=== PATIENT | female | born 1970 | race Caucasian/White ===

== ENCOUNTER 2023-08-22 17:14 | Emergency (ER) | payer OTHER, SELFPAY ==
[2023-08-22 17:24] VITALS: BP 120/64; PULSE 68; RESP 20; TEMP 36.6; O2SAT 98; BMI 25.2
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
== END 2023-08-22 18:39 | disposition home or self-care (01) ==
PROVIDERS: Emergency Provider Emergency Medicine; PCP Family Medicine
DX: R07.89 Other chest pain (principal); Z79.899 Other long term (current) drug therapy; Z79.890 Hormone replacement therapy
CPT/HCPCS: 71046; 99283

== ENCOUNTER 2023-08-28 17:49 | Emergency (ER) | payer OTHER, SELFPAY ==
--- OUTSIDE RECORDS SUMMARY | 2023-08-28 17:57 | XMS_ITS | CCD ---
Author Name Unknown Address [address] [place] [address] Organization [facility] Care Team Providers Care Subassembler Name Role Phone Celso Jimenez Primary Care Provider [phone] DOUG GAVIN Admitting Unavailable HEDGES, DR DOUG Trivedi Attending Unavailable COLE, DR CELSO Rios Primary Care Unavailable GIGI, DR ALEXEY Shrestha Consulting Unavailable HEDGEDia, DR DOUG Trivedi Consulting Unavailable COLE, DR CELSO Rios Admitting Unavailable FURLONG, DR CELSO Rios Attending Unavailable COLE, DR CELSO Rios Primary Care Unavailable FURLONG, DR CELSO Rios Consulting Unavailable HEDGES, DR DOUG Trivedi Admitting Unavailable HEDGES, DR DOUG Trivedi Attending Unavailable SBNG, DR CELSO Rios Primary Care Unavailable ZIEBER, DR ALEXEY Shrestha Consulting Unavailable LAINES, DR DOUG Trivedi Consulting Unavailable COLE, DR CELSO Riso Primary Care Unavailable SALVADOR, DR GRAEME Hess Admitting Unavailable SALVADOR, DR GRAEME Hess Attending Unavailable SALVADOR, DR GRAEME Hess Consulting Unavailable GIGI, DR ALEXEY Shrestha Consulting Unavailable SAFIA FRAZIER Consulting Unavailable MARILU TOPETE Consulting Unavailable Celso Jimenez Primary Care Provider [phone] DOUG GAVIN Referring Unavailable CELSO JIMENEZ Primary Care Unavailable Yazanlong Celso OTOOLE Primary Care Provider [phone] Allergies Allergy Classification Reported Allergen(s) Allergy Type Date of Onset Reaction(s) Facility (5 sources) Codeine Drug Allergy 0 Other (See Comments) [place] (1 source) Codeine Drug Allergy [facility] (2 sources) Latex Propensity to adverse reactions to drug 2 Other (See Comments) [facility] (1 source) Seasonal allergy Propensity to adverse reactions to substance 2 Other (See Comments) [facility] (1 source) Hay Fever And Allergy Relief Propensity to adverse reactions to drug 2 Other (See Comments) [facility] Medications Current Medications Medication Drug Class(es) Dates Sig (Normalized) Sig (Original) [id number] 200 actuat albuterol 0.09 mg/actuat metered dose inhaler (2 sources) beta2-Adrenergic Agonist Start: 08-05-2016 PROAIR HFA 108 (90 BASE) MCG/ACT inhaler Start: 08-05-2016 PROAIR HFA 108 (90 BASE) MCG/ACT inhaler estradiol 1 mg oral tablet (4 sources) Estrogen Start: 02-24-2023 take 1 tablet by mouth once daily estradiol (ESTRACE) 1 MG tablet Indications: Premature surgical menopause on hormone replacement therapy Take 1 tablet by mouth daily 30 tablet 12 02/24/2023 Active Start: 01-10-2020 take 1 tablet by beverly once daily estradiol (ESTRACE) 1 MG tablet Indications: Premature surgical menopause on hormone replacement therapy Take 1 tablet by mouth daily 30 tablet 12 01/10/2020 Active Estrogens, Conjugated (INTERMEDIATE) (1 source) Estrogen Estrogens Conjug ated Active fluticasone propionate 0.05 mg/actuat metered dose nasal spray (3 sources) Corticosteroid Start: 04-05-2022 take 2 spray(s) nasal route once daily fluticasone propionate (FLONASE) 50 mcg/actuation nasal spray instill 2 (TWO) sprays nasally DAILY for 14 days 0 04/05/2022 Active Start: 04-05-2022 take 2 spray(s) nasa l route once daily fluticasone (FLONASE) 50 MCG/ACT nasal spray instill 2 (TWO) sprays nasally DAILY for 14 days 0 04/05/2022 Active Start: 04-05-2022 take 2 spray(s) nasa l route once daily Fluticasone Propionate 50 MCG/ACT 2 sprays Nasally Once a day for 14 day(s) Mar, Active ibuprofen 800 mg oral tablet (1 source) Nonsteroidal Anti-inflammatory Drug take 1 tablet by mouth every eight hours as needed for pain ibuprofen (ADVIL,MOTRIN) 800 mg tablet Take 1 tablet (800 mg total) by mouth every 8 (eight) hours as needed for pain. 0 Active levothyroxine sodium 0.05 mg oral tablet (6 sources) l-Thyroxine Start: 022 End: 024 take 1 tablet by mouth once daily levothyroxine (SYNTHROID, LEVOTHROID) 50 MCG tablet Indications: Hypothyroidism, unspecified TAKE 1 TABLET BY MOUTH EVERY DAY 30 tablet 1 07/27/2023 Active Start: 12-13-2019 take 1 tablet by beverly th once daily levothyroxine (SYNTHROID) 25 MCG tablet Take 1 tablet(s) every day by oral route. 0 12/13/2019 Active Levothyroxine So dium Active Multiple Vitamins-Minerals ( MULTIVITAMIN PO) (3 sources) Multiple Vitamin s-Minerals (MULTIVITAMIN PO) Indications: Routine gynecological examination Take by mouth. 0 Active Problems Active Problems Problem Classification Problem Date Documented Da te Episodic/Chronic Asthma (1 source) Reactive airway disease; Translations: [Unspecified asthma, uncomplicated] Onset: 04-30-2022 04-30-2022 Chronic Endometriosis (1 source) Endometriosis (clinical); Translations: [Endometriosis, unspecified] Onset: 04-30-2022 04-30-2022 Chronic Fluid and electrolyte disorders (1 source) Hypokalemia; Translations: [HYPOKALEMIA] Onset: 05-03-2022 Episodic Gastrointestinal hemorrhage (4 sources) Hemorrhage of anus and rectum; Translations: [Gastrointestinal hemorrhage, unspecified] Onset: 04-25-2022 Episodic Immunizations and screening for infectious disease (2 sources) Contact with and (suspected) exposure to other viral communicable diseases; Translations: [Contact with and (suspected) exposure to other viral communicable diseases] Episodic Noninfectious gastroenteritis (1 source) Noninfective gastroenteritis and colitis, unspecified; Translations: [NONINFECTIVE GE AND COLITIS UNS] Onset: 05-03-2022 Episodic Other aftercare (1 source) Other fpc (current) drug therapy; Translations: [OTH SENIOR CARE CURRENT DRUG THERAPY] Onset: 05-03-2022 Episodic Other and unspecified benign neoplasm (1 source) Personal history of colonic polyps; Translations: [PERSONAL HISTORY OF COLONIC POLYPS] Onset: 05-03-2022 Episodic Other endocrine disorders (4 sources) Other specified disorders of adrenal gland; Translations: [OTHER SPEC DISORDERS ADRENAL GLAND] Onset: 02-25-2022 Chronic Other endocrine disorders (1 source) Polycystic ovary; Translations: [Polycystic ovarian syndrome] Onset: 04-30-2022 04-30-2022 Chronic Other endocrine disorders (1 source) Hypoglycemia; Translations: [Hypoglycemia, unspecified] Onset: 04-30-2022 04-30-2022 Chronic Residual codes; unclassified (1 source) Acquired absence of both cervix and uterus; Translations: [ACQUIRED ABSENCE BOTH CERVIX AND UTERUS] Onset: 05-03-2022 Episodic Screening and history of mental health and substance abuse codes (1 source) Personal history of nicotine dependence; Translations: [PERSONAL HISTORY OF NICOTINE DEPEND] Onset: 05-03-2022 Episodic Thyroid disorders (3 sources) Hypothyroidism, unspecified; Translations: [Hypothyroidism] Onset: 08-24-2019 07-27-2023 Chronic Unclassified (1 source) Patient encounter status; Translations: [Encounter for well woman exam with routine gynecological exam] Unclassified (3 sources) CONTACT W/AND (SUSP) EXPOS COVID-19; Translations: [CONTACT W/AND (SUSP) EXPOS COVID-19] Onset: 06-14-2021 Viral infection (2 sources) COVID-19; Translations: [COVID-19] Onset: 06-14-2021 Past or Other Problems Problem Classification Problem Date Documented Da te Episodic/Chronic Allergic reactions (1 source) Erythema ab igne; Translations: [Erythema ab igne [dermatitis ab igne]] Onset: 09-10-2016 04-30-2022 Episodic Deficiency and other anemia (1 source) Anemia; Translations: [Anemia, unspecified] Onset: 04-30-2022 04-30-2022 Episodic Mood disorders (1 source) Mood disorders Onset: 08-30-2022 08-30-2022 Other and unspecified benign neoplasm (1 source) Polyp of sigmoid colon; Translations: [Polyp of colon] Onset: 10-22-2020 10-22-2020 Episodic Other bone disease and musculoskeletal deformities (1 source) Somatic dysfunction of lumbar region; Translations: [Segmental and somatic dysfunction of lumbar region] Onset: 04-30-2022 04-30-2022 Episodic Other nutritional; endocrine; and metabolic disorders (1 source) Overweight; Translations: [Overweight] Onset: 08-30-2022 08-30-2022 Episodic Other screening for suspected conditions (not mental disorders or infectious disease) (4 sources) Encounter for screening mammogram for malignant neoplasm of breast; Translations: [ENC SCR MAMMO MALIG NEOPLASM BREAST] Onset: 10-30-2021 Episodic Other upper respiratory infections (1 source) Acute upper respiratory infection, unspecified; Translations: [ACUTE UP RESPIRATORY INFECTION UNS] Onset: 06-14-2021 Episodic Unclassified (1 source) CONTACT W/AND (SUSP) EXPOS COVID-19; Translations: [CONTACT W/AND (SUSP) EXPOS COVID-19] Onset: 06-08-2021 Viral infection (1 source) Genital warts; Translations: [Anogenital (venereal) warts] Onset: 04-30-2022 04-30-2022 Episodic Results Test Name Value Interpretation Reference Range Facility CBC AUTO DIFFon 04-27-2022 BASO # 0.1 103/ul Normal 0.0-0.1 [facility] Comment on above: Performed By: #### C BC #### [facility] [address] [place] [address] Dr. Kenton Avila Basophils/100 WBC (Bld) 0.5 % Normal 0.2-2.0 [facility] Comment on above: Performed By: #### C BC #### [facility] [address] [place] [address] Dr. Kenton Avila EO # 0.2 103/ul Normal 0.0-0.7 [facility] Comment on above: Performed By: #### C BC #### [facility] [address] [place] [address] Dr. Kenton Avila Eosinophils/100 WBC (Bld) 1.8 % Normal 0.9-7.0 [facility] Comment on above: Performed By: #### C BC #### [facility] [address] [place] [address] Dr. Kenton Avila Erythrocyte distribution width (RBC) [Ratio] 13.2 % Normal 11.0-15.0 [facility] Comment on above: Performed By: #### C BC #### [facility] [address] [address] [address] Kenton Avila Hematocrit (Bld) [Volume fraction] 30.6 % Critically low 36.0-48.0 [facility] Comment on above: Performed By: #### C BC #### [facility] [address] [address] [address] Kenton Avila Hemoglobin (Bld) [Mass/Vol] 10.2 g/dL Critically low 12.0-16.0 [facility] Comment on above: Performed By: #### C BC #### [facility] [address] [place] [address] Dr. Kenton Avila IG # 0.04 10e3/ul Critically high 0.00-0.03 [facility] Comment on above: Performed By: #### C BC #### [facility] [address] [place] [address] Dr. Kenton Avila IG % 0.3 % Normal 0.0-0.5 [facility] Comment on above: Performed By: #### C BC #### [facility] [address] [place] [address] Dr. Kenton Avila LYMPH # 2.3 103/ul Normal 1.2-3.8 [facility] Comment on above: Performed By: #### C BC #### [facility] [address] [place] [address] Dr. Kenton Avila Lymphocytes/100 WBC (Bld) 19.0 % Critically low 20.5-60.0 [facility] Comment on above: Performed By: #### C BC #### [facility] [address] [place] [address] Dr. Kenton Avila MANUAL DIFF REQ NO Normal [facility] Comment on above: Performed By: #### C BC #### [facility] [address] [place] [address] Dr. Kenton Avila MCH (RBC) [Entitic mass] 29.5 pg Normal 26.7-34.0 [facility] Comment on above: Performed By: #### C BC #### [facility] [address] [place] [address] Dr. Kenton Avila MCHC (RBC) [Mass/Vol] 33.3 g/dL Normal 29.9-35.2 [facility] Comment on above: Performed By: #### C BC #### [facility] [address] [address] [address] Kenton Avila MCV (RBC) [Entitic vol] 88.4 fL Normal 81.0-99.0 [facility] Comment on above: Performed By: #### C BC #### [facility] [address] [address] [address] Kenton Avila MONO # 0.9 103/ul Critically high 0.3-0.[address] [facility] Comment on above: Performed By: #### C BC #### [facility] [address] [place] [address] Dr. Kenton Avila Monocytes/100 WBC (Bld) 7.4 % Normal 1.7-12.0 [facility] Comment on above: Performed By: #### C BC #### [facility] [address] [place] [address] Dr. Kenton Avila NEUT # 8.5 103/ul Critically high 1.4-6.[address] [facility] Comment on above: Performed By: #### C BC #### [facility] [address] [place] [address] Dr. Kenton Avila Neutrophils/100 WBC (Bld) 71.0 % Normal 43.0-75.0 [facility] Comment on above: Performed By: #### C BC #### [facility] [address] [place] [address] Dr. Kenton Avila Platelet mean volume (Bld) [Entitic vol] 9.2 fL Critically low 9.5-13.5 [facility] Comment on above: Performed By: #### C BC #### [facility] [address] [place] [address] Dr. Kenton Avila PLT 243 103/ul Normal 150-450 [facility] Comment on above: Performed By: #### C BC #### [facility] [address] [place] [address] Dr. Kenton Avila RBC 3.46 106/ul Critically low 4.20-5.[address] [facility] Comment on above: Performed By: #### C BC #### [facility] [address] [place] [address] Dr. Kenton Avila WBC 11.9 103/ul Critically high 4.0-11.0 [facility] Comment on above: Performed By: #### C BC #### [facility] [address] [place] [address] Dr. Kenton Avila BASO # 0.0 103/ul Normal 0.0-0.1 [facility] Comment on above: Performed By: #### C BC #### [facility] [address] [place] [address] Dr. Kenton Avila Basophils/100 WBC (Bld) 0.4 % Normal 0.2-2.0 [facility] Comment on above: Performed By: #### C BC #### [facility] [address] [place] [address] Dr. Kenton Avila EO # 0.1 103/ul Normal 0.0-0.7 [facility] Comment on above: Performed By: #### C BC #### [facility] [address] [place] [address] Dr. Kenton Avila Eosinophils/100 WBC (Bld) 1.2 % Normal 0.9-7.0 [facility] Comment on above: Performed By: #### C BC #### [facility] [address] [place] [address] Dr. Kenton Avila Erythrocyte distribution width (RBC) [Ratio] 13.2 % Normal 11.0-15.0 [facility] Comment on above: Performed By: #### C BC #### [facility] [address] [place] [address] Dr. Kenton Avila Hematocrit (Bld) [Volume fraction] 27.1 % Critically low 36.0-48.0 [facility] Comment on above: Performed By: #### C BC #### [facility] [address] [place] [address] Dr. Kenton Avila Hemoglobin (Bld) [Mass/Vol] 9.3 g/dL Critically low 12.0-16.0 [facility] Comment on above: Performed By: #### C BC #### [facility] [address] [place] [address] Dr. Kenton Avila IG # 0.03 10e3/ul Normal 0.00-0.03 [facility] Comment on above: Performed By: #### C BC #### [facility] [address] [place] [address] Dr. Kenton Avila IG % 0.3 % Normal 0.0-0.5 [facility] Comment on above: Performed By: #### C BC #### [facility] [address] [place] [address] Dr. Kenton Avila LYMPH # 2.1 103/ul Normal 1.2-3.8 [facility] Comment on above: Performed By: #### C BC #### [facility] [address] [place] [address] Dr. Kenton Avila Lymphocytes/100 WBC (Bld) 19.5 % Critically low 20.5-60.0 [facility] Comment on above: Performed By: #### C BC #### [facility] [address] [place] [address] Dr. Kenton Avila MANUAL DIFF REQ NO Normal [facility] Comment on above: Performed By: #### C BC #### [facility] [address] [place] [address] Dr. Kenton Avila MCH (RBC) [Entitic mass] 30.1 pg Normal 26.7-34.0 [facility] Comment on above: Performed By: #### C BC #### [facility] [address] [place] [address] Dr. Kenton Avila MCHC (RBC) [Mass/Vol] 34.3 g/dL Normal 29.9-35.2 [facility] Comment on above: Performed By: #### C BC #### [facility] [address] [place] [address] Dr. Kenton Avial MCV (RBC) [Entitic vol] 87.7 fL Normal 81.0-99.0 [facility] Comment on above: Performed By: #### C BC #### [facility] [address] [place] [address] Dr. Kenton Avila MONO # 0.7 103/ul Normal 0.3-0.8 [facility] Comment on above: Performed By: #### C BC #### [facility] [address] [place] [address] Dr. Kenton Avila Monocytes/100 WBC (Bld) 6.6 % Normal 1.7-12.0 [facility] Comment on above: Performed By: #### C BC #### [facility] [address] [place] [address] Dr. Kenton Avila NEUT # 7.7 103/ul Critically high 1.4-6.5 [facility] Comment on above: Performed By: #### C BC #### [facility] [address] [place] [address] Dr. Kenton Avila Neutrophils/100 WBC (Bld) 72.0 % Normal 43.0-75.0 [facility] Comment on above: Performed By: #### C BC #### [facility] [address] [place] [address] Dr. Kenton Avila Platelet mean volume (Bld) [Entitic vol] 8.9 fL Critically low 9.5-13.5 [facility] Comment on above: Performed By: #### C BC #### [facility] [address] [place] [address] Dr. Kenton Avila PLT 214 103/ul Normal 150-450 [facility] Comment on above: Performed By: #### C BC #### [facility] [address] [place] [address] Dr. Kenton Avila RBC 3.09 106/ul Critically low 4.20-5.[address] [facility] Comment on above: Performed By: #### C BC #### [facility] [address] [place] [address] Dr. Kenton Avila WBC 10.6 103/ul Normal 4.0-11.0 [facility] Comment on above: Performed By: #### C BC #### [facility] [address] [address] [address] Kenton Avila BASO # 0.1 103/ul Normal 0.0-0.1 [facility] Comment on above: Performed By: #### C BC #### [facility] [address] [address] [address] Kenton Avila Basophils/100 WBC (Bld) 0.4 % Normal 0.2-2.0 [facility] Comment on above: Performed By: #### C BC #### [facility] [address] [address] [address] Kenton Avila EO # 0.2 103/ul Normal 0.0-0.7 [facility] Comment on above: Performed By: #### C BC #### [facility] [address] [place] [address] Dr. Kenton Avila Eosinophils/100 WBC (Bld) 1.3 % Normal 0.9-7.0 [facility] Comment on above: Performed By: #### C BC #### [facility] [address] [place] [address] Dr. Kenton Avila Erythrocyte distribution width (RBC) [Ratio] 13.2 % Normal 11.0-15.0 [facility] Comment on above: Performed By: #### C BC #### [facility] [address] [place] [address] Dr. Kenton Avila Hematocrit (Bld) [Volume fraction] 28.5 % Critically low 36.0-48.0 [facility] Comment on above: Performed By: #### C BC #### [facility] [address] [place] [address] Dr. Kenton Avila Hemoglobin (Bld) [Mass/Vol] 9.6 g/dL Critically low 12.0-16.0 [facility] Comment on above: Performed By: #### C BC #### [facility] [address] [place] [address] Dr. Kenton Avila IG # 0.05 10e3/ul Critically high 0.00-0.03 [facility] Comment on above: Performed By: #### C BC #### [facility] [address] [place] [address] Dr. Kenton Avila IG % 0.4 % Normal 0.0-0.5 [facility] Comment on above: Performed By: #### C BC #### [facility] [address] [place] [address] Dr. Kenton Avila LYMPH # 2.5 103/ul Normal 1.2-3.8 [facility] Comment on above: Performed By: #### C BC #### [facility] [address] [place] [address] Dr. Kenton Avila Lymphocytes/100 WBC (Bld) 20.4 % Critically low 20.5-60.0 [facility] Comment on above: Performed By: #### C BC #### [facility] [address] [place] [address] Dr. Kenton Avila MANUAL DIFF REQ NO Normal [facility] Comment on above: Performed By: #### C BC #### [facility] [address] [place] [address] Dr. Kenton Avila MCH (RBC) [Entitic mass] 29.6 pg Normal 26.7-34.0 [facility] Comment on above: Performed By: #### C BC #### [facility] [address] [place] [address] Dr. Kenton Avila MCHC (RBC) [Mass/Vol] 33.7 g/dL Normal 29.9-35.2 [facility] Comment on above: Performed By: #### C BC #### [facility] [address] [place] [address] Dr. Kenton Avila MCV (RBC) [Entitic vol] 88.0 fL Normal 81.0-99.0 [facility] Comment on above: Performed By: #### C BC #### [facility] [address] [place] [address] Dr. Kenton Avila MONO # 0.8 103/ul Normal 0.3-0.8 [facility] Comment on above: Performed By: #### C BC #### [facility] [address] [address] [address] Kenton Avila Monocytes/100 WBC (Bld) 6.7 % Normal 1.7-12.0 [facility] Comment on above: Performed By: #### C BC #### [facility] [address] [address] [address] Kenton Avila NEUT # 8.6 103/ul Critically high 1.4-6.[address] [facility] Comment on above: Performed By: #### C BC #### [facility] [address] [address] [address] Kenton Avila Neutrophils/100 WBC (Bld) 70.8 % Normal 43.0-75.0 [facility] Comment on above: Performed By: #### C BC #### [facility] [address] [place] [address] Dr. Kenton Avila Platelet mean volume (Bld) [Entitic vol] 9.0 fL Critically low 9.5-13.5 [facility] Comment on above: Performed By: #### C BC #### [facility] [address] [place] [address] Dr. Kenton Avila PLT 227 103/ul Normal 150-450 [facility] Comment on above: Performed By: #### C BC #### [facility] [address] [place] [address] Dr. Kenton Avila RBC 3.24 106/ul Critically low 4.20-5.40 [facility] Comment on above: Performed By: #### C BC #### [facility] [address] [place] [address] Dr. Kenton Avila WBC 12.2 103/ul Critically high 4.0-11.0 [facility] Comment on above: Performed By: #### C BC #### [facility] [address] [place] [address] Dr. Kenton Avila PROF 14(COMP METB)on 04-27- 022 Albumin [Mass/Vol] 2.7 g/dL Critically low 3.4-5.0 [facility] Comment on above: Performed By: #### C MP #### [facility] [address] [address] [address] Kenton Avila Albumin/Globulin [Mass ratio] 0.9 {ratio} Normal [facility] Comment on above: Performed By: #### C MP #### [facility] [address] [address] [address] Kenton Avila ALP [Catalytic activity/Vol] 49 U/L Normal 46-116 [facility] Comment on above: Performed By: #### C MP #### [facility] [address] [place] [address] Dr. Kenton Avila ALT [Catalytic activity/Vol] 29 U/L Normal 14-59 [facility] Comment on above: Performed By: #### C MP #### [facility] [address] [place] [address] Dr. Kenton Avila Anion gap [Moles/Vol] 10.8 mmol/L Normal [facility] Comment on above: Performed By: #### C MP #### [facility] [address] [place] [address] Dr. Kenton Avila AST [Catalytic activity/Vol] 16 U/L Normal 15-37 [facility] Comment on above: Performed By: #### C MP #### [facility] [address] [place] [address] Dr. Kenton Avila Bilirubin [Mass/Vol] 0.3 mg/dL Normal 0.2-1.0 [facility] Comment on above: Performed By: #### C MP #### [facility] [address] [place] [address] Dr. Kenton Avila Calcium [Mass/Vol] 7.8 mg/dL Critically low 8.5-10.1 [facility] Comment on above: Performed By: #### C MP #### [facility] [address] [place] [address] Dr. Kenton Avila Chloride [Moles/Vol] 106 mmol/L Normal 98-107 [facility] Comment on above: Performed By: #### C MP #### [facility] [address] [place] [address] Dr. Kenton Avila CO2 [Moles/Vol] 24.5 mmol/L Normal 21.0-32.0 [facility] Comment on above: Performed By: #### C MP #### [facility] [address] [address] [address] Kenton Avila Creatinine [Mass/Vol] 0.72 mg/dL Normal 0.55-1.02 [facility] Comment on above: Performed By: #### C MP #### [facility] [address] [address] [address] Kenton Avila EGFR-AF JAPANESE >60 Normal >=60 [facility] Comment on above: Performed By: #### C MP #### [facility] [address] [address] [address] Kenton Avila EGFR-NON AF JAPANESE >60 Normal >=60 [facility] Comment on above: Performed By: #### C MP #### [facility] [address] [address] [address] Kenton Avila Globulin (S) [Mass/Vol] 3.1 g/dL Normal [facility] Comment on above: Performed By: #### C MP #### [facility] [address] [address] [address] Kenton Avila Glucose [Mass/Vol] 95 mg/dL Normal 74-106 [facility] Comment on above: Performed By: #### C MP #### [facility] [address] [address] [address] Kenton Avila Potassium [Moles/Vol] 3.3 mmol/L Critically low 3.5-5.1 [facility] Comment on above: Performed By: #### C MP #### [facility] [address] [address] [address] Kenton Avila Protein [Mass/Vol] 5.8 g/dL Critically low 6.4-8.2 [facility] Comment on above: Performed By: #### C MP #### [facility] [address] [address] [address] Kenton Avila Sodium [Moles/Vol] 138 mmol/L Normal 136-145 [facility] Comment on above: Performed By: #### C MP #### [facility] [address] [place] [address] Dr. Kenton Avila Urea nitrogen [Mass/Vol] 4.0 mg/dL Critically low 7.0-18.0 [facility] Comment on above: Performed By: #### C MP #### [facility] [address] [place] [address] Dr. Kenton Avila Urea nitrogen/Creatinine [Mass ratio] 5.6 mg/mg Normal [facility] Comment on above: Performed By: #### C MP #### [facility] [address] [place] [address] Dr. Kenton Avila CBC AUTO DIFFon 04-26-2022 Eosinophils/100 WBC (Bld) 0.7 % Critically low 0.9-7.0 [facility] Comment on above: Performed By: #### C BC #### [facility] [address] [place] [address] Dr. Kenton Avila Hematocrit (Bld) [Volume fraction] 28.1 % Critically low 36.0-48.0 [facility] Comment on above: Performed By: #### C BC #### [facility] [address] [place] [address] Dr. Kenton Avila Hemoglobin (Bld) [Mass/Vol] 9.6 g/dL Critically low 12.0-16.0 [facility] Comment on above: Performed By: #### C BC #### [facility] [address] [place] [address] Dr. Kenton Avila IG # 0.04 10e3/ul Critically high 0.00-0.03 [facility] Comment on above: Performed By: #### C BC #### [facility] [address] [place] [address] Dr. Kenton Avila IG % 0.3 % Normal 0.0-0.5 [facility] Comment on above: Performed By: #### C BC #### [facility] [address] [place] [address] Dr. Kenton Avila LYMPH # 1.8 103/ul Normal 1.2-3.8 [facility] Comment on above: Performed By: #### C BC #### [facility] [address] [place] [address] Dr. Kenton Avila Lymphocytes/100 WBC (Bld) 15.0 % Critically low 20.5-60.0 [facility] Comment on above: Performed By: #### C BC #### [facility] [address] [place] [address] Dr. Kenton Avila MCH (RBC) [Entitic mass] 30.0 pg Normal 26.7-34.0 [facility] Comment on above: Performed By: #### C BC #### [facility] [address] [place] [address] Dr. Kenton Avila MCHC (RBC) [Mass/Vol] 34.2 g/dL Normal 29.9-35.2 [facility] Comment on above: Performed By: #### C BC #### [facility] [address] [place] [address] Dr. Kenton Avila MCV (RBC) [Entitic vol] 87.8 fL Normal 81.0-99.0 [facility] Comment on above: Performed By: #### C BC #### [facility] [address] [place] [address] Dr. Kenton Avila Monocytes/100 WBC (Bld) 7.5 % Normal 1.7-12.0 [facility] Comment on above: Performed By: #### C BC #### [facility] [address] [place] [address] Dr. Kenton Avila NEUT # 9.0 103/ul Critically high 1.4-6.[address] [facility] Comment on above: Performed By: #### C BC #### [facility] [address] [place] [address] Dr. Kenton Avila Neutrophils/100 WBC (Bld) 76.2 % Critically high 43.0-75.0 [facility] Comment on above: Performed By: #### C BC #### [facility] [address] [place] [address] Dr. Kenton Avila Platelet mean volume (Bld) [Entitic vol] 9.2 fL Critically low 9.5-13.5 [facility] Comment on above: Performed By: #### C BC #### [facility] [address] [place] [address] Dr. Kenton Avila PLT 209 103/ul Normal 150-450 [facility] Comment on above: Performed By: #### C BC #### [facility] [address] [place] [address] Dr. Kenton Avila RBC 3.20 106/ul Critically low 4.20-5.40 [facility] Comment on above: Performed By: #### C BC #### [facility] [address] [place] [address] Dr. Kenton Avila BASO # 0.0 103/ul Normal 0.0-0.1 [facility] Comment on above: Performed By: #### C BC #### [facility] [address] [place] [address] Dr. Kenton Avila Performed By: #### C MP #### [facility] [address] [place] [address] Dr. Kenton Avila Basophils/100 WBC (Bld) 0.2 % Normal 0.2-2.0 [facility] Comment on above: Performed By: #### C BC #### [facility] [address] [place] [address] Dr. Kenton Avila EO # 0.0 103/ul Normal 0.0-0.7 [facility] Comment on above: Performed By: #### C BC #### [facility] [address] [place] [address] Dr. Kenton Avila Eosinophils/100 WBC (Bld) 0.3 % Critically low 0.9-7.0 [facility] Comment on above: Performed By: #### C BC #### [facility] [address] [place] [address] Dr. Kenton Avila Erythrocyte distribution width (RBC) [Ratio] 13.2 % Normal 11.0-15.0 [facility] Comment on above: Performed By: #### C BC #### [facility] [address] [address] [address] Kenton Avila Hematocrit (Bld) [Volume fraction] 29.5 % Critically low 36.0-48.0 [facility] Comment on above: Performed By: #### C BC #### [facility] [address] [place] [address] Dr. Kenton Avila Hemoglobin (Bld) [Mass/Vol] 9.8 g/dL Critically low 12.0-16.0 [facility] Comment on above: Performed By: #### C BC #### [facility] [address] [place] [address] Dr. Kenton Avila IG # 0.05 10e3/ul Critically high 0.00-0.03 [facility] Comment on above: Performed By: #### C BC #### [facility] [address] [place] [address] Dr. Kenton Avila IG % 0.4 % Normal 0.0-0.5 [facility] Comment on above: Performed By: #### C BC #### [facility] [address] [place] [address] Dr. Kenton Avila LYMPH # 1.4 103/ul Normal 1.2-3.8 [facility] Comment on above: Performed By: #### C BC #### [facility] [address] [place] [address] Dr. Kenton Avila Lymphocytes/100 WBC (Bld) 12.3 % Critically low 20.5-60.0 [facility] Comment on above: Performed By: #### C BC #### [facility] [address] [place] [address] Dr. Kenton Avila MANUAL DIFF REQ NO Normal [facility] Comment on above: Performed By: #### C BC #### [facility] [address] [place] [address] Dr. Kenton Avila Performed By: #### C MP #### [facility] [address] [place] [address] Dr. Kenton Avila MCH (RBC) [Entitic mass] 29.3 pg Normal 26.7-34.0 [facility] Comment on above: Performed By: #### C BC #### [facility] [address] [address] [address] Kenton Avila MCHC (RBC) [Mass/Vol] 33.2 g/dL Normal 29.9-35.2 [facility] Comment on above: Performed By: #### C BC #### [facility] [address] [address] [address] Kenton Avila MCV (RBC) [Entitic vol] 88.3 fL Normal 81.0-99.0 [facility] Comment on above: Performed By: #### C BC #### [facility] [address] [address] [address] Kenton Avila MONO # 0.8 103/ul Normal 0.3-0.8 [facility] Comment on above: Performed By: #### C BC #### [facility] [address] [address] [address] Kenton Avila Monocytes/100 WBC (Bld) 6.5 % Normal 1.7-12.0 [facility] Comment on above: Performed By: #### C BC #### [facility] [address] [address] [address] Kenton Avila NEUT # 9.3 103/ul Critically high 1.4-6.5 [facility] Comment on above: Performed By: #### C BC #### [facility] [address] [address] [address] Kenton Avila Neutrophils/100 WBC (Bld) 80.3 % Critically high 43.0-75.0 [facility] Comment on above: Performed By: #### C BC #### [facility] [address] [address] [address] Kenton Avila Platelet mean volume (Bld) [Entitic vol] 9.1 fL Critically low 9.5-13.5 [facility] Comment on above: Performed By: #### C BC #### [facility] [address] [address] [address] Kenton Avila PLT 225 103/ul Normal 150-450 [facility] Comment on above: Performed By: #### C BC #### [facility] [address] [address] [address] Kenton Avila RBC 3.34 106/ul Critically low 4.20-5.[address] [facility] Comment on above: Performed By: #### C BC #### [facility] [address] [place] [address] Dr. Kenton Avila WBC 11.6 103/ul Critically high 4.0-11.0 [facility] Comment on above: Performed By: #### C BC #### [facility] [address] [place] [address] Dr. Kenton Avila Basophils/100 WBC (Bld) 0.3 % Normal 0.2-2.0 [facility] Comment on above: Performed By: #### C BC #### [facility] [address] [place] [address] Dr. Kenton Avila Performed By: #### C MP #### [facility] [address] [place] [address] Dr. Kenton Avila EO # 0.1 103/ul Normal 0.0-0.7 [facility] Comment on above: Performed By: #### C BC #### [facility] [address] [place] [address] Dr. Kenton Avila Performed By: #### C MP #### [facility] [address] [place] [address] Dr. Kentno Avila Eosinophils/100 WBC (Bld) 0.6 % Critically low 0.9-7.0 [facility] Comment on above: Performed By: #### C MP #### [facility] [address] [place] [address] Dr. Kenton Avila Erythrocyte distribution width (RBC) [Ratio] 13.1 % Normal 11.0-15.0 [facility] Comment on above: Performed By: #### C BC #### [facility] [address] [place] [address] Dr. Kenton Avila Performed By: #### C MP #### [facility] [address] [place], [place] [id number] Dr. Kenton Avila Hematocrit (Bld) [Volume fraction] 30.1 % Critically low 36.0-48.0 [facility] Comment on above: Performed By: #### C MP #### [facility] [address] [place] [address] Dr. Kenton Avila Hemoglobin (Bld) [Mass/Vol] 10.0 g/dL Critically low 12.0-16.0 [facility] Comment on above: Performed By: #### C MP #### [facility] [address] [place] [address] Dr. Kenton Avila IG # 0.05 10e3/ul Critically high 0.00-0.03 [facility] Comment on above: Performed By: #### C MP #### [facility] [address] [place] [address] Dr. Kenton Avila IG % 0.4 % Normal 0.0-0.5 [facility] Comment on above: Performed By: #### C MP #### [facility] [address] [place] [address] Dr. Kenton Avila LYMPH # 1.7 103/ul Normal 1.2-3.8 [facility] Comment on above: Performed By: #### C MP #### [facility] [address] [place] [address] Dr. Kenton Avila Lymphocytes/100 WBC (Bld) 14.1 % Critically low 20.5-60.0 [facility] Comment on above: Performed By: #### C MP #### [facility] [address] [place] [address] Dr. Kenton Avila MCH (RBC) [Entitic mass] 29.7 pg Normal 26.7-34.0 [facility] Comment on above: Performed By: #### C MP #### [facility] [address] [place] [address] Dr. Kenton Avila MCHC (RBC) [Mass/Vol] 33.2 g/dL Normal 29.9-35.2 [facility] Comment on above: Performed By: #### C MP #### [facility] [address] [place] [address] Dr. Kenton Avila MCV (RBC) [Entitic vol] 89.3 fL Normal 81.0-99.0 [facility] Comment on above: Performed By: #### C MP #### [facility] [address] [place] [address] Dr. Kenton Avila MONO # 0.9 103/ul Critically high 0.3-0.[address] [facility] Comment on above: Performed By: #### C BC #### [facility] [address] [place] [address] Dr. Kenton Avila Performed By: #### C MP #### [facility] [address] [place] [address] Dr. Kenton Avila Monocytes/100 WBC (Bld) 7.2 % Normal 1.7-12.0 [facility] Comment on above: Performed By: #### C MP #### [facility] [address] [place] [address] Dr. Kenton Avila NEUT # 9.2 103/ul Critically high 1.4-6.[address] [facility] Comment on above: Performed By: #### C MP #### [facility] [address] [place] [address] Dr. Kenton Avila Neutrophils/100 WBC (Bld) 77.4 % Critically high 43.0-75.0 [facility] Comment on above: Performed By: #### C MP #### [facility] [address] [place] [address] Dr. Kenton Avila Platelet mean volume (Bld) [Entitic vol] 9.3 fL Critically low 9.5-13.5 [facility] Comment on above: Performed By: #### C MP #### [facility] [address] [place] [address] Dr. Kenton Avila PLT 214 103/ul Normal 150-450 [facility] Comment on above: Performed By: #### C MP #### [facility] [address] [place] [address] Dr. Kenton Avila RBC 3.37 106/ul Critically low 4.20-5.[address] [facility] Comment on above: Performed By: #### C MP #### [facility] [address] [address] [address] Kenton Avila WBC 11.8 103/ul Critically high 4.0-11.0 [facility] Comment on above: Performed By: #### C BC #### [facility] [address] [place] [address] Dr. Kenton Avila Performed By: #### C MP #### [facility] [address] [place] [address] Dr. Kenton Avila PROF 14(COMP METB)on 04-26- 022 Albumin [Mass/Vol] 2.9 g/dL Critically low 3.4-5.0 [facility] Comment on above: Performed By: #### C MP #### [facility] [address] [place] [address] Dr. Kenton Avila Albumin/Globulin [Mass ratio] 0.9 {ratio} Normal [facility] Comment on above: Performed By: #### C MP #### [facility] [address] [place] [address] Dr. Kenton Avila ALP [Catalytic activity/Vol] 62 U/L Normal 46-116 [facility] Comment on above: Performed By: #### C MP #### [facility] [address] [place] [address] Dr. Kenton Avila ALT [Catalytic activity/Vol] 32 U/L Normal 14-59 [facility] Comment on above: Performed By: #### C MP #### [facility] [address] [place] [address] Dr. Kenton Avila Anion gap [Moles/Vol] 9.7 mmol/L Normal [facility] Comment on above: Performed By: #### C MP #### [facility] [address] [place] [address] Dr. Kenton Avila AST [Catalytic activity/Vol] 24 U/L Normal 15-37 [facility] Comment on above: Performed By: #### C MP #### [facility] [address] [place] [address] Dr. Kenton Avila Bilirubin [Mass/Vol] 0.4 mg/dL Normal 0.2-1.0 [facility] Comment on above: Performed By: #### C MP #### [facility] [address] [address] [address] Kenton Avila Calcium [Mass/Vol] 7.8 mg/dL Critically low 8.5-10.1 [facility] Comment on above: Performed By: #### C MP #### [facility] [address] [address] [address] Kenton Avila Chloride [Moles/Vol] 104 mmol/L Normal 98-107 [facility] Comment on above: Performed By: #### C MP #### [facility] [address] [place] [address] Dr. Kenton Avila CO2 [Moles/Vol] 24.2 mmol/L Normal 21.0-32.0 [facility] Comment on above: Performed By: #### C MP #### [facility] [address] [place] [address] Dr. Kenton Avila Creatinine [Mass/Vol] 0.86 mg/dL Normal 0.55-1.02 [facility] Comment on above: Performed By: #### C MP #### [facility] [address] [place] [address] Dr. Kenton Avila EGFR-AF JAPANESE >60 Normal >=60 [facility] Comment on above: Performed By: #### C MP #### [facility] [address] [address] [address] Kenton Avila EGFR-NON AF JAPANESE >60 Normal >=60 [facility] Comment on above: Performed By: #### C MP #### [facility] [address] [address] [address] Kenton Avila Globulin (S) [Mass/Vol] 3.3 g/dL Normal [facility] Comment on above: Performed By: #### C MP #### [facility] [address] [place] [address] Dr. Kenton Avila Glucose [Mass/Vol] 128 mg/dL Critically high 74-106 [facility] Comment on above: Performed By: #### C MP #### [facility] [address] [address] [address] Kenton Avila Potassium [Moles/Vol] 2.9 mmol/L Critically low 3.5-5.1 [facility] Comment on above: Performed By: #### C MP #### [facility] [address] [address] [address] Kenton Avila Protein [Mass/Vol] 6.2 g/dL Critically low 6.4-8.2 [facility] Comment on above: Performed By: #### C MP #### [facility] [address] [place] [address] Dr. Kenton Avila Sodium [Moles/Vol] 134 mmol/L Critically low 136-145 [facility] Comment on above: Performed By: #### C MP #### [facility] [address] [place] [address] Dr. Kenton Avila Urea nitrogen [Mass/Vol] 6.0 mg/dL Critically low 7.0-18.0 [facility] Comment on above: Performed By: #### C MP #### [facility] [address] [place] [address] Dr. Kenton Avila Urea nitrogen/Creatinine [Mass ratio] 7.0 mg/mg Normal [facility] Comment on above: Performed By: #### C MP #### [facility] [address] [place] [address] Dr. Kenton Avila CBC AUTO DIFFon 04-25-2022 Basophils/100 WBC (Bld) 0.3 % Normal 0.2-2.0 [facility] Comment on above: Performed By: #### C BC #### [facility] [address] [place] [address] Dr. Kenton Avila Eosinophils/100 WBC (Bld) 0.6 % Critically low 0.9-7.0 [facility] Comment on above: Performed By: #### C BC #### [facility] [address] [place] [address] Dr. Kenton Avila Erythrocyte distribution width (RBC) [Ratio] 13.0 % Normal 11.0-15.0 [facility] Comment on above: Performed By: #### C BC #### [facility] [address] [place] [address] Dr. Kenton Avila Hematocrit (Bld) [Volume fraction] 31.2 % Critically low 36.0-48.0 [facility] Comment on above: Performed By: #### C BC #### [facility] [address] [place] [address] Dr. Kenton Avila Hemoglobin (Bld) [Mass/Vol] 10.5 g/dL Critically low 12.0-16.0 [facility] Comment on above: Performed By: #### C BC #### [facility] [address] [place] [address] Dr. Kenton Avila IG # 0.02 10e3/ul Normal 0.00-0.03 [facility] Comment on above: Performed By: #### C BC #### [facility] [address] [place] [address] Dr. Kenton Avila IG % 0.2 % Normal 0.0-0.5 [facility] Comment on above: Performed By: #### C BC #### [facility] [address] [place] [address] Dr. Kenton Avila LYMPH # 1.5 103/ul Normal 1.2-3.8 [facility] Comment on above: Performed By: #### C BC #### [facility] [address] [place] [address] Dr. Kenton Avila Lymphocytes/100 WBC (Bld) 14.7 % Critically low 20.5-60.0 [facility] Comment on above: Performed By: #### C BC #### [facility] [address] [place] [address] Dr. Kenton Avila MCH (RBC) [Entitic mass] 29.4 pg Normal 26.7-34.0 [facility] Comment on above: Performed By: #### C BC #### [facility] [address] [place] [address] Dr. Kenton Avila MCV (RBC) [Entitic vol] 87.4 fL Normal 81.0-99.0 [facility] Comment on above: Performed By: #### C BC #### [facility] [address] [place] [address] Dr. Kenton Avila MONO # 0.7 103/ul Normal 0.3-0.8 [facility] Comment on above: Performed By: #### C BC #### [facility] [address] [place] [address] Dr. Kenton Avila Monocytes/100 WBC (Bld) 6.7 % Normal 1.7-12.0 [facility] Comment on above: Performed By: #### C BC #### [facility] [address] [place] [address] Dr. Kenton Avila NEUT # 7.9 103/ul Critically high 1.4-6.[address] [facility] Comment on above: Performed By: #### C BC #### [facility] [address] [place] [address] Dr. Kenton Avila Neutrophils/100 WBC (Bld) 77.5 % Critically high 43.0-75.0 [facility] Comment on above: Performed By: #### C BC #### [facility] [address] [place] [address] Dr. Kenton Avila Platelet mean volume (Bld) [Entitic vol] 9.0 fL Critically low 9.5-13.5 [facility] Comment on above: Performed By: #### C BC #### [facility] [address] [place] [address] Dr. Kenton Avila PLT 241 103/ul Normal 150-450 [facility] Comment on above: Performed By: #### C BC #### [facility] [address] [place] [address] Dr. Kenton Avila RBC 3.57 106/ul Critically low 4.20-5.[address] [facility] Comment on above: Performed By: #### C BC #### [facility] [address] [place] [address] Dr. Kenton Avila WBC 10.2 103/ul Normal 4.0-11.0 [facility] Comment on above: Performed By: #### C BC #### [facility] [address] [place] [address] Dr. Kenton Avila BASO # 0.0 103/ul Normal 0.0-0.1 [facility] Comment on above: Performed By: #### C BC #### [facility] [address] [place] [address] Dr. Kenton Avila Performed By: #### C MP #### [facility] [address] [place] [address] Dr. Kenton Avila Basophils/100 WBC (Bld) 0.2 % Normal 0.2-2.0 [facility] Comment on above: Performed By: #### C MP #### [facility] [address] [place] [address] Dr. Kenton Avila EO # 0.1 103/ul Normal 0.0-0.7 [facility] Comment on above: Performed By: #### C BC #### [facility] [address] [place] [address] Dr. Kenton Avila Performed By: #### C MP #### [facility] [address] [place] [address] Dr. Kenton Avila Eosinophils/100 WBC (Bld) 0.4 % Critically low 0.9-7.0 [facility] Comment on above: Performed By: #### C MP #### [facility] [address] [place] [address] Dr. Kenton Avila Erythrocyte distribution width (RBC) [Ratio] 12.9 % Normal 11.0-15.0 [facility] Comment on above: Performed By: #### C MP #### [facility] [address] [place] [address] Dr. Kenton Avila Hematocrit (Bld) [Volume fraction] 32.9 % Critically low 36.0-48.0 [facility] Comment on above: Performed By: #### C MP #### [facility] [address] [place] [address] Dr. Kenton Avila Hemoglobin (Bld) [Mass/Vol] 11.1 g/dL Critically low 12.0-16.0 [facility] Comment on above: Performed By: #### C MP #### [facility] [address] [place] [address] Dr. Kenton Avila IG # 0.04 10e3/ul Critically high 0.00-0.03 [facility] Comment on above: Performed By: #### C MP #### [facility] [address] [place] [address] Dr. Kenton Avila IG % 0.3 % Normal 0.0-0.5 [facility] Comment on above: Performed By: #### C MP #### [facility] [address] [place] [address] Dr. Kenton Avila LYMPH # 0.8 103/ul [facility] 1.2-3.8 [facility] Comment on above: Performed By: #### C MP #### [facility] [address] [place] [address] Dr. Kenton Avila Lymphocytes/100 WBC (Bld) 6.7 % Critically low 20.5-60.0 [facility] Comment on above: Performed By: #### C MP #### [facility] [address] [place] [address] Dr. Kenton Avila MANUAL DIFF REQ NO Normal [facility] Comment on above: Performed By: #### C BC #### [facility] [address] [place] [address] Dr. Kenton Avila Performed By: #### C MP #### [facility] [address] [place] [address] Dr. Kenton Avila MCH (RBC) [Entitic mass] 29.7 pg Normal 26.7-34.0 [facility] Comment on above: Performed By: #### C MP #### [facility] [address] [place] [address] Dr. Kenton Avila MCHC (RBC) [Mass/Vol] 33.7 g/dL Normal 29.9-35.2 [facility] Comment on above: Performed By: #### C BC #### [facility] [address] [place], [place] [id number] Dr. Kenton Avila Performed By: #### C MP #### [facility] [address] [address] [address] Kenton Avila MCV (RBC) [Entitic vol] 88.0 fL Normal 81.0-99.0 [facility] Comment on above: Performed By: #### C MP #### [facility] [address] [address] [address] Kenton Avila MONO # 0.9 103/ul Critically high 0.3-0.8 [facility] Comment on above: Performed By: #### C MP #### [facility] [address] [place] [address] Dr. Kenton Avila Monocytes/100 WBC (Bld) 7.3 % Normal 1.7-12.0 [facility] Comment on above: Performed By: #### C MP #### [facility] [address] [place] [address] Dr. Kenton Avila NEUT # 10.3 103/ul Critically high 1.4-6.5 [facility] Comment on above: Performed By: #### C MP #### [facility] [address] [place] [address] Dr. Kenton Avila Neutrophils/100 WBC (Bld) 85.1 % Critically high 43.0-75.0 [facility] Comment on above: Performed By: #### C MP #### [facility] [address] [place] [address] Dr. Kenton Avila Platelet mean volume (Bld) [Entitic vol] 9.1 fL Critically low 9.5-13.5 [facility] Comment on above: Performed By: #### C MP #### [facility] [address] [place] [address] Dr. Kenton Avila PLT 271 103/ul Normal 150-450 [facility] Comment on above: Performed By: #### C MP #### [facility] [address] [place] [address] Dr. Kenton Avila RBC 3.74 106/ul Critically low 4.20-5.40 [facility] Comment on above: Performed By: #### C MP #### [facility] [address] [place], [place] [address] Dr. Kenton Avila WBC 12.1 103/ul Critically high 4.0-11.0 [facility] Comment on above: Performed By: #### C MP #### [facility] [address] [place], [place] [address] Dr. Kenton Avila CRPon 04-25-2022 CRP 0.9 mg/dL Normal <=1.0 [facility] Comment on above: Performed By: #### C RP, CMP #### [facility] [address] [place], [place] [address] ABD/PELV W CONon 04-25-20 CT ABD/PELV W CON EXAMINATION: CT ABD/PELV W CON HISTORY: Pain ; left lower quadrant pain, vomiting, bloody stool COMPARISON: No relevant comparison available. TECHNIQUE: Axial, Coronal, and Sagittal images were obtained without and/or with IV contrast as indicated by examination type. Dose reduction techniques were achieved by using automated exposure control and/or adjustment of mA and/or kV according to patient size and/or use of iterative reconstruction technique. FINDINGS: LUNG BASES: Mild stranding and adjacent irregular opacity within anterior inferior aspect of right middle lobe. LIVER: Fatty infiltration. No enlargement, atrophy, suspicious density, or significant focal lesion. BILIARY: No dilatation or calcification. PANCREAS: No lesion, fluid collection, or abnormal duct dilatation. SPLEEN: No enlargement or focal lesion. ADRENALS: No mass or enlargement. KIDNEYS: No mass, obstruction, or calcification. BOWEL/MESENTERY: Abnormal, circumferential wall thickening of the colon from splenic flexure to rectum without obstruction, free air, free fluid. AORTA/VASCULAR: No aneurysm or dissection. RETROPERITONEUM: No mass or adenopathy. LYMPH NODES: No adenopathy. URINARY BLADDER: No visible focal wall thickening, lesion, or calculus. PELVIC ORGANS: Hysterectomy. ABDOMINAL WALL: No mass or hernia. BONES: No bony lesion or fracture. OTHER: Negative. IMPRESSION: 1. Moderate-marked colitis of colon extending from splenic flexure to rectum. No bowel obstruction. 2. Small, irregular right middle lobe opacity; most likely atelectasis or scarring. If patient is at increased risk for lung cancer consider follow-up imaging in 3-6 months to document stability. Electronically authenticated by: ALEXEY CANDELARIO Date: 2022-04-25 08:10 Normal [facility] Covid-19 PCR (CVDTB)on 04-13 SARS-CoV-2 (COVID-19) RNA MIKEY+probe Ql (Unsp spec) Not detected Normal NOT DETECTED [facility] Comment on above: Result Comment: When diagnostic testing is negative, the possibility of a false negative should be considered in the context of a patient's recent exposures and the presence of clinical signs and symptoms consistent with SARS-CoV-2. This test is not yet approved or cleared by the [place] FDA. When there are no FDA-approved or cleared tests available, and other criteria are met, FDA can make tests available under an emergency access mechanism called an Emergency Use Authorization (EUA). The EUA for this test is supported by the [place] of Health and Human Service's declaration that circumstances exist to justify the emergency use of in vitro diagnostics for the detection and/or diagnosis of the virus that causes COVID-19. This EUA will remain in effect for the duration of the COVID-19 declaration justifying emergency of IVDs, unless it is terminated or revoked by the FDA (after which the test may no longer be used). Performed By: #### C VDTB #### [facility] [address] [place] [address] Dr. Kenton Avila FREE T3on 04-25-2022 FREE T3 2.14 pg/mlL Critically low 2.18-3.[address] [facility] Comment on above: Performed By: #### C BC #### [facility] [address] [place] [address] [address] [address] Kenton Avila FREE T4on 04-25-2022 Free T4 [Mass/Vol] 0.99 ng/dL Normal 0.76-1.46 [facility] Comment on above: Performed By: #### C BC #### [facility] [address] [place] [address] Dr. Kenton Avila GI PANEL (PCR)on 04-25-2022 Adenovirus F 40/41 Not detected Normal NOT DETECTED [facility] Comment on above: Performed By: #### G IPANEL #### [facility] [address] [address] [address] Kenton Avila Astrovirus Not detected Normal NOT DETECTED [facility] Comment on above: Performed By: #### G IPANEL #### [facility] [address] [address] [address] Kenton Avila C. Diff toxin A/B Not detected Normal NOT DETECTED [facility] Comment on above: Performed By: #### G IPANEL #### [facility] [address] [address] [address] Kenton Avila Campylobacter Not detected Normal NOT DETECTED [facility] Comment on above: Performed By: #### G IPANEL #### [facility] [address] [place] [address] Dr. Kenton Avila Cryptosporidium Not detected Normal NOT DETECTED [facility] Comment on above: Performed By: #### G IPANEL #### [facility] [address] [address] [address] Kenton Avila Cyclos. Cayetanensis Not detected Normal NOT DETECTED [facility] Comment on above: Performed By: #### G IPANEL #### [facility] [address] [place] [address] Dr. Kenton Avila E. Coli O157 Not Applicable Normal Not Applicable [facility] Comment on above: Performed By: #### G IPANEL #### [facility] [address] [place] [address] Dr. Kenton Avila E. histolytica Not detected Normal NOT DETECTED [facility] Comment on above: Performed By: #### G IPANEL #### [facility] [address] [place] [address] Dr. Kenton Avila EAEC Not detected Normal NOT DETECTED [facility] Comment on above: Performed By: #### G IPANEL #### [facility] [address] [place] [address] Dr. Kenton Avila EIEC Not detected Normal NOT DETECTED [facility] Comment on above: Performed By: #### G IPANEL #### [facility] [address] [place] [address] Dr. Kenton Avila EPEC Not detected Normal NOT DETECTED [facility] Comment on above: Performed By: #### G IPANEL #### [facility] [address] [place] [address] Dr. Kenton Avila ETEC Not detected Normal NOT DETECTED [facility] Comment on above: Performed By: #### G IPANEL #### [facility] [address] [place] [address] Dr. Kenton Valverde Lamblia Not detected Normal NOT DETECTED [facility] Comment on above: Performed By: #### G IPANEL #### [facility] [address] [place] [address] Dr. Kenton DALTON CONTROLS PASSED Normal [facility] Comment on above: Performed By: #### G IPANEL #### [facility] [address] [place] [address] Dr. Kenton LAWSON HEADER GI PANEL BACTERIA Normal [facility] Comment on above: Performed By: #### G IPANEL #### [facility] [address] [place] [address] Dr. Kenton HOWE ECOLI GI PANEL DIARRHEAGENIC E.COLI / SHIGELLA Normal [facility] Comment on above: Performed By: #### G IPANEL #### [facility] [address] [place] [address] Dr. Kenton HOWE INFO SEE BELOW [facility] Comment on above: Result Comment: EAEC - Enteroaggregative E. Coli EPEC- Enteropathogenic E. Coli ETEC- Enterotoxigenic E. Coli lt/st STEC- Shigella-like toxin-producing E. Coli stx1/stx2 EIEC- Shigella/Enteroinvasive E. Coli Performed By: #### G IPANEL #### [facility] [address] [place] [address] Dr. Kenton HOWE PARASITES GI PANEL PARASITES Normal [facility] Comment on above: Performed By: #### G IPANEL #### [facility] [address] [place] [address] Dr. Kenton HOWE VIRUS GI PANEL VIRUSES Normal [facility] Comment on above: Performed By: #### G IPANEL #### [facility] [address] [place] [address] Dr. Kenton Avila Norovirus GI/GII Not detected Normal NOT DETECTED [facility] Comment on above: Performed By: #### G IPANEL #### [facility] [address] [address] [address] Kenton Avila P. Shigelloides Not detected Normal NOT DETECTED [facility] Comment on above: Performed By: #### G IPANEL #### [facility] [address] [place] [address] Dr. Kenton Avila Rotavirus A Not detected Normal NOT DETECTED [facility] Comment on above: Performed By: #### G IPANEL #### [facility] [address] [place] [address] Dr. Kenton Avila Salmonella Not detected Normal NOT DETECTED [facility] Comment on above: Performed By: #### G IPANEL #### [facility] [address] [place] [address] Dr. Kenton Avila Sapovirus Not detected Normal NOT DETECTED [facility] Comment on above: Performed By: #### G IPANEL #### [facility] [address] [place] [address] Dr. Kenton Avila STEC Not detected Normal NOT DETECTED [facility] Comment on above: Performed By: #### G IPANEL #### [facility] [address] [place] [address] Dr. Kenton Avila Vibrio Not detected Normal NOT DETECTED [facility] Comment on above: Performed By: #### G IPANEL #### [facility] [address] [place] [address] Dr. Kenton Avila Vibrio Cholera Not detected Normal NOT DETECTED [facility] Comment on above: Performed By: #### G IPANEL #### [facility] [address] [place] [address] Dr. Kenton Avila Y. Enterocolitica Not detected Normal NOT DETECTED [facility] Comment on above: Performed By: #### G IPANEL #### [facility] [address] [place] [address] Dr. Kenton Avila LACTATE/LACTIC ACIDon 2021 Lactate [Moles/Vol] 0.9 mmol/L Normal 0.4-1.9 [facility] Comment on above: Performed By: #### C MP #### [facility] [address] [place] [address] Dr. Kenton Avila PROF 14(COMP METB)on 022 Albumin [Mass/Vol] 3.6 g/dL Normal 3.4-5.0 [facility] Comment on above: Performed By: #### C RP, CMP #### [facility] [address] [place] [address] Dr. Kenton Avila Albumin/Globulin [Mass ratio] 0.9 {ratio} Normal [facility] Comment on above: Performed By: #### C RP, CMP #### [facility] [address] [place] [address] Dr. Kenton Avila ALP [Catalytic activity/Vol] 75 U/L Normal 46-116 [facility] Comment on above: Performed By: #### C RP, CMP #### [facility] [address] [place] [address] Dr. Kenton Avila ALT [Catalytic activity/Vol] 42 U/L Normal 14-59 [facility] Comment on above: Performed By: #### C RP, CMP #### [facility] [address] [place] [address] Dr. Kenton Avila Anion gap [Moles/Vol] 10.1 mmol/L Normal [facility] Comment on above: Performed By: #### C RP, CMP #### [facility] [address] [place] [address] Dr. Kenton Avila AST [Catalytic activity/Vol] 31 U/L Normal 15-37 [facility] Comment on above: Performed By: #### C RP, CMP #### [facility] [address] [place] [address] Dr. Kenton Avila Bilirubin [Mass/Vol] 0.4 mg/dL Normal 0.2-1.0 [facility] Comment on above: Performed By: #### C RP, CMP #### [facility] [address] [place] [address] Dr. Kenton Avila Calcium [Mass/Vol] 8.5 mg/dL Normal 8.5-10.1 [facility] Comment on above: Performed By: #### C RP, CMP #### [facility] [address] [place] [address] Dr. Kenton Avila Chloride [Moles/Vol] 102 mmol/L Normal 98-107 [facility] Comment on above: Performed By: #### C RP, CMP #### [facility] [address] [place] [address] Dr. Kenton Avila CO2 [Moles/Vol] 27.4 mmol/L Normal 21.0-32.0 [facility] Comment on above: Performed By: #### C RP, CMP #### [facility] [address] [place] [address] Dr. Kenton Avila Creatinine [Mass/Vol] 0.80 mg/dL Normal 0.55-1.02 [facility] Comment on above: Performed By: #### C RP, CMP #### [facility] [address] [place] [address] Dr. Kenton Avila EGFR-AF JAPANESE >60 Normal >=60 [facility] Comment on above: Performed By: #### C RP, CMP #### [facility] [address] [place] [address] Dr. Kenton Avila EGFR-NON AF JAPANESE >60 Normal >=60 [facility] Comment on above: Performed By: #### C RP, CMP #### [facility] [address] [place] [address] Dr. Kenton Avila Globulin (S) [Mass/Vol] 3.8 g/dL Normal [facility] Comment on above: Performed By: #### C RP, CMP #### [facility] [address] [place] [address] Dr. Kenton Avila Glucose [Mass/Vol] 119 mg/dL Critically high 74-106 [facility] Comment on above: Performed By: #### C RP, CMP #### [facility] [address] [address] [address] Kenton Avila Potassium [Moles/Vol] 3.5 mmol/L Normal 3.5-5.1 [facility] Comment on above: Performed By: #### C RP, CMP #### [facility] [address] [place] [address] Dr. Kenton Avila Protein [Mass/Vol] 7.4 g/dL Normal 6.4-8.2 [facility] Comment on above: Performed By: #### C RP, CMP #### [facility] [address] [place] [address] Dr. Kenton Avila Sodium [Moles/Vol] 136 mmol/L Normal 136-145 [facility] Comment on above: Performed By: #### C RP, CMP #### [facility] [address] [place] [address] Dr. Kenton Avila Urea nitrogen [Mass/Vol] 16.0 mg/dL Normal 7.0-18.0 [facility] Comment on above: Performed By: #### C RP, CMP #### [facility] [address] [place] [address] Dr. Kenton Avila Urea nitrogen/Creatinine [Mass ratio] 20.0 mg/mg Normal [facility] Comment on above: Performed By: #### C RP, CMP #### [facility] [address] [place] [address] Dr. Kenton Avila PROTIMEon 04-25-2022 INR Coag (PPP) [Relative time] 0.99 {INR} Normal [facility] Comment on above: Performed By: #### C BC #### [facility] [address] [place] [address] Dr. Kenton Avila INR GUIDELINES SEE BELOW Normal [facility] Comment on above: Result Comment: CHRISTOPHE RED INR: 2.0 - 3.0 CONDITIONS NOT LISTED BELOW 2.5 - 3.5 FOR PROSTHETIC HEART VALVE REPLACEMENT 2.5 - 3.5 RECURRENT THROMBOSIS Performed By: #### C BC #### [facility] [address] [address] [address] Kenton Avila PT Coag (PPP) [Time] 10.7 s Normal 9.0-11.6 [facility] Comment on above: Performed By: #### C BC #### [facility] [address] [place] [address] Dr. Kenton Avila PTTon 04-25-2022 aPTT Coag (Bld) [Time] 28.5 s Normal 22.3-36.2 [facility] Comment on above: Performed By: #### C BC #### [facility] [address] [address] [address] Kenton Avila TSHon 04-25-2022 TSH 1.110 uIU/mL Normal 0.358-3.740 [facility] Comment on above: Performed By: #### C MP #### [facility] [address] [place] [address] Dr. Kenton Avila SARS-CoV-2 (COVID-19) RNA NA A+probe Ql (Resp)on 04-05-2022 SARS-CoV-2 (COVID-19) RNA MIKEY+probe Ql (Unsp spec) Positive [email or web address] Other US PELVIS AND TRANSVAGon US PELVIS AND TRANSVAG Begin Addendum #1 Voice-recognition error: IMPRESSION #1 should state: Hysterectomy and bilateral oophorectomy Original Report EXAMINATION: US PELVIS AND TRANSVAG HISTORY: Disorder of adrenal gland COMPARISON: No relevant comparison available. TECHNIQUE: Transabdominal and transvaginal sonographic examination. FINDINGS: UTERUS: Hysterectomy. RIGHT OVARY: Oophorectomy. LEFT OVARY: Oophorectomy. CUL-DE-SAC: Unremarkable. No significant free fluid. BLADDER: Unremarkable. OTHER: None. IMPRESSION: 1. Hysterectomy and bilateral nephrectomy. 2. No suspicious pelvic or adnexal findings. Normal [facility] MG MAMM SCREEN 3D SUSAN CADon 10-30-2021 MG MAMM SCREEN 3D SUSAN CAD Patient: LOUISA LIU Exam Date: 10/30/2021 : 1970 Gender:F Ordering : DR DOUG GAVIN Admission #: [id number] Family : Order #: [id number] CLICK HERE TO VIEW EXAM RADIOLOGY REPORT PROCEDURE: MAMMOGRAM SCREENING 3D BILATERAL CAD COMPARISON: MG MAMM SCREEN 3D SUSAN CAD, 10/29/2020. MG MAMM SCREEN SUSAN W CAD, 10/22/2019. INDICATIONS: Screening mammography Calculator Name NCI Breast Cancer Risk Assessment Tool 5 Year Breast Cancer Risk 1.00% Lifetime Breast Cancer Risk 8.90% Personal Breast Cancer No Personal Ovarian Cancer No Treatments None Family Cancers None LOCATION: [facility] BREAST COMPOSITION: Extremely dense, which lowers the sensitivity of mammography. FINDINGS: DIAGNOSTIC CATEGORY 2--BENIGN FINDING: RIGHT BREAST: No significant suspicious finding. No significant change has occurred. LEFT BREAST: No significant suspicious finding. Scattered benign-appearing calcifications are present. No significant change has occurred. RECOMMENDATIONS: ROUTINE MAMMOGRAM AND CLINICAL EVALUATION IN 12 MONTHS. PLEASE NOTE: A NORMAL MAMMOGRAM DOES NOT EXCLUDE THE POSSIBILITY OF BREAST CANCER. A CLINICALLY SUSPICIOUS PALPABLE LUMP SHOULD BE BIOPSIED. Dictated by: Alexey Candelario M.D. on 10/30/2021 at 12:47 Approved by: Alexey Candelario M.D. on 10/30/2021 at 12:52 Normal [facility] TSH+FREE T4on 08-19-2021 Free T4 [Mass/Vol] 1.0 ng/dL Normal 0.8-1.8 [facility] Comment on above: Performed By: #### 5 [id number] #### [facility] [address], [address] [place], [place] [id number] [employer] Tender: Alex Martinez MD TSH Qn 0.88 m[IU]/L Normal [facility] Comment on above: Result Comment: Refe rence Range > or = 20 Years 0.40-4.50 Ranges First trimester 0.26-2.66 Second trimester 0.55-2.73 Third trimester 0.43-2.91 Performed By: #### 5 8984 #### [facility] [address], [address] [place], [place] [address] [employer] Tender: Alex Martinez MD CBC (INCLUDES DIFF/PLT)on Basophils (Bld) [#/Vol] 0.017 10*3/uL Normal 0-200 [facility] Comment on above: Performed By: #### 7 600, 6399, 32975 #### [facility] [address] [address] [employer] Tender: Alex Martinez MD Basophils/100 WBC (Bld) 0.3 % Normal [facility] Comment on above: Performed By: #### 7 600, 6399, 61058 #### [facility] [address] [address] [employer] Tender: Alex Martinez MD Eosinophils (Bld) [#/Vol] 0.081 10*3/uL Normal 15-500 [facility] Comment on above: Performed By: #### 7 600, 6399, 63011 #### [facility] [address] [address] [employer] Tender: Alex Martinez MD Eosinophils/100 WBC (Bld) 1.4 % Normal [facility] Comment on above: Performed By: #### 7 600, 6399, 19713 #### [facility] [address] [address] [employer] Tender: Alex Martinez MD Erythrocyte distribution width (RBC) [Ratio] 12.6 % Normal 11.0-15.0 [facility] Comment on above: Performed By: #### 7 600, 6399, 93814 #### [facility] [address] [address] [employer] Tender: Alex Martinez MD Hematocrit (Bld) [Volume fraction] 32.4 % Low 35.0-45.0 [facility] Comment on above: Performed By: #### 7 600, 6399, 91522 #### [facility] [address] [address] [employer] Tender: Alex Martinez MD Hemoglobin (Bld) [Mass/Vol] 11.1 g/dL Low 11.7-15.5 [facility] Comment on above: Performed By: #### 7 600, 6399, 67892 #### [facility] [address] [address] [employer] Tender: Alex Martinez MD Lymphocytes (Bld) [#/Vol] 1.989 10*3/uL Normal 850-3900 [facility] Comment on above: Performed By: #### 7 600, 6399, 25252 #### [facility] [address] [address] [employer] Tender: Alex Martinez MD Lymphocytes/100 WBC (Bld) 34.3 % Normal [facility] Comment on above: Performed By: #### 7 600, 6399, 78542 #### [facility] [address] [address] [employer] Tender: Alex Martinez MD MCH (RBC) [Entitic mass] 29.8 pg Normal 27.0-33.0 [facility] Comment on above: Performed By: #### 7 600, 6399, 18555 #### [facility] [address] [address] [employer] Tender: Alex Martinez MD MCHC (RBC) [Mass/Vol] 34.3 g/dL Normal 32.0-36.0 [facility] Comment on above: Performed By: #### 7 600, 6399, 83483 #### [facility] [address] [address] [employer] Tender: Alex Martinez MD MCV (RBC) [Entitic vol] 86.9 fL Normal 80.0-100.0 [facility] Comment on above: Performed By: #### 7 600, 6399, 09775 #### [facility] [address] [address] [employer] Tender: Alex Martinez MD Monocytes (Bld) [#/Vol] 0.47 10*3/uL Normal 200-950 [facility] Comment on above: Performed By: #### 7 600, 6399, 82250 #### [facility] of [address] [address] [employer] Tender: Alex Martinez MD Monocytes/100 WBC (Bld) 8.1 % Normal [facility] Comment on above: Performed By: #### 7 600, 6399, 66028 #### [facility] [address] [address] [employer] Tender: Alex Martinez MD Neutrophils (Bld) [#/Vol] 3.242 10*3/uL Normal 4098-7208 [facility] Comment on above: Performed By: #### 7 600, 6399, 12575 #### [facility] of [address], [address] [place] [address] [employer] Tender: Alex Martinez MD Neutrophils/100 WBC (Bld) 55.9 % Normal [facility] Comment on above: Performed By: #### 7 600, 6399, 08183 #### [facility] [address] [address] [employer] Tender: Alex Martinez MD Platelet mean volume (Bld) [Entitic vol] 9.7 fL Normal 7.5-12.5 [facility] Comment on above: Performed By: #### 7 600, 6399, 49438 #### [facility] [address] [address] [employer] Tender: Alex Martinez MD Platelets (Bld) [#/Vol] 304 10*3/uL Normal 140-400 [facility] Comment on above: Performed By: #### 7 600, 6399, 46246 #### [facility] [address] [address] [employer] Tender: Alex Martinez MD RBC (Bld) [#/Vol] 3.73 10*6/uL Low 3.80-5.10 [facility] Comment on above: Performed By: #### 7 600, 6399, 25251 #### [facility] of [address], [address] [place] [address] [employer] Tender: Alex Martinez MD WBC (Bld) [#/Vol] 5.8 10*3/uL Normal 3.8-10.8 [facility] Comment on above: Performed By: #### 7 600, 6399, 95361 #### [facility] [address] [address] [employer] Spl[employer] Tender: Alex Martinez MD [facility] 07-30-2021 Albumin [Mass/Vol] 4.0 g/dL Normal 3.6-5.1 [facility] Comment on above: Performed By: #### 7 600, 6399, 14486 #### [facility] [address] [address] [employer] Tender: Alex Martinez MD Albumin/Globulin [Mass ratio] 1.5 {ratio} Normal 1.0-2.5 [facility] Comment on above: Performed By: #### 7 600, 6399, 66472 #### [facility] [address] [address] [employer] Spl[employer] Machine Tender: Alex Martinez MD ALP [Catalytic activity/Vol] 69 U/L Normal 37-153 [facility] Comment on above: Performed By: #### 7 600, 6399, 31336 #### [facility] [address] [place] [address] [employer] Tender: Alex Martinez MD ALT [Catalytic activity/Vol] 20 U/L Normal 6-29 [facility] Comment on above: Performed By: #### 7 600, 6399, 66637 #### [facility] [address] [address] [employer] Tender: Alex Martinez MD AST [Catalytic activity/Vol] 21 U/L Normal 10-35 [facility] Comment on above: Performed By: #### 7 600, 6399, 25140 #### [facility] [address] [address] [employer] Tender: Alex Martinez MD Bilirubin [Mass/Vol] 0.4 mg/dL Normal 0.2-1.2 [facility] Comment on above: Performed By: #### 7 600, 6399, 38952 #### [facility] [address], [address] [place] [address] [employer] Tender: Alex Martinez MD BUN/CREATININE RATIO NOT APPLICABLE Normal 6-22 [facility] Comment on above: Performed By: #### 7 600, 6399, 55458 #### [facility] [address] [place] [address] [employer] Tender: Alex Martinez MD Calcium [Mass/Vol] 8.7 mg/dL Normal 8.6-10.4 [facility] Comment on above: Performed By: #### 7 600, 6399, 14983 #### [facility] [address] [place] [address] [employer] Spl[employer] Machine Tender: Alex Martinez MD Chloride [Moles/Vol] 105 mmol/L Normal 98-110 [facility] Comment on above: Performed By: #### 7 600, 6399, 29136 #### [facility] [address] [place] [address] [employer] Spl[employer] Machine Tender: Alex Martinez MD CO2 [Moles/Vol] 28 mmol/L Normal 20-32 [facility] Comment on above: Performed By: #### 7 600, 6399, 28446 #### [facility] [address] [place] [address] [employer] Spl[employer] Machine Tender: Alex Martinez MD Creatinine [Mass/Vol] 0.75 mg/dL Normal 0.50-1.05 [facility] Comment on above: Result Comment: For patients >49 years of age, the reference limit for Creatinine is approximately 13% higher for people identified as -Comoran. Performed By: #### 7 600, 6399, 97280 #### [facility] [address] [place] [address] [employer] Spl[employer] Machine Tender: Alex Martinez MD eGFR NON-AFR. JAPANESE 92 mL/min/1.73m2 Normal > OR = 60 [facility] Comment on above: Performed By: #### 7 600, 6399, 78958 #### [facility] of [address] [address] [employer] Spl[employer] Machine Tender: Alex Martinez MD GFR/1.73 sq M.predicted among blacks MDRD (S/P/Bld) [Vol rate/Area] 107 mL/min/{1.73_m2} Normal > OR = 60 [facility] Comment on above: Performed By: #### 7 600, 6399, 60363 #### [facility] [address] [place] [address] Tub[employer] Splitting Machine Tender: Alex Martinez MD Globulin (S) [Mass/Vol] 2.7 g/dL Normal 1.9-3.7 [facility] Comment on above: Performed By: #### 7 600, 6399, 42678 #### [facility] [address] [place] [address] [employer] Spl[employer] Machine Tender: Alex Martinez MD Glucose [Mass/Vol] 89 mg/dL Normal 65-99 [facility] Comment on above: Result Comment: Fasting reference interval Performed By: #### 7 600, 6399, 90621 #### [facility] [address] [place] [address] [employer] Spl[employer] Tender: Alex Martinez MD Potassium [Moles/Vol] 3.9 mmol/L Normal 3.5-5.3 [facility] Comment on above: Performed By: #### 7 600, 6399, 66182 #### [facility] [address] [place] [address] [employer] Spl[employer] Tender: Alex Martinez MD Protein [Mass/Vol] 6.7 g/dL Normal 6.1-8.1 [facility] Comment on above: Performed By: #### 7 600, 6399, 06050 #### [facility] [address] [place] [address] [employer] Spl[employer] Machine Tender: Alex Martinez MD Sodium [Moles/Vol] 139 mmol/L Normal 135-146 [facility] Comment on above: Performed By: #### 7 600, 6399, 08674 #### [facility] of [address], [address] [place] [address] [employer] Splitting Machine Tender: Alex Martinez MD Urea nitrogen [Mass/Vol] 13 mg/dL Normal 7- [facility] Comment on above: Performed By: #### 7 600, 6399, 14626 #### [facility] [address], [address] [place] [address] [employer] Splitting Machine Tender: Alex Martinez MD LIPID PANEL, [facility] 07-14 Cholesterol [Mass/Vol] 186 mg/dL Normal <200 [facility] Comment on above: Order Comment: FASTI NG:YES FASTING: YES Performed By: #### 7 600, 6399, 97315 #### [facility] [address], [address] [place] [address] [employer] Spl[employer] Machine Tender: Alex Martinez MD Cholesterol in HDL [Mass/Vol] 60 mg/dL Normal > OR = 50 [facility] Comment on above: Order Comment: FASTI NG:YES FASTING: YES Performed By: #### 7 600, 6399, 92921 #### [facility] [address], [address] [place] [address] [employer] Splitting Machine Tender: Alex Martinez MD Cholesterol in LDL [Mass/Vol] 100 mg/dL High [facility] Comment on above: Order Comment: FASTI NG:YES FASTING: YES Result Comment: Refe rence range: <100 Desirable range <100 mg/dL for primary prevention; <70 mg/dL for patients with CHD or diabetic patients with > or = 2 CHD risk factors. LDL-C is now calculated using the Prabhu-Rossy calculation, which is a validated novel method providing better accuracy than the Friedewald equation in the estimation of LDL-C. Prabhu SS et al. ARNULFO. 2013;310(19): 1329-6912 (http://education.Teliportme.[employer]/faq/DIS518) Performed By: #### 7 600, 6399, 80127 #### [facility] [address], [address] [place] [address] [employer] Splitting Machine Tender: Alex Martinez MD Cholesterol.total/C holesterol in HDL [Mass ratio] 3.1 {ratio} Normal <5.0 [facility] Comment on above: Order Comment: FASTI NG:YES FASTING: YES Performed By: #### 7 600, 6399, 36945 #### [facility] [address], [address] [place] [address] [employer] Splitting Machine Tender: Alex Martinez MD NON HDL CHOLESTEROL 126 mg/dL (calc) Normal <130 [facility] Comment on above: Order Comment: FASTI NG:YES FASTING: YES Result Comment: For patients with diabetes plus 1 major ASCVD risk factor, treating to a non-HDL-C goal of <100 mg/dL (LDL-C of <70 mg/dL) is considered a therapeutic option. Performed By: #### 7 600, 6399, 87531 #### [facility] [address], [address] [place] [address] [employer] Splitting Machine Tender: Alex Martinez MD Triglyceride [Mass/Vol] 164 mg/dL High <150 [facility] Comment on above: Order Comment: FASTI NG:YES FASTING: YES Performed By: #### 7 600, 6399, 42419 #### [facility] [address], [address] [place] [address] [employer] Splitting Machine Tender: Alex Martinez MD [facility] SARS-CoV-2 (COVID-19) RNA MIKEY+probe Ql (Unsp spec) Detected Critically abnormal NOT DETECTED [facility] Comment on above: Result Comment: This test is not yet approved or cleared by the [place] FDA. When there are no FDA-approved or cleared tests available, and other criteria are met, FDA can make tests available under an emergency access mechanism called an Emergency Use Authorization (EUA). The EUA for this test is supported by the [employer] Operator of Health and Human Service's (HHS's) declaration that circumstances exist to justify the emergency use of in vitro diagnostics for the detection and/or diagnosis of the virus that causes COVID-19. This EUA will remain in effect (meaning this test can be used) for the duration of the COVID-19 declaration justifying emergency of IVDs, unless it is terminated or revoked by FDA (after which the test may no longer be used). Performed By: #### C #### [facility] [address] [place], [place] [address] Dr. Kenton Avila [facility] March 31, 2021 LOUISA LIU [address] [place] [id number] LOUISA LIU 1970 Dear Louisa Liu, We have been trying to reach you with no success. It is important that you return our call regarding your follow up appointment upon receiving this letter. Also, at the time of your call, please provide us with your current information. The office has left several messages with no response from you. You have a history of hematuria (blood in the urine) and this needs to be followed. Please call the office within 2 weeks of receiving this letter to schedule an appointment. Your failure to comply with this request may result in discharge from the practice due to your repeated non compliance. Thank you for your prompt attention to this matter. Sincerely, Rodriguez Gallegos M.D., F.A.C.S. [facility] [address] [place] [address] [facility] Comment on above: Other Comment: Marlen connelly not being sent [facility] Fish and Urine Cyt o ([facility])on 10-09-2020 UVFISH & UC Diagnosis Info Invalid Interpretation Code [facility] Comment on above: Result Comment: A:Ur ine,Urine:Voided Diagnosis Summary - Diagnosis Summary - The [facility] FISH study detected normal copy numbers for chromosomes 3, 7, 17, and 9p21. 160 cells were analyzed in this evaluation. No evidence of aneuploidy for chromosomes 3, 7, or 17 or deletion of the 9p21 locus was found in cells present in this specimen. This test does not rule out the possibility of a low grade non-invasive papillary urothelial carcinoma. These findings should be correlated with cytology and cystoscopy results.* Microscopic Notes - Many unremarkable squamous cells present. Microscopic Notes - Abnormal cells 9p21 deletions: Abnormal cells aneploid events: Total cells analyzed: 160 Hematuria: Gross Description Site ID:A color Light Yellow fixative Alcohol Received 90 mls of clear light yellow fluid with the patient's name and, Urine on the vial. Electronically signed by : on: 10/09/2020 10:24:29 Performed By: #### 1 [id number] ####[facility] [address] [place] [address] Reminderson 10-03-2020 Reminders - From: Louisa Lau To: EU - Clinical; Sent: 09/19/2020 12:48:06 EDT Show up: 10/03/2020 12:48:00 EDT Subject: Urine Cytology Reminder/Recall Urine Cytology Cyto- neg Normal [facility] Coding Summary.on 10-02-2020 Coding Summary. CD:[id number] G h0bWw+PGhlYWQ+GM5RBKB iB85ygBDleI4FW6aUHG7M QMKYVSHHAB8BHK3lpSN3A VefO6VtpySh XabehCFmIP67GCm7ODE3t CxxBWoywW2jvJTbB9y9Fh DtDD74bO31VKezOGAtRuL 3LjZpbjsgbWFy R5yxMkRcwFBkYgt+PHRhY mxlIHdpZHRoPScxMDAlJy MvrXloBC9pCl6mPBMdCQU vbGxhcHNlOiBj p7xrIMKsWBvzBW0ldWmuR 1KvbNM2QXEgq1e6Xh94uM I+IYLrIEF4rBbcKLczx00 2KpIyk4ssSRC3 qVFlRInaOOV1O60vz8S4J MDyNVBaJNS9wST4rZ7qtF bfsebwM9AkvMLfLpY5SWQ 3yMDssK9shYlk ztnlyD5dHlb+I94RMU3XV VSZTB6YVcz0H0KfLfjyyK I+TK07SXHtUU65qUSqwPU ex7qqkQl0LeNq TDGvYZK6oFztOWboc4MbV DXzR37jzZCpz5L3PVSclG nlxFTnKvNoeDN4tP9gIFz xzsarh6ntgher Wjpvd4vlhr89aP01W74jM LqoQHMbVCE9FRQcXPHciT hkpc2tjI9sFi2+FUtmb8c pb0neoUn3FxDq YFUbywSxsObhFCZ8d7EfD b50Q9GvrQqhk0OlKgr3kj 10tOAbv3C6pBB8LNwqUMC eaX2cWVxyNpK4 FIPzOjCxkQ81fKRfIPxcZ b2ktOtbcVgrZT2kNITpbt kpDMZsyH4nWBOpdJPtoXf lYM8zILWvwwpf q543QaOsOGB8YAAduNHuI 1KlgU3rHyGcVFPqAVGbL4 YoyDQqAKthM060TIprLkU 5FDNvlaUoN7Yu JVRzzPkfBiN3g7P0Uo9Yd 0LhqrpnXND3NAqfRFE6Kj IkNsDlYqN2A0VeYlm0KOX khXdxVR2bJ5Qg LDDuysywmseheQP5ENYuH ZHwsE18oELoWNujWb6ec4 I7y569ABXbMUTslZ91Ix3 udDogMTBwdCBU pJ4jymiue9nuhwngNmXzP TKdPMb5XGe1JQVssIdqEp MvMWR2FhG2MOY1jQEzeO4 blNerngrwzF0f Oyc+C37vuP1xBOJ7HGX8h lfiBWAgbrEhPV49KC50Z4 RyPjwvdGFibGU+PGRpdiB pwDlcNP8jJcAm j9pfg6SvZXauI4LuCFHtY YqzPrr0GFKhEFJ9jOD7iU 7tLFSdVUbhb2D3mWQ3A3T fytObab9wc5ax QCXaTCedP32mpFOvg6I2E IIuuPP3OAKexTqqCcQsbI 93Oyc+QRDkuHtsz3ExWqf ym7bgj6ccfHg7 AdAoIDGxssOhyYdzRZU0t 3WbJo71I39yWFynOXImYR AtSHQcZAEqpHdmzl7naG7 wIi8+PGNvbCB3 rGA0tR3vRNGjXmH8ALatV 820XxMrzZGeSvvrg3emj0 adnGz1RrTbAENazxLlwWa tYPK5n7ZmJm38 N15gLAlgVZYmFLMwISTkG XEguIusfz2ncC5lHt1+PC 7wg3wbqc17nX87iQR+PHR fXMY4gLxlJWhq FZAqsV4bFQvxMeX3QPHxB dGabO68eLQxRTqeKq7fxO gfsKyvOQ1lEILuucsgm43 0QlSaj8ojPRTg uXAnPNfvMGV2X56xs3H0S MEhRMDkDCH5dHE8cT5rgA lnbjogbGVmdDsgdmVydGl pTDpqBPtlZ645 IHRvcDsnPlBhdGllbnQgT sUmLYo9K6GeLbf4OYLkdO cfCV4acWPxOLraCy0cwDg pnCndAP9mRRTe szbot769YrBpf1bdHCGfy SSqWCelMGG2G67in3U8NT QcCSEoCNT7sFE4bC0kcYk nbjogbGVmdDsg drXstLmwHXsbURewW117P HRvcDsnPkJpcnRoIERhdG V5GJ19DE39qBOkc6B9yFU 4L0KsJDAnvila qjfcxCE6ROKzNYYgdT61Z r6taVlgAb0iLILvGRK1RJ IjxBOnN7VyqL5rLlXtBKE cAHTtX8QtdFCv UIqoZ994UKcwHgF7DMXim zCoN1JrGNCprFbnCiD4t2 D7Lw7DS4Q5GG13EX92gOO dn5A4fED9O2Lc HFAgzdtwmyhycFI3PIDlZ GPveY17Tu7htZbuUe8tWJ HiIUW8CTBlaIDkS8TmmP9 yOiAjMDAwMDAw E0RrrCAxXBitB565PNdcQ nP0KIDfsuCkZ5KhKKIkxX ovHlJ3r9W9Dz3ETHd2JQ2 2CB01zPWki9G8 bOL9I2WcWCPpkjapyhfnx XM9PYApGEAdsD47Wh1dqH miDm4dKVNgCMF4KMJxxNO lN0HtyQ3aCxNt BUYaXQMxY7QerIEqUWsaK 240MPgdSoN4CWEtvoVzP3 QdYKBnpQcmSuC8b0T2It2 MRWQaUV73OML7 zSG2NT36RV18J5OzFxakm GFibGU+PHRhYmxlIHdpZH RoPScxMDAlJyBzdHlsZT0 gVh9cTTBoRNCl aLyabCYoXgOgd4tfPRQdC WkbPF3tyPglV3ZimKT8AK Rwp0q7Qa99D30lQ1MmsNT +LBZvyUW3yLY7 aR5lFuZrQeH8WPpoP069F xJwvYUqUpent3xvr2oslY s1MnX8FWLpxkTnuEafISP 7l9EeYz24W35v IHdpZHRoPSIxNSUiIHZhb Cqgxo3dhS5zBo6+PGNvbC B4lQN2rN8lYpDjBoL2ZVw rA302SbKqaBGt Xjvga0hxx0iiaMk5GnXxT HVfdvNosLgaDAW0s4QqAs 91H2RxpHxfx6SxGvg4zk1 2qPOyj8D7fET3 C0FbCLCihbumxWTanMmgB Q9aZOUbuvvmIZZsxE4cIM ObT2y6PhCwCmR6WYmbM2H vgtT2OQOwwWSq GHcbOSV0V83zn7K5NTKhG LCuYIL6oOT4cT0unYfjor ogbGVmdDsgdmVydGljYWw bKIwwD638JZUu rXygEWTviC5xREHfuIKgc GhvCU8dVQLdrhsxSrLTRJ RFUiwgSkVOTklGRVIgTDw vdGQ+PHRkIHN0 mDqaQQoaVBUgbF1sUXVuS 6u7DrFnFwH4FFbzU9HeIT WdtlhmKc01pK6zDnRfJfR 9YWrlO6PpafO2 VHCjhHTsZVinBCQ0F98qx 3J2YCFuSCFfWTS2uKZ2qD 1hbGlnbjogbGVmdDsgdmV ydGljYWwtYWxp Z437IEEabVqtXdVwTvEeL nS0BiX4D4OwObr7NXSbeZ rqZT8tgQHpCMeyEd1szDv cfZjlLT2gUGTr hpnkPMJkxJ7pLCYkuSFgj DjjKL9yRXNxiigol666Nm JyQER9NIIytCXnD9NbzA5 yOiAjMDAwMDAw V5LllEObMYjyD368SEowA aM3ARTmffUdU6OfQTOlpD fxVtQ5w3H1Xa61NUOCZYA yczwvdGQ+PHRk VVE3eXpaAVkeSOApwZ2lJ BUgX7n0YaKhFfQ6UBliV8 XjIRXbetatHg75lX4lVcL cTrK7QBsvA2Mp zpL8WAUspHHjRXcqXIS8P 90lt6K0RHQgRAFaAVX8gK L1iA6ioOxldwdodNJnlDn gdmVydGljYWwt KRfgJ223RYVlyVrkWhYec WFsZTwvdGQ+CIFqPAC2sZ haAQhvJPZzvJ7zZIMmA9b 1XwJzZrY0QCeo M4RmGHVopkqyKl35kU3bE sBlVsM3HEjdZ8MpglW1PG BuaDNdBOyhFPK0U94yq2G 2NUDeSBLkPIF4 xSZ4eV0acYamvzdxbIMnp DsgdmVydGljYWwtYWxpZ2 86FVAyzAyeBk48oAIauDs cimR3V5CeTyll dHI+KC22XXGoEM82sXDmu WPzk9xsyHe4LkUoUUGhXA I3wJopDWxiz1NvZMPiB34 yqIJuh5U1MKBt iHfiaFUxMdQroDD0lQ2eC Qzltykpi3ljbykgFcnfx2 ahcy12vB32F46vXIndZGQ oPSIzMCUiIHZh wDvcba5jfC7eFi6+PGNvb LU7uZB4bE8eAmTbYsC4WB kzG153WmKlhRViFhobc9f py6kcaWh4IzPo KTSfxqFydCmhBNX1j6HsD u60B95wDAdaLHMtIXJxMR SvUOPmxSwpil0elS0bKc7 +SW8fn7wdnb94 dW97eRJ+YBJoTNG0yExfN ZklYIBdmX4iVTlfFtE7AK PaOfRzaG42kDPzUIokOq9 iqVdpcPcaBU3l YUDjljozi844ImBes0noK HQcqVWnNOxjPMW3E31qs7 A4AXYlVGGaLIA4hQI4hY8 hbGlnbjogbGVm dDsgdmVydGljYWwtYWxpZ 033FTIkoVsuMvZqtBWkC7 zqpgCDZL0jIcixxWE+PHR iNUU3sKrsSOzi HPRkqB7sXRFjT9m4OvPpO wL6AYokY8KafpZ8INUpeM HfPNVgsDRKjK0jimhtd6n vcjogIzAwMDAw QGj1FZg2EPKfzHccReLiV YL8GdH4GTC7kMGvaE5lzD ancajiaF6iWll+RklOOjw vdGQ+PHRkIHN0 gOajHWlrGIBtzQ1hXAQoH 0v8GqBjHyK6CJzcA7Csvq J7ORGdiVBaYCXivVMMfP7 wqkrke3zztzcz ZkJfCRRuWEb4QHw6SQAtd TxgPsIrKLL4WyD0BHE4jA HpiH3nySbunigkpB9qUva +TVJOOjwvdGQ+ MJHvMDF6iSfpPLiwGEHbb T5gIQEtQ1w2DrXbXdI0PH evP7EaxeI6GPAawLKyAXW fjYVOuE3ttvza y2yawvvuUsWmJVWjRVw2F Mf4JVEcyMkhFnGlQGM0Vq R4GAM9dLJgeJ7vdSeyolf qhQ4nItk+UGF5 ZXU5QE87UT27F9IrSkigj GFibGU+PHRhYmxlIHdpZH RoPScxMDAlJyBzdHlsZT0 xFr1fSDEcMXHq bGxh (more content not included)... Normal [facility] Consent for Procedure/Surger yon 09-30-2020 Consent for Procedure/Surgery [id number] .[id number]:127 [facility] Consent for Treatmenton 09-12 Consent for Treatment [id number] .00CD:127 [facility] Discharge Instructionson Discharge Instructions [id number] .[id number]:127 [facility] IntraOperative Documentson 0 09-30-2020 IntraOperative Documents [id number] .00CD:127 [facility] IntraOperative Documents [id number] .[id number]:[address] [facility] Main OR Intraoperative Recor don 09-30-2020 Main OR Intraoperative Record IntraOp Document Type FTURO Summary Primary Physician: Rodriguez GALLEGOS MD Finalized Date/Time: 09/30/20 10:28:54 Pt. Name: LOUISA LIU.O.B./Sex: 1970 Female Med Rec #: [id number] Physician: Rodriguez GALLEGOS MD Financial #: [id number] Pt. Type: O Room/Bed: / Admit/Disch: 09/30/20 09:54:59 - Institution: Case Times FTURO Entry 1 Patient Times In Room 09/30/20 10:13:00 Out Room 09/30/20 10:25:00 Procedure Times Start 09/30/20 10:19:00 Stop 09/30/20 10:22:00 Anesthesia Times Last Modified By: Dawn Davalos RN 09/30/20 10:25:02 Case Attendance FTURO Entry 1 Entry 2 Entry 3 Case Attendee AARTI BOLES, Rodriguez Rosado EKG MONITOR, Karissa Davalos RN, Dawn Morfin Role Performed Surgeon - Primary Scrub - Primary Cmo & President - Primary Time In 09/30/20 10:13:00 09/30/20 10:13:00 09/30/20 10:13:00 Time Out 09/30/20 10:25:00 09/30/20 10:25:00 09/30/20 10:25:00 Procedure CYSTOSCOPY LOCAL(.) CYSTOSCOPY LOCAL(.) CYSTOSCOPY LOCAL(.) Comments Last Modified By: Susannah RN, Dawn Davalos RN, Dawn Sexton RN 09/30/20 10:25:03 09/30/20 10:25:03 09/30/20 10:25:03 Surgical Procedures FTURO Entry 1 Procedure Description Procedure CYSTOSCOPY LOCAL Modifiers . Surgeon Description CYSTOSCOPY LOCAL Primary Procedure Yes Primary Surgeon Rodriguez GALLEGOS MD Start 09/30/20 10:19:00 Stop 09/30/20 10:22:00 Anesthesia Type Local Surgical Service Urology Wound Class 2 - Clean-Contaminated Last Modified By: Dawn Davalos RN 09/30/20 10:22:46 General Case Data FTURO Pre-Care Text: Classifies surgical wound, implements aseptic technique, initiates traffic control Entry 1 Case Information OR URO 1 FT Case Level None Wound Class 2 - Clean-Contaminated Specialty Urology Preop Diagnosis GROSS HEMATURIA, STRESS Postop Same As Preop Yes INCONTINENCE,DYSURIA Postop Diagnosis GROSS HEMATURIA, STRESS Outcomes Met? Yes INCONTINENCE,DYSURIA Last Modified By: Dawn Davalos RN 09/30/20 10:13:56 Post-Care Text: The patient is free from signs and symptoms of infection EU IntraOp - FTURO Pre-Care Text: Implements protective measures prior to operative or invasive procedure, confirms identity before the operative or invasive procedure, verifies operative procedure, surgical site, and laterality Entry 1 EU Perioperative Protocols Procedure(s) CYSTOSCOPY LOCAL(.) Patient Identity Birthday, ID Band Verified (select at Check, Patient least 2): Participation Consents / H and P HandP, Surgery/Procedure Operative Site N/A Verified Consent Marking Verified Surgical Site Yes Laterality Verified Yes Verified Procedure Verified Yes Correct Patient Yes Position Verified Availability Equipment, Medication Time Out AARTI BOLES, Rodriguez Shrestha, Verified (If Participants Karissa Rosado CST, Applicable) Dawn Davalos RN Time Out Complete 09/30/20 10:14:00 Allergies Reviewed? Yes Allergies Reviewed Self/Patient With Body Position Frog Legged Prep Area PERINEUM Prep Agents Betadine Solution Skin. Condition Dry, Warm, Unable to Description UNABLE TO VISUALIZE DUE Visualize TO PATIENT PARTIALLY CLOTHED Additional FISH, Other (See Specimens Comment FISH AND CYTOLOGY Specimens Collected Comment) Vitals - EU Blood Pressure 108/73 Pulse 66 bpm Respirations 18 br/min SPO2 EBL 0 IandO - EU Total Intake 0 mL Total Output 0 mL Outcomes Met? Yes Last Modified By: Dawn Davalos RN 09/30/20 10:28:48 Post-Care Text: The patient is free from signs and symptoms of injury caused by extraneous objects Sign Out FTURO Entry 1 Before Patient Leaves OR Nurse verbally Yes Nurse verbally Yes confirms with the confirms with the team the name of team that the procedure(s) instrument, sponge, recorded and needle counts are correct (or N/A) Nurse verbally n/a Nurse verbally Yes confirms with the confirms with the team how the team whether there specimen is labeled are any equipment (including patient problems to be name), if applicable addressed Sign Out Complete 09/30/20 10:22:00 Last Modified By: Dawn Davalos RN 09/30/20 10:22:12 Case Comments Finalized By: Dawn Davalos RN Document Signatures Signed By: Dawn Davalos RN 09/30/20 10:25 Dawn Davalos RN 09/30/20 10:[address] [facility] Main OR Preoperative Recordo n 09-30-2020 Main OR Preoperative Record Holding Area Document Type FTURO Summary Primary Physician: Rodriguez GALLEGOS MD Finalized Date/Time: 09/30/20 10:13:10 Pt. Name: LOUISA LIU Michael Palma/Sex: 1970 Female Med Rec #: [id number] Physician: Rodriguez GALLEGOS MD Financial #: [id number] Pt. Type: O Room/Bed: / Admit/Disch: 09/30/20 09:54:59 - Institution: Case Times Holding FTURO Pre-Care Text: Verifies consent for planned procedure, identifies individual values and wishes concerning care, includes family members in perioperative teaching Secures patient's records' belongings, and valuables, maintains patient's dignity and privacy, and maintains patient confidentiality Entry 1 In Holding 09/30/20 10:03:00 Outcomes Met? Yes Last Modified By: Elvi Jones LPN 09/30/20 10:03:16 Post-Care Text: The patient participates in decisions affecting his or her perioperative plan of care The patient's right to privacy is maintained Surgery Checklist FTURO Entry 1 Patient Birthday, ID Band Procedure History and Physical, Identification: Check, Patient Verification: Surgical Consent, With Participation Patient NPO after Midnight: n/a Personal Items: Glasses, Jewelry Personal Items bracelet Complaints of Pain: Yes Comment: Pain Comment: abd. 3/10 Skin Integrity Unable to Visualize Vitals - EU Blood Pressure 108/73 Pulse 66 bpm Respirations 18 br/min SPO2 RN Reviewed Yes Last Modified By: Dawn Davalos RN 09/30/20 10:13:08 General Comments: Temp. 35.6 Finalized By: Dawn Davalos RN Document Signatures Signed By: Elvi Jones LPN 09/30/20 10:06 Dawn Davalos RN 09/30/20 10:[address] [facility] Operative Reporton Operative Report Patient: LOUISA LIU Age: 50 years Sex: Female : 1970 Associated Diagnoses: None Author: Rodriguez GALLEGOS MD Procedure Operative Information Details: Date/ Time: 09/30/2020 10:28:00. Pre-Op Dx: Gross Hematuria - R31.0, Micro Hematuria - With Symptoms - R31.29. Post-Op Dx: Same. Anesthesia Type: Local. Procedure: Local Cystoscopy. Complications: None. Risks/Benefits/Inform ed Consent: Surgical risks, benefits, details of the procedure have been explained to the patient, Full informed consent has been obtained. Intraoperative Information Prepped: Patient is brought back to the endoscopy suite, Patient is placed in modified dorso/lithotomy position, Patient prepped in the usual fashion with Betadine solution, 2% Xylocaine Jelly is placed per Urethra, After waiting several minutes the Cystoscope is introduced. The Urethra is: Normal. The Bladder is: Normal, no b.t. no parish. no prolapse or a.v.. The ureteral orifices: Show efflux of clear urine. Specimens Removed: Bladder wash sent for FISH and Cytology test. Devices Implanted: None. Removal: Cystoscope is removed, The patient tolerated it well. Postoperative Information Discharge: Patient is discharged home with antibiotic coverage, Follow up arranged. check fish/cytol today. will check ct if either is abnormal.. Normal [facility] Comment on above: Result Comment: Elec tronically Signed By: Rodriguez GALLEGOS MD\.br\Date and Time Signed: 09/30/20 10:31 EDT [facility] Fish and Urine Cyt o ([facility])on 09-30-2020 [facility] Method of Extraction Voided Normal [facility] Comment on above: Performed By: #### 1 [id number] ####[facility] [address] [place] [address] [facility] Number of Jars [address] [facility] Comment on above: Performed By: #### 1 [id number] ####[facility] [address] [place] [address] [facility] Specimen Urine Normal [facility] Comment on above: Performed By: #### 1 [id number] ####[facility] [address] [place] [address] [facility] Type of Service Technical Only Normal [facility] Comment on above: Performed By: #### 1 [id number] ####[address] [place] [address] RAD - Ultrasound Reporton RAD - Ultrasound Report [id number]. 00CD:[address] [facility] Pre-Certification Formon Pre-Certification Form [id number] .00CD:[address] [facility] Urine Cytology ( Labs)on 0 09-24-2020 Urine Cytology Diagnosis Info Invalid Interpretation Code [facility] Comment on above: Result Comment: A:Ur ine,Urine:Voided Interpretation - MicroScopic Description - Many unremarkable squamous cells present. Adequacy - Gross Description Site ID:A color Bright Yellow fixative Alcohol Specimen designated Urine received in alcohol preservative and labeled with the patient?s name, consists of 50ml clear bright yellow fluid. One non-glass embosser cytology slide prepared. Electronically signed by : on: 09/24/2020 09:37:46 Performed By: #### 1 [id number] ####[facility] [address] [place] [address] Physician Referralon 021 Physician Referral [id number]. 00CD:[address] [facility] Formson 09-22-2020 Forms [id number]. 00CD:[address] [facility] RAD - Ultrasound Reporton RAD - Ultrasound Report [id number]. 00CD:[address] [facility] Ambulatory Clinical Summaryo n 09-19-2020 Ambulatory Clinical Summary {[id number]}CD:[id number] Normal [facility] Patient Educationon 09-20-19 Patient Education Urology Hematuria, Adult Hematuria is blood in the urine. Blood may be visible in the urine, or it may be identified with a test. This condition can be caused by infections of the bladder, urethra, kidney, or prostate. Other possible causes include: ? Kidney stones. ? Cancer of the urinary tract. ? Too much calcium in the urine. ? Conditions that are passed from parent to child (inherited conditions). ? Exercise that requires a lot of energy. Infections can usually be treated with medicine, and a kidney stone usually will pass through your urine. If neither of these is the cause of your hematuria, more tests may be needed to identify the cause of your symptoms. It is very important to tell your health care provider about any blood in your urine, even if it is painless or the blood stops without treatment. Blood in the urine, when it happens and then stops and then happens again, can be a symptom of a very serious condition, including cancer. There is no pain in the initial stages of many urinary cancers. Follow these instructions at home: Medicines ? Take dise-gzt-eucomaw and prescription medicines only as told by your health care provider. ? If you were prescribed an antibiotic medicine, take it as told by your health care provider. Do not stop taking the antibiotic even if you start to feel better. Eating and drinking ? Drink enough fluid to keep your urine clear or pale yellow. It is recommended that you drink 3?4 quarts (2.8?3.8 L) a day. If you have been diagnosed with an infection, it is recommended that you drink cranberry juice in addition to large amounts of water. ? Avoid caffeine, tea, and carbonated beverages. These tend to irritate the bladder. ? Avoid alcohol because it may irritate the prostate (men). General instructions ? If you have been diagnosed with a kidney stone, follow your health care provider's instructions about straining your urine to catch the stone. ? Empty your bladder often. Avoid holding urine for long periods of time. ? If you are female: ? After a bowel movement, wipe from front to back and use each piece of toilet paper only once. ? Empty your bladder before and after sex. ? Pay attention to any changes in your symptoms. Tell your health care provider about any changes or any new symptoms. ? It is your responsibility to get your test results. Ask your health care provider, or the department performing the test, when your results will be ready. ? Keep all follow-up visits as told by your health care provider. This is important. Contact a health care provider if: ? You develop back pain. ? You have a fever. ? You have nausea or vomiting. ? Your symptoms do not improve after 3 days. ? Your symptoms get worse. Get help right away if: ? You develop severe vomiting and are unable take medicine without vomiting. ? You develop severe pain in your back or abdomen even though you are taking medicine. ? You pass a large amount of blood in your urine. ? You pass blood clots in your urine. ? You feel very weak or like you might faint. ? You faint. Summary ? Hematuria is blood in the urine. It has many possible causes. ? It is very important that you tell your health care provider about any blood in your urine, even if it is painless or the blood stops without treatment. ? Take solo-lpe-wdnmkhe and prescription medicines only as told by your health care provider. ? Drink enough fluid to keep your urine clear or pale yellow. This information is not intended to replace advice given to you by your health care provider. Make sure you discuss any questions you have with your health care provider. Document Released: 05/30/2006 Document Revised: 10/24/2019 Document Reviewed: 07/02/2017 [employer] Patient Education ? [address] [employer] [address] [facility] Urine Cytology ([facility])on 0 09-19-2020 Method of Extraction Voided Normal [facility] Comment on above: Performed By: #### 1 [id number] ####[facility] [address] [place] [address] Number of Jars [address] [facility] Comment on above: Performed By: #### 1 [id number] ####[facility] [address] [place] [address] [facility] Comment on above: Performed By: #### 1 [id number] ####[facility] [address] [place] [address] Type of Service Technical Only Normal [facility] Comment on above: Performed By: #### 1 [id number] ####[facility] [address] [place] [address] Urology Office/Clinic Noteon 09-19-2020 Urology Office/Clinic Note Chief Complaint Blood in urine per Dr. Jimenez [facility] Staff Referral from Dr. Jimenez for blood in urine from Dr. Jimenez. Pt states that she sees what she thinks is blood almost every morning when she urinates but is unable to say how long this has been ongoing. Dysuria: pt states sometimes Incomplete bladder emptying: Hematuria: pt states that she feels she has seen some blood and she states it is usually in the morning Frequency: no Urgency: no Nocturia: 1x Stream: depends on amount she is drinking and how long she has waited Leaking: yes but pt states that it is rare Post void dripping: no Wearing pads/ Depends: no Urge incontinence: Stress incontinence: yes Incontinence without Sensory Awareness: no Abdominal pain: no Flank pain: pt states that she always has back pain Sexual complaints: no History of Present Illness Reviewed UA, referral, and new pt. paper works. There have been no associated fever or chills. Pt. states having intermittent dysuria. Review of Systems PHQ Score Initial Depression Screen Score: 0 ROS - Provider Constitutional: denies weight loss, denies hot flashes. Eyes: denies eye problems. Gastrointestinal: denies nausea, denies vomiting. Cardiovascular: denies chest pain or angina. Integumentary: no dryness Musculoskeletal: denies musculoskeletal symptoms. ENMT: denies otolaryngeal symptoms. Respiratory: no shortness of breath. Heme/Lymph: denies easy bleeding tendency, denies easy bruising tendency. Psychiatric: no confusion, no anxiety. Genitourinary: denies vaginal discharge, mild incontinence, mild dysuria, denies hematuria, denies urinary frequency, denies amenorrhea, denies menorrhagia, denies abnormal bleeding, denies pelvic pain, denies genital sores, and denies decreased libido. Physical Exam Vitals & Measurements HR: 63(Peripheral) RR: 16 BP: 104/69 HT: 161 cm HT: 161.0 cm WT: 63 kg WT: 63.0 kg BMI: 24.3 General Appearance: alert , no acute distress, well nourished, well developed female. Head: normocephalic . Eyes: normal orbit and globe. ENMT: normal examination of external ears. Chest: Lungs CTA, respirations non labored . Cardiovascular: regular rate and rhythm. Abdomen: soft, non distended, no tenderness, no mass or organomegaly, no hernia. Genitourinary: bladder nonpalpable, no flank tenderness. Lymph Nodes: unremarkable palpation of the cervical area. Skin: warm, dry, no bruising. Psychiatric: cooperative, affect appropriate for age, normal judgement, euthymic mood. Assessment/Plan 1. Gross hematuria (R31.0: Gross hematuria) Pt. states visible blood noticed first thing in the morning. UA today - neg. Will send UA today for FISH/Cyto, pt. is to obtain renal us, and will schedule pt. for Cystoscopy. The risks and benefits for cystoscopy have been discussed. The risks include bleeding, infection, and irritation of the bladder and urinary channel, among others. The patient, after being informed of procedural details and after questions have been answered, wishes to proceed. Full informed consent has been obtained. Will order Local anesthesia. ABX sent to [facility] in [place]. 2. Stress incontinence (N39.3: Stress incontinence (female) (male)) Mild, intermittent. Pt. does not need to use any pads. 3. Dysuria (R30.0: Dysuria) Intermittent. I have reviewed the previous health record information and history for this pt. from Dr. Gallegos. Follow-up With When Contact Information AARTI BOLES, Rodriguez Shrestha [address] [place] [address] [place] [address]- [phone] Additional Instructions: Patient Education Hematuria, Adult I, Melvina Rodriguez , personally scribed for Dr. Gallegos on 09/19/2020 11:15:54. . Documentation recorded by the scribe, Melvina Rodriguez, accurately reflects the services(s) I performed and decisions made by me. Authenticated by Dr. Gallegos on 09/19/2020 11:20:44. Problem List/Past Medical History Ongoing Anemia Historical No qualifying data Procedure/Surgical History History of hysterectomy.. Medications estradiol 1 mg oral tablet, Oral, Daily levothyroxine 50 mcg (0.05 mg) Tab, Oral, Daily Multi Vitamin+ Allergies Latex (Unknown) Seasonal (Unknown) codeine (Unknown) Social History Alcohol - Low Risk, 09/19/2020 Tobacco Former smoker, quit more than 30 days ago Tobacco Use:., 09/19/2020 Immunizations Vaccine Date Status SARS-CoV-2 (COVID-19) mRNA-1273 vaccine 09/04/2020 Recorded Lab Results Ambulatory Point of Care Results Bilirubin Urine Dipstick: Negative (09/19/20 10:27:00) Blood Urine Dipstick: Negative (09/19/20 10:27:00) Glucose Urine Dipstick: Negative (09/19/20 10:27:00) Ketones Urine Dipstick: Negative (09/19/20 10:27:00) Leukocytes Urine Dipstick: Negative (09/19/20 10:27:00) Nitrite Urine Dipstick: Negative (09/19/20 10:27:00) Protein Urine Dipstick: Negative (09/19/20 10:27:00) Specific [place] Urine D (more content not included)... Normal [facility] Comment on above: Result Comment: Elec tronically Signed By: AARTI BOLES, Rodriguez Shrestha\.br\Date and Time Signed: 09/19/20 11:20 EDT\.br\Electronically Co-Signed By: Melvina Rodriguez MA\.br\Date and Time Co-Signed: 09/19/20 11:16 EDT Vital Signs Date Time Vital Sign Value Performing Clinician Ana Laura ayala 04-05-2022 14:00-0400 Body height 162.56 cm Tressa Blunt Other [email or web address] Other 04-05-2022 14:00-0400 Body mass index (BMI) [Ratio] 24.37 kg/m2 Tressa Blunt Other [email or web address] Other 04-05-2022 14:00-0400 Body weight 64.41 kg Tressa Blunt Other [email or web address] Other Encounters Encounter Date Encounter Type Care Provider Facility Start: 07-27-2023 Refill Celso armijo DO Work Phone: [facility] - Family Medicine Comment on above: Hypothyroidism, unsp ecified Start: 02-24-2023 End: 02-25-2023 ambulatory [facility] Start: 02-24-2023 Encounter for gynecological examination (general) (routine) without abnormal findings [facility] Start: 02-24-2023 End: 02-24-2023 Patient encounter status Celso Buenrostro Phone: [facility] Start: 02-24-2023 End: 02-24-2023 Subsequent hospital visit by physician Celso Buenrostro Phone: [facility] Laboratory Comment on above: Visit for gynecologi c examination Start: 08-30-2022 Patient encounter status Ramon Jimenez DO Work Phone: [facility] Start: 04-25-2022 End: 04-27-[address] CELSO JIMENEZ Facility:[facility] Start: 04-05-2022 End: 04-05-2022 ambulatory Tressa Blunt Other [email or web address] Other Start: 04-05-2022 Office outpatient vi sit 15 minutes Tressa Blunt [facility] Start: 02-25-2022 End: 02-26-[address] DOUG GAVIN Facility:[facility] Start: 10-30-2021 End: 10-31-[address] DOUG GAVIN Facility:[facility] Start: 06-08-2021 End: 06-08-[address] CELSO JIMENEZ Facility:[facility] Start: 02-12-2021 End: 02-12-2021 Patient encounter procedure Celso Cottrellaleksander Work Phone: [facility] Laboratory Start: 02-12-2021 End: 02-12-2021 Subsequent hospital visit by physician Celso Yazanye Work Phone: [facility] Laboratory Comment on above: Women's annual routi ne gynecological examination Start: 01-10-2020 End: 01-10-2020 Subsequent [facility] Comment on above: Encounter for well sharron garcia exam with routine gynecological exam Procedures Date Procedure Procedure Detail Performing Clinician Start: 08-30-2022 Adult depression scr eening assessment Celso Jimenez DO Work Phone: Start: 02-22-2022 Microscopic observat ion [Identifier] in Cervix by Cyto stain Celso Jimenez DO Work Phone: Plan of Treatment Date Care Activity Detail Author Start: 02-22-2025 Screening for malign ant neoplasm of cervix Pap Smear [facility] [place] Start: 11-01-2024 Screening for malign ant neoplasm of breast Breast cancer screen [facility] Start: 02-27-2024 End: 02-27-2024 Patient encounter procedure 02/27/2024 10:00 AM EDT Office Visit [facility] [address] [place] [address] Doug Gavin MD [address] [facility] [address] [place] [address] [facility] Comment on above: yearly Start: 02-15-2024 DTaP,Tdap and Td Vaccines (3 - Td or Tdap) DTaP,Tdap and Td Vaccines (3 - Td or Tdap) [facility] [employer] [facility] Start: 02-15-2024 DTaP/Tdap/Td vaccine (3 - Td or Tdap) DTaP/Tdap/Td vaccine (3 - Td or Tdap) [facility] Start: 02-15-2024 DTaP/Tdap/Td vaccine (3 - Td) DTaP/Tdap/Td vaccine (3 - Td) [place], [place] Start: 08-31-2023 Adult BMI Screening Adult BMI Screen ing [facility] Start: 08-31-2023 Depression Screening Depression Scre ening [facility] Start: 08-31-2023 Tobacco Screening Tobacco Screening [facility] Start: 02-11-2023 COVID-19 Vaccine ( season) COVID-19 Vaccine ( season) [facility] Start: 02-11-2023 Influenza vaccination Influenza Vacc ine [facility] Start: 01-11-2023 Influenza vaccination Flu vaccine (# 1) [facility] Start: 01-09-2023 Screening for malign ant neoplasm of cervix Cervical [facility] Start: 10-21-2022 Screening for malign ant neoplasm of breast [facility] Start: 09-18-2021 Screening for malign ant neoplasm of cervix Cervical cancer screen [place], [place] Start: 02-12-2021 End: 02-12-2021 Office Visit 02/12/2021 Office Visit Obstetrics and Gynecology Doug Gavin MD [address] [place] [id number] [facility] Start: 02-11-2021 Influenza vaccination Flu vaccine (# 1) [facility] [employer] Phone: Start: 10-30-2020 COVID-19 Vaccine (2 - Moderna series) COVID-19 Vaccine (2 - Moderna series) [facility] Start: 2020 Administration of varicella zoster vaccine Zoster (Shingles) Vaccine (1 of 2) [facility] Start: 2020 Shingles Vaccine (1 of 2) Shingles Vaccine (1 of 2) [facility] Start: 02-12-2020 Influenza vaccination Flu vaccine (# 1) [place], [place] Start: 2015 Screening for malign ant neoplasm of colon [facility] [employer] Start: 2010 Diabetes screen Diabetes screen [employer] Phone: Start: 2010 Lipid panel [facility] [employer] Start: 1988 Adult BMI Follow Up Plan Adult BMI Follow Up Plan [employer] Start: 1988 Hepatitis C screening Hepatitis C sc [facility] 1985 HIV screening [facility] Start: 1982 Depression Screen [facility] Start: 1970 Hepatitis B vaccine (1 of 3 - 3-dose series) Hepatitis B vaccine (1 of 3 - 3-dose series) [facility] [employer] Start: 1970 Hepatitis C screening Hepatitis C sina crowe SCHEDit Phone: End: 01-10-2020 Cytopathology procedure, preparation of smear, genital source [facility] Routine Encounter for well woman exam with routine gynecological exam 1 Occurrences starting 01/10/2020 until 01/10/2020 [facility] Comment on above: 1 Occurrences starti ng 01/10/2020 until 01/10/2020 End: 02-12-2021 Cytopathology procedure, preparation of smear, genital source [facility] Lab Routine Women's annual routine gynecological examination 1 Occurrences starting 02/12/2021 until 02/12/2021 [employer]EDit Phone: Comment on above: 1 Occurrences starti ng 02/12/2021 until 02/12/2021 End: 02-24-2023 Cytopathology procedure, preparation of smear, genital source [facility] Lab Routine Visit for gynecologic examination 1 Occurrences starting 02/24/2023 until 02/24/2023 [employer] Comment on above: 1 Occurrences starti ng 02/24/2023 until 02/24/2023 Immunizations Immunization Date Immunization Notes Care Provider [facility] 09-04-2020 COVID-19, mRNA, LNP- S, PF, 100mcg/0.5mL Dose Celso Jimenez DO Work Phone: [employer] 08-05-2014 pneumococcal conjuga te vaccine, 13 valent Celso WeDeliverye DO Work Phone: [facility] 02-14-2014 tetanus toxoid, redu rich diphtheria toxoid, and acellular pertussis vaccine, adsorbed Celso Jimenez DO Work Phone: [facility] 02-22-2007 diphtheria, tetanus toxoids and acellular pertussis vaccine Celso Jimenez [place], [place] Payers Date Payer Category Payer Private Health Insurance [facility] [employer] [id number] 2020-Present [phone] [address] [address] [place] [address] [id number] 2017 Unknown [facility] [facility] [employer]IT [id number] 2017-Present [phone] [address] [place] [address] [id number] 2017 Unknown [id number] 1970 Unknown [id number] 1970 Unknown [id number] 1970 Unknown [id number] 1970 Unknown [id number] 1970 Unknown [id number] 1959 Unknown [id number] Social History Date Type Detail Facility Start: 01-10-2020 End: 04-30-2022 Tobacco smoking status NHIS Former smoker [facility] [employer] STEPH[facility]IE [facility]TEGA Start: 01-10-2020 End: 08-30-2022 Cigarettes smoked current (pack per day) - Reported [facility] [employer] [facility] Start: 01-10-2020 End: 04-30-2022 Tobacco use and exposure Never used [facility] [employer] STEPHANIE Perez Start: 01-10-2020 End: 08-30-2022 Alcohol intake Current drinker of alcohol (finding) [facility] Start: 07-17-2012 Alcohol Comment rarely [facility] Start: 1970 Sex Assigned At Not on file [facility] HISTEPHANIE Start: 08-30-2022 End: 02-24-2023 Sex Assigned At [email or web address] Other End: 07-13-2017 History of tobacco use Current smoker [facility] [email or web address] End: 07-13-2017 History of tobacco use Cigarette Smoker [facility] [employer] PHQ-2 Score 0 [facility] History of tobacco use Passive smoker [facility] Do you belong to any clubs or organizations such as orthodoxy groups, unions, fraternal or athletic groups, or school groups? Yes [facility] Are you now , , , , never or living with a partner? Never [facility] How often to you hav e a drink containing alcohol? 2-4 times a month [facility] How many standard dr inks containing alcohol do you have on a typical day? 3 or 4 [facility] How often do you hav e 6 or more drinks on 1 occasion? Never [facility] Do you feel stress - tense, restless, nervous, or anxious, or unable to sleep at night because your mind is troubled all the time - these days [OSQ] Not at all [facility] Start: 09-10-2020 Alcohol Comment Occasional [facility] Clinical Notes 09-30-2020 to 07-27-2023 Telephone Encounter - Celso Jimenez, - 07/27/2023 1:13 PM ESTTelephone Encounter - Veronica Blair, GLOBAL COMPENSATION ANALYST - 07/27/2023 1:13 PM ESTTelephone Encounter - Celso Jimenez DO - 07/27/2023 1:13 PM EST Note Date & Type Note Facility 07-27-2023 Miscellaneous Notes Formattin g of this note might be different from the original. She is due for a wellness in late August. Please set up Left a message to call back documented in this encounter [facility] 07-27-2023 Telephone encount er Note She is due for a wellness in late August. Please set up [facility] 07-27-2023 Telephone encount er Note Left a message to call back [facility] 04-05-2022 Evaluation note Encounter Date Diagnosis Assessment Notes Mar, Contact with and (suspected) exposure to other viral communicable diseases (ICD-10 - Z20.828) Mar, COVID-19 (ICD-10 - U07.1) Discharge Instructions for COVID-19 (Suspected or Confirmed ) material was printed Drink plenty of fluids, get plenty of rest. Take Tylenol or Motrin as needed for aches pains or fevers. You must quarantine for 5 days after the onset of your symptoms. Follow-up with your family physician if no improvement in 2 to 3 days. [email or web address] Other 04-20-2021 Note [id number] 09-30-2020 NoteCustom Cystoscopy ? Voiding after the procedure: there may be some pain, burning, urgency, frequency and blood tingedurine following the procedure. These symptoms usually resolve within 2-5 days. Drink the amount of fluid it takes to keep the urine pink to yellow or clear in color. Drinking enough water and fluids will help to ease any discomfort after your procedure. ? If you are having problems that seem out of the ordinary, please call. ? If unable to contact your physician and you feel it is an emergency, go to the nearest emergency room or call 911 ? Diet ? you may resume your normal diet. ? Activity ? you may resume your normal activities ? Call if you have a fever over [address] Evaluation note* Diagnosis Women's annual routine gynecological examination documented in this encounter [employer] Work Phone: evaluation note* Diagnosis Visit for gynecologic examination Routine gynecological examination documented in this encounter SHAYE KIRBYLITO [employer] [facility] Prize[facility] note* Diagnosis Hypothyroidism, unspecified documented in this encounter [facility] general Narrative - Reported* Type Description Date Medical History Asthma Medical History Seasonal allergies Surgical History hysterectomy [email or web address] Other InstructionsNot on filedocumented in this encounter [employer] Assessments Diagnosis Encounter for well woman exam with routine gynecological exam Advance Directives Documents on File Type Date 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 Advance Directives and Living Will Power of Calculus Teacher Documents on File Type Date 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 ACP-Advance Directive ACP-Power of Calculus Teacher Summary Purpose Family History No Family History Records FoundNo Family History Records FoundNo Family History Records FoundNo Family History Records Found Additional Source Comments INFORMATION SOURCE (unrecogn ized section and content) DATE CREATED AUTHOR 04/02/2021 [facility] DATE CREATED AUTHOR AUTHOR'S ORGANIZ ATION 08/20/2021 [facility] DATE CREATED AUTHOR AUTHOR'S ORGANIZ ATION 05/03/2022 [facility] DATE CREATED AUTHOR AUTHOR'S ORGANIZ ATION 02/26/2023 [facility] REASON FOR VISIT (unrecogniz ed section and content) Reason Comments Med Refill Care Teams (unrecognized sec tion and content) Subassembler Relationship Specialty Start Date End Date Celso Jimenez PCP - General 09/12/15 Subassembler Relationship Specialty Start Date End Date Celso Jimenez DO [address] [facility], [place] [address] PCP - General Family Medicine 10/20/20 FOR RECORDS PERTAINING TO PATIENTS WHO ARE OR HAVE BEEN ENROLLED IN A CHEMICAL DEPENDENCY/SUBSTANCEABUSE PROGRAM, SOME INFORMATION MAY BE OMITTED. This clinical summary was aggregated from multiple sources. Caution should be exercised in using it in the provision of clinical care. This summary normalizes information from multiple sources, and as a consequence, information in this document may materially change the coding, format and clinical context of patient data. In addition, data may be omitted in some cases. CLINICAL DECISIONS SHOULD BE BASED ON THE PRIMARY CLINICAL RECORDS. [employer] [facility]. provides no warranty or guarantee of the accuracy or completeness of information in this document.
[2023-08-28 18:09] VITALS: BP 111/65; PULSE 69; RESP 12; TEMP 36.6; O2SAT 97; BMI 25.3
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
[2023-08-28] MEDS: PREDNISONE 20 MG TABLET 60 MG PO (19:13)
[2023-08-28] MEDS: ONDANSETRON 4 MG RAPDIS TABLET SL (19:13)
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
[2023-08-28 19:40] VITALS: BP 115/60; PULSE 70; RESP 14; O2SAT 98
== END 2023-08-28 19:54 | disposition home or self-care (01) ==
PROVIDERS: Emergency Provider Emergency Medicine; PCP Family Medicine
DX: S06.0X0A Concussion without loss of consciousness, initial encounter (principal); R51.9 Headache, unspecified; V43.52XA Car driver injured in collision with other type car in traffic accident, initial encounter; Z79.899 Other long term (current) drug therapy; Z79.890 Hormone replacement therapy
CPT/HCPCS: 70450; 99284

== ENCOUNTER 2023-11-04 09:50 | Outpatient (OUT) | payer OTHER, SELFPAY ==
--- NOTE | 2023-11-04 09:53 | MM_ITS ---
Patient Name: JIM LIU MR#: [id number] : 1970 Exam Date: 11/04/2023 Ordering Doctor: DR MYA HOFFMANN RADIOLOGY REPORT PROCEDURE: MM TOMOSYNTHESIS SCREENING BI COMPARISON: MG MAMM SCREEN 3D SUSAN CAD, 11/01/2022. MG MAMM SCREEN 3D SUSAN CAD, 10/30/2021. MG MAMM SCREEN 3D SUSAN CAD, 10/29/2020. MG MAMM SUSAN SCRN W CAD DIG, 08/27/2013. INDICATIONS: Screening Calculator Name NCI Breast Cancer Risk Assessment Tool 5 Year Breast Cancer Risk 1.10% Lifetime Breast Cancer Risk 8.60% Personal Breast Cancer No Personal Ovarian Cancer No Treatments None Family Cancers None LOCATION: [facility] BREAST COMPOSITION: The breasts are extremely dense, which lowers the sensitivity of mammography. FINDINGS: DIAGNOSTIC CATEGORY 2--BENIGN FINDING: RIGHT BREAST: No significant suspicious finding. No significant change has occurred. LEFT BREAST: No significant suspicious finding. Stable coarse benign-appearing calcification and scattered asymmetries. No significant change has occurred. RECOMMENDATIONS: ROUTINE MAMMOGRAM AND CLINICAL EVALUATION IN 12 MONTHS. PLEASE NOTE: A NORMAL MAMMOGRAM DOES NOT EXCLUDE THE POSSIBILITY OF BREAST CANCER. A CLINICALLY SUSPICIOUS PALPABLE LUMP SHOULD BE BIOPSIED. Dictated by: Alexey Candelario M.D. on 11/08/2023 at 11:41 Approved by: Alexey Candelario M.D. on 11/08/2023 at 11:44
--- OUTSIDE RECORDS SUMMARY | 2023-11-04 09:59 | XMS_ITS | CCD ---
Author Organization [facility] Inform ion Partnership [facility] Care Team Providers Care Moshgi[place] Name Role Phone Celso Jimenez Primary Care Provider MerleneKimberlyTressa Unavailable TAHIRA, DR DOUG Trivedi Admitting Unavailable HEDGEDia, DR DOUG Trivedi Attending Unavailable FURWESTNG, DR CELSO Rios Primary Care Unavailable ZIEBER, DR ALEXEY Shrestha Consulting Unavailable HEDGES, DR DOUG Trivedi Consulting Unavailable YAZANLONG, DR CELSO Rios Admitting Unavailable FURLONG, DR CELSO Rios Attending Unavailable FURLONG, DR CELSO Rios Primary Care Unavailable FURLONG, DR CELSO Rios Consulting Unavailable HEDGES, DR DOUG Trivedi Admitting Unavailable HEDGES, DR DOUG Trivedi Attending Unavailable FURLONG, DR CELSO Rios Primary Care Unavailable ZIEBER, DR ALEXEY Shrestha Consulting Unavailable HEDGES, DR DOUG Trivedi Consulting Unavailable FURLONG, DR CELSO Rios Primary Care Unavailable FRANCO, DR GRAEME Hess Admitting Unavailable FRANCO, DR GRAEME Hess Attending Unavailable FRANCO, DR GRAEME Hess Consulting Unavailable GIGI, DR ALEXEY Shrestha Consulting Unavailable KARIN, SAFIA Consulting Unavailable MARILU TOPETE Consulting Unavailable Celso Jimenez Primary Care Provider [phone] DOUG GAVIN Referring Unavailable CELSO JIMENEZ Primary Care Unavailable Yazanlong Celso OTOOLE Primary Care Provider [phone] CELSO JIMENEZ Attending Unavailable CELSO JIMENEZ Referring Unavailable COLE, CELSO Rios Primary Care Unavailable CELSO JIMENEZ Referring Unavailable CELSO JIMENEZ Primary Care Unavailable Allergies Allergy Classification Reported Allergen(s) Allergy Type Date of Onset Reaction(s) Facility (8 sources) Codeine; Translations: [CODEINE] Drug Allergy 0 Other (See Comments) [employer] [place], [place] (1 source) Codeine Drug Allergy [facility] Repository (5 sources) Latex; Translations: [LATEX] Propensity to adverse reactions to drug 2 Other (See Comments) [facility] [employer] [facility] (1 source) Seasonal allergy Propensity to adverse reactions to substance 2 Other (See Comments) [facility] (4 sources) Hay Fever And Allergy Relief; Translations: [HAY FEVER AND ALLERGY RELIEF] Propensity to adverse reactions to drug 2 Other (See Comments) [employer] [facility] Medications Current Medications Medication Drug Class(es) Dates Sig (Normalized) Sig (Original) [id number] actuat albuterol 0.09 mg/actuat metered dose inhaler (2 sources) beta2-Adrenergic Agonist Start: 08-05-2016 PROAIR HFA 108 (90 BASE) MCG/ACT inhaler Start: 08-05-2016 PROAIR HFA 108 (90 BASE) MCG/ACT inhaler estradiol 1 mg oral tablet (5 sources) Estrogen Start: 01-10-2020 take 1 tablet by mouth once daily estradiol (ESTRACE) 1 MG tablet Indications: 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 0 Active levothyroxine sodium 0.05 mg oral tablet (8 sources) l-Thyroxine Start: End: take 1 tablet by mouth once daily levothyroxine (SYNTHROID, LEVOTHROID) 50 MCG tablet Indications: Hypothyroidism, unspecified take 1 tablet by mouth daily 30 tablet 1 09/14/2023 Active Start: 12-13-2019 take 1 tablet by [...] Problem Date Documented Da te Episodic/Chronic Asthma (2 sources) Reactive airway disease; Translations: [Unspecified asthma, uncomplicated] Onset: 04-30-2022 04-30-2022 Chronic Endometriosis (2 sources) Endometriosis (clinical); Translations: [Endometriosis, unspecified] Onset: 04-30-2022 [...] 05-03-2022 Episodic Other aftercare (1 source) 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; Translations: [OTH RESIDENTIAL CURRENT DRUG THERAPY] Onset: 05-03-2022 Episodic Other and unspecified benign neoplasm (1 source) Personal history of colonic polyps; Translations: [PERSONAL HISTORY OF COLONIC POLYPS] Onset: 05-03-2022 Episodic Other endocrine disorders (4 sources) Other specified disorders of adrenal gland; Translations: [OTHER SPEC DISORDERS ADRENAL GLAND] Onset: 02-25-2022 Chronic Other endocrine disorders (2 sources) Polycystic ovary; Translations: [Polycystic ovarian syndrome] Onset: 04-30-2022 04-30-2022 Chronic Other endocrine disorders (2 sources) Hypoglycemia; Translations: [Hypoglycemia, unspecified] Onset: 04-30-2022 04-30-2022 Chronic Residual codes; unclassified (1 source) Acquired absence of both cervix and uterus; Translations: [ACQUIRED ABSENCE BOTH CERVIX AND UTERUS] Onset: 05-03-2022 Episodic Screening and history of mental health and substance abuse codes (1 source) Personal history of nicotine dependence; Translations: [PERSONAL HISTORY OF NICOTINE DEPEND] Onset: 05-03-2022 Episodic Thyroid disorders (6 sources) Hypothyroidism, unspecified; Translations: [Hypothyroidism] Onset: 08-24-2019 07-27-2023 Chronic Unclassified (1 source) Patient encounter status; Translations: [Encounter for well woman exam with routine gynecological exam] Unclassified (3 sources) CONTACT W/AND (SUSP) EXPOS COVID-19; Translations: [CONTACT W/AND (SUSP) EXPOS COVID-19] Onset: 06-14-2021 Unclassified (1 source) Annual Exam Onset: 10-24-2023 Viral infection (2 sources) COVID-19; Translations: [COVID-19] Onset: 06-14-2021 Past or Other Problems Problem Classification Problem Date Documented Da te Episodic/Chronic Allergic reactions (2 sources) Erythema ab igne; Translations: [Erythema ab igne [dermatitis ab igne]] Onset: 09-10-2016 04-30-2022 Episodic Deficiency and other anemia (2 sources) Anemia; Translations: [Anemia, unspecified] Onset: 04-30-2022 04-30-2022 Episodic Mood disorders (2 sources) Mood disorders Onset: 08-30-2022 08-30-2022 Other and unspecified benign neoplasm (2 sources) Polyp of sigmoid colon; Translations: [Polyp of colon] Onset: 10-22-2020 10-22-2020 Episodic Other bone disease and musculoskeletal deformities (2 sources) Somatic dysfunction of lumbar region; Translations: [Segmental and somatic dysfunction of lumbar region] Onset: 04-30-2022 04-30-2022 Episodic Other nutritional; endocrine; and metabolic disorders (2 sources) Overweight; Translations: [Overweight] Onset: 08-30-2022 08-30-2022 Episodic [...] (SUSP) EXPOS COVID-19] Onset: 06-08-2021 Viral infection (2 sources) Genital warts; Translations: [Anogenital (venereal) warts] Onset: 04-30-2022 04-30-2022 Episodic Results Test Name Value Interpretation Reference Range Facility COMPREHENSIVE METABOLIC PANE [facility] 10-24-2023 Albumin [Mass/Vol] 4.2 g/dL Normal 3.2-5.3 [facility] Comment on above: Performed By: #### C MIGUEL A 49258-1, THYR #### [facility] ([id number]) [address], [address] [place] [address] ALP [Catalytic activity/Vol] 70 U/L Normal 39-130 [facility] Comment on above: Performed By: #### Nacho GRADY 66170-4, THYR #### [facility] ([id number]) [address], [address] [place] [address] ALT [Catalytic activity/Vol] 21 U/L Normal 0-31 [facility] Comment on above: Performed By: #### Nacho GRADY 92805-1, THYR #### [facility] ([id number]) [address], [address] [place] [address] Anion gap [Moles/Vol] 10 mmol/L Normal 5-15 [facility] Comment on above: Performed By: #### C MIGUEL A, 34767-2, THYR #### [facility] ([id number]) [address], [address] [place] [address] AST [Catalytic activity/Vol] 20 U/L Normal 0-41 [facility] Comment on above: Performed By: #### C MIGUEL A, 43960-5, THYR #### [facility] ([id number]) [address], [address] [place] [address] Bilirubin [Mass/Vol] 0.5 mg/dL Normal 0.3-1.2 [facility] Comment on above: Performed By: #### Nacho GRADY, 74848-0, THYR #### [facility] ([id number]) [address], [address] [place] [address] Calcium [Mass/Vol] 8.9 mg/dL Normal 8.5-10.5 [facility] Comment on above: Performed By: #### C MIGUEL A, 62292-2, THYR #### [facility] ([id number]) [address], [address] [place] [address] Chloride [Moles/Vol] 102 mmol/L Normal 98-109 [facility] Comment on above: Performed By: #### Nacho GRADY, 92611-4, THYR #### [facility] ([id number]) [address], [address] [place] [address] CO2 [Moles/Vol] 27 mmol/L Normal 22-32 [facility] Comment on above: Performed By: #### Nacho GRADY, 17593-2, THYR #### [facility] ([id number]) [address], [address] [place] [address] Creatinine [Mass/Vol] 0.76 mg/dL Normal 0.40-1.00 [facility] Comment on above: Result Comment: METH OD TRACEABLE TO IDMS STANDARD Performed By: #### Nacho GRADY, 81071-4, THYR #### [facility] ([id number]) [address], [address] [place] [address] eGFR (CKD-EPI) NON-RACE DEPENDENT >90 Normal >59 [facility] Comment on above: Result Comment: Reported eGFR is based on the CKD-EPI 2020 equation that does not use a race coefficient. Performed By: #### Nacho GRADY, 40705-5, THYR #### [facility] ([id number]) [address], [address] [place] [address] Glucose [Mass/Vol] 96 mg/dL Normal 65-99 [facility] Comment on above: Performed By: #### Nacho GRADY, 84406-9, THYR #### [facility] ([id number]) [address], [facility] [address] [place] [address] Potassium [Moles/Vol] 4.1 mmol/L Normal 3.5-5.0 [facility] Comment on above: Performed By: #### Nacho GRADY, 06131-5, THYR #### [facility] ([id number]) [address], [address] [place] [address] Protein [Mass/Vol] 7.3 g/dL Normal 6.0-8.0 [facility] Comment on above: Performed By: #### Nacho GRADY, 18263-4, THYR #### [facility] ([id number]) [address], [address] [place] [address] Sodium [Moles/Vol] 139 mmol/L Normal 134-146 [facility] Comment on above: Performed By: #### Nacho GRADY, 14876-6, THYR #### [facility] ([id number]) [address], [address] [place] [address] Urea nitrogen [Mass/Vol] 16 mg/dL Normal 5-23 [facility] Comment on above: Performed By: #### Nacho GRADY, 97446-8, THYR #### [facility] ([id number]) [address], [address] [place] [address] Lipid 1996 panelon 4 Cholesterol [Mass/Vol] 162 mg/dL Normal 150-200 [facility] Comment on above: Performed By: #### Nacho GRADY, 47819-8, THYR #### [facility] ([id number]) [address], [address] [place] [address] Cholesterol in HDL [Mass/Vol] 59 mg/dL Normal >39 [facility] Comment on above: Result Comment: HDL <40 mg/dL - High Risk HDL > or = 40mg/dL- Desirable HDL >60 mg/dL - Negative Risk Performed By: #### Nacho GRADY, 11709-9, THYR #### [facility] ([id number]) [address], [address] [place] [address] Cholesterol in LDL [Mass/Vol] 75 mg/dL Normal <130 [facility] Comment on above: Result Comment: LDL <100 mg/dL - Desirable LDL >160 mg/dL - High Risk Performed By: #### Nacho GRADY, 88831-1, THYR #### [facility] ([id number]) [address], [address] [place] [address] Cholesterol in VLDL [Mass/Vol] 28 mg/dL Normal 0-30 [facility] Comment on above: Performed By: #### Nacho GRADY, 18530-5, THYR #### [facility] ([id number]) [address], [address] [place] [address] CHOLESTEROL:HDL 2.7 Normal 1.0-5.0 [facility] Comment on above: Performed By: #### C MIGUEL A, 14356-5, THYR #### [facility] ([id number]) [address], [address] [place] [address] Triglyceride [Mass/Vol] 142 mg/dL Normal 27-150 [facility] Comment on above: Performed By: #### C MIGUEL A, 25468-7, THYR #### [facility] ([id number]) [address] [facility], [address] [place] [address] THYROID PROFILEon 10-24-2023 Free T4 [Mass/Vol] 0.70 ng/dL Normal 0.61-1.60 [facility] Comment on above: Performed By: #### C MIGUEL A, 82731-7, THYR #### [facility] ([id number]) [address], [address] [place] [address] TSH 1.88 uIU/mL Normal 0.49-4.67 [facility] Comment on above: Performed By: #### C MIGUEL A, 19371-2, THYR #### [facility] ([id number]) [address], [address] [place] [address] CBC AUTO DIFFon 04-27-2022 BASO # 0.1 103/ul Normal 0.0-0.[address] [facility] Comment on above: Performed By: #### C BC #### [facility] [address] [place] [address] Dr. Kenton Avila Basophils/100 WBC (Bld) 0.5 % Normal 0.2-2.0 [facility] Comment on above: Performed By: #### C BC #### [facility] [address] [place] [address] Dr. Kenton Avila EO # 0.2 103/ul Normal 0.0-0.[address] [facility] Comment on above: Performed By: #### C BC #### [facility] [address] [place] [address] Dr. Kenton Avila Eosinophils/100 WBC (Bld) 1.8 % Normal 0.9-7.[address] [facility] Comment on above: Performed By: #### C BC #### [facility] [address] [place] [address] Dr. Kenton Avila Erythrocyte distribution width (RBC) [Ratio] 13.2 % Normal 11.0-15.[address] [facility] Comment on above: Performed By: #### C BC #### [facility] [address] [place] [address] Dr. Kenton Avila Hematocrit (Bld) [Volume fraction] 30.6 % Critically low 36.0-48.[address] [facility] Comment on above: Performed By: #### C BC #### [facility] [address] [place] [address] Dr. Kenton Avila Hemoglobin (Bld) [Mass/Vol] 10.2 g/dL Critically low 12.0-16.[address] [facility] Comment on above: Performed By: #### C BC #### [facility] [address] [place] [address] Dr. Kenton Avila IG # 0.04 10e3/ul Critically high 0.00-0.[address] [facility] Comment on above: Performed By: #### C BC #### [facility] [address] [place] [address] Dr. Kenton Avila IG % 0.3 % Normal 0.0-0.[address] [facility] Comment on above: Performed By: #### C BC #### [facility] [address] [place] [address] Dr. Kenton Avila LYMPH # 2.3 103/ul Normal 1.2-3.8 [facility] Comment on above: Performed By: #### C BC #### [facility] [address] [place] [address] Dr. Kenton Avila Lymphocytes/100 WBC (Bld) 19.0 % Critically low 20.5-60.[address] [facility] Comment on above: Performed By: #### C BC #### [facility] [address] [place] [address] Dr. Kenton Avila MANUAL DIFF REQ NO Normal [facility] Comment on above: Performed By: #### C BC #### [facility] [address] [place] [address] Dr. Kenton Avila MCH (RBC) [Entitic mass] 29.5 pg Normal 26.7-34.[address] [facility] Comment on above: Performed By: #### C BC #### [facility] [address] [place] [address] Dr. Kenton Avila MCHC (RBC) [Mass/Vol] 33.3 g/dL Normal 29.9-35.[address] [facility] Comment on above: Performed By: #### C BC #### [facility] [address] [place] [address] Dr. Kenton Avila MCV (RBC) [Entitic vol] 88.4 fL Normal 81.0-99.[address] [facility] Comment on above: Performed By: #### C BC #### [facility] [address] [place] [address] Dr. Kenton Avila MONO # 0.9 103/ul Critically high 0.3-0.[address] [facility] Comment on above: Performed By: #### C BC #### [facility] [address] [place] [address] Dr. Kenton Avila Monocytes/100 WBC (Bld) 7.4 % Normal 1.7-12.[address] [facility] Comment on above: Performed By: #### C BC #### [facility] [address] [place] [address] Dr. Kenton Avila NEUT # 8.5 103/ul Critically high 1.4-6.[address] [facility] Comment on above: Performed By: #### C BC #### [facility] [address] [place] [address] Dr. Kenton Avila Neutrophils/100 WBC (Bld) 71.0 % Normal 43.0-75.[address] [facility] Comment on above: Performed By: #### C BC #### [facility] [address] [place] [address] Dr. Kenton Avila Platelet mean volume (Bld) [Entitic vol] 9.2 fL Critically low 9.5-13.5 [facility] Comment on above: Performed By: #### C BC #### [facility] [address] [place] [address] Dr. Kenton Avila PLT 243 103/ul Normal 150-450 [facility] Comment on above: Performed By: #### C BC #### [facility] [address] [place] [address] Dr. Kenton Avila RBC 3.46 106/ul Critically low 4.20-5.40 [facility] Comment on above: Performed By: #### C BC #### [facility] [address] [place] [address] Dr. Kenton Avila WBC 11.9 103/ul Critically high 4.0-11.0 [facility] Comment on above: Performed By: #### C BC #### [facility] [address] [place] [address] Dr. Kenton Avila BASO # 0.0 103/ul Normal 0.0-0.[address] [facility] Comment on above: Performed By: #### C BC #### [facility] [address] [place] [address] Dr. Kenton Avila Basophils/100 WBC (Bld) 0.4 % Normal 0.2-2.[address] [facility] Comment on above: Performed By: #### C BC #### [facility] [address] [place] [address] Dr. Kenton Avila EO # 0.1 103/ul Normal 0.0-0.[address] [facility] Comment on above: Performed By: #### C BC #### [facility] [address] [place] [address] Dr. Kenton Avila Eosinophils/100 WBC (Bld) 1.2 % Normal 0.9-7.0 [facility] Comment on above: Performed By: #### C BC #### [facility] [address] [place] [address] Dr. Kenton Avila Erythrocyte distribution width (RBC) [Ratio] 13.2 % Normal 11.0-15.[address] [facility] Comment on above: Performed By: #### C BC #### [facility] [address] [place] [address] Dr. Kenton Avila Hematocrit (Bld) [Volume fraction] 27.1 % Critically low 36.0-48.[address] [facility] Comment on above: Performed By: #### C BC #### [facility] [address] [place] [address] Dr. Kenton Avila Hemoglobin (Bld) [Mass/Vol] 9.3 g/dL Critically low 12.0-16.[address] [facility] Comment on above: Performed By: #### C BC #### [facility] [address] [place] [address] Dr. Kenton Avila IG # 0.03 10e3/ul Normal 0.00-0.[address] [facility] Comment on above: Performed By: #### C BC #### [facility] [address] [place] [address] Dr. Kenton Avila IG % 0.3 % Normal 0.0-0.[address] [facility] Comment on above: Performed By: #### C BC #### [facility] [address] [place] [address] Dr. Kenton Avila LYMPH # 2.1 103/ul Normal 1.2-3.[address] [facility] Comment on above: Performed By: #### C BC #### [facility] [address] [place] [address] Dr. Kenton Avila Lymphocytes/100 WBC (Bld) 19.5 % Critically low 20.5-60.[address] [facility] Comment on above: Performed By: #### C BC #### [facility] [address] [place] [address] Dr. Kenton Avila MANUAL DIFF REQ NO Normal [facility] Comment on above: Performed By: #### C BC #### [facility] [address] [place] [address] Dr. Kenton Avila MCH (RBC) [Entitic mass] 30.1 pg Normal 26.7-34.[address] [facility] Comment on above: Performed By: #### C BC #### [facility] [address] [address] [address] Kenton Avila MCHC (RBC) [Mass/Vol] 34.3 g/dL Normal 29.9-35.[address] [facility] Comment on above: Performed By: #### C BC #### [facility] [address] [address] [address] Kenton Avila MCV (RBC) [Entitic vol] 87.7 fL Normal 81.0-99.[address] [facility] Comment on above: Performed By: #### C BC #### [facility] [address] [address] [address] Kenton Avila MONO # 0.7 103/ul Normal 0.3-0.[address] [facility] Comment on above: Performed By: #### C BC #### [facility] [address] [address] [address] Kenton Avila Monocytes/100 WBC (Bld) 6.6 % Normal 1.7-12.[address] [facility] Comment on above: Performed By: #### C BC #### [facility] [address] [address] [address] Kenton Avila NEUT # 7.7 103/ul Critically high 1.4-6.5 [facility] Comment on above: Performed By: #### C BC #### [facility] [address] [address] [address] Kenton Avila Neutrophils/100 WBC (Bld) 72.0 % Normal 43.0-75.[address] [facility] Comment on above: Performed By: #### C BC #### [facility] [address] [address] [address] Kenton Avila Platelet mean volume (Bld) [Entitic vol] 8.9 fL Critically low 9.5-13.[address] [facility] Comment on above: Performed By: #### C BC #### [facility] [address] [address] [address] Kenton Avila PLT 214 103/ul Normal 150-450 [facility] [place] Comment on above: Performed By: #### C BC #### [facility] [place] Laboratory [address] [address] [address] Kenton Avila RBC 3.09 106/ul Critically low 4.20-5.40 [facility] Comment on above: Performed By: #### C BC #### [facility] [place] Laboratory [address] [address] [address] Kenton Avila WBC 10.6 103/ul Normal 4.0-11.[address] [facility] Comment on above: Performed By: #### C BC #### [facility] [place] Laboratory [address] [place] [address] Dr. Kenton Avila BASO # 0.1 103/ul Normal 0.0-0.[address] [facility] Comment on above: Performed By: #### C BC #### [facility] [place] Laboratory [address] [place] [address] Dr. Kenton Avila Basophils/100 WBC (Bld) 0.4 % Normal 0.2-2.[address] [facility] Comment on above: Performed By: #### C BC #### [facility] [place] Laboratory [address] [place] [address] Dr. Kenton Avila EO # 0.2 103/ul Normal 0.0-0.[address] [facility] Comment on above: Performed By: #### C BC #### [facility] [place] Laboratory [address] [place] [address] Dr. Kenton Avila Eosinophils/100 WBC (Bld) 1.3 % Normal 0.9-7.0 [facility] [place] Comment on above: Performed By: #### C BC #### [facility] [place] Laboratory [address] [place] [address] Dr. Kenton Avila Erythrocyte distribution width (RBC) [Ratio] 13.2 % Normal 11.0-15.[address] [facility] Comment on above: Performed By: #### C BC #### [facility] [place] Laboratory [address] [place] [address] Dr. Kenton Avila Hematocrit (Bld) [Volume fraction] 28.5 % Critically low 36.0-48.[address] [facility] Comment on above: Performed By: #### C BC #### [facility] [place] Laboratory [address] [address] [address] Kenton Avila Hemoglobin (Bld) [Mass/Vol] 9.6 g/dL Critically low 12.0-16.[address] [facility] Comment on above: Performed By: #### C BC #### [facility] [place] Laboratory [address] [address] [address] Kenton Avila IG # 0.05 10e3/ul Critically high 0.00-0.[address] [facility] Comment on above: Performed By: #### C BC #### [facility] [place] Laboratory [address] [address] [address] Kenton Avila IG % 0.4 % Normal 0.0-0.[address] [facility] Comment on above: Performed By: #### C BC #### [facility] [place] Laboratory [address] [place] [address] Dr. Kenton Avila LYMPH # 2.5 103/ul Normal 1.2-3.8 [facility] [place] Comment on above: Performed By: #### C BC #### [facility] [place] Laboratory [address] [place] [address] Dr. Kenton Avila Lymphocytes/100 WBC (Bld) 20.4 % Critically low 20.5-60.[address] [facility] Comment on above: Performed By: #### C BC #### [facility] [place] Laboratory [address] [place] [address] Dr. Kenton Avila MANUAL DIFF REQ NO Normal [facility] Comment on above: Performed By: #### C BC #### [facility] [place] Laboratory [address] [place] [address] Dr. Kenton Avila MCH (RBC) [Entitic mass] 29.6 pg Normal 26.7-34.[address] [facility] Comment on above: Performed By: #### C BC #### [facility] [place] Laboratory [address] [place] [address] Dr. Kenton Avila MCHC (RBC) [Mass/Vol] 33.7 g/dL Normal 29.9-35.[address] [facility] Comment on above: Performed By: #### C BC #### [facility] [place] Laboratory [address] [place] [address] Dr. Kenton Avila MCV (RBC) [Entitic vol] 88.0 fL Normal 81.0-99.0 [facility] [place] Comment on above: Performed By: #### C BC #### [facility] [place] Laboratory [address] [place] [address] Dr. Kenton Avila MONO # 0.8 103/ul Normal 0.3-0.8 [facility] [place] Comment on above: Performed By: #### C BC #### [facility] [place] Laboratory [address] [place] [address] Dr. Kenton Avila Monocytes/100 WBC (Bld) 6.7 % Normal 1.7-12.0 [facility] [place] Comment on above: Performed By: #### C BC #### [facility] [place] Laboratory [address] [place] [address] Dr. Kenton Avila NEUT # 8.6 103/ul Critically high 1.4-6.[address] [facility] Comment on above: Performed By: #### C BC #### [facility] [place] Laboratory [address] [place] [address] Dr. Kenton Avila Neutrophils/100 WBC (Bld) 70.8 % Normal 43.0-75.0 [facility] [place] Comment on above: Performed By: #### C BC #### [facility] [place] Laboratory [address] [place] [address] Dr. Kenton Avila Platelet mean volume (Bld) [Entitic vol] 9.0 fL Critically low 9.5-13.5 [facility] [place] Comment on above: Performed By: #### C BC #### [facility] [place] Laboratory [address] [place] [address] Dr. Kenton Avila PLT 227 103/ul Normal 150-450 [facility] [place] Comment on above: Performed By: #### C BC #### [facility] [place] Laboratory [address] [place], [place] [id number] Dr. Kenton Avila RBC 3.24 106/ul Critically low 4.20-5.[address] [facility] Comment on above: Performed By: #### C BC #### [facility] [place] Laboratory [address] [place] [address] Dr. Kenton Avila WBC 12.2 103/ul Critically high 4.0-11.0 [facility] Comment on above: Performed By: #### C BC #### [facility] [place] Laboratory [address] [place] [address] Dr. Kenton Avila PROF 14(COMP METB)on 022 Albumin [Mass/Vol] 2.7 g/dL Critically low 3.4-5.0 Th e [facility] [place] Comment on above: Performed By: #### C MP #### [facility] [place] Laboratory [address] [place] [address] Dr. Kenton Avila Albumin/Globulin [Mass ratio] 0.9 {ratio} Normal [facility] Comment on above: Performed By: #### C MP #### [facility] [place] Laboratory [address] [place] [address] Dr. Kenton Avila ALP [Catalytic activity/Vol] 49 U/L Normal 46-[address] [facility] Comment on above: Performed By: #### C MP #### [facility] [place] Laboratory [address] [place] [address] Dr. Kenton Avila ALT [Catalytic activity/Vol] 29 U/L Normal 14-[address] [facility] Comment on above: Performed By: #### C MP #### [facility] [place] Laboratory [address] [place] [address] Dr. Kenton Avila Anion gap [Moles/Vol] 10.8 mmol/L Normal [facility] Comment on above: Performed By: #### C MP #### [facility] [place] Laboratory [address] [place] [address] Dr. Kenton Avila AST [Catalytic activity/Vol] 16 U/L Normal 15-37 [facility] [place] Comment on above: Performed By: #### C MP #### [facility] [place] Laboratory [address] [place] [address] Dr. Kenton Avila Bilirubin [Mass/Vol] 0.3 mg/dL Normal 0.2-1.[address] [facility] Comment on above: Performed By: #### C MP #### [facility] [place] Laboratory [address] [place] [address] Dr. Kenton Avila Calcium [Mass/Vol] 7.8 mg/dL Critically low 8.5-10.1 Th [facility] Comment on above: Performed By: #### C MP #### [facility] [place] Laboratory [address] [place] [address] Dr. Kenton Avila Chloride [Moles/Vol] 106 mmol/L Normal 98-[address] [facility] Comment on above: Performed By: #### C MP #### [facility] [place] Laboratory [address] [place] [address] Dr. Kenton Avila CO2 [Moles/Vol] 24.5 mmol/L Normal 21.0-32.0 [facility] Comment on above: Performed By: #### C MP #### [facility] [place] Laboratory [address] [place] [address] Dr. Kenton Avila Creatinine [Mass/Vol] 0.72 mg/dL Normal 0.55-1.[address] [facility] Comment on above: Performed By: #### C MP #### [facility] [place] Laboratory [address] [place] [address] Dr. Kenton Avila EGFR-AF TAJIK >60 Normal >=60 [facility] Comment on above: Performed By: #### C MP #### [facility] [place] Laboratory [address] [place] [address] Dr. Kenton Avila EGFR-NON AF TAJIK >60 Normal >=[address] [facility] Comment on above: Performed By: #### C MP #### [facility] [place] Laboratory [address] [place] [address] Dr. Kenton Avila Globulin (S) [Mass/Vol] 3.1 g/dL Normal [facility] Comment on above: Performed By: #### C MP #### [facility] [place] Laboratory [address] [place] [address] Dr. Kenton Avila Glucose [Mass/Vol] 95 mg/dL Normal 74-106 [facility] Comment on above: Performed By: #### C MP #### [facility] [place] Laboratory [address] [place] [address] Dr. Kenton Avila Potassium [Moles/Vol] 3.3 mmol/L Critically low 3.5-5.[address] [facility] Comment on above: Performed By: #### C MP #### [facility] [place] Laboratory [address] [address] [address] Kenton Avila Protein [Mass/Vol] 5.8 g/dL Critically low 6.4-8.2 Th [facility] Comment on above: Performed By: #### C MP #### [facility] [place] Laboratory [address] [address] [address] Kenton Avila Sodium [Moles/Vol] 138 mmol/L Normal 136-145 [facility] Comment on above: Performed By: #### C MP #### [facility] [place] Laboratory [address] [address] [address] Kenton Avila Urea nitrogen [Mass/Vol] 4.0 mg/dL Critically low 7.0-18.[address] [facility] Comment on above: Performed By: #### C MP #### [facility] [place] Laboratory [address] [place] [address] Dr. Kenton Avila Urea nitrogen/Creatinine [Mass ratio] 5.6 mg/mg Normal [facility] Comment on above: Performed By: #### C MP #### [facility] [place] Laboratory [address] [place] [address] Dr. Kenton Avila CBC AUTO DIFFon 04-26-2022 Eosinophils/100 WBC (Bld) 0.7 % Critically low 0.9-7.[address] [facility] Comment on above: Performed By: #### C BC #### [facility] [place] Laboratory [address] [address] [address] Kenton Avila Hematocrit (Bld) [Volume fraction] 28.1 % Critically low 36.0-48.[address] [facility] Comment on above: Performed By: #### C BC #### [facility] [place] Laboratory [address] [address] [address] Kenton Avila Hemoglobin (Bld) [Mass/Vol] 9.6 g/dL Critically low 12.0-16.[address] [facility] Comment on above: Performed By: #### C BC #### [facility] [place] Laboratory [address] [place] [address] Dr. Kenton Avila IG # 0.04 10e3/ul Critically high 0.00-0.[address] [facility] Comment on above: Performed By: #### C BC #### [facility] [place] Laboratory [address] [address] [address] Kenton Avila IG % 0.3 % Normal 0.0-0.[address] [facility] Comment on above: Performed By: #### C BC #### [facility] [place] Laboratory [address] [address] [address] Kenton Avila LYMPH # 1.8 103/ul Normal 1.2-3.[address] [facility] Comment on above: Performed By: #### C BC #### [facility] [place] Laboratory [address] [address] [address] Kenton Avila Lymphocytes/100 WBC (Bld) 15.0 % Critically low 20.5-60.[address] [facility] Comment on above: Performed By: #### C BC #### [facility] [place] Laboratory [address] [address] [address] Kenton Avila MCH (RBC) [Entitic mass] 30.0 pg Normal 26.7-34.[address] [facility] Comment on above: Performed By: #### C BC #### [facility] [place] Laboratory [address] [address] [address] Kenton Avila MCHC (RBC) [Mass/Vol] 34.2 g/dL Normal 29.9-35.[address] [facility] Comment on above: Performed By: #### C BC #### [facility] [place] Laboratory [address] [address] [address] Kenton Avila MCV (RBC) [Entitic vol] 87.8 fL Normal 81.0-99.[address] [facility] Comment on above: Performed By: #### C BC #### [facility] [place] Laboratory [address] [address] [address] Kenton Avila Monocytes/100 WBC (Bld) 7.5 % Normal 1.7-12.[address] [facility] Comment on above: Performed By: #### C BC #### [facility] [place] Laboratory [address] [address] [address] Kenton Avila NEUT # 9.0 103/ul Critically high 1.4-6.5 [facility] Comment on above: Performed By: #### C BC #### [facility] [place] Laboratory [address] [place] [address] Dr. Kenton Avila Neutrophils/100 WBC (Bld) 76.2 % Critically high 43.0-75.[address] [facility] Comment on above: Performed By: #### C BC #### [facility] [place] Laboratory [address] [place] [address] Dr. Kenton Avila Platelet mean volume (Bld) [Entitic vol] 9.2 fL Critically low 9.5-13.[address] [facility] Comment on above: Performed By: #### C BC #### [facility] [place] Laboratory [address] [place] [address] Dr. Kenton Avila PLT 209 103/ul Normal 150-450 [facility] [place] Comment on above: Performed By: #### C BC #### [facility] [place] Laboratory [address] [place] [address] Dr. Kenton Avila RBC 3.20 106/ul Critically low 4.20-5.40 [facility] Comment on above: Performed By: #### C BC #### [facility] [place] Laboratory [address] [place] [address] Dr. Kenton ELLINGTON # 0.0 103/ul Normal 0.0-0.[address] [facility] Comment on above: Performed By: #### C BC #### [facility] [place] Laboratory [address] [place] [address] Dr. Kenton Avila Performed By: #### C MP #### [facility] [place] Laboratory [address] [place] [address] Dr. Kenton Avila Basophils/100 WBC (Bld) 0.2 % Normal 0.2-2.0 [facility] [place] Comment on above: Performed By: #### C BC #### [facility] [place] Laboratory [address] [place] [address] Dr. Kenton Avila EO # 0.0 103/ul Normal 0.0-0.[address] [facility] Comment on above: Performed By: #### C BC #### [facility] [place] Laboratory [address] [place] [address] Dr. eKnton Avila Eosinophils/100 WBC (Bld) 0.3 % Critically low 0.9-7.[address] [facility] Comment on above: Performed By: #### C BC #### [facility] [place] Laboratory [address] [place] [address] Dr. Kenton Avila Erythrocyte distribution width (RBC) [Ratio] 13.2 % Normal 11.0-15.[address] [facility] Comment on above: Performed By: #### C BC #### [facility] [place] Laboratory [address] [place] [address] Dr. Kenton Avila Hematocrit (Bld) [Volume fraction] 29.5 % Critically low 36.0-48.[address] [facility] Comment on above: Performed By: #### C BC #### [facility] [place] Laboratory [address] [place] [address] Dr. Kenton Avila Hemoglobin (Bld) [Mass/Vol] 9.8 g/dL Critically low 12.0-16.[address] [facility] Comment on above: Performed By: #### C BC #### [facility] [place] Laboratory [address] [place] [address] Dr. Kenton Avila IG # 0.05 10e3/ul Critically high 0.00-0.[address] [facility] Comment on above: Performed By: #### C BC #### [facility] [place] Laboratory [address] [place] [address] Dr. Kenton Avila IG % 0.4 % Normal 0.0-0.[address] [facility] Comment on above: Performed By: #### C BC #### [facility] [place] Laboratory [address] [place] [address] Dr. Kenton Avila LYMPH # 1.4 103/ul Normal 1.2-3.8 [facility] [place] Comment on above: Performed By: #### C BC #### [facility] [place] Laboratory [address] [place] [address] Dr. Kenton Avila Lymphocytes/100 WBC (Bld) 12.3 % Critically low 20.5-60.[address] [facility] Comment on above: Performed By: #### C BC #### [facility] [place] Laboratory [address] [place] [address] Dr. Kenton Avila MANUAL DIFF REQ NO Normal [facility] Comment on above: Performed By: #### C BC #### [facility] [place] Laboratory [address] [place] [address] Dr. Kenton Avila Performed By: #### C MP #### [facility] [place] Laboratory [address] [place] [address] Dr. Kenton Avila MCH (RBC) [Entitic mass] 29.3 pg Normal 26.7-34.[address] [facility] Comment on above: Performed By: #### C BC #### [facility] [place] Laboratory [address] [place] [address] Dr. Kenton Avila MCHC (RBC) [Mass/Vol] 33.2 g/dL Normal 29.9-35.[address] [facility] Comment on above: Performed By: #### C BC #### [facility] [place] Laboratory [address] [place] [address] Dr. Kenton Avila MCV (RBC) [Entitic vol] 88.3 fL Normal 81.0-99.[address] [facility] Comment on above: Performed By: #### C BC #### [facility] [place] Laboratory [address] [place] [address] Dr. Kenton Avila MONO # 0.8 103/ul Normal 0.3-0.[address] [facility] Comment on above: Performed By: #### C BC #### [facility] [place] Laboratory [address] [place] [address] Dr. Kenton Avila Monocytes/100 WBC (Bld) 6.5 % Normal 1.7-12.[address] [facility] Comment on above: Performed By: #### C BC #### [facility] [place] Laboratory [address] [place] [address] Dr. Kenton Avila NEUT # 9.3 103/ul Critically high 1.4-6.[address] [facility] Comment on above: Performed By: #### C BC #### [facility] [place] Laboratory [address] [place] [address] Dr. Kenton Avila Neutrophils/100 WBC (Bld) 80.3 % Critically high 43.0-75.[address] [facility] Comment on above: Performed By: #### C BC #### [facility] [place] Laboratory [address] [place] [address] Dr. Kenton Avila Platelet mean volume (Bld) [Entitic vol] 9.1 fL Critically low 9.5-13.[address] [facility] Comment on above: Performed By: #### C BC #### [facility] [place] Laboratory [address] [place] [address] Dr. eKnton Avila PLT 225 103/ul Normal 150-450 [facility] [place] Comment on above: Performed By: #### C BC #### [facility] [place] Laboratory [address] [place] [address] Dr. Kenton Avila RBC 3.34 106/ul Critically low 4.20-5.40 [facility] Comment on above: Performed By: #### C BC #### [facility] [place] Laboratory [address] [place] [address] Dr. Kenton Avila WBC 11.6 103/ul Critically high 4.0-11.0 [facility] Comment on above: Performed By: #### C BC #### [facility] [place] Laboratory [address] [place] [address] Dr. Kenton Avila Basophils/100 WBC (Bld) 0.3 % Normal 0.2-2.[address] [facility] Comment on above: Performed By: #### C BC #### [facility] [place] Laboratory [address] [place] [address] Dr. Kenton Avila Performed By: #### C MP #### [facility] [place] Laboratory [address] [place] [address] Dr. Kenton Avila EO # 0.1 103/ul Normal 0.0-0.[address] [facility] Comment on above: Performed By: #### C BC #### [facility] [place] Laboratory [address] [place] [address] Dr. Kenton Avila Performed By: #### C MP #### [facility] [place] Laboratory [address] [place] [address] Dr. Kenton Avila Eosinophils/100 WBC (Bld) 0.6 % Critically low 0.9-7.0 [facility] [place] Comment on above: Performed By: #### C MP #### [facility] [place] Laboratory [address] [place] [address] Dr. Kenton Avila Erythrocyte distribution width (RBC) [Ratio] 13.1 % Normal 11.0-15.[address] [facility] Comment on above: Performed By: #### C BC #### [facility] [place] Laboratory [address] [place] [address] Dr. Kenton Avila Performed By: #### C MP #### [facility] [place] Laboratory [address] [place] [address] Dr. Kenton Avila Hematocrit (Bld) [Volume fraction] 30.1 % Critically low 36.0-48.[address] [facility] Comment on above: Performed By: #### C MP #### [facility] [facility] [address] [place] [address] Dr. Kenton Avila Hemoglobin (Bld) [Mass/Vol] 10.0 g/dL Critically low 12.0-16.[address] [facility] Comment on above: Performed By: #### C MP #### [facility] [address] [place] [address] Dr. Kenton Avila IG # 0.05 10e3/ul Critically high 0.00-0.[address] [facility] Comment on above: Performed By: #### C MP #### [facility] [address] [place] [address] Dr. Kenton Avila IG % 0.4 % Normal 0.0-0.[address] [facility] Comment on above: Performed By: #### C MP #### [facility] [address] [place] [address] Dr. Kenton Avila LYMPH # 1.7 103/ul Normal 1.2-3.8 [facility] Comment on above: Performed By: #### C MP #### [facility] [address] [place] [address] Dr. Kenton Avila Lymphocytes/100 WBC (Bld) 14.1 % Critically low 20.5-60.[address] [facility] Comment on above: Performed By: #### C MP #### [facility] [address] [place] [address] Dr. Kenton Avila MCH (RBC) [Entitic mass] 29.7 pg Normal 26.7-34.0 The [facility] Comment on above: Performed By: #### C MP #### [facility] [address] [place] [address] Dr. Kenton Avila MCHC (RBC) [Mass/Vol] 33.2 g/dL Normal 29.9-35.2 The [facility] Comment on above: Performed By: #### C MP #### [facility] [address] [place] [address] Dr. Kenton Avila MCV (RBC) [Entitic vol] 89.3 fL Normal 81.0-99.0 The [facility] Comment on above: Performed By: #### C MP #### [facility] [address] [place] [address] Dr. Kenton Avila MONO # 0.9 103/ul Critically high 0.3-0.[address] [facility] Comment on above: Performed By: #### C BC #### [facility] [address] [place] [address] Dr. Kenton Avila Performed By: #### C MP #### [facility] [address] [place] [address] Dr. Kenton Avila Monocytes/100 WBC (Bld) 7.2 % Normal 1.7-12.0 The [facility] Comment on above: Performed By: #### C MP #### [facility] [address] [place] [address] Dr. Kenton Avila NEUT # 9.2 103/ul Critically high 1.4-6.[address] [facility] Comment on above: Performed By: #### C MP #### [facility] [address] [place] [address] Dr. Kenton Avila Neutrophils/100 WBC (Bld) 77.4 % Critically high 43.0-75.0 The [facility] Comment on above: Performed By: #### C MP #### [facility] [address] [place] [address] Dr. Kenton Avila Platelet mean volume (Bld) [Entitic vol] 9.3 fL Critically low 9.5-13.5 The [facility] Comment on above: Performed By: #### C MP #### [facility] [address] [place] [address] Dr. Kenton Avila PLT 214 103/ul Normal 150-[address] [facility] Comment on above: Performed By: #### C MP #### [facility] [address] [place] [address] Dr. Kenton Avila RBC 3.37 106/ul Critically low 4.20-5.40 [facility] Comment on above: Performed By: #### C MP #### [facility] [address] [place] [address] Dr. Kenton Avila WBC 11.8 103/ul Critically high 4.0-11.0 [facility] Comment on above: Performed By: #### C BC #### [facility] [address] [place] [address] Dr. Kenton Avila Performed By: #### C MP #### [facility] [address] [place] [address] Dr. Kenton Avila PROF 14(COMP METB)on 04-26- 022 Albumin [Mass/Vol] 2.9 g/dL Critically low 3.4-5.0 [facility] Comment on above: Performed By: #### C MP #### [facility] [address] [place] [address] Dr. Kenton Avila Albumin/Globulin [Mass ratio] 0.9 {ratio} Normal [facility] Comment on above: Performed By: #### C MP #### [facility] [address] [place] [address] Dr. Kenton Avila ALP [Catalytic activity/Vol] 62 U/L Normal 46-116 The [facility] Comment on above: Performed By: #### C MP #### [facility] [address] [place] [address] Dr. Kenton Avila ALT [Catalytic activity/Vol] 32 U/L Normal 14-[address] [facility] Comment on above: Performed By: #### C MP #### [facility] [address] [place] [address] Dr. Kenton Avila Anion gap [Moles/Vol] 9.7 mmol/L Normal [facility] Comment on above: Performed By: #### C MP #### [facility] [address] [place] [address] Dr. Kenton Avila AST [Catalytic activity/Vol] 24 U/L Normal 15-[address] [facility] Comment on above: Performed By: #### C MP #### [facility] [address] [place] [address] Dr. Kenton Avila Bilirubin [Mass/Vol] 0.4 mg/dL Normal 0.2-1.[address] [facility] Comment on above: Performed By: #### C MP #### [facility] [address] [place] [address] Dr. Kenton Avila Calcium [Mass/Vol] 7.8 mg/dL Critically low 8.5-10.1 Th [facility] Comment on above: Performed By: #### C MP #### [facility] [address] [place] [address] Dr. Kenton Avila Chloride [Moles/Vol] 104 mmol/L Normal 98-[address] [facility] Comment on above: Performed By: #### C MP #### [facility] [address] [place] [address] Dr. Kenton Avila CO2 [Moles/Vol] 24.2 mmol/L Normal 21.0-32.0 [facility] Comment on above: Performed By: #### C MP #### [facility] [address] [place] [address] Dr. Kenton Avila Creatinine [Mass/Vol] 0.86 mg/dL Normal 0.55-1.[address] [facility] Comment on above: Performed By: #### C MP #### [facility] [address] [place] [address] Dr. Kenton Avila EGFR-AF TAJIK >60 Normal >=60 The [facility] Comment on above: Performed By: #### C MP #### [facility] [address] [place] [address] Dr. Kenton Avila EGFR-NON AF TAJIK >60 Normal >=[address] [facility] Comment on above: Performed By: #### C MP #### [facility] [address] [address] [address] Kenton Avila Globulin (S) [Mass/Vol] 3.3 g/dL Normal [facility] Comment on above: Performed By: #### C MP #### [facility] [address] [address] [address] Kenton Avila Glucose [Mass/Vol] 128 mg/dL Critically high 74-106 [facility] Comment on above: Performed By: #### C MP #### [facility] [address] [address] [address] Kenton Avila Potassium [Moles/Vol] 2.9 mmol/L Critically low 3.5-5.[address] [facility] Comment on above: Performed By: #### C MP #### [facility] [address] [place] [address] Dr. Kenton Avila Protein [Mass/Vol] 6.2 g/dL Critically low 6.4-8.2 [facility] Comment on above: Performed By: #### C MP #### [facility] [address] [address] [address] Kenton Avila Sodium [Moles/Vol] 134 mmol/L Critically low 136-145 Th [facility] Comment on above: Performed By: #### C MP #### [facility] [address] [place] [address] Dr. Kenton Avila Urea nitrogen [Mass/Vol] 6.0 mg/dL Critically low 7.0-18.[address] [facility] Comment on above: Performed By: #### C MP #### [facility] [address] [address] [address] Kenton Avila Urea nitrogen/Creatinine [Mass ratio] 7.0 mg/mg Normal [facility] Comment on above: Performed By: #### C MP #### [facility] [address] [address] [address] Kenton Avila CBC AUTO DIFFon 04-25-2022 Basophils/100 WBC (Bld) 0.3 % Normal 0.2-2.[address] [facility] Comment on above: Performed By: #### C BC #### [facility] [address] [place] [address] Dr. Kenton Avila Eosinophils/100 WBC (Bld) 0.6 % Critically low 0.9-7.[address] [facility] Comment on above: Performed By: #### C BC #### [facility] [address] [place] [address] Dr. Kenton Avila Erythrocyte distribution width (RBC) [Ratio] 13.0 % Normal 11.0-15.[address] [facility] Comment on above: Performed By: #### C BC #### [facility] [address] [place] [address] Dr. Kenton Avila Hematocrit (Bld) [Volume fraction] 31.2 % Critically low 36.0-48.[address] [facility] Comment on above: Performed By: #### C BC #### [facility] [address] [place] [address] Dr. Kenton Avila Hemoglobin (Bld) [Mass/Vol] 10.5 g/dL Critically low 12.0-16.[address] [facility] Comment on above: Performed By: #### C BC #### [facility] [address] [place] [address] Dr. Kenton Avila IG # 0.02 10e3/ul Normal 0.00-0.[address] [facility] Comment on above: Performed By: #### C BC #### [facility] [address] [place] [address] Dr. Kenton Avila IG % 0.2 % Normal 0.0-0.5 The [facility] Comment on above: Performed By: #### C BC #### [facility] [address] [place] [address] Dr. Kenton Avila LYMPH # 1.5 103/ul Normal 1.2-3.8 The [facility] Comment on above: Performed By: #### C BC #### [facility] [address] [place] [address] Dr. Kenton Avila Lymphocytes/100 WBC (Bld) 14.7 % Critically low 20.5-60.0 The [facility] Comment on above: Performed By: #### C BC #### [facility] [address] [address] [address] Kenton Avila MCH (RBC) [Entitic mass] 29.4 pg Normal 26.7-34.[address] [facility] Comment on above: Performed By: #### C BC #### [facility] [address] [address] [address] Kenton Avila MCV (RBC) [Entitic vol] 87.4 fL Normal 81.0-99.[address] [facility] Comment on above: Performed By: #### C BC #### [facility] [address] [address] [address] Kenton Avila MONO # 0.7 103/ul Normal 0.3-0.[address] [facility] Comment on above: Performed By: #### C BC #### [facility] [address] [address] [address] Kenton Avila Monocytes/100 WBC (Bld) 6.7 % Normal 1.7-12.[address] [facility] Comment on above: Performed By: #### C BC #### [facility] [address] [address] [address] Kenton Avila NEUT # 7.9 103/ul Critically high 1.4-6.5 [facility] Comment on above: Performed By: #### C BC #### [facility] [address] [address] [address] Kenton Avila Neutrophils/100 WBC (Bld) 77.5 % Critically high 43.0-75.[address] [facility] Comment on above: Performed By: #### C BC #### [facility] [address] [address] [address] Kenton Avila Platelet mean volume (Bld) [Entitic vol] 9.0 fL Critically low 9.5-13.[address] [facility] Comment on above: Performed By: #### C BC #### [facility] [address] [address] [address] Kenton Avila PLT 241 103/ul Normal 150-450 The [facility] Comment on above: Performed By: #### C BC #### [facility] [address] [place] [address] Dr. Kenton Avila RBC 3.57 106/ul Critically low 4.20-5.40 [facility] Comment on above: Performed By: #### C BC #### [facility] [address] [place] [address] Dr. Kenton Avila WBC 10.2 103/ul Normal 4.0-11.0 The [facility] Comment on above: Performed By: #### C BC #### [facility] [address] [place] [address] Dr. Kenton Avila BASO # 0.0 103/ul Normal 0.0-0.1 The [facility] Comment on above: Performed By: #### C BC #### [facility] [address] [place] [address] Dr. Kenton Avila Performed By: #### C MP #### [facility] [address] [place] [address] Dr. Kenton Avila Basophils/100 WBC (Bld) 0.2 % Normal 0.2-2.[address] [facility] Comment on above: Performed By: #### C MP #### [facility] [address] [place] [address] Dr. Kenton Avila EO # 0.1 103/ul Normal 0.0-0.7 The [facility] Comment on above: Performed By: #### C BC #### [facility] [address] [place] [address] Dr. Kenton Avila Performed By: #### C MP #### [facility] [address] [place] [address] Dr. Kenton Avila Eosinophils/100 WBC (Bld) 0.4 % Critically low 0.9-7.0 The [facility] Comment on above: Performed By: #### C MP #### [facility] [address] [place] [address] Dr. Kenton Avila Erythrocyte distribution width (RBC) [Ratio] 12.9 % Normal 11.0-15.[address] [facility] Comment on above: Performed By: #### C MP #### [facility] [address] [address] [address] Kenton Avila Hematocrit (Bld) [Volume fraction] 32.9 % Critically low 36.0-48.[address] [facility] Comment on above: Performed By: #### C MP #### [facility] [address] [address] [address] Kenton Avila Hemoglobin (Bld) [Mass/Vol] 11.1 g/dL Critically low 12.0-16.[address] [facility] Comment on above: Performed By: #### C MP #### [facility] [address] [address] [address] Kenton Avila IG # 0.04 10e3/ul Critically high 0.00-0.[address] [facility] Comment on above: Performed By: #### C MP #### [facility] [address] [address] [address] Kenton Avila IG % 0.3 % Normal 0.0-0.[address] [facility] Comment on above: Performed By: #### C MP #### [facility] [address] [address] [address] Kenton Avila LYMPH # 0.8 103/ul Critically low 1.2-3.8 [facility] Comment on above: Performed By: #### C MP #### [facility] [address] [address] [address] Kenton Avila Lymphocytes/100 WBC (Bld) 6.7 % Critically low 20.5-60.[address] [facility] Comment on above: Performed By: #### C MP #### [facility] [address] [address] [address] Kenton Avila MANUAL DIFF REQ NO Normal [facility] Comment on above: Performed By: #### C BC #### [facility] [address] [address] [address] Kenton Avila Performed By: #### C MP #### [facility] [address] [address] [address] Kenton Avila MCH (RBC) [Entitic mass] 29.7 pg Normal 26.7-34.0 The [facility] Comment on above: Performed By: #### C MP #### [facility] [address] [place] [address] Dr. Kenton Avila MCHC (RBC) [Mass/Vol] 33.7 g/dL Normal 29.9-35.2 The [facility] Comment on above: Performed By: #### C BC #### [facility] [address] [place] [address] Dr. Kenton Avila Performed By: #### C MP #### [facility] [address] [place] [address] Dr. Kenton Avila MCV (RBC) [Entitic vol] 88.0 fL Normal 81.0-99.[address] [facility] Comment on above: Performed By: #### C MP #### [facility] [address] [place] [address] Dr. Kenton Avila MONO # 0.9 103/ul Critically high 0.3-0.8 [facility] Comment on above: Performed By: #### C MP #### [facility] [address] [place] [address] Dr. Kenton Avila Monocytes/100 WBC (Bld) 7.3 % Normal 1.7-12.0 The [facility] Comment on above: Performed By: #### C MP #### [facility] [address] [place] [address] Dr. Kenton Avila NEUT # 10.3 103/ul Critically high 1.4-6.5 [facility] Comment on above: Performed By: #### C MP #### [facility] [address] [place] [address] Dr. Kenton Avila Neutrophils/100 WBC (Bld) 85.1 % Critically high 43.0-75.0 The [facility] Comment on above: Performed By: #### C MP #### [facility] [address] [place] [address] Dr. Kenton Avila Platelet mean volume (Bld) [Entitic vol] 9.1 fL Critically low 9.5-13.5 The [facility] Comment on above: Performed By: #### C MP #### [facility] [address] [place], [place] [address] Dr. Kenton Avila PLT 271 103/ul Normal 150-450 [facility] Comment on above: Performed By: #### C MP #### [facility] [address] [place], [place] [address] Dr. Kenton Avila RBC 3.74 106/ul Critically low 4.20-5.[address] [facility] Comment on above: Performed By: #### C MP #### [facility] [address] [place], [place] [address] Dr. Kenton Avila WBC 12.1 103/ul Critically high 4.0-11.0 [facility] Comment on above: Performed By: #### C MP #### [facility] [address] [place], [place] [address] Dr. Kenton Avila CRPon 04-25-2022 CRP 0.9 mg/dL Normal <=1.[address] [facility] Comment on above: Performed By: #### C RP, CMP #### [facility] [address] [place], [place] [address] ABD/PELV W CONon [...] ALEXEY CANDELARIO Date: 2022-04-25 08:10 Normal [facility]13 SARS-CoV-2 (COVID-19) RNA MIKEY+probe Ql (Unsp spec) Not detected Normal NOT DETECTED The [facility] Comment on above: Result Comment: When diagnostic [...] for this test is supported by the Manager Of [employer] of [employer] Service's declaration that [...] used). Performed By: #### C VDTB #### [facility] [address] [place] [address] [id number] [address] Kneton Avila FREE T3on 04-25-2022 FREE T3 2.14 pg/mlL Critically low 2.18-3.[address] [facility] Comment on above: Performed By: #### C BC #### [facility] [address] [address] [address] Kenton Avila FREE T4on 04-25-2022 Free T4 [Mass/Vol] 0.99 ng/dL Normal 0.76-1.46 [facility] Comment on above: Performed By: #### C BC #### [facility] [address] [address] [address] Kenton Avila GI PANEL (PCR)on 04-25-2022 Adenovirus F 40/41 Not detected Normal NOT DETECTED [facility] Comment on above: Performed By: #### G IPANEL #### [facility] [address] [address] [address] Kenton Avila Astrovirus Not detected Normal NOT DETECTED [facility] Comment on above: Performed By: #### G IPANEL #### [facility] [address] [place] [address] Dr. Kenton Griffith. Diff toxin A/B Not detected Normal NOT DETECTED The [facility] Comment on above: Performed By: #### G IPANEL #### [facility] [address] [address] [address] Kenton Avila Campylobacter Not detected Normal NOT DETECTED [facility] Comment on above: Performed By: #### G IPANEL #### [facility] [facility] [address] [place] [address] Dr. Kenton Avila Cryptosporidium Not detected Normal NOT DETECTED [facility] Comment on above: Performed By: #### G IPANEL #### [facility] [place] [facility] [address] [address] [address] Kenton Avila Cyclos. Cayetanensis Not detected Normal NOT DETECTED [facility] [place] Comment on above: Performed By: #### G IPANEL #### [facility] [place] [address] [address] [address] Kenton Avila E. Coli O157 Not Applicable Normal Not Applicable [facility] [place] Comment on above: Performed By: #### G IPANEL #### [facility] [address] [place] [address] Dr. Kenton Avila E. histolytica Not detected Normal NOT DETECTED [facility] Comment on above: Performed By: #### G IPANEL #### [facility] [address] [place] [address] Dr. Kenton Avila EAEC Not detected Normal NOT DETECTED [facility] Comment on above: Performed By: #### G IPANEL #### [facility] [address] [place] [address] Dr. Kenton Avila EIEC Not detected Normal NOT DETECTED [facility] Comment on above: Performed By: #### G IPANEL #### [facility] [address] [address] [address] Kenton Avila EPEC Not detected Normal NOT DETECTED [facility] Comment on above: Performed By: #### G IPANEL #### [facility] [address] [place] [address] Dr. Kenton Avila ETEC Not detected Normal NOT DETECTED [facility] Comment on above: Performed By: #### G IPANEL #### [facility] [address] [place] [address] Dr. Kenton Valverde Lamblia Not detected Normal NOT DETECTED [facility] Comment on above: Performed By: #### G IPANEL #### [facility] [address] [place] [address] Dr. Kenton DALTON CONTROLS PASSED Normal [facility] Comment on above: Performed By: #### G IPANEL #### [facility] [address] [place] [address] Dr. Kenton VICTORIA [facility] HEADER GI PANEL BACTERIA Normal [facility] Comment on above: Performed By: #### G IPANEL #### [facility] [address] [place] [address] Dr. Kenton HOWE ECOLI GI PANEL DIARRHEAGENIC E.COLI / SHIGELLA Normal [facility] Comment on above: Performed By: #### G IPANEL #### [facility] [address] [place] [address] Dr. Kenton HOWE INFO SEE BELOW Normal [facility] Comment on above: Result Comment: EAEC - Enteroaggregative E. Coli EPEC- Enteropathogenic E. Coli ETEC- Enterotoxigenic E. Coli lt/st STEC- Shigella-like toxin-producing E. Coli stx1/stx2 EIEC- Shigella/Enteroinvasive E. Coli Performed By: #### G IPANEL #### [facility] [address] [place] [address] Dr. Kenton HOWE PARASITES GI PANEL PARASITES Normal [facility] Comment on above: Performed By: #### G IPANEL #### [facility] [address] [place] [address] Dr. Kenton HOWE VIRUS GI PANEL VIRUSES Normal [facility] Comment on above: Performed By: #### G IPANEL #### [facility] [address] [place] [address] Dr. Kenton Avila Norovirus GI/GII Not detected Normal NOT DETECTED The [facility] Comment on above: Performed By: #### G IPANEL #### [facility] [address] [place] [address] Dr. Kenton Avila P. Shigelloides Not detected Normal NOT DETECTED [facility] Comment on above: Performed By: #### G IPANEL #### [facility] [address] [place] [address] Dr. Kenton Avila Rotavirus A Not detected Normal NOT DETECTED [facility] Comment on above: Performed By: #### G IPANEL #### [facility] [address] [place] [address] Dr. Kenton Avila Salmonella Not detected Normal NOT DETECTED [facility] Comment on above: Performed By: #### G IPANEL #### [facility] [address] [place] [address] Dr. Kenton Avila Sapovirus Not detected Normal NOT DETECTED [facility] Comment on above: Performed By: #### G IPANEL #### [facility] [address] [place] [address] Dr. Kenton Avila STEC Not detected Normal NOT DETECTED [facility] Comment on above: Performed By: #### G IPANEL #### [facility] [address] [place] [address] Dr. Kenton Avila Vibrio Not detected Normal NOT DETECTED [facility] Comment on above: Performed By: #### G IPANEL #### [facility] [address] [place] [address] Dr. Kenton Avila Vibrio Cholera Not detected Normal NOT DETECTED [facility] Comment on above: Performed By: #### G IPANEL #### [facility] [address] [place] [address] Dr. Kenton Avila Y. Enterocolitica Not detected Normal NOT DETECTED [facility] Comment on above: Performed By: #### G IPANEL #### [facility] [address] [place] [address] Dr. Kenton Avila LACTATE/LACTIC ACIDon 2021 Lactate [Moles/Vol] 0.9 mmol/L Normal 0.4-1.9 [facility] Comment on above: Performed By: #### C MP #### [facility] [address] [place] [address] Dr. Kenton Avila PROF 14(COMP METB)on 022 Albumin [Mass/Vol] 3.6 g/dL Normal 3.4-5.0 [facility] Comment on above: Performed By: #### C RP, CMP #### [facility] [address] [place] [address] Dr. Kenton Avila Albumin/Globulin [Mass ratio] 0.9 {ratio} Normal [facility] Comment on above: Performed By: #### C RP, CMP #### [facility] [address] [place] [address] Dr. Kenton Avila ALP [Catalytic activity/Vol] 75 U/L Normal 46-[address] [facility] Comment on above: Performed By: #### C RP, CMP #### [facility] [address] [place] [address] Dr. Kenton Avila ALT [Catalytic activity/Vol] 42 U/L Normal 14-[address] [facility] Comment on above: Performed By: #### C RP, CMP #### [facility] [address] [place] [address] Dr. Kenton Avila Anion gap [Moles/Vol] 10.1 mmol/L Normal [facility] Comment on above: Performed By: #### C RP, CMP #### [facility] [address] [address] [address] Kenton Avila AST [Catalytic activity/Vol] 31 U/L Normal 15-[address] [facility] Comment on above: Performed By: #### C RP, CMP #### [facility] [address] [address] [address] Kenton Avila Bilirubin [Mass/Vol] 0.4 mg/dL Normal 0.2-1.[address] [facility] Comment on above: Performed By: #### C RP, CMP #### [facility] [address] [address] [address] Kenton Avila Calcium [Mass/Vol] 8.5 mg/dL Normal 8.5-10.1 [facility] Comment on above: Performed By: #### C RP, CMP #### [facility] [address] [address] [address] Kenton Avila Chloride [Moles/Vol] 102 mmol/L Normal 98-[address] [facility] Comment on above: Performed By: #### C RP, CMP #### [facility] [address] [address] [address] Kenton Avila CO2 [Moles/Vol] 27.4 mmol/L Normal 21.0-32.0 [facility] Comment on above: Performed By: #### C RP, CMP #### [facility] [address] [address] [address] Kenton Avila Creatinine [Mass/Vol] 0.80 mg/dL Normal 0.55-1.[address] [facility] Comment on above: Performed By: #### C RP, CMP #### [facility] [address] [address] [address] Kenton Avila EGFR-AF TAJIK >60 Normal >=60 [facility] Comment on above: Performed By: #### C RP, CMP #### [facility] [address] [address] [address] Kenton Avila EGFR-NON AF TAJIK >60 Normal >=[address] [facility] Comment on above: Performed By: #### C RP, CMP #### [facility] [address] [address] [address] Kenton Avila Globulin (S) [Mass/Vol] 3.8 g/dL Normal [facility] Comment on above: Performed By: #### C RP, CMP #### [facility] [address] [address] [address] Kenton Avila Glucose [Mass/Vol] 119 mg/dL Critically high 74-106 [facility] Comment on above: Performed By: #### C RP, CMP #### [facility] [address] [place] [address] Dr. Kenton Avila Potassium [Moles/Vol] 3.5 mmol/L Normal 3.5-5.[address] [facility] Comment on above: Performed By: #### C RP, CMP #### [facility] [address] [place] [address] Dr. Kenton Avila Protein [Mass/Vol] 7.4 g/dL Normal 6.4-8.2 [facility] Comment on above: Performed By: #### C RP, CMP #### [facility] [address] [place] [address] Dr. Kenton Avila Sodium [Moles/Vol] 136 mmol/L Normal 136-145 [facility] Comment on above: Performed By: #### C RP, CMP #### [facility] [address] [place] [address] Dr. Kenton Avila Urea nitrogen [Mass/Vol] 16.0 mg/dL Normal 7.0-18.[address] [facility] Comment on above: Performed By: #### C RP, CMP #### [facility] [address] [place] [address] Dr. Kenton Avila Urea nitrogen/Creatinine [Mass ratio] 20.0 mg/mg Normal [facility] Comment on above: Performed By: #### C RP, CMP #### [facility] [address] [place] [address] Dr. Kenton Avila PROTIMEon 04-25-2022 INR Coag (PPP) [Relative time] 0.99 {INR} Normal [facility] Comment on above: Performed By: #### C BC #### [facility] [address] [address] [address] Kenton Avila INR GUIDELINES SEE BELOW Normal [facility] Comment on above: Result Comment: CHRISTOPHE RED INR: 2.0 - 3.0 CONDITIONS NOT LISTED BELOW 2.5 - 3.5 FOR PROSTHETIC HEART VALVE REPLACEMENT 2.5 - 3.5 RECURRENT THROMBOSIS Performed By: #### C BC #### [facility] [address] [address] [address] Kenton Avila PT Coag (PPP) [Time] 10.7 s Normal 9.0-11.[address] [facility] Comment on above: Performed By: #### C BC #### [facility] [address] [place] [address] Dr. Kenton Avila PTTon 04-25-2022 aPTT Coag (Bld) [Time] 28.5 s Normal 22.3-36.[address] [facility] Comment on above: Performed By: #### C BC #### [facility] [address] [place] [address] Dr. Kenton Avila TSHon 04-25-2022 TSH 1.110 uIU/mL Normal 0.358-3.740 [facility] Comment on above: Performed By: #### C MP #### [facility] [address] [place] [address] Dr. Kenton Avila SARS-CoV-2 (COVID-19) RNA NA A+probe Ql (Resp)on 04-05-2022 SARS-CoV-2 (COVID-19) RNA MIKEY+probe Ql (Unsp spec) Positive [employer] Other US PELVIS AND TRANSVAGon US PELVIS [...] suspicious pelvic or adnexal findings. Normal [facility] MAMM SCREEN 3D SUSAN CADon 10-30-2021 MG MAMM SCREEN 3D SUSAN CAD Patient: LOUISA LIU Exam Date: 10/30/2021 : 1970 Gender:F Ordering : DR DOUG GAVIN Admission #: [id number] Family : Order #: [id number] CLICK HERE TO VIEW EXAM RADIOLOGY REPORT [...] Treatments None Family Cancers None LOCATION: The [facility] BREAST COMPOSITION: Extremely dense, which lowers the [...] M.D. on 10/30/2021 at 12:52 Normal [facility] TSH+FREE T4on 08-19-2021 Free T4 [Mass/Vol] 1.0 ng/dL Normal 0.8-1.8 [facility] Comment on above: Performed By: #### 5 [id number] #### [facility] [address], [address] [place] [id number] Nanotechnologist: Alex Martinez MD TSH Qn 0.88 m[IU]/L Normal [facility] Comment on above: Result Comment: Refe rence Range > or = 20 Years 0.40-4.50 Ranges First trimester 0.26-2.66 Second trimester 0.55-2.73 Third trimester 0.43-2.91 Performed By: #### 5 8984 #### [facility] [address] [address] Nanotechnologist: Alex Martinez MD CBC (INCLUDES DIFF/PLT)on Basophils (Bld) [#/Vol] 0.017 10*3/uL Normal 0-200 [facility] Comment on above: Performed By: #### 7 600, 6399, 32857 #### [facility] [address] [address] Nanotechnologist: Alex Martinez MD Basophils/100 WBC (Bld) 0.3 % Normal [facility] Comment on above: Performed By: #### 7 600, 6399, 81837 #### [facility] [address] [address] Nanotechnologist: Alex Martinez MD Eosinophils (Bld) [#/Vol] 0.081 10*3/uL Normal 15-500 [facility] Comment on above: Performed By: #### 7 600, 6399, 82761 #### [facility] [address] [address] Nanotechnologist: Alex Martinez MD Eosinophils/100 WBC (Bld) 1.4 % Normal [facility] Comment on above: Performed By: #### 7 600, 6399, 59928 #### [facility] of [address] [address] Nanotechnologist: Alex Martinez MD Erythrocyte distribution width (RBC) [Ratio] 12.6 % Normal 11.0-15.0 [facility] Comment on above: Performed By: #### 7 600, 6399, 05534 #### [facility] [address] [place] [address] Nanotechnologist: Alex Martinez MD Hematocrit (Bld) [Volume fraction] 32.4 % Low 35.0-45.0 [facility] Comment on above: Performed By: #### 7 600, 6399, 86275 #### [facility] of [address] [place] [address] Nanotechnologist: Alex Martinez MD Hemoglobin (Bld) [Mass/Vol] 11.1 g/dL Low 11.7-15.5 [facility] Comment on above: Performed By: #### 7 600, 6399, 31648 #### [facility] of [address] [place] [address] Nanotechnologist: Alex Martinez MD Lymphocytes (Bld) [#/Vol] 1.989 10*3/uL Normal 850-3900 [facility] Comment on above: Performed By: #### 7 600, 6399, 20443 #### [facility] [address] [place] [address] Nanotechnologist: Alex Martinez MD Lymphocytes/100 WBC (Bld) 34.3 % Normal [facility] Comment on above: Performed By: #### 7 600, 6399, 23938 #### [facility] [address] [place] [address] Nanotechnologist: Alex Martinez MD MCH (RBC) [Entitic mass] 29.8 pg Normal 27.0-33.0 [facility] Comment on above: Performed By: #### 7 600, 6399, 41339 #### [facility] [address] [place] [address] Nanotechnologist: Alex Martinez MD MCHC (RBC) [Mass/Vol] 34.3 g/dL Normal 32.0-36.0 [facility] Comment on above: Performed By: #### 7 600, 6399, 50162 #### [facility] of [address] [place] [address] Nanotechnologist: Alex Martinez MD MCV (RBC) [Entitic vol] 86.9 fL Normal 80.0-100.0 [facility] Comment on above: Performed By: #### 7 600, 6399, 03559 #### [facility] of [address], [address] [place] [address] Nanotechnologist: Alex Martinez MD Monocytes (Bld) [#/Vol] 0.47 10*3/uL Normal 200-950 [facility] Comment on above: Performed By: #### 7 600, 6399, 34233 #### [facility] of [address], [address] [place] [address] Nanotechnologist: Alex Martinez MD Monocytes/100 WBC (Bld) 8.1 % Normal [facility] Comment on above: Performed By: #### 7 600, 6399, 88454 #### [facility] [address] [place] [address] Nanotechnologist: Alex Martinez MD Neutrophils (Bld) [#/Vol] 3.242 10*3/uL Normal 1966-3364 [facility] Comment on above: Performed By: #### 7 600, 6399, 46973 #### [facility] of [address] [place] [address] Nanotechnologist: Alex Martinez MD Neutrophils/100 WBC (Bld) 55.9 % Normal [facility] Comment on above: Performed By: #### 7 600, 6399, 75920 #### [facility] [place] [address] Nanotechnologist: Alex Martinez MD Platelet mean volume (Bld) [Entitic vol] 9.7 fL Normal 7.5-12.5 [facility] Comment on above: Performed By: #### 7 600, 6399, 88710 #### [facility] [address] [place] [address] Nanotechnologist: Alex Martinez MD Platelets (Bld) [#/Vol] 304 10*3/uL Normal 140-400 [facility] Comment on above: Performed By: #### 7 600, 6399, 06531 #### [facility] of [address], [address] [place] [address] Nanotechnologist: Alex Maritnez MD RBC (Bld) [#/Vol] 3.73 10*6/uL Low 3.80-5.10 [facility] Comment on above: Performed By: #### 7 600, 6399, 27701 #### [facility] of [address], [address] [place] [address] Nanotechnologist: Alex Martinez MD WBC (Bld) [#/Vol] 5.8 10*3/uL Normal 3.8-10.8 [facility] Comment on above: Performed By: #### 7 600, 6399, 83907 #### [facility] of [address] [place] [address] Nanotechnologist: Alex Martinez MD COMPREHENSIVE METABOLIC PANE [facility] 07-30-2021 Albumin [Mass/Vol] 4.0 g/dL Normal 3.6-5.1 [facility] Comment on above: Performed By: #### 7 600, 6399, 73741 #### [facility] of [address] [place] [address] Nanotechnologist: Alex Martinez MD Albumin/Globulin [Mass ratio] 1.5 {ratio} Normal 1.0-2.5 [facility] Comment on above: Performed By: #### 7 600, 6399, 16687 #### [facility] of [address] [place] [address] Nanotechnologist: Alex Martinez MD ALP [Catalytic activity/Vol] 69 U/L Normal 37-153 [facility] Comment on above: Performed By: #### 7 600, 6399, 66332 #### [facility] [place] [address] Nanotechnologist: Alex Martinez MD ALT [Catalytic activity/Vol] 20 U/L Normal 6-29 [facility] Comment on above: Performed By: #### 7 600, 6399, 72763 #### [facility] of [place] [address] Nanotechnologist: Alex Martinez MD AST [Catalytic activity/Vol] 21 U/L Normal 10-35 [facility] Comment on above: Performed By: #### 7 600, 6399, 17375 #### [facility] [address] [place] [address] Nanotechnologist: Alex Martinez MD Bilirubin [Mass/Vol] 0.4 mg/dL Normal 0.2-1.2 [facility] Comment on above: Performed By: #### 7 600, 6399, 69645 #### [facility] [place] [address] Nanotechnologist: Alex Martinez MD BUN/CREATININE RATIO NOT APPLICABLE Normal 6-22 [facility] Comment on above: Performed By: #### 7 600, 6399, 87131 #### [facility] [place] [address] Nanotechnologist: Alex Martinez MD Calcium [Mass/Vol] 8.7 mg/dL Normal 8.6-10.4 [facility] Comment on above: Performed By: #### 7 600, 6399, 37072 #### [facility] [place] [address] Nanotechnologist: Alex Martinez MD Chloride [Moles/Vol] 105 mmol/L Normal 98-110 [facility] Comment on above: Performed By: #### 7 600, 6399, 00566 #### [facility] [place] [address] Nanotechnologist: Alex Martinez MD CO2 [Moles/Vol] 28 mmol/L Normal 20-32 [facility] Comment on above: Performed By: #### 7 600, 6399, 33411 #### [facility] [place] [address] Nanotechnologist: Alex Martinez MD Creatinine [Mass/Vol] 0.75 mg/dL Normal 0.50-1.05 [facility] Comment on above: Result Comment: For patients >49 years of age, the reference limit for Creatinine is approximately 13% higher for people identified as -Israeli. Performed By: #### 7 600, 6399, 49212 #### [facility] [address], [address] [place] [address] Nanotechnologist: Alex Martinez MD eGFR NON-AFR. TAJIK 92 mL/min/1.73m2 Normal > OR = 60 [facility] Comment on above: Performed By: #### 7 600, 6399, 07835 #### [facility] [address], [address] [place] [address] Nanotechnologist: Alex Martinez MD GFR/1.73 sq M.predicted among blacks MDRD (S/P/Bld) [Vol rate/Area] 107 mL/min/{1.73_m2} Normal > OR = 60 [facility] Comment on above: Performed By: #### 7 600, 63, 17245 #### [facility] [place] [address] Nanotechnologist: Alex Martinez MD Globulin (S) [Mass/Vol] 2.7 g/dL Normal 1.9-3.7 [facility] Comment on above: Performed By: #### 7 600, 6399, 15819 #### [facility] [place] [address] Nanotechnologist: Alex Martinez MD Glucose [Mass/Vol] 89 mg/dL Normal 65-99 [facility] Comment on above: Result Comment: Fasting reference interval Performed By: #### 7 600, 6399, 59590 #### [facility] [place] [address] Nanotechnologist: Alex Martinez MD Potassium [Moles/Vol] 3.9 mmol/L Normal 3.5-5.3 [facility] Comment on above: Performed By: #### 7 600, 6399, 38572 #### [facility] [address], [address] [place] [address] Nanotechnologist: Alex Martinez MD Protein [Mass/Vol] 6.7 g/dL Normal 6.1-8.1 [facility] Comment on above: Performed By: #### 7 600, 6399, 55434 #### [facility] [place] [address] Nanotechnologist: Alex Martinez MD Sodium [Moles/Vol] 139 mmol/L Normal 135-146 [facility] Comment on above: Performed By: #### 7 600, 6399, 47125 #### [facility] [place] [address] Nanotechnologist: Alex Martinez MD Urea nitrogen [Mass/Vol] 13 mg/dL Normal 7-25 [facility] Comment on above: Performed By: #### 7 600, 6399, 69071 #### [facility] [place] [address] Nanotechnologist: Alex Martinez MD LIPID PANEL, [facility] 07-14 Cholesterol [Mass/Vol] 186 mg/dL Normal <200 [facility] Comment on above: Order Comment: FASTI NG:YES FASTING: YES Performed By: #### 7 600, 6399, 54948 #### [facility] [place] [address] Nanotechnologist: Alex Martinez MD Cholesterol in HDL [Mass/Vol] 60 mg/dL Normal > OR = 50 [facility] Comment on above: Order Comment: FASTI NG:YES FASTING: YES Performed By: #### 7 600, 6399, 16778 #### [facility] [place] [address] Nanotechnologist: Alex Martinez MD Cholesterol in LDL [Mass/Vol] 100 mg/dL High [facility] Comment on above: Order Comment: FASTI NG:YES FASTING: YES Result Comment: Refe rence range: <100 Desirable range <100 mg/dL for primary prevention; <70 mg/dL for patients with CHD or diabetic patients with > or = 2 CHD risk factors. LDL-C is now calculated using the Prabhu-Blair calculation, which is a validated novel method providing better accuracy than the Friedewald equation in the estimation of LDL-C. Prabhu STEPHENS et al. ARNULFO. 2013;310(19): 8830-0924 (http://education.[employer].VIDA Software/faq/IMG207) Performed By: #### 7 600, 6399, 10704 #### [facility] [address], [address] [place] [address] Nanotechnologist: Alex Martinez MD Cholesterol.total/C holesterol in HDL [Mass ratio] 3.1 {ratio} Normal <5.0 [facility] Comment on above: Order Comment: FASTI NG:YES FASTING: YES Performed By: #### 7 600, 6399, 73089 #### [facility] [address], [address] [place] [address] Nanotechnologist: Alex Martinez MD NON HDL CHOLESTEROL 126 mg/dL (calc) Normal <130 [facility] Comment on above: Order Comment: FASTI NG:YES FASTING: YES Result Comment: For patients with diabetes plus 1 major ASCVD risk factor, treating to a non-HDL-C goal of <100 mg/dL (LDL-C of <70 mg/dL) is considered a therapeutic option. Performed By: #### 7 600, 6399, 08511 #### [facility] [place] [address] Nanotechnologist: Alex Martinez MD Triglyceride [Mass/Vol] 164 mg/dL High <150 [facility] Comment on above: Order Comment: FASTI NG:YES FASTING: YES Performed By: #### 7 600, 6399, 86802 #### [facility] [address], [address] [place] [address] Nanotechnologist: Alex Martinez MD Covid-19 PCR (CVDTB)on 05-14 SARS-CoV-2 (COVID-19) RNA MIKEY+probe Ql (Unsp spec) Detected Critically abnormal NOT DETECTED [facility] Comment on above: Result Comment: This test is not yet approved or cleared by the [place] FDA. When there are no FDA-approved or cleared tests available, and other criteria are met, FDA can make tests available under an emergency access mechanism called an Emergency Use Authorization (EUA). The EUA for this test is supported by the [place] of Health and Human Service's (HHS's) declaration [...] longer be used). Performed By: #### C BC #### [facility] [address] [address] [address] Kenton Avila Provider Letter FTon 04-01 Provider Letter [facility] [place] 31, 2021 LOUISA LIU [address] [place] [phone] LOUISA LIU 1970 Dear Louisa Liu, We [...] Rodriguez Gallegos M.D., F.A.C.S. [facility] [address] [place] [address] [facility] Comment on above: Other Comment: Marlen connelly not being sent [facility] ([facility])on 10-09-2020 [facility] Diagnosis Info Invalid Interpretation Code [facility] Comment on above: Result Comment: A:Ur [...] on: 10/09/2020 10:24:29 Performed By: #### 1 [id number] ####[facility] [address] [place] [address] Reminderson 10-03-2020 Reminders - From: Louisa Lau To: EU - Clinical; Sent: 09/19/2020 12:48:06 EDT Show up: 10/03/2020 12:48:00 EDT Subject: Urine Cytology Reminder/Recall Urine Cytology Cyto- neg [facility] Coding Summary.on 10-02-2020 Coding Summary. CD:[id number] G h0bWw+PGhlYWQ+UY2RJBP dW69fsDRlbU0IU4bNSY0X PBIXVVCJLY7KHI7whTW0B HeqF9IugsUe PidzlNKpLF99SCq8UNI7v IbcLYiytW2bnYHaA1t6Bj SqCO58iC45NEhyXKVdHjX 3LjZpbjsgbWFy E1enYvOldCSrGzw+PHRhY mxlIHdpZHRoPScxMDAlJy CriWpoII5vXe4mGORzYLH vbGxhcHNlOiBj q8pxIJVmWWqsTD9qeXtfC 1OvbUL8SQDou6c2Df17pC I+OMCoDOA8wHulAXfhp79 7WvGny8kdYGU9 dDUmKYfqEES0N59bg6E8R AGgHLOhPHF9oRR2pW5soY skqlftY5OevPHfVkI8FYM 2xIYkgJ7vwHpa rthmqJ4bAgt+X38IXR8FS PIOGC3ZVdl1R0OzJbqinC I+YQ43UQVpGK72iSBllDS nl3zqvUf0XgJh CNJbPJV4jXilXPuzy6XxB PMlZ10mcSHzi1Z4KXFrwE nivUYnEkVrvPF5vO3hQSm uhsixk4ctrrco Ihwwf6lkiq96hA37L75lN XtrCXUeWUU0JAKkIIXslP umkr8fgA2pSv9+UTsqa6q xe0gxdXe5CsGb VGXraaXiqAheFEN0u6UhP e65X1TawMucv0KiSyj5hn 90sXJng0S5jCN7VDxiPZB jhQ4eGYhhPzL5 EFMcWyRfqE83bVOjNIdiA s2jmSrcmGtaRT5pGLKjvh ptXGZhbN7gACAekYPcpGh zXZ3iRTArlqkp u294FmQsEBC2YUIjpCYcK 6QrdY1mNaBaNZDjCSWzQ5 XizJRxUNyyT733CLluPrA 1TAEbmbMyR4Ow RKWinHenAeF2w9E3Rc6Wo 0JtlswqPUQ7EUhzXRX9Xc ZsUlTrEtJ5A2ZsChd9UBU atVfiNT6tM4Qt RYEyyosxbzzutFZ6JTQtF KCpdW66cURhWUelRz5td2 A9w606QWCdETDvtP37Ji6 udDogMTBwdCBU pH0tdlivd9nmeuhlQfFhZ PUxXXu7VJn1RXXysUpyAw ChYQE4MqV0POA9lRZhjS7 zaWabyqlndK3s Oyc+B17dqQ4oBTJ2HOA1w nnhRVRlqcXyPG82ZT86R8 RyPjwvdGFibGU+PGRpdiB fpUptHM8wNwQf f9hbu8SgLIanP9JoWJXrC XtxXok1EOTpFQD2aJY0iT 5bUTXyBGqcl5Z4uFN4E8F ahiHmmb9kg7pj LNDtOIwqE98lwHSll5E8W WAeeTW1FXGpxUenFmDhbS 93Oyc+UYAuyEnyv8JoKmm wy6noi9nmnXz9 GcBvDTJhhtIzlDpgRSC6p 4DwLz86Z80wTOvcQFWtRB WzXEZqNYZphBdqop2wxV2 wIi8+PGNvbCB3 cFX8lZ9pJYIdIhJ7CRffO 445FcRjvARsQjxab7xvx2 zylBs7NsIdREUvfhRznAu iGBF7h8QmXh73 L76vRPryNSWhRDNvYAYzN JDwuWcvxl2wqH2sRs4+PC 9rs9apsv13cB40dER+PHR xHXK8fLowXMve ETZmkB0hULchOyU0MRYjJ hMoxF98vAIlFUnsPw7vwF bvyPskKE6dOKLebkcrm66 8XwHut0smMSKw zFIcQCtvLGI4W14xz4O0W DQtAUOxBKQ4eIT6wX6xcP lnbjogbGVmdDsgdmVydGl kAWvzSJoaF727 IHRvcDsnPlBhdGllbnQgT wWzYXv2T0PtXki4NZNbmG izEB4nnZKwCRbgNb5auMa ssGxlNS3cMUXh mkxgj952OlHzr7niEABzq QUvIQazNRU8L16nl5C2BE JeBGIxJTH8wSY6dO0nvXt nbjogbGVmdDsg xmTuwAccREbtKIkeU555T HRvcDsnPkJpcnRoIERhdG B2NL02VJ96nSEga7W5gVQ 3Q3RoZKXuvsbp lyehnKA4PTWfHCYyoE47P i6spCrcEa5yDQTvYII9WK LxkLMsF3KslE3hBrCqZTC vVHExI6YsdHIo HItkI631YKgaNaG0NTPgp xIdW7TaDHBezTjqFxW2u6 I8Qy9KC7Y7JJ60ON78aQW fo5J0aRC8P5Nk ZACoarjnyzmolJW5FNQiE HDyhX33In4bzFdwQr2mPC PsLJC4OBHywPXcU3TchC1 yOiAjMDAwMDAw X7WeaLVzGWmlZ307EXfcF rL3AKWobtPbB0TnWLMieW ntJcP6b7D8Fg8AYOz0WR9 8OH36sOCib1O6 sAH6Z6UpVVYrfccmyqfmz XY3TQSdBQEbbZ00Bo2lfT jxNd1mUSFaRBU9POLznZI dV6SvrX8mTvKs QEKsKMAdR1EpuRAdWYzgF 238ZNmyYqT7ZNMtlhRaK5 YkJNEclDaeXrJ1b3B8Lj2 EPCNdSK40JGW2 eHD3NP19BG79N1ExPbica GFibGU+PHRhYmxlIHdpZH RoPScxMDAlJyBzdHlsZT0 hMo8aAFXaWGWf bSakhIHoTxAej2agNAUtO EglWQ9boSmmK1YyyDB4PN Mqm2i0Xa83W79uR7TtiOZ +BWXdaDE1dWO2 xC4eZhWdAfK9EQewJ278C tXluGTnBujri9eef8plaZ p1DrV5SMSchnLtlEmlWBU 4q8VwBi36J73x IHdpZHRoPSIxNSUiIHZhb Vmyiq8hkR8cVw6+PGNvbC F3rOG5iC2aOvShXpT7HHs vM071CfXjqOLu Cpcnz8mta5hjjWd3GkUiQ XGsiyOoaKqaNMQ3y8KxBm 68T4RsgAgsy8BuSbh5iz8 6xZPub3W4lFQ8 A4MoJQZzikzddHQjcLxxT B8zSDOgiuqaVLXssL1sHQ RkJ7u4LhZwHxC6ZPbvO3O pzaZ0HWYjiVQk ZIzdNLE9O68ek9V5LIPnX AIoBEU2pMC6eZ7ysOvefw ogbGVmdDsgdmVydGljYWw wSAnaF609FPDe rWcwZGVcxQ1cLDRcaFZts SdaRT9zFXVhvshgXyZRPT RFUiwgSkVOTklGRVIgTDw vdGQ+PHRkIHN0 zAotRWuuFKXmcG4iCFKcK 5v3RyLdKwH1DZwuI9LeNI BarczhEl89yX8bBuUlMnM 8TFvtW1LurkR8 YMKnbTZfUZzjHUK4A84it 7N3BOZaWFSeLDE0fUB4jH 1hbGlnbjogbGVmdDsgdmV ydGljYWwtYWxp C114CQDtxDomYjOnMvYpI bT3NeX1D1GmLos6UMLrtZ iiTI9gpWMiLYsuXa2hpZb rdVypXF4sZAJa duwuFVGbeO5gTTBylRIok XpvFI5nRKNvfdeyw094On RdUKL1LPQxiVPnO0NvkA8 yOiAjMDAwMDAw I8MzwOTuZRqeB992SGfzX jH4NTQwjgBvO7RxIQHytC atMsX1e3U6Os44SMKZOHF yczwvdGQ+PHRk CWR7oFybATuhFDCvrC4dI GGcY4o8UjPeLhH6QUmeA7 JcCSOihgodJf71hB3oUoU oQrO1YNvgA2Aq wjY4OXLlgNNpPPsmZCN7F 73vp6Y5AQCzKPFxOBC7gF X0xB7kyZbcksnmhHFrlSr gdmVydGljYWwt CDwmB256VVOtuOghLgUyy WFsZTwvdGQ+NQOlFBK2dS jyXPqiHGRtoG3jEKYeQ2k 1FeJuPqG1VXzs P1SsQBJysqiwIz97kS0eY tBePjL1ZXfiN2DbkfZ9WS FzkDOgUKsvLPZ7N27xc3Z 7GYZcAQDvVBA6 lBF2sK3vrPujmntprPJot DsgdmVydGljYWwtYWxpZ2 37WCIjkCbaQj05jDKskYf nbzU2D8BfKxsr dHI+ZH58PBZzKP81bMSth OHdl8zoaKq8EtVbPDPpUJ C5lEseTNtnx5ZuPERgD46 gfGZfo9G2XCVi fVlqhIEaGzNlqLW5pK9kL Noujygxk4guzbbeCrpjp6 uuxn05nL14M47zOEymZTA oPSIzMCUiIHZh aWpsrr2qdW9yPu7+PGNvb IT5vAL7zU2xPqUmXnU7MG faD311OjJzkXSrKezot2p su6occVp9KoWp QDDzusCqcKioWBF1i1MbI o22J09gSGtdTSUwMZCtWN KePLWogLfgsj1fwG5iAi3 +ED2vm7qnoa97 qX30vGV+XKRtRQQ9tIoeS UtmWLJmhO4cHFrnOeB1FU AsSoWhdU28bWCdJIceTp8 ksJhkzHutNV4i YGBkvuvqt402KzDdh3zvC HQliFHjVInxPRH0F92ie3 P0JYBrLKBtQRX3yNU2fM0 hbGlnbjogbGVm dDsgdmVydGljYWwtYWxpZ 640NXImmJouIgPvnZCaG4 dtacMTQN8nKhtghHE+PHR mRXQ5xWcoWLhw CPHxpW5yLBWsY4l0HgUiR jX4SVudD4MjlwX1SLNijQ LtKNFawMMYpI2yozvgr2z vcjogIzAwMDAw PZc6CVn1ZKQiaQowKpSeW OF1LpR6UBQ3xBLslD0drV cdbxcqlW4xRke+RklOOjw vdGQ+PHRkIHN0 qMgoUYbeCYFffF7yHFGgT 6x1CsGeOwO8HSqpZ9Ojuc Y4VFCviCClCWDtuCCKgY0 ufmhmh3kavqjo RdOwSCHpOTy7RJs7NZCiv NktIhZuRCA5IaV2UGR6fC GqmH9usKmprcgmmJ0lWua +TVJOOjwvdGQ+ FENiHZP4oDykORyrGALho B0cGCThV0l7KyPwQqL1IO ufS3SsvuQ9UDRhjXRhOWQ hwTTZwY3aogyg q1jyaksnNuDjJGKwSAo4Z Fd9FWJmwUytKzLjQVE1Ao T1UFW1nWZpsZ8lcCkmlga sbW2cJwm+UGF5 QGH3NK87QC43A9GdEcwky GFibGU+PHRhYmxlIHdpZH RoPScxMDAlJyBzdHlsZT0 fWu0mPIDsFQCa bGxh (more content not included)... [facility] Consent for Procedure/Surger yon 09-30-2020 Consent for Procedure/Surgery [id number] .00CD:127 Normal [facility] Consent for Treatmenton 09-12 Consent for Treatment [id number]#1 .00CD:127 Normal [facility] Discharge Instructionson Discharge Instructions [id number] .00CD:127 [facility] IntraOperative Documentson 0 09-30-2020 IntraOperative Documents [id number] .00CD:127 [facility] IntraOperative Documents [id number] .00CD:127 [facility] Main OR Intraoperative Recor don 09-30-2020 Main OR Intraoperative Record IntraOp Document Type FTURO Summary Primary Physician: Rodriguez GALLEGOS MD Finalized Date/Time: 09/30/20 10:28:54 Pt. Name: LOUISA LIU /Sex: 1970 Female Med Rec #: [id number] Physician: Rodriguez GALLEGOS MD Financial #: [id number] Pt. Type: O Room/Bed: / Admit/Disch: 09/30/20 09:54:59 - Institution: Case Times FTURO Entry 1 Patient Times In Room 09/30/20 10:13:00 Out Room 09/30/20 10:25:00 Procedure Times Start 09/30/20 10:19:00 Stop 09/30/20 10:22:00 Anesthesia Times Last Modified By: Dawn Davalos RN 09/30/20 10:25:02 Case Attendance FTURO Entry 1 Entry 2 Entry 3 Case Attendee Rodriguez GALLEOGS MD MOLD INSERT CHANGER, Dawn Myles RN Role Performed Surgeon - Primary Scrub - Primary Sales Record Clerk - Primary Time In 09/30/20 10:13:00 09/30/20 10:13:00 09/30/20 10:13:00 Time Out 09/30/20 10:25:00 09/30/20 10:25:00 09/30/20 10:25:00 Procedure CYSTOSCOPY LOCAL(.) CYSTOSCOPY LOCAL(.) CYSTOSCOPY LOCAL(.) Comments Last Modified By: Susannah MORROW, Dawn Davalos RN, Dawn Sexton RN 09/30/20 [...] Position Verified Availability Equipment, Medication Time Out Rodriguez GALLEGOS MD, Verified (If Participants [place] Karissa FERRIS, Applicable) Dawn Davalos RN Time Out Complete [...] 10:25 Dawn Davalos RN 09/30/20 10:28 [facility] Main OR Preoperative Recordo n 09-30-2020 Main OR Preoperative Record Holding Area Document Type FTURO Summary Primary Physician: Rodriguez GALLEGOS MD Finalized Date/Time: 09/30/20 10:13:10 Pt. Name: LOUISA LIU/Sex: 1970 Female Med Rec #: [id number] Physician: Rodriguez GALLEGOS MD Financial #: [id number] Pt. Type: O Room/Bed: / Admit/Disch: 09/30/20 [...] of Pain: Yes Comment: Pain Comment: abd. 08/20 Skin Integrity Unable to Visualize Vitals - EU Blood Pressure 108/73 Pulse 66 bpm Respirations 18 br/min SPO2 RN Reviewed Yes Last Modified By: Dawn Davalos RN 09/30/20 10:13:08 General Comments: Temp. 35.6 Finalized By: Dawn Davalos RN Document Signatures Signed By: Elvi Jones LPN 09/30/20 10:06 Dawn Davalos RN 09/30/20 10:13 [facility] Operative Reporton Operative Report Patient: LOUISA [...] check ct if either is abnormal.. [facility] Comment on above: Result Comment: Elec tronically Signed By: AARTI BOLES, Rodriguez Byrnes\Date and Time Signed: 09/30/20 10:31 EDT [facility] ([facility])on 09-30-2020 [facility] Method of Extraction Voided [facility] Comment on above: Performed By: #### 1 [id number] ####[facility] [address] [place] [address] [facility] Number of Jars 1 Invalid Interpretation Code [facility] Comment on above: Performed By: #### 1 [id number] ####[address] [place] [address] [facility] Specimen Urine Normal [facility] Comment on above: Performed By: #### 1 [id number] ####[address] [address] [facility] Type of Service Technical Only [facility] Comment on above: Performed By: #### 1 [id number] ####[facility] [address] [place] [address] RAD - Ultrasound Reporton RAD - Ultrasound Report [id number]#1. 00CD:127 [facility] Pre-Certification Formon Pre-Certification Form [id number]#1 .00CD:127 [facility] Urine Cytology ([facility])on 0 09-24-2020 Urine Cytology Diagnosis Info Invalid Interpretation Code [facility] Comment on above: Result Comment: A:Ur ine,Urine:Voided Interpretation - MicroScopic Description - Many unremarkable squamous cells present. Adequacy - Gross Description Site ID:A color Bright Yellow fixative Alcohol Specimen designated Urine received in alcohol preservative and labeled with the patient?s name, consists of 50ml clear bright yellow fluid. One non-gyn physician cytology slide prepared. Electronically signed by : on: 09/24/2020 09:37:46 Performed By: #### 1 [id number] ####[facility] [address] [place] [address] Physician Referralon 021 Physician Referral [id number]#1. 00CD:127 [facility] Formson 09-22-2020 Forms [id number]#1. 00CD:127 [facility] RAD - Ultrasound Reporton RAD - Ultrasound Report [id number]#1. 00CD:127 [facility] Ambulatory Clinical Summaryo n 09-19-2020 Ambulatory Clinical Summary {[id number] -[id number] [facility] Patient Educationon 09-20-19 21 Patient Education Urology Hematuria, Adult Hematuria is [...] these instructions at home: Medicines ? Take nmjv-tnv-yrouybd and prescription medicines only as told by [...] the blood stops without treatment. ? Take jibp-lep-emvnvvz and prescription medicines only as told by your health care provider. ? Drink enough fluid to keep your urine clear or pale yellow. This information is not intended to replace advice given to you by your health care provider. Make sure you discuss any questions you have with your health care provider. Document Released: 05/30/2006 Document Revised: 10/24/2019 Document Reviewed: 07/02/2017 [employer] Patient Education ? 2019 [employer] [facility] Urine Cytology ([facility])on 0 09-19-2020 Method of Extraction Voided [facility] Comment on above: Performed By: #### 1 [id number] ####[facility] [address] [place] [address] Number of Jars 1 Invalid Interpretation Code [facility] Comment on above: Performed By: #### 1 [id number] ####[facility] [address] [place] [place] [address] Specimen Urine Normal [facility] Comment on above: Performed By: #### 1 [id number] ####[facility] [address] [place] [address] Type of Service Technical Only Normal Fi [facility] Comment on above: Performed By: #### 1 [id number] ####[facility] [address] [place] [address] Urology Office/Clinic Noteon 09-19-2020 Urology Office/Clinic Note Chief Complaint Blood in urine per Dr. Jimenez [facility] Staff Referral from Dr. Jimenez for blood [...] Will order Local anesthesia. ABX sent to [facility] in [place]. 2. Stress incontinence (N39.3: Stress incontinence (female) (male)) Mild, intermittent. Pt. does not need to use any pads. 3. Dysuria (R30.0: Dysuria) Intermittent. I have reviewed the previous health record information and history for this pt. from Dr. Gallegos. Follow-up With When Contact Information Rodriguez GALLEGOS MD [address] [place] [address]- [phone] Additional Instructions: Patient Education Hematuria, Adult I, [...] Protein Urine Dipstick: Negative (09/19/20 10:27:00) Specific Clyo Urine D (more content not included)... [facility] Comment on above: Result Comment: Elec tronically Signed By: Rodriguez GALLEGOS MD\.br\Date and Time Signed: 09/19/20 11:20 EDT\.br\Electronically Co-Signed By: Melvina Rodriguez MA\.br\Date and Time Co-Signed: 09/19/20 11:16 EDT Vital Signs Date Time Vital Sign Value Performing Clinician Ana Laura ayala 04-05-2022 14:00-0400 Body height 162.56 cm Tressa Arrietamond Other [facility] Other 04-05-2022 14:00-0400 Body mass index (BMI) [Ratio] 24.37 kg/m2 Tressa Merlene Other [facility] Other 04-05-2022 14:00-0400 Body weight 64.41 kg Tressa Arrietamond Other [facility] Other Encounters Encounter Date Encounter Type Care Provider Facility Start: 10-24-2023 End: 10-25-2023 ambulatory [facility] Start: 10-24-2023 Encounter for genera l adult medical examination without abnormal findings [facility] Start: 09-14-2023 Refill [place] Gabriel armijo DO Work Phone: [facility] Comment on above: Hypothyroidism, unsp ecified Start: 07-27-2023 Refill [place] Gabriel armijo DO Work Phone: [facility] Comment on above: Hypothyroidism, unsp ecified Start: 02-24-2023 End: 02-25-[address] [facility] Start: 02-24-2023 Encounter for gynecological examination (general) (routine) without abnormal findings [facility] Start: 02-24-2023 End: 02-24-2023 Patient encounter status Celso Buenrostro Phone: [facility] Start: 02-24-2023 End: 02-24-2023 Subsequent hospital visit by physician Celso Buenrostro Phone: [facility] Laboratory Comment on above: Visit for gynecologi c examination Start: 08-30-2022 Patient encounter status Ramon Jimenez DO Work Phone: [employer] Start: 04-25-2022 End: 04-27-[address] CELSO JIMENEZ Facility:[facility] Start: 04-05-2022 End: 04-05-2022 ambulatory Tressa Blunt Other [facility] Other Start: 04-05-2022 Office outpatient vi sit 15 minutes Tressa Blunt [facility] Start: 02-25-2022 End: 02-26-[address] DOUG GAVIN Facility:[facility] Start: 10-30-2021 End: 10-31-[address] DOUG GAVIN Facility:[facility] Start: 06-08-2021 End: 06-08-[address] CELSO JIMENEZ Facility:[facility] Start: 02-12-2021 End: 02-12-2021 Patient encounter procedure Celso Buenrostro Phone: [facility] Start: 02-12-2021 End: 02-12-2021 Subsequent hospital visit by physician Celso Buenrostro Phone: [facility] Comment on above: Women's annual routi ne gynecological examination Start: 01-10-2020 End: 01-10-2020 Subsequent hospital visit by physician Celso Jimenez [facility] Comment on above: Encounter for well w radha exam with routine gynecological exam Procedures Date Procedure Procedure Detail Performing Clinician Start: 08-30-2022 Adult depression scr eening assessment Celso Yazanye Work Phone: Start: 02-22-2022 Microscopic observat ion [Identifier] in Cervix by Cyto stain Celso Simbaaleksander [employer] Phone: Plan of Treatment Date Care Activity Detail Author Start: 02-22-2025 Screening for malign ant neoplasm of cervix Pap Smear [employer] Start: 11-01-2024 Screening for malign ant neoplasm of breast Breast cancer screen [facility] Start: 02-27-2024 End: 02-27-2024 Patient encounter procedure 02/27/2024 10:00 AM EDT Office Visit [facility] [address] [place] [address] Doug Gavin MD [address] [place] [address] yearly [facility] Comment on above: yearly Start: 02-15-2024 DTaP,Tdap and Td Vaccines (3 - Td or Tdap) DTaP,Tdap and Td Vaccines (3 - Td or Tdap) [facility] Start: 02-15-2024 DTaP/Tdap/Td vaccine (3 - Td or Tdap) DTaP/Tdap/Td vaccine (3 - Td or Tdap) [facility] Start: 02-15-2024 DTaP/Tdap/Td vaccine (3 - Td) DTaP/Tdap/Td vaccine (3 - Td) [place] Start: 02-12-2024 Influenza vaccination Influenza Vacc ine [facility] Start: 10-24-2023 End: 10-24-2023 Patient encounter procedure 10/24/2023 9:20 AM EDT Office Visit [facility] [address] [place] [address] Celso Jimenez, [address] [facility] [place] [address] [facility] Start: 08-31-2023 Adult BMI Screening Adult BMI Screen ing [facility] Start: 08-31-2023 Depression Screening Depression Scre ening [facility] Start: 08-31-2023 Tobacco Screening Tobacco Screening [facility] Start: 02-11-2023 COVID-19 Vaccine ( season) COVID-19 Vaccine ( season) [facility] Start: 02-11-2023 Influenza vaccination Influenza Vacc ine [facility] Start: 01-11-2023 Influenza vaccination Flu vaccine (# 1) [employer] Start: 01-09-2023 Screening for malign ant neoplasm of cervix Cervical cancer screen [employer] Phone: Start: 10-21-2022 Screening for malign ant neoplasm of breast Breast cancer screen [employer] Phone: Start: 09-18-2021 Screening for malign ant neoplasm of cervix Cervical cancer screen [facility] [place] Start: 02-12-2021 End: 02-12-2021 Office Visit 02/12/2021 Office Visit Obstetrics and Gynecology Doug Gavin MD [address] [place] [address] [address] [facility] Start: 02-11-2021 Influenza vaccination Flu vaccine (# 1) [employer] Phone: Start: 10-30-2020 COVID-19 Vaccine (2 - Moderna series) COVID-19 Vaccine (2 - Moderna series) [facility] Start: 2020 Administration of varicella zoster vaccine Zoster (Shingles) Vaccine (1 of 2) [facility] [employer] Start: 2020 Shingles Vaccine (1 of 2) Shingles Vaccine (1 of 2) [facility] Start: 02-12-2020 Influenza vaccination Flu vaccine (# 1) [facility] [place] Start: 2015 Screening for malign ant neoplasm of colon [facility] [employer] Start: 2010 Diabetes screen Diabetes screen [employer] Phone: Start: 2010 Lipid panel [facility] [employer] Start: 1988 Adult BMI Follow Up Plan [facility] Start: 1988 Hepatitis C screening Hepatitis C sc reen [facility] [employer] Start: 1985 HIV screening HIV screen [facility] [employer] [facility] [employer] Start: 1982 Depression Screen [facility] Screen [facility] Start: 1970 Hepatitis B vaccine (1 of 3 - 3-dose series) Hepatitis B vaccine (1 of 3 - 3-dose series) [employer] Start: 1970 Hepatitis C screening Hepatitis C sc sebastien [employer] Work Phone: End: 01-10-2020 Cytopathology procedure, preparation of smear, genital source [facility] Routine Encounter for well woman exam with routine gynecological exam 1 Occurrences starting 01/10/2020 until 01/10/2020 [facility] [place] Comment on above: 1 Occurrences starti ng 01/10/2020 until 01/10/2020 End: 02-12-2021 Cytopathology procedure, preparation of smear, genital source [facility] Routine Women's annual routine gynecological examination 1 Occurrences starting 02/12/2021 until 02/12/2021 [employer] Phone: Comment on above: 1 Occurrences starti ng 02/12/2021 until 02/12/2021 End: 02-24-2023 Cytopathology procedure, preparation of smear, genital source [facility] Routine Visit for gynecologic examination 1 Occurrences starting 02/24/2023 until 02/24/2023 [employer] Comment on above: 1 Occurrences starti ng 02/24/2023 until 02/24/2023 Immunizations Immunization Date Immunization Notes Care Provider Fa [facility] 09-04-2020 COVID-19, mRNA, LNP- S, PF, 100mcg/0.5mL Dose Celso Jimenez [employer] Phone: [employer] 08-05-2014 pneumococcal conjuga te vaccine, 13 valent Celso Jimenez DO Work Phone: [facility] 02-14-2014 tetanus toxoid, redu rich diphtheria toxoid, and acellular pertussis vaccine, adsorbed Celso Effdonaleksander [employer] Work Phone: [facility] 02-22-2007 diphtheria, tetanus toxoids and acellular pertussis vaccine Celso EffdonBournewood HospitalTurbine Air SystemsST. [facility] Payers Date Payer Category Payer Private Health Insurance [facility] [id number] 2020-Present [phone] [address] [address] [place] [address] [id number] 2017 Unknown [employer] BENEFIT [id number] 2017-Present [phone] [address] [place] [address] [id number] 2017 Unknown [id number] 1970 Unknown [id number]. [id number] 1970 Unknown [id number]. [id number] 1970 Unknown [id number] [id number] 1970 Unknown [id number]. [id number] 1970 Unknown [id number]. [id number] 1970 Unknown [id number] [id number]. [id number] 1970 Unknown [id number]. [id number] 1959 Unknown [id number] Social History Date Type Detail Facility Start: 01-10-2020 End: 04-30-2022 Tobacco smoking status NHIS Former smoker [facility]ST[facility] Start: 01-10-2020 End: 08-30-2022 Cigarettes smoked current (pack per day) - Reported [facility] [place] Start: 01-10-2020 End: 04-30-2022 Tobacco use and exposure Never used [employer] [facility] STEPHANIE Perez Start: 01-10-2020 End: 08-30-2022 Alcohol intake [facility] Start: 07-17-2012 Alcohol Comment rarely [facility] Start: 1970 Sex Assigned At Not on file [facility] Start: 08-30-2022 End: 02-24-2023 Sex Assigned At [employer] Other End: 07-13-2017 History of tobacco use [facility] End: 07-13-2017 History of tobacco use [facility]igarette Smoker [facility] PHQ-2 Score 0 [facility] History of tobacco use Passive smoker [facility] Do you belong to any clubs or organizations such as jew groups, unions, fraternal or athletic groups, or school groups? Yes [facility] Are you now , , , , never or living with a partner? Never [facility] How often to you hav e a drink containing alcohol? 2-4 times a month [facility] How many standard dr inks containing alcohol do you have on a typical day? 3 or 4 [facility] How often do you hav e 6 or more drinks on 1 occasion? Never [facility] Do you feel stress - tense, restless, nervous, or anxious, or unable to sleep at night because your mind is troubled all the time - these days [OSQ] Not at all [facility] Start: 09-10-2020 Alcohol Comment Occasional [facility] Clinical Notes 09-30-2020 to 07-27-2023 Telephone Encounter - Celso Jimenez DO - 07/27/2023 1:13 PM ESTTelephone Encounter - Veronica Blair CMA - 07/27/2023 1:13 PM ESTTelephone Encounter - Celso Jimenez DO - 07/27/2023 1:13 PM EST Note Date & Type Note Facility 07-27-2023 Miscellaneous Notes Katelyn g of this note might be different from the original. She is due for a wellness in late August. Please set up Left a message to call back documented in this encounter [facility] 07-27-2023 Telephone encount er Note She is due for a wellness in late August. Please set up [facility] 07-27-2023 Telephone encount er Note Left a message to call back [facility] 04-05-2022 Evaluation note Encounter Date Diagnosis Assessment [...] no improvement in 2 to 3 days. [employer] Other 04-20-2021 Note [id number] 09-30-2020 NoteCustom Cystoscopy ? Voiding after [...] if you have a fever over 100 degrees.[facility] Evaluation note* Diagnosis Women's annual routine gynecological examination documented in this encounter [employer] Work Phone: evaluation note* Diagnosis Visit for gynecologic examination Routine gynecological examination documented in this encounter SHAYE LESLEY [facility] Solutions[employer] Diagnosis Hypothyroidism, unspecified documented in this encounter [facility] SystemEvaluation note* Diagnosis Hypothyroidism, unspecified documented in this encounter [facility] JW Player SystemHistory general Narrative - Reported* Type Description Date Medical History Asthma Medical History Seasonal allergies Surgical History hysterectomy [employer] Other InstructionsNot on filedocumented in this encounter [facility] CenterUsermind SystemInstructionsNot on filedocumented in this encounter [facility] [employer] Assessments Diagnosis Encounter for well woman exam with routine gynecological exam Advance Directives No Advanced Directives Records FoundDocuments on File Type Date Recorded Patient Insurance Healthcare Representative Expl anation Advance Directives and Living Will Power of Memorial Marker Designer Documents on File Type Date Recorded Patient Insurance Healthcare Representative Expl anation ACP-Advance Directive ACP-Power of Memorial Mark[employer] Designer Summary Purpose Family History No Family History Records FoundNo Family History Records FoundNo Family History Records FoundNo Family History Records FoundNo Family History Records FoundNo Family History Records Found Additional Source Comments INFORMATION SOURCE (unrecogn ized section and content) DATE CREATED AUTHOR 04/02/2021 [facility] DATE CREATED AUTHOR AUTHOR'S ORGANIZ ATION 08/20/2021 [facility] DATE CREATED AUTHOR AUTHOR'S ORGANIZ ATION 05/03/2022 [facility] DATE CREATED AUTHOR AUTHOR'S ORGANIZ ATION 02/26/2023 [facility] DATE CREATED AUTHOR AUTHOR'S ORGANIZ ATION 10/25/2023 [facility] DATE CREATED AUTHOR AUTHOR'S ORGANIZ ATION 10/26/2023 [facility] REASON FOR VISIT (unrecogniz ed section and content) Reason Comments Med Refill Care Teams (unrecognized sec tion and content) [place] Relationship Specialty Start Date End Date Celso Jimenez PCP - General 09/12/15 Moshgiach Relationship Specialty Start Date End Date Celso Jimenez DO [address], [place] [address] PCP - General Family Medicine 10/20/20 Moshgiach Relationship Specialty Start Date End Date Celso Jimenez DO [address], [place] [address] PCP - General Family Medicine 10/20/20 FOR [...] BE BASED ON THE PRIMARY CLINICAL RECORDS. [facility]. provides no warranty or guarantee of the accuracy or completeness of information in this document.
== END 2023-11-04 09:51 | disposition home or self-care (01) ==
LOC: MAMMO 09:51
PROVIDERS: PCP Family Medicine; Visit Provider Obstetrics & Gynecology
DX: Z12.31 Encounter for screening mammogram for malignant neoplasm of breast (principal)
CPT/HCPCS: 77063; 77067

== ENCOUNTER 2024-11-07 09:54 | Outpatient (OUT) | payer OTHER, SELFPAY ==
--- NOTE | 2024-11-07 09:56 | MM_ITS ---
Patient Name: JIM LIU MR#: [id number] : 1970 Exam Date: 11/07/2024 Ordering Doctor: DR MYA HOFFMANN RADIOLOGY REPORT PROCEDURE: MM TOMOSYNTHESIS SCREENING BI COMPARISON: MM TOMOSYNTHESIS SCREENING BI, 11/04/2023. MG MAMM SCREEN 3D SUSAN CAD, 11/01/2022. MG MAMM SCREEN 3D SUSAN CAD, 10/30/2021. MG MAMM SUSAN SCRN W CAD DIG, 08/27/2013. INDICATIONS: Screening Calculator Name NCI Breast Cancer Risk Assessment Tool 5 Year Breast Cancer Risk 1.20% Lifetime Breast Cancer Risk 8.50% Personal Breast Cancer No Personal Ovarian Cancer No Treatments None Family Cancers None LOCATION: [facility] BREAST COMPOSITION: The breasts are extremely dense, which lowers the sensitivity of mammography. FINDINGS: RIGHT BREAST: No significant suspicious finding. Benign-appearing calcifications are present. LEFT BREAST: No significant suspicious finding. Benign-appearing calcifications are present. DIAGNOSTIC CATEGORY 2--BENIGN FINDING: RECOMMENDATIONS: ROUTINE MAMMOGRAM AND CLINICAL EVALUATION IN 12 MONTHS. PLEASE NOTE: A NORMAL MAMMOGRAM DOES NOT EXCLUDE THE POSSIBILITY OF BREAST CANCER. A CLINICALLY SUSPICIOUS PALPABLE LUMP SHOULD BE BIOPSIED. Dictated by: Vidal Dugan MD on 11/07/2024 at 10:47 Approved by: Vidal Dugan MD on 11/07/2024 at 10:49
--- OUTSIDE RECORDS SUMMARY | 2024-11-07 09:56 | XMS_ITS | Encounter Summary ---
Author Organization [email or web address] Sys tem Address [id number] [address] [place] [address] Care Team Providers Care Employee Benefits Insurance Agent Name Role Phone Celso Jimenez DO Primary Care Provider + [phone] Encounter Details Date Type Department Care Team (Late st Contact Info) Description 08/29/2023 Orders Only [facility] - Family Medicine [address] [place] [phone] External, Scanning Provider Social History Tobacco Use Types Packs/Day Years Used Date Smoking Tobacco: Former Cigarettes 0.5 30 0 07/13/1987 - 07/13/2017 Passive Smoke Exposure: Past Smokeless Tobacco: Never Alcohol Use Standard Drinks/Week Comments Yes 0 (1 standard drink = 0.6 oz pur e alcohol) Occasional Social Connection and Isolat ion Panel [NHANES] Answer Date Recorded In a typical week, how many times do you talk on the phone with family, friends, or neighbors? More than three times a week 08/30/2022 How often do you get togethe r with friends or relatives? Twice a week 08/30/2022 How often do you attend chur ch or anglican services? Never 08/30/2022 Do you belong to any clubs o r organizations such as yazdanism groups, unions, fraternal or athletic groups, or school groups? Yes 08/30/2022 How often do you attend meet ings of the clubs or organizations you belong to? 1 to 4 times per year 08/30/2022 Are you , , di vorced, , never , or living with a partner? Never 08/30/2022 AUDIT-C Answer Date Recorded Q1: How often do you have a drink containing alc ohol? 2-4 times a month 08/30/2022 Q2: How many drinks containi ng alcohol do you have on a typical day when you are drinking? 3 or 4 08/30/2022 Q3: How often do you have si x or more drinks on one occasion? Never 08/30/2022 Overall Financial Resource Strain (CARDIA) Answe r Date Recorded How hard is it for you to pa y for the very basics like food, housing, medical care, and heating? Not hard at all 08/30/2022 PHQ-2 Answer Date Recorded Total Score 0 08/30/2022 [facility] - Occupational Stress Questionnaire Answer Date Recorded Do you feel stress - tense, restless, nervous, or anxious, or unable to sleep at night because your mind is troubled all the time - these days? Not at all 08/30/2022 Exercise Vital Sign Answer Date Recorde d On average, how many days pe r week do you engage in moderate to strenuous exercise (like a brisk walk)? 2 days 08/30/2022 On average, how many minutes do you engage in exercise at this level? 60 min 08/30/2022 PRAPARE - Transportation Answer Date Re corded In the past 12 months, has l ack of transportation kept you from medical appointments or from getting medications? No 08/12 In the past 12 months, has l ack of transportation kept you from meetings, work, or from getting things needed for daily living? No 08/30/2022 Housing Instability Answer Date Recorde d Are you worried or concerned that in the next two months you may not have stable housing that you own, rent or stay in as a part of a household? No 08/30/2022 Childcare Answer Date Recorded Do problems getting child ca re make it difficult for you to work or study? No 08/30/2022 Employment Answer Date Recorded Do you need help finding a l ocal career center and/or a training program? No 08/30/2022 Purpose - Life Answer Date Recorded I have a purpose and direction in my life. Stron gly Agree 08/30/2022 Comments Unknown Sex and Gender Information Value Date Recorded Sex Assigned at Not on file Legal Sex Female 11:41 AM EDT Gender Identity Not on file Sexual Orientation Not on file documented as of this encounter Plan of Treatment Upcoming Encounters Date Type Department Care Team (Late st Contact Info) Description 09/16/2025 9:00 AM EDT Office Visit [facility] - Family Medicine [address] [place] [address] Celso Jimenez DO [address] [place] [address] documented as of this encounter Procedures Procedure Name Priority Date/Time Associated Diagnosis Comments CT BRAIN WO CONT Routine 08/28/2023 1:36 PM EDT documented in this encounter Results * CT brain without contrast (08/28/2023 1:36 PM EDT) Anatomical Region Laterality Modality Neuro, Head, Head and Neck, Neuro Covera N/A Computed Tomography us Scanning Provider External IMG CT ORDERABLES Fin al Result documented in this encounter Visit Diagnoses Not on filedocumented in this encounter Additional Health Concerns Assessment Noted Time PHQ-9 Depression Total Score: 0 08/31/19 23 10:32 AM EDT documented as of this encounter Care Teams Employee Benefits Insurance Agent Relationship Specialty Start Date End Date Celso Jimenez DO [address] [address] PCP - General Family Medicine 10/20/20 documented as of this encounter
--- OUTSIDE RECORDS SUMMARY | 2024-11-07 09:56 | XMS_ITS | Encounter Summary ---
Author Organization [employer] Sys tem Address [id number] [address] [place] [address] Care Team Providers Care Help Desk Coordinator Name Role Phone Celso Jimenez Primary Care Provider + [phone] Encounter Details Date Type Department Care Team (Late st Contact Info) Description 05/14/2024 Telephone [facility] - Family Medicine [address] [place] [address] Edwin Muro CMA Social History Tobacco Use Types Packs/Day Years Used Date Smoking Tobacco: Former Cigarettes 0.5 30 0 07/13/1987 - 07/13/2017 Passive Smoke Exposure: Past Smokeless Tobacco: Never Alcohol Use Standard Drinks/Week Comments Yes 0 (1 standard drink = 0.6 oz pur e alcohol) Occasional [facility] Utilities Answer Date Recorded In the past 12 months has e electric, gas, oil, or water company threatened to shut off services in your home? No 10/24/2023 Social Connection and Isolation Panel [NHANES] A nswer Date Recorded Frequency of Communication with Friends and Fami ly Not on file 10/24/2023 How often do you get together with friends or re latives? Once a week 10/24/2023 Attends Worship Services Not on file 10/23 Do you belong to any clubs o r organizations such as hoahaoism groups, unions, fraternal or athletic groups, or school groups? No 10/24/2023 How often do you attend meet ings of the clubs or organizations you belong to? Never 10/24/2023 Marital Status Not on file 10/24/2023 AUDIT-C Answer Date Recorded Q1: How often [...] PHQ-2 Answer Date Recorded Total Score 0 10/24/2023 [facility] of Occupat ional Health - Occupational Stress Questionnaire Answer Date Recorded [...] Recorded Do you need help finding a [facility] career center and/or a training program? No 08/30/2022 Hunger Screening Answer Date Recorded Within the past 12 months we worried whether our food would run out before we got money to buy more. Never True 10/24/2023 Within the past 12 months th e food we bought just didn't last and we didn't have money to get more. Never True 10/24/2023 Purpose - Life Answer Date Recorded I have a purpose and direction in my life. Stron gly Agree 08/30/2022 Comments Unknown Sex and Gender Information Value Date Recorded Sex Assigned at Not on file Legal Sex Female 11:41 AM EDT Gender Identity Not on file Sexual Orientation Not on file documented as of this encounter Miscellaneous Notes * Telephone Encounter - Edwin Muro CMA - 05/14/2024 11:29 AM EST Pt called states she tested positive for Covid last Tuesday 05/08. Feeling a bit better would like to know what she should take for the headache? I said Tylenol. Also she still has nasal drainage anything that could help wit that?. I said try nasonex? * Telephone Encounter - Celso Jimenez DO - 05/14/2024 11:29 AM EST Yes Nasonex or Flonase would be good * Telephone Encounter - Edwin Muro CMA - 05/14/2024 11:29 AM EST I called and let her know. documented in this encounter Plan of Treatment Upcoming Encounters Date Type Department Care Team (Late st Contact Info) Description 09/16/2025 9:00 AM EDT Office Visit [facility] - Family Medicine [address] [place] [address] Celso Jimenez DO [address] [place] [address] documented as of this encounter Visit Diagnoses Not on filedocumented in this encounter Additional Health Concerns Assessment Noted Time PHQ-9 Depression Total Score: 0 10/24/19 24 9:39 AM EDT documented as of this encounter Care Teams Help Desk Coordinator Relationship Specialty Start Date End Date Celso Jimenez DO [address] [place] [address] PCP - General Family Medicine 10/20/20 documented as of this encounter
--- OUTSIDE RECORDS SUMMARY | 2024-11-07 09:56 | XMS_ITS | Encounter Summary ---
Author Organization [facility] Address [id number] [address] [place] [address] Care Team Providers Care Transitions Manager Name Role Phone Celso Jimenez DO Primary Care Provider + [phone] Encounter Details Date Type Department Care Team (Late st Contact Info) Description 10/27/2023 Orders Only [facility] - Family Medicine [address] [place] [phone] External, Scanning Provider Social History Tobacco Use Types Packs/Day Years Used Date Smoking Tobacco: Former Cigarettes 0.5 30 0 07/13/1987 - 07/13/2017 Passive Smoke Exposure: Past Smokeless Tobacco: Never Alcohol Use Standard Drinks/Week Comments Yes 0 (1 standard drink = 0.6 oz pur e alcohol) Occasional C Utilities Answer Date Recorded In the past [...] re latives? Once a week 10/24/2023 Attends Mormon Services Not on file 10/23 Do you belong to any clubs o r organizations such as protestant groups, unions, fraternal or athletic groups, or [...] Answer Date Recorded Total Score 0 10/24/2023 [facility] of Occupat ional Health - Occupational Stress [...] Recorded Do you need help finding a [facility] career [facility] and/or a training program? No [...] Medicine - Family Medicine [address] [place] [address] Celso Jimenez DO [address] [place] [address] documented as of this encounter Procedures Procedure Name Priority Date/Time Associated Diagnosis Comments HM COLONOSCOPY Routine 10/22/2020 1:44 PM EDT documented in this encounter Results * HM COLONOSCOPY (10/22/2020 1:44 PM EDT) us Scanning Provider External HEALTH MAINTENANCE Fi nal Result MANUALLY TRANSCRIBED RESULTS documented in this encounter Visit Diagnoses Not on filedocumented in this encounter Additional Health Concerns Assessment Noted Time PHQ-9 Depression Total Score: 0 10/24/19 24 9:39 AM EDT documented as of this encounter Care Teams Transitions Manager Relationship Specialty Start Date End Date Celso Jimenez DO [address] [facility] [place] [address] PCP - General Family Medicine 10/20/20 documented as of this encounter
--- OUTSIDE RECORDS SUMMARY | 2024-11-07 09:56 | XMS_ITS | Encounter Summary ---
Author Organization [facility] Address [id number] [address] [place] [address] Care Team Providers Care Assembler Latches And Springs Name Role Phone Celso Jimenez DO Primary Care Provider + [phone] Encounter Details Date Type Department Care Team (Late st Contact Info) Description 11/10/2023 Orders Only [facility] - Family Medicine [address] [place] [phone] External, Scanning Provider Social History Tobacco Use [...] re latives? Once a week 10/24/2023 Attends Judaism Services Not on file 10/23 Do you belong to any clubs o r organizations such as latter-day groups, unions, fraternal or athletic groups, or [...] Answer Date Recorded Total Score 0 10/24/2023 [facility] of Occupat ional Health - Occupational Stress [...] Recorded Do you need help finding a [facility] career center and/or a training program? No [...] Medicine - Family Medicine [address] [place] [address] Celso Jimenez DO [address] [facility] [place] [address] documented as of this encounter Procedures Procedure Name Priority Date/Time Associated Diagnosis Comments HM MAMMOGRAPHY Routine 11/04/2023 3:59 PM EDT documented in this encounter Results * HM MAMMOGRAPHY (11/04/2023 3:59 PM EDT) Anatomical Region Laterality Modality Other us Scanning Provider External HEALTH MAINTENANCE Ed ited Result - Final documented in this encounter Visit Diagnoses Not on filedocumented in this encounter Additional Health Concerns Assessment Noted Time PHQ-9 Depression Total Score: 0 10/24/19 9:39 AM EDT documented as of this encounter Care Teams Assembler Latches And Springs Relationship Specialty Start Date End Date Celso Jimenez DO [address] [facility] [place] [address] PCP - General Family Medicine 10/20/20 documented as of this encounter
--- OUTSIDE RECORDS SUMMARY | 2024-11-07 09:56 | XMS_ITS | Encounter Summary ---
Author Organization [employer] Sys [employer] Address [id number] [address] [place] [address] Care Team Providers Care Clerk To Justice Name Role Phone Celso Jimenez DO Primary Care Provider + [phone] Encounter Details Date Type Department Care Team (Late st Contact Info) Description 08/23/2023 Orders Only [facility] - Family Medicine [address] [place] [phone] External, Scanning Provider Social History Tobacco Use [...] often do you attend chur ch or uatsdin services? Never 08/30/2022 Do you belong to any clubs o r organizations such as jehovah's witness groups, unions, fraternal or athletic groups, or [...] Answer Date Recorded Total Score 0 08/30/2022 [facility] - Occupational Stress Questionnaire Answer Date Recorded [...] Medicine - Family Medicine [address] [place] [address] Celso Jimenez DO [address] [place] [address] documented as of this encounter Procedures Procedure Name Priority Date/Time Associated Diagnosis Comments XR CHEST 1 VW Routine 08/22/2023 1:29 PM EDT documented in this encounter Results * X-ray chest 1 view (08/22/2023 1:29 PM EDT) Anatomical Region Laterality Modality Body, Chest N/A Computed Radiogr aphy us Scanning Provider External IMG DIAGNOSTIC IMAGIN G ORDERABLES Final Result documented in this encounter Visit Diagnoses Not on filedocumented in this encounter Additional Health Concerns Assessment Noted Time PHQ-9 Depression Total Score: 0 08/31/19 23 10:32 AM EDT documented as of this encounter Care Teams Clerk To Justice Relationship Specialty Start Date End Date Celso Jimenez DO [address] [place] [address] PCP - General Family Medicine 10/20/20 documented as of this encounter
--- OUTSIDE RECORDS SUMMARY | 2024-11-07 09:56 | XMS_ITS | Encounter Summary ---
Author Organization [facility] tem Address [facility][id number] [address] [place] [address] Care Team Providers Care Animal Care Technician Name Role Phone Celso Jimenez DO Primary Care Provider + [phone] Encounter Details Date Type Department Care Team (Late st Contact Info) Description 11/09/2023 Orders Only [facility] - Family Medicine [address] [place] [address] External, Scanning Provider Social History Tobacco Use [...] re latives? Once a week 10/24/2023 Attends Adventism Services Not on file 10/23 Do you belong to any clubs o r organizations such as gnosticist groups, unions, fraternal or athletic groups, or [...] Answer Date Recorded Total Score 0 10/24/2023 [facility] of Occupat ional Health - Occupational Stress [...] Recorded Do you need help finding a [facility] career center and/or a training program? No [...] Medicine - Family Medicine [address] [place] [address] Celso Jimenez DO [address] [place] [address] documented as of this encounter Visit Diagnoses Not on filedocumented in this encounter Additional Health Concerns Assessment Noted Time PHQ-9 Depression Total Score: 0 10/24/19 24 9:39 AM EDT documented as of this encounter Care Teams Animal Care Technician Relationship Specialty Start Date End Date Celso Jimenez DO [address] [facility] [place] [address] PCP - General Family Medicine 10/20/20 documented as of this encounter
--- OUTSIDE RECORDS SUMMARY | 2024-11-07 09:56 | XMS_ITS | Encounter Summary ---
Author Organization Values of n Sys tem Address [id number] [address] [place] [address] Care Team Providers Care Forest Fire Prevention Manager Name Role Phone Celso Jimenez Primary Care Provider + [phone] Encounter Details Date Type Department Care Team (Late st Contact Info) Description 09/17/2024 Telephone [facility] Internal Medicine - Family Medicine [address] [place] [address] Edwin Muro CMA Social History Tobacco Use Types Packs/Day Years Used Date Smoking Tobacco: Former Cigarettes 0.5 30 0 07/13/1987 - 07/13/2017 Passive Smoke Exposure: Past Smokeless Tobacco: Never Alcohol Use Standard Drinks/Week Comments Yes 0 (1 standard drink = 0.6 oz pur e alcohol) Occasional [facility] Utilities Answer Date Recorded In the past [...] re latives? Once a week 10/24/2023 Attends [employer] Not on file 10/23 Do you belong to any clubs o r organizations such as bahai groups, unions, fraternal or athletic groups, or [...] PHQ-2 Answer Date Recorded Total Score 0 09/14/2024 [facility] of Occupat ional Health - Occupational Stress [...] to strenuous exercise (like a brisk walk)? 5 days 09/14/2024 On average, how many minutes do you engage in exercise at this level? 10 min 09/14/2024 PRAPARE - Transportation Answer Date Re corded [...] Recorded Do you need help finding a [facility] and/or a training program? No 08/30/2022 Hunger Screening Answer Date Recorded Within the past 12 months we worried whether our food would run out before we got money to buy more. Never True 09/14/2024 Within the past 12 months th e food we bought just didn't last and we didn't have money to get more. Never True 09/14/2024 Purpose - Life Answer Date Recorded I [...] Telephone Encounter - Edwin Muro CMA - 09/17/2024 5:01 PM EDT Pt called wondering about her labs if they were final yet. I told her we will call and let her knowwhen they have been read by * Telephone Encounter - Celso Jimenez DO - 09/17/2024 5:01 PM EDT At forwarded the results to clinic nurse documented in this encounter Plan of Treatment Upcoming Encounters Date Type Department Care Team (Late st Contact Info) Description 09/16/2025 9:00 AM EDT Office Visit [facility] - Family Medicine [address] [place] [address] Celso Jimenez DO [address] [place], [facility] [address] documented as of this encounter Visit Diagnoses Not on filedocumented in this encounter Additional Health Concerns Assessment Noted Time PHQ-9 Depression Total Score: 0 09/15/19 25 9:05 AM EDT documented as of this encounter Care Teams Forest Fire Prevention Manager Relationship Specialty Start Date End Date Celso Jimenez DO [address], [facility] [place] [address] PCP - General Family Medicine 10/20/20 documented as of this encounter
--- OUTSIDE RECORDS SUMMARY | 2024-11-07 09:56 | XMS_ITS | Clinical Summary ---
Author Organization [facility] Mcc[facility] 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 Active levothyroxine (SYNTHROID) 50 MCG tablet TAKE 1 TABLET BY MOUTH EVERY DAY 2 Active estrogens, conjugated, (PREMARIN) 0.625 MG tablet Take 1 tablet by mouth daily 90 tablet 4 5 Active estradiol (ESTRACE) 1 MG tabletIndications: Menopausal symptoms Take 1 tablet by mouth daily 90 tablet 4 5 Active Active Problems Problem Noted Date Diagnosed Date Overweight 08/30/2022 Anemia 04/30/2022 Endometriosis 04/30/2022 Genital warts 04/30/2022 Hypoglycemia 04/30/2022 Polycystic ovaries 04/30/2022 Reactive airway disease 04/30/2022 Somatic dysfunction of lumbar region 04/30/2022 Polyp of sigmoid colon 10/22/2020 Hypothyroidism 08/24/2019 Erythema ab igne 09/10/2016 Immunizations Immunization Administration Dates Next Due DTaP 02/22/2007 Family History Medical History Relation Name Comments Breast Cancer Paternal Grandmother Relation Name Status Comments Brother Alive Father Alive Maternal Grandfather Maternal Grandmother Mother Alive Paternal Grandfather Paternal Grandmother Social History Tobacco Use Types Packs/Day Years Used Date Smoking Tobacco: Former Cigarettes Smokeless Tobacco: Never Tobacco Cessation:Ready to Q uit: Yes; Counseling Given: Yes Alcohol Use Standard Drinks/Week Comments Yes 0 (1 standard drink = 0.6 oz pur e alcohol) rarely PHQ-2 Answer Date Recorded PHQ-2 Score 0 09/13/2018 Comments No Sex and Gender Information Value Date Recorded Sex Assigned at Not on file Legal Sex Female 10:57 AM EST Gender Identity Not on file Sexual Orientation Not on file Last Filed Vital Signs Vital Sign Reading Time Taken Comments Blood Pressure 116/62 03/02/2024 9:07 AM EDT Pulse - - Temperature - - Respiratory Rate - - Oxygen Saturation - - Inhaled Oxygen Concentration - - Weight 64.4 kg (142 lb) 03/02/2024 9:07 AM EDT Height 162.6 cm (5' 4 ) 03/02/2024 9:07 AM EDT Body Mass Index 24.37 03/02/2024 9:07 AM EDT Plan of Treatment Upcoming Encounters Date Type Department Care Team (Late st Contact Info) Description 03/06/2025 8:50 AM EDT Office Visit [facility]OLOG[facility] Part of [address] [place] [address] 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 - [address] [place], [place] [id number] Annual RS from Health Maintenance Due Date Last Done Comments Depression Screen 1982 HIV screen 1985 Hepatitis C screen 1988 Hepatitis B vaccine (1 of 3 - 19+ 3-dose series) 1989 Lipids 2010 Colonoscopy 2015 Colorectal Cancer Screen 2015 FIT/FOBT: Average risk 2015 Fecal-DNA (Cologuard): Average risk 2015 Sigmoidoscopy/CT colonography 2015 Pneumococcal 50+ years Vaccine (2 of 2 - PPSV23) 2020 08/05/2014 Shingles vaccine (1 of 2) 2020 COVID-19 Vaccine (2 - season) 2024 09/04/2020 DTaP/Tdap/Td vaccine (3 - Td or Tdap) 02/15/2024 02/14/2014, 02/22/2007 Flu vaccine (Season Ended) 2025 Breast cancer screen 11/03/2025 11/04/2023, 11/01/2022, 10/30/2021, Additional history exists Pneumococcal 0-49 years Vaccine Discontinued 08/05/2014 Cervical cancer screen Discontinued Pap smear Discontinued 03/02/2024, 02/11, 02/22/2022, Additional history exists HPV (without or with Pap) Discontinued Hepatitis A vaccine Aged Out No longe r eligible based on patient's age to complete this topic Hib vaccine Aged Out No longer eligi ble based on patient's age to complete this topic Meningococcal (ACWY) vaccine Aged Out No longer eligible based on patient's age to complete this topic Meningococcal B vaccine Aged Out No l onger eligible based on patient's age to complete this topic Polio vaccine Aged Out No longer elig ible based on patient's age to complete this topic Procedures Procedure Name Priority Date/Time Associated Diagnosis Comments ENAMEL SHADER CYTOLOGY Routine 03/02/2024 12:00 AM EDT YADIRA SCREENING BILATERAL Routine 11/04/2023 9:09 AM EDT from Last 3 Months or Most Recently Relevant to Health Maintenance Results * ENAMEL SHADER Cytology (03/02/2024 12:00 AM EDT) Cytology Report Path Number: [id number] DIAGNOSIS Imaged ThinPrep Pap - Vaginal (1 monolayer slide): Specimen Adequacy: Satisfactory for evaluation. Descriptive Diagnosis: Negative for intraepithelial lesion or malignancy. Cytotech Screener: EY Electronically Signed Out Tesfaye JOHNSON(ASCP) ey/03/09/2024 Source of Specimen: A: Imaged ThinPrep Pap - Vaginal (1 monolayer slide) HPV Reflex?........... 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 The Pap smear is a screening test primarily for squamous epithelial lesions, which is subject to both false negative and false positive results. Your patient should be reminded to consult you immediately if she experiences any suspicious signs or symptoms, regardless of her Pap smear result. GYNECOLOGIC CYTOLOGY REPORT Patient Name: JIM TRISTAN [facility] Rec: [id number] [facility] [employer] [facility] PATHOLOGISTS [facility] ANATOMIC PATHOLOGY [address] [place] [address]. [place], [place] [address] [facility] [employer] 03/02/2024 03/05/2024 9:0 9 AM EDT Doug Gavin MD PATHOLOGY/CYTOLOGY ORDERABLES Final Result [facility] [address] [phone] [facility] * YADIRA Screening Bilateral (11/04/2023 9:09 AM EDT) Anatomical Region Laterality Modality Breast Bilateral Mammography Doug Gavin MD IMG MAMMOGRAPHY ORDERABLES Ed ited Result - Final from Last 3 Months or Most Recently Relevant to Health Maintenance Insurance [address] [place] [address] [employer] [address] [place] [address] Care Teams Lumber Grader Relationship Specialty Start Date End Date Celso Jimenez DO PCP - General 09/12/15
--- OUTSIDE RECORDS SUMMARY | 2024-11-07 10:07 | XMS_ITS | CCD ---
Author Organization [facility] Care Team Providers Care Package Car Driver Name Role Phone Celso Jimenez Primary Care Provider Tressa Blunt Unavailable TAHIRA, DR MYA Trivedi Admitting Unavailable HEDGEDia, DR MYA Trivedi Attending Unavailable FURLONG, DR CELSO Rios Primary Care Unavailable ZIEBER, DR TYREL Shrestha Consulting Unavailable HEDGES, DR MYA Trivedi Consulting Unavailable FURLONG, DR CELSO Rios Admitting Unavailable FURLONG, DR CELSO Rios Attending Unavailable FURLONG, DR CELSO Rios Primary Care Unavailable FURLONG, DR CELSO Rios Consulting Unavailable HEDGES, DR MYA Trivedi Admitting Unavailable HEDGES, DR MYA Trivedi Attending Unavailable FURLONG, DR CELSO Rios Primary Care Unavailable ZIEBER, DR TYREL Shrestha Consulting Unavailable HEDGEDia, DR MYA Trivedi Consulting Unavailable FURLONG, DR CELSO Rios Primary Care Unavailable FRANCO, DR GRAEME Hess Admitting Unavailable FRANCO, DR GRAEME Hess Attending Unavailable FRANCO, DR GRAEME Hess Consulting Unavailable OLIVEREBER, DR TYREL Shrestha Consulting Unavailable SAFIA FRAZIER Consulting Unavailable MARILU TOPETE Consulting Unavailable Celso Jimenez Primary Care Provider [phone] MYA GAVIN Referring Unavailable CELSO JIMENEZ Primary Care Unavailable Furlong Celso OTOOLE Primary Care Provider [phone] Sbng Celso OTOOLE Primary Care Provider [phone] CELSO JIMENEZ Attending Unavailable CELSO JIMENEZ Referring Unavailable FURLONG, CELSO Rios Primary Care Unavailable FURLONG, CELSO Rios Attending Unavailable SBNGCELSO Referring Unavailable FURLONG, CELSO Rios Primary Care Unavailable FURLONG, CELSO Rios Referring Unavailable FURLONG, CELSO Rios Primary Care Unavailable FURLONG, CELSO G Referring Unavailable CELSO JIMENEZ Primary Care Unavailable Allergies Allergy Classification Reported Allergen(s) Allergy Type Date of Onset Reaction(s) Facility (13 sources) Codeine; Translations: [CODEINE] Drug Allergy 0 Other (See Comments) [place] (1 source) Codeine Drug Allergy [facility] (10 sources) Latex; Translations: [LATEX] Propensity to adverse reactions to drug 2 Other (See Comments) [facility] (1 source) Seasonal allergy Propensity to adverse reactions to substance 2 Other (See Comments) [facility] (9 sources) Hay Fever And Allergy Relief; Translations: [HAY FEVER AND ALLERGY RELIEF] Propensity to adverse reactions to drug 2 Other (See Comments) [facility] (4 sources) Ethinyl Estradiol / Levonorgestrel; Translations: [LEVONORGESTREL -ETHINYL ESTRAD] Drug Allergy 2 Other (See Comments) [facility] Medications Current Medications Medication Drug Class(es) Dates Sig (Normalized) Sig (Original) [id number] actuat albuterol 0.09 mg/actuat metered dose inhaler (2 sources) beta2-Adrenergic Agonist Start: 08-05-2016 PROAIR HFA 108 (90 BASE) MCG/ACT inhaler Start: 08-05-2016 PROAIR HFA 108 (90 BASE) MCG/ACT inhaler cetirizine hydrochloride 5 mg oral tablet (5 sources) Histamine-1 Receptor Antagonist take 1 tablet by mouth in the morning cetirizine (ZyrTEC) 5 mg tablet Take 1 tablet (5 mg total) by mouth in the morning. Active estradiol 1 mg oral tablet (10 sources) Estrogen Start: 01-10-20 20 take 1 tablet by mouth once daily estradiol (ESTRACE) 1 MG tablet Indications: Premature surgical menopause on hormone replacement therapy Take 1 tablet by mouth daily 30 tablet 02/24/2023 Active Estrogens, Conjugated (LONG TERM) (1 source) Estrogen Estrogens Conjugated Active fluticasone propionate 0.05 mg/actuat metered dose nasal spray (9 sources) Corticosteroid Start: 04-05-20 22 take 2 spray(s) nasal route once daily fluticasone propionate (FLONASE) 50 mcg/actuation nasal spray instill 2 (TWO) sprays nasally DAILY for 14 days 04/05/2022 Active Start: 04-05-2022 take 2 spray(s) nasa l route once daily fluticasone (FLONASE) 50 MCG/ACT nasal spray instill 2 (TWO) sprays nasally DAILY for 14 days 0 04/05/2022 Active Start: 04-05-2022 take 2 spray(s) nasa l route once daily Fluticasone Propionate 50 MCG/ACT 2 sprays Nasally Once a day for 14 day(s) Mar, Active ibuprofen 800 mg oral tablet (6 sources) Nonsteroidal Anti-inflammatory Drug End: 09-14-2024 take 1 tablet by mouth every eight hours as needed for pain ibuprofen (ADVIL,MOTRIN) 800 mg tablet Take 1 tablet (800 mg total) by mouth every 8 (eight) hours as needed for pain. 09/14/2024 Discontinued (Therapy completed) levothyroxine sodium 0.05 mg oral tablet (15 sources) l-Thyroxine Start: 10-18-2024 take 1 tablet by mouth once daily levothyroxine (SYNTHROID, LEVOTHROID) 50 MCG tablet Indications: Hypothyroidism, unspecified TAKE 1 TABLET BY MOUTH DAILY 30 tablet 10/18/2024 Active Start: 02-01-2022 End: 10-18-2024 take 1 tablet by mouth once daily levothyroxine (SYNTHROID, LEVOTHROID) 50 MCG tablet Indications: Hypothyroidism, unspecified take 1 tablet by mouth daily 30 tablet 11/23/2023 10/18/2024 Discontinued Start: 12-13-2019 take 1 tablet by beverly th once daily levothyroxine (SYNTHROID) 25 MCG tablet Take 1 tablet(s) every day by oral route. 0 12/13/2019 Active Levothyroxine So dium Active Multiple Vitamins-Minerals ( MULTIVITAMIN PO) (3 sources) Multiple Vitamin s-Minerals (MULTIVITAMIN PO) Indications: Routine gynecological examination Take by mouth. 0 Active Problems Active Problems Problem Classification Problem Date Documented Da te Episodic/Chronic Asthma (7 sources) Reactive airway disease; Translations: [Unspecified asthma, uncomplicated] Onset: 04-30-2022 04-30-2022 Chronic Endometriosis (7 sources) Endometriosis (clinical); Translations: [Endometriosis, unspecified] Onset: 04-30-2022 04-30-2022 Chronic Fluid and electrolyte disorders (1 source) Hypokalemia; Translations: [HYPOKALEMIA] Onset: 05-03-2022 Episodic Gastrointestinal hemorrhage (4 sources) Hemorrhage of anus and rectum; Translations: [Gastrointestinal hemorrhage, unspecified] Onset: 04-25-2022 Episodic Immunizations and screening for infectious disease (4 sources) Contact with and (suspected) exposure to other viral communicable diseases; Translations: [Vaccination needed] Onset: 09-14-2024 Episodic Noninfectious gastroenteritis (1 source) Noninfective gastroenteritis and colitis, unspecified; Translations: [NONINFECTIVE GE AND COLITIS UNS] Onset: 05-03-2022 Episodic Other aftercare (1 source) Other [facility] (current) drug therapy; Translations: [OTH NURSING HOME CURRENT DRUG THERAPY] Onset: 05-03-2022 Episodic Other and unspecified benign neoplasm (1 source) Personal history of colonic polyps; Translations: [PERSONAL HISTORY OF COLONIC POLYPS] Onset: 05-03-2022 Episodic Other endocrine disorders (4 sources) Other specified disorders of adrenal gland; Translations: [OTHER SPEC DISORDERS ADRENAL GLAND] Onset: 02-25-2022 Chronic Other endocrine disorders (7 sources) Polycystic ovary; Translations: [Polycystic ovarian syndrome] Onset: 04-30-2022 04-30-2022 Chronic Other endocrine disorders (7 sources) Hypoglycemia; Translations: [Hypoglycemia, unspecified] Onset: 04-30-2022 04-30-2022 Chronic Other non-traumatic joint disorders (3 sources) Hip pain; Translations: [Pain in left hip] Onset: 09-14-2024 09-14-2024 Episodic Other non-traumatic joint disorders (1 source) Pain in left hip; Translations: [Pain in left hip] Onset: 09-14-2024 Episodic Residual codes; unclassified (1 source) Acquired absence of both cervix and uterus; Translations: [ACQUIRED ABSENCE BOTH CERVIX AND UTERUS] Onset: 05-03-2022 Episodic Screening and history of mental health and substance abuse codes (1 source) Personal history of nicotine dependence; Translations: [PERSONAL HISTORY OF NICOTINE DEPEND] Onset: 05-03-2022 Episodic Thyroid disorders (16 sources) Hypothyroidism, unspecified; Translations: [Acquired hypothyroidism] Onset: 08-24-2019 10-24-2023 Chronic Unclassified (1 source) Patient encounter status; Translations: [Encounter for well woman exam with routine gynecological exam] Unclassified (3 sources) CONTACT W/AND (SUSP) EXPOS COVID-19; Translations: [CONTACT W/AND (SUSP) EXPOS COVID-19] Onset: 06-14-2021 Unclassified (1 source) Annual Exam Onset: 10-24-2023 Viral infection (2 sources) COVID-19; Translations: [COVID-19] Onset: 06-14-2021 Past or Other Problems Problem Classification Problem Date Documented Da te Episodic/Chronic Allergic reactions (7 sources) Erythema ab igne; Translations: [Erythema ab igne [dermatitis ab igne]] Onset: 09-10-2016 Resolved: 10-24-2023 10-24-2023 Episodic Deficiency and other anemia (7 sources) Anemia; Translations: [Anemia, unspecified] Onset: 04-30-2022 04-30-2022 Episodic Mood disorders (7 sources) Mood disorders Onset: 10-24-2023 Resolved: 09-14-2024 10-24-2023 Other and unspecified benign neoplasm (7 sources) Polyp of sigmoid colon; Translations: [Polyp of colon] Onset: 10-22-2020 10-22-2020 Episodic Other bone disease and musculoskeletal deformities (7 sources) Somatic dysfunction of lumbar region; Translations: [Segmental and somatic dysfunction of lumbar region] Onset: 04-30-2022 04-30-2022 Episodic Other nutritional; endocrine; and metabolic disorders (9 sources) Overweight; Translations: [Overweight] Onset: 08-30-2022 10-24-2023 Episodic Other nutritional; endocrine; and metabolic disorders (1 source) Overweight; Translations: [Overweight] Onset: 08-30-2022 Episodic Other screening for suspected conditions [...] (SUSP) EXPOS COVID-19] Onset: 06-08-2021 Viral infection (7 sources) Genital warts; Translations: [Anogenital (venereal) warts] Onset: 04-30-2022 04-30-2022 Episodic Results Test Name Value Interpretation Reference Range Facility COMPLETE BLOOD COUNTon 09-14 Erythrocyte distribution width (RBC) [Ratio] 13.6 % Normal 11.5-15.0 [facility] Comment on above: Performed By: #### Nacho HAYES CMP, 74178-3, THYR #### [facility] ([id number]) [address], [address] [place] [address] Hematocrit (Bld) [Volume fraction] 32.0 % Low 35-47 [facility] Comment on above: Performed By: #### Nacho HAYES CMP, 89014-2, THYR #### [facility] ([id number]) [address], [address] [place] [address] Hemoglobin (Bld) [Mass/Vol] 11.1 g/dL Low 11.7-15.5 [facility] Comment on above: Performed By: #### Nacho HAYES CMP, 39073-5, THYR #### [facility] ([id number]) [address], [address] [place] [address] MCH (RBC) [Entitic mass] 30.2 pg Normal 27-34 [facility] Comment on above: Performed By: #### Nacho HAYES CMP, 59263-8, THYR #### [facility] ([id number]) [address], [address] [place] [address] MCHC (RBC) [Mass/Vol] 34.5 g/dL Normal 32-36 [facility] Comment on above: Performed By: #### Nacho HAYES CMP, 76552-2, THYR #### [facility] ([id number]) [address], [address] [place] [address] MCV (RBC) [Entitic vol] 88 fL Normal 80-100 [facility] Comment on above: Performed By: #### Nacho HAYES CMP, 45434-9, THYR #### [facility] ([id number]) [address], [facility] [address] [place] [address] Platelet mean volume (Bld) [Entitic vol] 7.8 fL Normal 7-12 [facility] Comment on above: Performed By: #### Nacho HAYES CMP, 00401-3, THYR #### [facility] ([id number]) [address], [facility] [address] [place] [address] Platelets (Bld) [#/Vol] 321 10*3/uL Normal 150-450 [facility] Comment on above: Performed By: #### Nacho HAYES CMP, 55376-9, THYR #### [facility] ([id number]) [address], [address] [address] RBC COUNT 3.65 X10E12/L Low 3.80-5.20 [facility] Comment on above: Performed By: #### Nacho HAYES CMP, 82689-5, THYR #### [facility] ([id number]) [address], [address] [address] WBC (Bld) [#/Vol] 5.0 10*3/uL Normal 4.0-11.[address] [facility] Comment on above: Performed By: #### Nacho HAYES CMP, 87639-0, THYR #### [facility] ([id number]) [address], [facility] [address] [place] [address] COMPREHENSIVE METABOLIC PANE Yamil 09-14-2024 Albumin [Mass/Vol] 4.3 g/dL Normal 3.2-5.[address] [facility] Comment on above: Performed By: #### Nacho HAYES CMP, 30953-0, THYR #### [facility] ([id number]) [address], [address] [place] [address] ALP [Catalytic activity/Vol] 49 U/L Normal 39-130 [facility] Comment on above: Performed By: #### C BC, CMP, 38611-9, THYR #### [facility] ([id number]) [address], [address] [place] [address] ALT [Catalytic activity/Vol] 22 U/L Normal 0-31 [facility] Comment on above: Performed By: #### C BC, CMP, 50813-1, THYR #### [facility] ([id number]) [address], [address] [place] [address] Anion gap [Moles/Vol] 9 mmol/L Normal 5-15 [facility] Comment on above: Performed By: #### Nacho BC, CMP, 67304-1, THYR #### [facility] ([id number]) [address], [address] [place] [address] AST [Catalytic activity/Vol] 21 U/L Normal 0-41 [facility] Comment on above: Performed By: #### Nacho BC, CMP, 54539-5, THYR #### [facility] ([id number]) [address], [address] [place] [address] Bilirubin [Mass/Vol] 0.4 mg/dL Normal 0.3-1.2 [facility] Comment on above: Performed By: #### C BC, CMP, 69358-5, THYR #### [facility] ([id number]) [address], [address] [place] [address] Calcium [Mass/Vol] 8.9 mg/dL Normal 8.5-10.[address] [facility] Comment on above: Performed By: #### Nacho BC, CMP, 46656-6, THYR #### [facility] ([id number]) [address], [address] [place] [address] Chloride [Moles/Vol] 102 mmol/L Normal 98-109 [facility] Comment on above: Performed By: #### Nacho HAYES CMP, 04026-1, THYR #### [facility] ([id number]) [address], [facility] [address] [place] [address] CO2 [Moles/Vol] 27 mmol/L Normal 22-32 [facility] Comment on above: Performed By: #### Nacho HAYES CMP, 82374-0, THYR #### [facility] ([id number]) [address] [address] Creatinine [Mass/Vol] 0.74 mg/dL Normal 0.40-1.00 [facility] Comment on above: Result Comment: METH OD TRACEABLE TO IDMS STANDARD Performed By: #### Nacho HAYES CMP, 42396-0, THYR #### [facility] ([id number]) [address], [address] [address] eGFR (CKD-EPI) NON-RACE DEPENDENT >90 Normal >59 [facility] Comment on above: Result Comment: Reported eGFR is based on the CKD-EPI 1 equation that does not use a race coefficient. Performed By: #### Nacho HAYES CMP, 79953-5, THYR #### [facility] ([id number]) [address] [address] Glucose [Mass/Vol] 85 mg/dL Normal 65-[address] [facility] Comment on above: Performed By: #### Nacho HAYES CMP, 13098-5, THYR #### [facility] ([id number]) [address] [address] [place] [address] Potassium [Moles/Vol] 3.7 mmol/L Normal 3.5-5.0 [facility] Comment on above: Performed By: #### Nacho HAYES CMP, 65763-8, THYR #### [facility] ([id number]) [address], [address] [place] [address] Protein [Mass/Vol] 7.0 g/dL Normal 6.0-8.[address] [facility] Comment on above: Performed By: #### Nacho HAYES, CMP, 61154-4, THYR #### [facility] ([id number]) [address], [facility] [address] [place] [address] Sodium [Moles/Vol] 138 mmol/L Normal 134-[address] [facility] Comment on above: Performed By: #### Nacho HAYES, CMP, 07537-7, THYR #### [facility] ([id number]) [address] [address] [place] [address] Urea nitrogen [Mass/Vol] 15 mg/dL Normal 5-23 [facility] Comment on above: Performed By: #### Nacho HAYES, CMP, 68419-9, THYR #### [facility] ([id number]) [address], [address] [place] [address] Lipid 1996 panelon 5 Cholesterol [Mass/Vol] 165 mg/dL Normal 150-200 [facility] Comment on above: Performed By: #### Nacho HAYES, CMP, 33650-1, THYR #### [facility] ([id number]) [address] [address] Cholesterol in HDL [Mass/Vol] 53 mg/dL Normal >39 [facility] Comment on above: Result Comment: HDL <40 mg/dL - High Risk HDL > or = 40mg/dL- Desirable HDL >60 mg/dL - Negative Risk Performed By: #### Nacho BC, CMP, 12010-7, THYR #### [facility] ([id number]) [address], [facility] [address] [place] [address] Cholesterol in LDL [Mass/Vol] 75 mg/dL Normal <130 [facility] Comment on above: Result Comment: LDL <100 mg/dL - Desirable LDL >160 mg/dL - High Risk Performed By: #### Nacho HAYES, JASS, 41456-7, THYR #### [facility] ([id number]) [address], [facility] [address] [place] [address] Cholesterol in VLDL [Mass/Vol] 37 mg/dL High 0-30 [facility] Comment on above: Performed By: #### Nacho HAYES CMP, 07856-2, THYR #### [facility] ([id number]) [address] [address] [place] [address] CHOLESTEROL:HDL 3.1 Normal 1.0-5.0 [facility] Comment on above: Performed By: #### Nacho HAYES CMP, 73500-7, THYR #### [facility] ([id number]) [address] [address] [place] [address] Triglyceride [Mass/Vol] 185 mg/dL High 27-150 [facility] Comment on above: Performed By: #### Nacho HAYES CMP, 14062-2, THYR #### [facility] ([id number]) [address], [facility] [address] [place] [address] THYROID PROFILEon 09-14-2024 Free T4 [Mass/Vol] 0.71 ng/dL Normal 0.61-1.[address] [facility] Comment on above: Performed By: #### Nacho HAYES, CMP, 99160-8, THYR #### [facility] ([id number]) [address] [address] [place] [address] TSH 2.71 uIU/mL Normal 0.49-4.67 [facility] Comment on above: Performed By: #### C BC, CMP, 70896-9, THYR #### [facility] ([id number]) [address] [facility], [address] [place] [address] Cytology Reporton 03-02-2024 Cytology report Cyto stain.thin prep Doc (Cvx/Vag) (NOTE) Path Number: [id number] DIAGNOSIS Imaged ThinPrep Pap - Vaginal (1 monolayer slide): Specimen Adequacy: Satisfactory for evaluation. Descriptive Diagnosis: Negative for intraepithelial lesion or malignancy. Cytotech Screener: EY Electronically Signed Out Tesfaye Villanueva CT(ASCP) ey/03/09/2024 Source of Specimen: A: Imaged ThinPrep Pap - Vaginal (1 monolayer slide) HPV Reflex?.............. ........HPV if Abnormal Clinical History Estrogen Hysterectomy Z01.419 Routine software consultant exam without abnormal findings Processing Lab: [address] [address] Interpretation performed at [address] [address] This Pap Test has been evaluated with the assistance of the ThinPrep Pap Test Imaging System. The Pap smear is a screening test primarily for squamous epithelial lesions, which is subject to both false negative and false positive results. Your patient should be reminded to consult you immediately if she experiences any suspicious signs or symptoms, regardless of her Pap smear result. GYNECOLOGIC CYTOLOGY REPORT Patient Name: LOUISA LIUFrancisoc [facility] Rec: [id number] [facility] [employer] [facility] ANATOMIC PATHOLOGY [facility] [facility]. [place], [place] [address] Normal [facility] COMPREHENSIVE METABOLIC PANE Yamil 10-24-2023 Albumin [Mass/Vol] 4.2 g/dL Normal 3.2-5.[address] [facility] Comment on above: Performed By: #### C MP, 87576-0, THYR #### [facility] ([id number]) [address] [facility], [address] [place] [address] ALP [Catalytic activity/Vol] 70 U/L Normal 39-130 [facility] Comment on above: Performed By: #### Nacho GRADY 97112-8, THYR #### [facility] ([id number]) [address], [address] [place] [address] ALT [Catalytic activity/Vol] 21 U/L Normal 0-31 [facility] Comment on above: Performed By: #### Nacho GRADY 44597-6, THYR #### [facility] ([id number]) [address], [address] [place] [address] Anion gap [Moles/Vol] 10 mmol/L Normal 5-15 [facility] Comment on above: Performed By: #### Nacho GRADY 72327-9, THYR #### [facility] ([id number]) [address], [address] [place] [address] AST [Catalytic activity/Vol] 20 U/L Normal 0-41 [facility] Comment on above: Performed By: #### Nacho GRADY 19939-9, THYR #### [facility] ([id number]) [address], [address] [place] [address] Bilirubin [Mass/Vol] 0.5 mg/dL Normal 0.3-1.2 [facility] Comment on above: Performed By: #### Nacho GRADY 99046-4, THYR #### [facility] ([id number]) [address], [address] [place] [address] Calcium [Mass/Vol] 8.9 mg/dL Normal 8.5-10.[address] [facility] Comment on above: Performed By: #### Nacho GRADY, 87632-1, THYR #### [facility] ([id number]) [address], [address] [place] [address] Chloride [Moles/Vol] 102 mmol/L Normal 98-109 [facility] Comment on above: Performed By: #### C MIGUEL A, 73703-5, THYR #### [facility] ([id number]) [address], [address] [place] [address] CO2 [Moles/Vol] 27 mmol/L Normal 22-32 [facility] Comment on above: Performed By: #### Nacho GRADY, 88359-5, THYR #### [facility] ([id number]) [address], [address] [place] [address] Creatinine [Mass/Vol] 0.76 mg/dL Normal 0.40-1.00 [facility] Comment on above: Result Comment: METH OD TRACEABLE TO IDMS STANDARD Performed By: #### Nacho GRADY, 81776-5, THYR #### [facility] ([id number]) [address], [address] [place] [address] eGFR (CKD-EPI) NON-RACE DEPENDENT >90 Normal >59 [facility] Comment on above: Result Comment: Reported eGFR is based on the CKD-EPI 2020 equation that does not use a race coefficient. Performed By: #### Nacho GRADY, 61589-0, THYR #### [facility] ([id number]) [address], [address] [place] [address] Glucose [Mass/Vol] 96 mg/dL Normal 65-[address] [facility] Comment on above: Performed By: #### Nacho GRADY 39432-2, THYR #### [facility] ([id number]) [address], [address] [place] [address] Potassium [Moles/Vol] 4.1 mmol/L Normal 3.5-5.0 [facility] Comment on above: Performed By: #### Nacho GRADY, 74213-2, THYR #### [facility] ([id number]) [address], [address] [place] [address] Protein [Mass/Vol] 7.3 g/dL Normal 6.0-8.[address] [facility] Comment on above: Performed By: #### C MIGUEL A, 05471-4, THYR #### [facility] ([id number]) [address], [address] [place] [address] Sodium [Moles/Vol] 139 mmol/L Normal 134-[address] [facility] Comment on above: Performed By: #### C MIGUEL A, 11313-2, THYR #### [facility] ([id number]) [address], [address] [place] [address] Urea nitrogen [Mass/Vol] 16 mg/dL Normal 5-23 [facility] Comment on above: Performed By: #### C MIGUEL A, 17727-6, THYR #### [facility] ([id number]) [address], [address] [place] [address] Comprehensive metabolic pane yamil 10-24-2023 Albumin [Mass/Vol] 4.2 g/dL 3.2 - 5.3 g/dL [facility] ALP [Catalytic activity/Vol] 70 U/L 39 - 130 U/L [facility] ALT No additional P-5'-P [Catalytic activity/Vol] 21 U/L 0 - 31 U/L [facility] Anion gap [Moles/Vol] 10 mmol/L 5 - 15 mmol/L [facility] AST [Catalytic activity/Vol] 20 U/L 0 - 41 U/L [facility] Bilirubin [Mass/Vol] 0.5 mg/dL 0.3 - 1.2 mg/dL [facility] Calcium [Mass/Vol] 8.9 mg/dL 8.5 - 10. 5 mg/dL [facility] Chloride [Moles/Vol] 102 mmol/L 98 - 109 mmol/L [facility] CO2 [Moles/Vol] 27 mmol/L 22 - 32 mmol/L [facility] Creatinine [Mass/Vol] 0.76 mg/dL 0.40 - 1.00 mg/dL [facility] Comment on above: METHOD TRACEABLE TO IDMS STANDARD eGFR (CKD-EPI)non-race dependent - PINF [facility] Comment on above: Reported eGFR is based on the CKD-EPI 2020 equation that does not use a race coefficient. Glucose [Mass/Vol] 96 mg/dL 65 - 99 mg/dL [facility] Potassium [Moles/Vol] 4.1 mmol/L 3.5 - 5.0 mmol/L [facility] Protein [Mass/Vol] 7.3 g/dL 6.0 - 8.0 g/dL [facility] Sodium [Moles/Vol] 139 mmol/L 134 - 146 mmol/L [facility] Urea nitrogen [Mass/Vol] 16 mg/dL 5 - 23 mg/dL [facility] Lipid 1996 panelon 4 Cholesterol [Mass/Vol] 162 mg/dL 150 - 200 mg/dL [facility] Cholesterol in HDL [Mass/Vol] 59 mg/dL 39 - PINF mg/dL [facility] Comment on above: HDL <40 mg/dL - High Risk HDL > or = 40mg/dL- Desirable HDL >60 mg/dL - Negative Risk Cholesterol in LDL [Mass/Vol] 75 mg/dL NINF - 130 mg/dL [facility] Comment on above: LDL <100 mg/dL - Desirable LDL >160 mg/dL - High Risk Cholesterol in VLDL [Mass/Vol] 28 mg/dL 0 - 30 mg/dL [facility] Cholesterol.total/C holesterol in HDL [Mass ratio] 2.7 {ratio} 1.0 - 5.0 [facility] Triglyceride [Mass/Vol] 142 mg/dL 27 - 150 mg/dL [facility] Cholesterol [Mass/Vol] 162 mg/dL Normal 150-200 [facility] Comment on above: Performed By: #### C , 41340-2, THYR #### [facility] ([id number]) [address], [address] [place] [address] Cholesterol in HDL [Mass/Vol] 59 mg/dL Normal >39 [facility] Comment on above: Result Comment: HDL <40 mg/dL - High Risk HDL > or = 40mg/dL- Desirable HDL >60 mg/dL - Negative Risk Performed By: #### Ncaho GRADY, 36374-1, THYR #### [facility] ([id number]) [address], [address] [place] [address] Cholesterol in LDL [Mass/Vol] 75 mg/dL Normal <130 [facility] Comment on above: Result Comment: LDL <100 mg/dL - Desirable LDL >160 mg/dL - High Risk Performed By: ###[place], [address]-7, THYR #### [facility] ([id number]) [address], [address] [place] [address] Cholesterol in VLDL [Mass/Vol] 28 mg/dL Normal 0-30 [facility] Comment on above: Performed By: #### Nacho GRADY, 06248-9, THYR #### [facility] ([id number]) [address], [address] [place] [address] CHOLESTEROL:HDL 2.7 Normal 1.0-5.0 [facility] Comment on above: Performed By: #### Nacho GRADY, 49716-8, THYR #### [facility] ([id number]) [address], [address] [place] [address] Triglyceride [Mass/Vol] 142 mg/dL Normal 27-150 [facility] Comment on above: Performed By: #### C MIGUEL A, 25745-7, THYR #### [facility] ([id number]) [address], [address] [place] [address] No Panel Informationon 10-23 [facility] THYROID PROFILEon 10-24-2023 Free T4 [Mass/Vol] 0.70 ng/dL Normal 0.61-1.[address] [facility] Comment on above: Performed By: #### C MIGUEL A, 90860-7, THYR #### [facility] ([id number]) [address] [place] [address] TSH 1.88 uIU/mL Normal 0.49-4.67 [facility] Comment on above: Performed By: #### C MIGUEL A, 36065-0, THYR #### [facility] ([id number]) [address] [place] [address] Thyroid profile includes TSH FT4on 10-24-2023 Free T4 [Mass/Vol] 0.70 ng/dL 0.61 - 1. 60 ng/dL [facility] TSH Qn 1.88 m[IU]/L [facility] CBC AUTO DIFFon 04-27-2022 BASO # 0.1 103/ul Normal 0.0-0.1 [facility] Comment on above: Performed By: #### C BC #### [facility] [address] [place] [address] Dr. Kenton Avila Basophils/100 WBC (Bld) 0.5 % Normal 0.2-2.0 [facility] Comment on above: Performed By: #### C BC #### [facility] [address] [place] [address] Dr. Kenton Avila EO # 0.2 103/ul Normal 0.0-0.7 [facility] Comment on above: Performed By: #### C BC #### [facility] [address] [place] [address] Dr. Kenton Avila Eosinophils/100 WBC (Bld) 1.8 % Normal 0.9-7.0 [facility] Comment on above: Performed By: #### C BC #### [facility] [address] [place] [address] Dr. Kenton Avila Erythrocyte distribution width (RBC) [Ratio] 13.2 % Normal 11.0-15.0 [facility] Comment on above: Performed By: #### C BC #### [facility] [address] [place] [address] Dr. Kenton Avila Hematocrit (Bld) [Volume fraction] 30.6 % Critically low 36.0-48.0 [facility] Comment on above: Performed By: #### C BC #### [facility] [address] [place] [address] Dr. Kenton Avila Hemoglobin (Bld) [Mass/Vol] 10.2 g/dL Critically low 12.0-16.0 [facility] Comment on above: Performed By: #### C BC #### [facility] [address] [place] [address] Dr. Kenton Avila IG # 0.04 10e3/ul Critically high 0.00-0.03 [facility] Comment on above: Performed By: #### C BC #### [facility] [address] [place] [address] Dr. Kenton Avila IG % 0.3 % Normal 0.0-0.5 [facility] Comment on above: Performed By: #### C BC #### [facility] [address] [place] [address] Dr. Kenton Avila LYMPH # 2.3 103/ul Normal 1.2-3.8 [facility] Comment on above: Performed By: #### C BC #### [facility] [address] [place] [address] Dr. Kenton Avila Lymphocytes/100 WBC (Bld) 19.0 % Critically low 20.5-60.0 [facility] Comment on above: Performed By: #### C BC #### [facility] [address] [place] [address] Dr. Kenton Avila MANUAL DIFF REQ NO Normal [facility] Comment on above: Performed By: #### C BC #### [facility] [address] [address] [address] Kenton Avila MCH (RBC) [Entitic mass] 29.5 pg Normal 26.7-34.0 [facility] Comment on above: Performed By: #### C BC #### [facility] [address] [place] [address] Dr. Kenton Avila MCHC (RBC) [Mass/Vol] 33.3 g/dL Normal 29.9-35.2 [facility] Comment on above: Performed By: #### C BC #### [facility] [address] [place] [address] Dr. Kenton Avila MCV (RBC) [Entitic vol] 88.4 fL Normal 81.0-99.0 [facility] Comment on above: Performed By: #### C BC #### [facility] [address] [place] [address] Dr. Kenton Avila MONO # 0.9 103/ul Critically high 0.3-0.8 [facility] Comment on above: Performed By: #### C BC #### [facility] [address] [place] [address] Dr. Kenton Avila Monocytes/100 WBC (Bld) 7.4 % Normal 1.7-12.0 [facility] Comment on above: Performed By: #### C BC #### [facility] [address] [place] [address] Dr. Kenton Avila NEUT # 8.5 103/ul Critically high 1.4-6.5 [facility] Comment on above: Performed By: #### C BC #### [facility] [address] [place] [address] Dr. Kenton Avila Neutrophils/100 WBC (Bld) 71.0 % Normal 43.0-75.0 [facility] Comment on above: Performed By: #### C BC #### [facility] [address] [place] [address] Dr. Kenton Avila Platelet mean volume (Bld) [Entitic vol] 9.2 fL Critically low 9.5-13.5 [facility] Comment on above: Performed By: #### C BC #### [facility] [address] [place] [address] Dr. Kenton Avila PLT 243 103/ul Normal 150-450 [facility] Comment on above: Performed By: #### C BC #### [facility] [address] [address] [address] Kenton Avila RBC 3.46 106/ul Critically low 4.20-5.40 [facility] Comment on above: Performed By: #### C BC #### [facility] [address] [address] [address] Kenton Avila WBC 11.9 103/ul Critically high 4.0-11.0 [facility] Comment on above: Performed By: #### C BC #### [facility] [address] [place] [address] Dr. Kenton Avila BASO # 0.0 103/ul Normal 0.0-0.1 [facility] Comment on above: Performed By: #### C BC #### [facility] [address] [place] [address] Dr. Kenton Avila Basophils/100 WBC (Bld) 0.4 % Normal 0.2-2.0 [facility] Comment on above: Performed By: #### C BC #### [facility] [address] [place] [address] Dr. Kenton Avila EO # 0.1 103/ul Normal 0.0-0.7 [facility] Comment on above: Performed By: #### C BC #### [facility] [address] [place] [address] Dr. Kenton Avila Eosinophils/100 WBC (Bld) 1.2 % Normal 0.9-7.0 [facility] Comment on above: Performed By: #### C BC #### [facility] [address] [place] [address] Dr. Kenton Avila Erythrocyte distribution width (RBC) [Ratio] 13.2 % Normal 11.0-15.0 [facility] Comment on above: Performed By: #### C BC #### [facility] [address] [place] [address] Dr. Kenton Avila Hematocrit (Bld) [Volume fraction] 27.1 % Critically low 36.0-48.0 [facility] Comment on above: Performed By: #### C BC #### [facility] [address] [place] [address] Dr. Kenton Avila Hemoglobin (Bld) [Mass/Vol] 9.3 g/dL Critically low 12.0-16.0 [facility] Comment on above: Performed By: #### C BC #### [facility] [address] [place] [address] Dr. Kenton Avila IG # 0.03 10e3/ul Normal 0.00-0.03 [facility] Comment on above: Performed By: #### C BC #### [facility] [address] [place] [address] Dr. Kenton Avlia IG % 0.3 % Normal 0.0-0.5 [facility] Comment on above: Performed By: #### C BC #### [facility] [address] [place] [address] Dr. Kenton Avila LYMPH # 2.1 103/ul Normal 1.2-3.8 [facility] Comment on above: Performed By: #### C BC #### [facility] [address] [place] [address] Dr. Kenton Avila Lymphocytes/100 WBC (Bld) 19.5 % Critically low 20.5-60.0 [facility] Comment on above: Performed By: #### C BC #### [facility] [address] [place] [address] Dr. Kenton Avila MANUAL DIFF REQ NO Normal [facility] Comment on above: Performed By: #### C BC #### [facility] [address] [place] [address] Dr. Kenton Avila MCH (RBC) [Entitic mass] 30.1 pg Normal 26.7-34.0 [facility] Comment on above: Performed By: #### C BC #### [facility] [address] [address] [address] Kenton Avila MCHC (RBC) [Mass/Vol] 34.3 g/dL Normal 29.9-35.2 [facility] Comment on above: Performed By: #### C BC #### [facility] [address] [address] [address] Kenton Avila MCV (RBC) [Entitic vol] 87.7 fL Normal 81.0-99.0 [facility] Comment on above: Performed By: #### C BC #### [facility] [address] [address] [address] Kenton Avila MONO # 0.7 103/ul Normal 0.3-0.8 [facility] Comment on above: Performed By: #### C BC #### [facility] [address] [address] [address] Kenton Avila Monocytes/100 WBC (Bld) 6.6 % Normal 1.7-12.0 [facility] Comment on above: Performed By: #### C BC #### [facility] [address] [address] [address] Kenton Avila NEUT # 7.7 103/ul Critically high 1.4-6.5 [facility] Comment on above: Performed By: #### C BC #### [facility] [address] [address] [address] Kenton Avila Neutrophils/100 WBC (Bld) 72.0 % Normal 43.0-75.0 [facility] Comment on above: Performed By: #### C BC #### [facility] [address] [address] [address] Kenton Avila Platelet mean volume (Bld) [Entitic vol] 8.9 fL Critically low 9.5-13.5 [facility] Comment on above: Performed By: #### C BC #### [facility] [address] [address] [address] Kenton Avila PLT 214 103/ul Normal 150-450 [facility] Comment on above: Performed By: #### C BC #### [facility] [address] [place] [address] Dr. Kenton Avila RBC 3.09 106/ul Critically low 4.20-5.40 [facility] Comment on above: Performed By: #### C BC #### [facility] [address] [place] [address] Dr. Kenton Avila WBC 10.6 103/ul Normal 4.0-11.0 [facility] Comment on above: Performed By: #### C BC #### [facility] [address] [place] [address] Dr. Kenton Avila BASO # 0.1 103/ul Normal 0.0-0.1 [facility] Comment on above: Performed By: #### C BC #### [facility] [address] [place] [address] Dr. Kenton Avila Basophils/100 WBC (Bld) 0.4 % Normal 0.2-2.0 [facility] Comment on above: Performed By: #### C BC #### [facility] [address] [place] [address] Dr. Kenton Avila EO # 0.2 103/ul Normal 0.0-0.7 [facility] Comment on above: Performed By: #### C BC #### [facility] [address] [place] [address] Dr. Kenton Avila Eosinophils/100 WBC (Bld) 1.3 % Normal 0.9-7.0 [facility] Comment on above: Performed By: #### C BC #### [facility] [address] [place] [address] Dr. Kenton Avila Erythrocyte distribution width (RBC) [Ratio] 13.2 % Normal 11.0-15.0 [facility] Comment on above: Performed By: #### C BC #### [facility] [address] [place] [address] Dr. Kenton Avila Hematocrit (Bld) [Volume fraction] 28.5 % Critically low 36.0-48.0 [facility] Comment on above: Performed By: #### C BC #### [facility] [address] [place] [address] Dr. Kenton Avila Hemoglobin (Bld) [Mass/Vol] 9.6 g/dL Critically low 12.0-16.0 [facility] Comment on above: Performed By: #### C BC #### [facility] [address] [place] [address] Dr. Kenton Avila IG # 0.05 10e3/ul Critically high 0.00-0.03 [facility] Comment on above: Performed By: #### C BC #### [facility] [address] [place] [address] Dr. Kenton Avila IG % 0.4 % Normal 0.0-0.5 [facility] Comment on above: Performed By: #### C BC #### [facility] [address] [place] [address] Dr. Kenton Avila LYMPH # 2.5 103/ul Normal 1.2-3.8 [facility] Comment on above: Performed By: #### C BC #### [facility] [address] [place] [address] Dr. Kenton Avial Lymphocytes/100 WBC (Bld) 20.4 % Critically low 20.5-60.0 [facility] Comment on above: Performed By: #### C BC #### [facility] [address] [place] [address] Dr. Kenton Avila MANUAL DIFF REQ NO Normal [facility] Comment on above: Performed By: #### C BC #### [facility] [address] [place] [address] Dr. Kenton Avila MCH (RBC) [Entitic mass] 29.6 pg Normal 26.7-34.0 [facility] Comment on above: Performed By: #### C BC #### [facility] [address] [place] [address] Dr. Kenton Avila MCHC (RBC) [Mass/Vol] 33.7 g/dL Normal 29.9-35.2 [facility] Comment on above: Performed By: #### C BC #### [facility] [address] [place] [address] Dr. Kenton Avila MCV (RBC) [Entitic vol] 88.0 fL Normal 81.0-99.0 [facility] Comment on above: Performed By: #### C BC #### [facility] [address] [place] [address] Dr. Kenton Avila MONO # 0.8 103/ul Normal 0.3-0.8 [facility] Comment on above: Performed By: #### C BC #### [facility] [address] [place] [address] Dr. Kenton Avila Monocytes/100 WBC (Bld) 6.7 % Normal 1.7-12.0 [facility] Comment on above: Performed By: #### C BC #### [facility] [address] [place] [address] Dr. Kenton Avila NEUT # 8.6 103/ul Critically high 1.4-6.5 [facility] Comment on above: Performed By: #### C BC #### [facility] [address] [place] [address] Dr. Kenton Avila Neutrophils/100 WBC (Bld) 70.8 % Normal 43.0-75.0 [facility] Comment on above: Performed By: #### C BC #### [facility] [address] [place] [address] Dr. Kenton Avila Platelet mean volume (Bld) [Entitic vol] 9.0 fL Critically low 9.5-13.5 [facility] Comment on above: Performed By: #### C BC #### [facility] [address] [place] [address] Dr. Kenton Avila PLT 227 103/ul Normal 150-450 [facility] Comment on above: Performed By: #### C BC #### [facility] [address] [place], [place] [id number] Dr. Kenton Avila RBC 3.24 106/ul Critically low 4.20-5.40 [facility] Comment on above: Performed By: #### C BC #### [facility] [address] [place] [address] Dr. Kenton Avila WBC 12.2 103/ul Critically high 4.0-11.0 [facility] Comment on above: Performed By: #### C BC #### [facility] [address] [address] [address] Kenton Avila PROF 14(COMP METB)on 04-27-2 022 Albumin [Mass/Vol] 2.7 g/dL Critically low 3.4-5.0 [facility] Comment on above: Performed By: #### C MP #### [facility] [address] [place] [address] Dr. Kenton Avila Albumin/Globulin [Mass ratio] 0.9 {ratio} Normal [facility] Comment on above: Performed By: #### C MP #### [facility] [address] [place] [address] Dr. Kenton Avila ALP [Catalytic activity/Vol] 49 U/L Normal 46-116 [facility] Comment on above: Performed By: #### C MP #### [facility] [address] [place] [address] Dr. Kenton Avila ALT [Catalytic activity/Vol] 29 U/L Normal 14-59 [facility] Comment on above: Performed By: #### C MP #### [facility] [address] [place] [address] Dr. Kenton Avila Anion gap [Moles/Vol] 10.8 mmol/L Normal [facility] Comment on above: Performed By: #### C MP #### [facility] [address] [place] [address] Dr. Kenton Avila AST [Catalytic activity/Vol] 16 U/L Normal 15-37 [facility] Comment on above: Performed By: #### C MP #### [facility] [address] [place] [address] Dr. Kenton Avila Bilirubin [Mass/Vol] 0.3 mg/dL Normal 0.2-1.0 [facility] Comment on above: Performed By: #### C MP #### [facility] [address] [place] [address] Dr. Kenton Avila Calcium [Mass/Vol] 7.8 mg/dL Critically low 8.5-10.1 [facility] Comment on above: Performed By: #### C MP #### [facility] [address] [address] [address] Kenton Avila Chloride [Moles/Vol] 106 mmol/L Normal 98-107 [facility] Comment on above: Performed By: #### C MP #### [facility] [address] [address] [address] Kenton Avila CO2 [Moles/Vol] 24.5 mmol/L Normal 21.0-32.0 [facility] Comment on above: Performed By: #### C MP #### [facility] [address] [address] [address] Kenton Avila Creatinine [Mass/Vol] 0.72 mg/dL Normal 0.55-1.02 [facility] Comment on above: Performed By: #### C MP #### [facility] [address] [address] [address] Kenton Avila EGFR-AF CITIZEN [place] >60 Normal >=60 [facility] Comment on above: Performed By: #### C MP #### [facility] [address] [address] [address] Kenton Avila EGFR-NON AF CITIZEN OF [place] >60 Normal >=60 [facility] Comment on above: Performed By: #### C MP #### [facility] [address] [address] [address] Kenton Avila Globulin (S) [Mass/Vol] 3.1 g/dL Normal [facility] Comment on above: Performed By: #### C MP #### [facility] [address] [address] [address] Kenton Avila Glucose [Mass/Vol] 95 mg/dL Normal 74-106 [facility] Comment on above: Performed By: #### C MP #### [facility] [address] [address] [address] Kenton Avila Potassium [Moles/Vol] 3.3 mmol/L Critically low 3.5-5.1 [facility] Comment on above: Performed By: #### C MP #### [facility] [address] [address] [address] Kenton Avila Protein [Mass/Vol] 5.8 g/dL Critically low 6.4-8.2 [facility] Comment on above: Performed By: #### C MP #### [facility] [address] [address] [address] Kenton Avila Sodium [Moles/Vol] 138 mmol/L Normal 136-145 [facility] Comment on above: Performed By: #### C MP #### [facility] [address] [place] [address] Dr. Kenton Avila Urea nitrogen [Mass/Vol] 4.0 mg/dL Critically low 7.0-18.0 [facility] Comment on above: Performed By: #### C MP #### [facility] [address] [place] [address] Dr. Kenton Avila Urea nitrogen/Creatinine [Mass ratio] 5.6 mg/mg Normal [facility] Comment on above: Performed By: #### C MP #### [facility] [address] [place] [address] Dr. Kenton Avila CBC AUTO DIFFon 04-26-2022 Eosinophils/100 WBC (Bld) 0.7 % Critically low 0.9-7.0 [facility] Comment on above: Performed By: #### C BC #### [facility] [address] [place] [address] Dr. Kenton Avila Hematocrit (Bld) [Volume fraction] 28.1 % Critically low 36.0-48.0 [facility] Comment on above: Performed By: #### C BC #### [facility] [address] [place] [address] Dr. Kenton Avila Hemoglobin (Bld) [Mass/Vol] 9.6 g/dL Critically low 12.0-16.0 [facility] Comment on above: Performed By: #### C BC #### [facility] [address] [place] [address] Dr. Kenton Avila IG # 0.04 10e3/ul Critically high 0.00-0.03 [facility] Comment on above: Performed By: #### C BC #### [facility] [address] [address] [address] Kenton Avila IG % 0.3 % Normal 0.0-0.5 [facility] Comment on above: Performed By: #### C BC #### [facility] [address] [address] [address] Kenton Avila LYMPH # 1.8 103/ul Normal 1.2-3.8 [facility] Comment on above: Performed By: #### C BC #### [facility] [address] [address] [address] Kenton Avila Lymphocytes/100 WBC (Bld) 15.0 % Critically low 20.5-60.0 [facility] Comment on above: Performed By: #### C BC #### [facility] [address] [place] [address] Dr. Kenton Avila MCH (RBC) [Entitic mass] 30.0 pg Normal 26.7-34.0 [facility] Comment on above: Performed By: #### C BC #### [facility] [address] [place] [address] Dr. Kenton Avila MCHC (RBC) [Mass/Vol] 34.2 g/dL Normal 29.9-35.2 [facility] Comment on above: Performed By: #### C BC #### [facility] [address] [place] [address] Dr. Kenton Avila MCV (RBC) [Entitic vol] 87.8 fL Normal 81.0-99.0 [facility] Comment on above: Performed By: #### C BC #### [facility] [address] [place] [address] Dr. Kenton Avila Monocytes/100 WBC (Bld) 7.5 % Normal 1.7-12.0 [facility] Comment on above: Performed By: #### C BC #### [facility] [address] [place] [address] Dr. Kenton Avila NEUT # 9.0 103/ul Critically high 1.4-6.5 [facility] Comment on above: Performed By: #### C BC #### [facility] [address] [place] [address] Dr. Kenton Avila Neutrophils/100 WBC (Bld) 76.2 % Critically high 43.0-75.0 [facility] Comment on above: Performed By: #### C BC #### [facility] [address] [place] [address] Dr. Kenton Avila Platelet mean volume (Bld) [Entitic vol] 9.2 fL Critically low 9.5-13.5 [facility] Comment on above: Performed By: #### C BC #### [facility] [address] [place] [address] Dr. Kenton Avila PLT 209 103/ul Normal 150-450 [facility] Comment on above: Performed By: #### C BC #### [facility] [address] [place] [address] Dr. Kenotn Avila RBC 3.20 106/ul Critically low 4.20-5.40 [facility] Comment on above: Performed By: #### C BC #### [facility] [address] [place] [address] Dr. Kenton Avila BASO # 0.0 103/ul Normal 0.0-0.1 [facility] Comment on above: Performed By: #### C BC #### [facility] [address] [place] [address] Dr. Kenton Avila Performed By: #### C MP #### [facility] [address] [place] [address] Dr. Kenton Avila Basophils/100 WBC (Bld) 0.2 % Normal 0.2-2.0 [facility] Comment on above: Performed By: #### C BC #### [facility] [address] [place] [address] Dr. Kenton Avila EO # 0.0 103/ul Normal 0.0-0.7 [facility] Comment on above: Performed By: #### C BC #### [facility] [address] [place] [address] Dr. Kenton Avila Eosinophils/100 WBC (Bld) 0.3 % Critically low 0.9-7.0 [facility] Comment on above: Performed By: #### C BC #### [facility] [address] [place] [address] Dr. Kenton Avila Erythrocyte distribution width (RBC) [Ratio] 13.2 % Normal 11.0-15.0 [facility] Comment on above: Performed By: #### C BC #### [facility] [address] [place] [address] Dr. Kenton Avila Hematocrit (Bld) [Volume fraction] 29.5 % Critically low 36.0-48.0 [facility] Comment on above: Performed By: #### C BC #### [facility] [address] [place] [address] Dr. Kenton Avila Hemoglobin (Bld) [Mass/Vol] 9.8 g/dL Critically low 12.0-16.0 [facility] Comment on above: Performed By: #### C BC #### [facility] [address] [place] [address] Dr. Kenton Avila IG # 0.05 10e3/ul Critically high 0.00-0.03 [facility] Comment on above: Performed By: #### C BC #### [facility] [address] [place] [address] Dr. Kenton Avila IG % 0.4 % Normal 0.0-0.5 [facility] Comment on above: Performed By: #### C BC #### [facility] [address] [place] [address] Dr. Kenton Avila LYMPH # 1.4 103/ul Normal 1.2-3.8 [facility] Comment on above: Performed By: #### C BC #### [facility] [address] [place] [address] Dr. Kenton Avila Lymphocytes/100 WBC (Bld) 12.3 % Critically low 20.5-60.0 [facility] Comment on above: Performed By: #### C BC #### [facility] [address] [place] [address] Dr. Kenton Avila MANUAL DIFF REQ NO Normal [facility] Comment on above: Performed By: #### C BC #### [facility] [address] [place] [address] Dr. Kenton Avila Performed By: #### C MP #### [facility] [address] [place] [address] Dr. Kenton Avila MCH (RBC) [Entitic mass] 29.3 pg Normal 26.7-34.0 [facility] Comment on above: Performed By: #### C BC #### [facility] [address] [place] [address] Dr. Kenton Avila MCHC (RBC) [Mass/Vol] 33.2 g/dL Normal 29.9-35.2 [facility] Comment on above: Performed By: #### C BC #### [facility] [address] [place] [address] Dr. Kenton Avila MCV (RBC) [Entitic vol] 88.3 fL Normal 81.0-99.0 [facility] Comment on above: Performed By: #### C BC #### [facility] [address] [place] [address] Dr. Kenton Avila MONO # 0.8 103/ul Normal 0.3-0.8 [facility] Comment on above: Performed By: #### C BC #### [facility] [address] [place] [address] Dr. Kenton Avila Monocytes/100 WBC (Bld) 6.5 % Normal 1.7-12.0 [facility] Comment on above: Performed By: #### C BC #### [facility] [address] [place] [address] Dr. Kenton Avila NEUT # 9.3 103/ul Critically high 1.4-6.5 [facility] Comment on above: Performed By: #### C BC #### [facility] [address] [place] [address] Dr. Kenton Avila Neutrophils/100 WBC (Bld) 80.3 % Critically high 43.0-75.0 [facility] Comment on above: Performed By: #### C BC #### [facility] [address] [place] [address] Dr. Kenton Avila Platelet mean volume (Bld) [Entitic vol] 9.1 fL Critically low 9.5-13.5 [facility] Comment on above: Performed By: #### C BC #### [facility] [address] [place] [address] Dr. Kenton Avila PLT 225 103/ul Normal 150-450 [facility] Comment on above: Performed By: #### C BC #### [facility] [address] [place] [address] Dr. Kenton Avila RBC 3.34 106/ul Critically low 4.20-5.40 [facility] Comment on above: Performed By: #### C BC #### [facility] [address] [place] [address] Dr. Kenton Avila WBC 11.6 103/ul Critically high 4.0-11.0 [facility] Comment on above: Performed By: #### C BC #### [facility] [address] [place] [address] Dr. Kenton Avila Basophils/100 WBC (Bld) 0.3 % Normal 0.2-2.0 [facility] Comment on above: Performed By: #### C BC #### [facility] [address] [place] [address] Dr. Kenton Avila Performed By: #### C MP #### [facility] [address] [place] [address] Dr. Kenton Avila EO # 0.1 103/ul Normal 0.0-0.7 [facility] Comment on above: Performed By: #### C BC #### [facility] [address] [place] [address] Dr. Kenton Avila Performed By: #### C MP #### [facility] [address] [place] [address] Dr. Kenton Avila Eosinophils/100 WBC (Bld) 0.6 % Critically low 0.9-7.0 [facility] Comment on above: Performed By: #### C MP #### [facility] [address] [place] [address] Dr. Kenton Avila Erythrocyte distribution width (RBC) [Ratio] 13.1 % Normal 11.0-15.0 [facility] Comment on above: Performed By: #### C BC #### [facility] [address] [place] [address] Dr. Kenton Avila Performed By: #### C MP #### [facility] [address] [place] [address] Dr. Kenton Avila Hematocrit (Bld) [Volume fraction] 30.1 % Critically low 36.0-48.0 [facility] Comment on above: Performed By: #### C MP #### [facility] [address] [place] [address] Dr. Kenton Avila Hemoglobin (Bld) [Mass/Vol] 10.0 g/dL Critically low 12.0-16.0 [facility] Comment on above: Performed By: #### C MP #### [facility] [address] [place] [address] Dr. Kenton Avila IG # 0.05 10e3/ul Critically high 0.00-0.03 [facility] Comment on above: Performed By: #### C MP #### [facility] [address] [place] [address] Dr. Kenton Avila IG % 0.4 % Normal 0.0-0.5 [facility] Comment on above: Performed By: #### C MP #### [facility] [address] [place] [address] Dr. Kenton Avila LYMPH # 1.7 103/ul Normal 1.2-3.8 [facility] Comment on above: Performed By: #### C MP #### [facility] [address] [place] [address] Dr. Kenton Avila Lymphocytes/100 WBC (Bld) 14.1 % Critically low 20.5-60.0 [facility] Comment on above: Performed By: #### C MP #### [facility] [address] [place] [address] Dr. Kenton Avila MCH (RBC) [Entitic mass] 29.7 pg Normal 26.7-34.0 [facility] Comment on above: Performed By: #### C MP #### [facility] [address] [place] [address] Dr. Kenton Avila MCHC (RBC) [Mass/Vol] 33.2 g/dL Normal 29.9-35.2 [facility] Comment on above: Performed By: #### C MP #### [facility] [address] [place] [address] Dr. Kenton Avila MCV (RBC) [Entitic vol] 89.3 fL Normal 81.0-99.0 [facility] Comment on above: Performed By: #### C MP #### [facility] [address] [place] [address] Dr. Kenton Avila MONO # 0.9 103/ul Critically high 0.3-0.8 [facility] Comment on above: Performed By: #### C BC #### [facility] [address] [place] [address] Dr. Kenton Avila Performed By: #### C MP #### [facility] [address] [place] [address] Dr. Kenton Avila Monocytes/100 WBC (Bld) 7.2 % Normal 1.7-12.0 [facility] Comment on above: Performed By: #### C MP #### [facility] [address] [place] [address] Dr. Kenton Avila NEUT # 9.2 103/ul Critically high 1.4-6.5 [facility] Comment on above: Performed By: #### C MP #### [facility] [address] [place] [address] Dr. Kenton Avila Neutrophils/100 WBC (Bld) 77.4 % Critically high 43.0-75.0 [facility] Comment on above: Performed By: #### C MP #### [facility] [address] [place] [address] Dr. Kenton Avila Platelet mean volume (Bld) [Entitic vol] 9.3 fL Critically low 9.5-13.5 [facility] Comment on above: Performed By: #### C MP #### [facility] [address] [place] [address] Dr. Kenton Avila PLT 214 103/ul Normal 150-450 [facility] Comment on above: Performed By: #### C MP #### [facility] [address] [place] [address] Dr. Kenton Avila RBC 3.37 106/ul Critically low 4.20-5.40 [facility] Comment on above: Performed By: #### C MP #### [facility] [address] [place] [address] Dr. Kenton Avila WBC 11.8 103/ul Critically high 4.0-11.0 [facility] Comment on above: Performed By: #### C BC #### [facility] [address] [place] [address] Dr. Kenton Avila Performed By: #### C MP #### [facility] [address] [place] [address] Dr. Kenton Avila PROF 14(COMP METB)on 022 Albumin [Mass/Vol] 2.9 g/dL Critically low 3.4-5.0 [facility] Comment on above: Performed By: #### C MP #### [facility] [address] [place] [address] Dr. Kenton Avila Albumin/Globulin [Mass ratio] 0.9 {ratio} Normal [facility] Comment on above: Performed By: #### C MP #### [facility] [address] [place] [address] Dr. Kenton Avila ALP [Catalytic activity/Vol] 62 U/L Normal 46-116 [facility] Comment on above: Performed By: #### C MP #### [facility] [address] [place] [address] Dr. Kenton Avila ALT [Catalytic activity/Vol] 32 U/L Normal 14-59 [facility] Comment on above: Performed By: #### C MP #### [facility] [address] [place] [address] Dr. Kenton Avila Anion gap [Moles/Vol] 9.7 mmol/L Normal [facility] Comment on above: Performed By: #### C MP #### [facility] [address] [address] [address] Kenton Avila AST [Catalytic activity/Vol] 24 U/L Normal 15-37 [facility] Comment on above: Performed By: #### C MP #### [facility] [address] [address] [address] Kenton Avila Bilirubin [Mass/Vol] 0.4 mg/dL Normal 0.2-1.0 [facility] Comment on above: Performed By: #### C MP #### [facility] [address] [address] [address] Kenton Avila Calcium [Mass/Vol] 7.8 mg/dL Critically low 8.5-10.1 [facility] Comment on above: Performed By: #### C MP #### [facility] [address] [address] [address] Kenton Avila Chloride [Moles/Vol] 104 mmol/L Normal 98-107 [facility] Comment on above: Performed By: #### C MP #### [facility] [address] [address] [address] Kenton Avila CO2 [Moles/Vol] 24.2 mmol/L Normal 21.0-32.0 [facility] Comment on above: Performed By: #### C MP #### [facility] [address] [address] [address] Kenton Avila Creatinine [Mass/Vol] 0.86 mg/dL Normal 0.55-1.02 [facility] Comment on above: Performed By: #### C MP #### [facility] [address] [address] [address] Kenton Avila EGFR-AF CITIZEN OF [place] >60 Normal >=60 [facility] Comment on above: Performed By: #### C MP #### [facility] [address] [address] [address] Kenton Avila EGFR-NON AF CITIZEN OF [place] >60 Normal >=60 [facility] Comment on above: Performed By: #### C MP #### [facility] [address] [address] [address] Kenton Avila Globulin (S) [Mass/Vol] 3.3 g/dL Normal [facility] Comment on above: Performed By: #### C MP #### [facility] [address] [address] [address] Kenton Avila Glucose [Mass/Vol] 128 mg/dL Critically high 74-106 [facility] Comment on above: Performed By: #### C MP #### [facility] [address] [place] [address] Dr. Kenton Avila Potassium [Moles/Vol] 2.9 mmol/L Critically low 3.5-5.1 [facility] Comment on above: Performed By: #### C MP #### [facility] [address] [place] [address] Dr. Kenton Avila Protein [Mass/Vol] 6.2 g/dL Critically low 6.4-8.2 Th [facility] Comment on above: Performed By: #### C MP #### [facility] [address] [place] [address] Dr. Kenton Avila Sodium [Moles/Vol] 134 mmol/L Critically low 136-145 Th [facility] Comment on above: Performed By: #### C MP #### [facility] [address] [place] [address] Dr. Kenton Avila Urea nitrogen [Mass/Vol] 6.0 mg/dL Critically low 7.0-18.0 [facility] Comment on above: Performed By: #### C MP #### [facility] [address] [place] [address] Dr. Kenton Avila Urea nitrogen/Creatinine [Mass ratio] 7.0 mg/mg Normal [facility] Comment on above: Performed By: #### C MP #### [facility] [address] [place] [address] Dr. Kenton Avila CBC AUTO DIFFon 04-25-2022 Basophils/100 WBC (Bld) 0.3 % Normal 0.2-2.0 [facility] Comment on above: Performed By: #### C BC #### [facility] [address] [place] [address] Dr. Kenton Avila Eosinophils/100 WBC (Bld) 0.6 % Critically low 0.9-7.0 [facility] Comment on above: Performed By: #### C BC #### [facility] [address] [place] [address] Dr. Kenton Avila Erythrocyte distribution width (RBC) [Ratio] 13.0 % Normal 11.0-15.0 [facility] Comment on above: Performed By: #### C BC #### [facility] [address] [place] [address] Dr. Kenton Avila Hematocrit (Bld) [Volume fraction] 31.2 % Critically low 36.0-48.0 [facility] Comment on above: Performed By: #### C BC #### [facility] [address] [place] [address] Dr. Kenton Avila Hemoglobin (Bld) [Mass/Vol] 10.5 g/dL Critically low 12.0-16.0 [facility] Comment on above: Performed By: #### C BC #### [facility] [address] [place] [address] Dr. Kenton Avila IG # 0.02 10e3/ul Normal 0.00-0.03 [facility] Comment on above: Performed By: #### C BC #### [facility] [address] [place] [address] Dr. Kenton Avila IG % 0.2 % Normal 0.0-0.5 [facility] Comment on above: Performed By: #### C BC #### [facility] [address] [place] [address] Dr. Kenton Avila LYMPH # 1.5 103/ul Normal 1.2-3.8 [facility] Comment on above: Performed By: #### C BC #### [facility] [address] [place] [address] Dr. Kenton Avila Lymphocytes/100 WBC (Bld) 14.7 % Critically low 20.5-60.0 [facility] Comment on above: Performed By: #### C BC #### [facility] [address] [address] [address] Kenton Avila MCH (RBC) [Entitic mass] 29.4 pg Normal 26.7-34.0 [facility] Comment on above: Performed By: #### C BC #### [facility] [address] [address] [address] Kenton Avila MCV (RBC) [Entitic vol] 87.4 fL Normal 81.0-99.0 [facility] Comment on above: Performed By: #### C BC #### [facility] [address] [address] [address] Kenton Avila MONO # 0.7 103/ul Normal 0.3-0.8 [facility] Comment on above: Performed By: #### C BC #### [facility] [address] [address] [address] Kenton Avila Monocytes/100 WBC (Bld) 6.7 % Normal 1.7-12.0 [facility] Comment on above: Performed By: #### C BC #### [facility] [address] [address] [address] Kenton Avila NEUT # 7.9 103/ul Critically high 1.4-6.5 [facility] Comment on above: Performed By: #### C BC #### [facility] [address] [address] [address] Kenton Avila Neutrophils/100 WBC (Bld) 77.5 % Critically high 43.0-75.0 [facility] Comment on above: Performed By: #### C BC #### [facility] [address] [address] [address] Kenton Avila Platelet mean volume (Bld) [Entitic vol] 9.0 fL Critically low 9.5-13.5 [facility] Comment on above: Performed By: #### C BC #### [facility] [address] [address] [address] Kenton Avila PLT 241 103/ul Normal 150-450 [facility] Comment on above: Performed By: #### C BC #### [facility] [address] [place] [address] Dr. Kenton Avila RBC 3.57 106/ul Critically low 4.20-5.40 [facility] Comment on above: Performed By: #### C BC #### [facility] [address] [place] [address] Dr. Kenton Avila WBC 10.2 103/ul Normal 4.0-11.0 [facility] Comment on above: Performed By: #### C BC #### [facility] [address] [place] [address] Dr. Kenton Avila BASO # 0.0 103/ul Normal 0.0-0.1 [facility] Comment on above: Performed By: #### C BC #### [facility] [address] [place] [address] Dr. Kenton Avila Performed By: #### C MP #### [facility] [address] [place] [address] Dr. Kenton Avila Basophils/100 WBC (Bld) 0.2 % Normal 0.2-2.0 [facility] Comment on above: Performed By: #### C MP #### [facility] [address] [place] [address] Dr. Kenton Avila EO # 0.1 103/ul Normal 0.0-0.7 [facility] Comment on above: Performed By: #### C BC #### [facility] [address] [place] [address] Dr. Kenton Avila Performed By: #### C MP #### [facility] [address] [place] [address] Dr. Kenton Avila Eosinophils/100 WBC (Bld) 0.4 % Critically low 0.9-7.0 [facility] Comment on above: Performed By: #### C MP #### [facility] [address] [place] [address] Dr. Kenton Avila Erythrocyte distribution width (RBC) [Ratio] 12.9 % Normal 11.0-15.0 [facility] Comment on above: Performed By: #### C MP #### [facility] [address] [address] [address] Kenton Avila Hematocrit (Bld) [Volume fraction] 32.9 % Critically low 36.0-48.0 [facility] Comment on above: Performed By: #### C MP #### [facility] [address] [address] [address] Kenton Avila Hemoglobin (Bld) [Mass/Vol] 11.1 g/dL Critically low 12.0-16.0 [facility] Comment on above: Performed By: #### C MP #### [facility] [address] [address] [address] Kenton Avila IG # 0.04 10e3/ul Critically high 0.00-0.03 [facility] Comment on above: Performed By: #### C MP #### [facility] [address] [place] [address] Dr. Kenton Avila IG % 0.3 % Normal 0.0-0.5 [facility] Comment on above: Performed By: #### C MP #### [facility] [address] [address] [address] Kenton Avila LYMPH # 0.8 103/ul Critically low 1.2-3.8 [facility] Comment on above: Performed By: #### C MP #### [facility] [address] [place] [address] Dr. Kenton Avila Lymphocytes/100 WBC (Bld) 6.7 % Critically low 20.5-60.0 [facility] Comment on above: Performed By: #### C MP #### [facility] [address] [address] [address] Kenton Avila MANUAL DIFF REQ NO Normal [facility] Comment on above: Performed By: #### C BC #### [facility] [address] [place] [address] Dr. Kenton Avila Performed By: #### C MP #### [facility] [address] [place] [address] Dr. Kenton Avila MCH (RBC) [Entitic mass] 29.7 pg Normal 26.7-34.0 [facility] Comment on above: Performed By: #### C MP #### [facility] [address] [address] [address] Kenton Avila MCHC (RBC) [Mass/Vol] 33.7 g/dL Normal 29.9-35.2 [facility] Comment on above: Performed By: #### C BC #### [facility] [address] [place] [address] Dr. Kenton Avila Performed By: #### C MP #### [facility] [address] [place] [address] Dr. Kenton Avila MCV (RBC) [Entitic vol] 88.0 fL Normal 81.0-99.0 [facility] Comment on above: Performed By: #### C MP #### [facility] [address] [place] [address] Dr. Kenton Avila MONO # 0.9 103/ul Critically high 0.3-0.8 [facility] Comment on above: Performed By: #### C MP #### [facility] [address] [place] [address] Dr. Kenton Avila Monocytes/100 WBC (Bld) 7.3 % Normal 1.7-12.0 [facility] Comment on above: Performed By: #### C MP #### [facility] [address] [place] [address] Dr. Kenton Avila NEUT # 10.3 103/ul Critically high 1.4-6.5 [facility] Comment on above: Performed By: #### C MP #### [facility] [address] [place] [address] Dr. Kenton Avila Neutrophils/100 WBC (Bld) 85.1 % Critically high 43.0-75.0 [facility] Comment on above: Performed By: #### C MP #### [facility] [address] [place] [address] Dr. Kenton Avila Platelet mean volume (Bld) [Entitic vol] 9.1 fL Critically low 9.5-13.5 [facility] Comment on above: Performed By: #### C MP #### [facility] [address] [address] [address] Kenton Avila PLT 271 103/ul Normal 150-450 [facility] Comment on above: Performed By: #### C MP #### [facility] [address] [address] [address] Kenton Avila RBC 3.74 106/ul Critically low 4.20-5.40 [facility] Comment on above: Performed By: #### C MP #### [facility] [address] [address] [address] Kenton Avila WBC 12.1 103/ul Critically high 4.0-11.0 [facility] Comment on above: Performed By: #### C MP #### [facility] [address] [address] [address] Kenton Avila CRPon 04-25-2022 CRP 0.9 mg/dL Normal <=1.0 [facility] Comment on above: Performed By: #### C RP, CMP #### [facility] [address] [address] [address] ABD/PELV W CONon [...] months to document stability. Electronically authenticated by: [email or web address] CANDELARIO Date: 2022-04-25 08:10 Normal [facility] Covid-19 PCR (CVDTBH)on 04-13 SARS-CoV-2 (COVID-19) RNA MIKEY+probe Ql (Unsp spec) Not detected Normal NOT DETECTED [facility] Comment on above: Result Comment: When [...] for this test is supported by the Agriculture Extension Specialist of Health and Human Service's declaration that [...] longer be used). Performed By: #### C VDTBH #### [facility] [address] [address] [address] Kenton Avila FREE T3on 04-25-2022 FREE T3 2.14 pg/mlL Critically low 2.18-3.98 [facility] Comment on above: Performed By: #### C BC #### [facility] [address] [address] [address] Kenton Avila FREE T4on 04-25-2022 Free T4 [Mass/Vol] 0.99 ng/dL Normal 0.76-1.46 [facility] Comment on above: Performed By: #### C BC #### [facility] [address] [place] [address] Dr. Kenton Avila GI PANEL (PCR)on 04-25-2022 Adenovirus F 40/41 Not detected Normal NOT DETECTED [facility] Comment on above: Performed By: #### G IPANEL #### [facility] [address] [place] [address] Dr. Kenton Avila Astrovirus Not detected Normal NOT DETECTED [facility] Comment on above: Performed By: #### G IPANEL #### [facility] [address] [place] [address] Dr. Kenton Griffith. Diff toxin A/B Not detected Normal NOT DETECTED [facility] Comment on above: Performed By: #### G IPANEL #### [facility] [address] [place] [address] Dr. Kenton Avila Campylobacter Not detected Normal NOT DETECTED [facility] Comment on above: Performed By: #### G IPANEL #### [facility] [address] [place] [address] Dr. Kenton Avila Cryptosporidium Not detected Normal NOT DETECTED [facility] Comment on above: Performed By: #### G IPANEL #### [facility] [address] [place] [address] Dr. Kenton Avila Cyclos. Cayetanensis Not detected Normal NOT DETECTED [facility] Comment on above: Performed By: #### G IPANEL #### [facility] [address] [place] [address] Dr. Kenton Avila E. Coli O157 Not Applicable Normal Not Applicable [facility] Comment on above: Performed By: #### G IPANEL #### [facility] [address] [place] [address] Dr. Kenton Avila E. histolytica Not detected Normal NOT DETECTED [facility] Comment on above: Performed By: #### G IPANEL #### [facility] [address] [place] [address] Dr. Kenton Avila EAEC Not detected Normal NOT DETECTED [facility] Comment on above: Performed By: #### G IPANEL #### [facility] [address] [place] [address] Dr. Kenton Avila EIEC Not detected Normal NOT DETECTED [facility] Comment on above: Performed By: #### G IPANEL #### [facility] [address] [place] [address] Dr. Kenton Avila EPEC Not detected Normal NOT DETECTED [facility] Comment on above: Performed By: #### G IPANEL #### [facility] [address] [place] [address] Dr. Kenton Avila ETEC Not detected Normal NOT DETECTED [facility] Comment on above: Performed By: #### G IPANEL #### [facility] [address] [place] [address] Dr. Kenton Valverde Lamblia Not detected Normal NOT DETECTED [facility] Comment on above: Performed By: #### G IPANEL #### [facility] [address] [place] [address] Dr. Kenton DALTON CONTROLS PASSED Normal [facility] Comment on above: Performed By: #### G IPANEL #### [facility] [address] [place] [address] Dr. Kenton [facility] HEADER GI PANEL BACTERIA Normal [facility] Comment on above: Performed By: #### G IPANEL #### [facility] [address] [place] [address] Dr. Kenton HOWE ECOLI GI PANEL DIARRHEAGENIC E.COLI / SHIGELLA Normal [facility] Comment on above: Performed By: #### G IPANEL #### [facility] [address] [place] [address] Dr. Kenton HOWE INFO SEE BELOW Normal [facility] Comment on above: Result Comment: EAEC - Enteroaggregative E. Coli EPEC- Enteropathogenic E. Coli ETEC- Enterotoxigenic E. Coli lt/st STEC- Shigella-like toxin-producing E. Coli stx1/stx2 EIEC- Shigella/Enteroinvasive E. Coli Performed By: #### G IPANEL #### [facility] [address] [address] [address] Kenton HOWE PARASITES GI PANEL PARASITES Normal [facility] Comment on above: Performed By: #### G IPANEL #### [facility] [address] [address] [address] Kenton HOWE VIRUS GI PANEL VIRUSES Normal [facility] Comment on above: Performed By: #### G IPANEL #### [facility] [address] [address] [address] Kenton Avila Norovirus GI/GII Not detected Normal NOT DETECTED [facility] Comment on above: Performed By: #### G IPANEL #### [facility] [address] [address] [address] Kenton Avila P. Shigelloides Not detected Normal NOT DETECTED [facility] Comment on above: Performed By: #### G IPANEL #### [facility] [address] [address] [address] Kenton Avila Rotavirus A Not detected Normal NOT DETECTED [facility] Comment on above: Performed By: #### G IPANEL #### [facility] [address] [address] [address] Kenton Avila Salmonella Not detected Normal NOT DETECTED [facility] Comment on above: Performed By: #### G IPANEL #### [facility] [address] [address] [address] Kenton Avila Sapovirus Not detected Normal NOT DETECTED [facility] Comment on above: Performed By: #### G IPANEL #### [facility] [address] [address] [address] Kenton Avila STEC Not detected Normal NOT DETECTED [facility] Comment on above: Performed By: #### G IPANEL #### [facility] [address] [address] [address] Kenton Avila Vibrio Not detected Normal NOT DETECTED [facility] Comment on above: Performed By: #### G IPANEL #### [facility] [address] [place] [address] Dr. Kenton Avila Vibrio Cholera Not detected Normal NOT DETECTED [facility] Comment on above: Performed By: #### G IPANEL #### [facility] [address] [place] [address] Dr. Kenton Avila Y. Enterocolitica Not detected Normal NOT DETECTED [facility] Comment on above: Performed By: #### G IPANEL #### [facility] [address] [place] [address] Dr. Kenton Avila LACTATE/LACTIC ACIDon 2021 Lactate [Moles/Vol] 0.9 mmol/L Normal 0.4-1.9 [facility] Comment on above: Performed By: #### C MP #### [facility] [address] [place] [address] Dr. Kenton Avila PROF 14(COMP METB)on 022 Albumin [Mass/Vol] 3.6 g/dL Normal 3.4-5.0 [facility] Comment on above: Performed By: #### C RP, CMP #### [facility] [address] [place] [address] Dr. Kenton Avila Albumin/Globulin [Mass ratio] 0.9 {ratio} Normal [facility] Comment on above: Performed By: #### C RP, CMP #### [facility] [address] [place] [address] Dr. Kenton Avila ALP [Catalytic activity/Vol] 75 U/L Normal 46-116 [facility] Comment on above: Performed By: #### C RP, CMP #### [facility] [address] [place] [address] Dr. Kenton Avila ALT [Catalytic activity/Vol] 42 U/L Normal 14-59 [facility] Comment on above: Performed By: #### C RP, CMP #### [facility] [address] [place] [address] Dr. Kenton Avila Anion gap [Moles/Vol] 10.1 mmol/L Normal [facility] Comment on above: Performed By: #### C RP, CMP #### [facility] [address] [address] [address] Kenton Avila AST [Catalytic activity/Vol] 31 U/L Normal 15-37 [facility] Comment on above: Performed By: #### C RP, CMP #### [facility] [address] [address] [address] Kenton Avila Bilirubin [Mass/Vol] 0.4 mg/dL Normal 0.2-1.0 [facility] Comment on above: Performed By: #### C RP, CMP #### [facility] [address] [place] [address] Dr. Kenton Avila Calcium [Mass/Vol] 8.5 mg/dL Normal 8.5-10.1 [facility] Comment on above: Performed By: #### C RP, CMP #### [facility] [address] [place] [address] Dr. Kenton Avila Chloride [Moles/Vol] 102 mmol/L Normal 98-107 [facility] Comment on above: Performed By: #### C RP, CMP #### [facility] [address] [place] [address] Dr. Kenton Avila CO2 [Moles/Vol] 27.4 mmol/L Normal 21.0-32.0 [facility] Comment on above: Performed By: #### C RP, CMP #### [facility] [address] [place] [address] Dr. Kenton Avila Creatinine [Mass/Vol] 0.80 mg/dL Normal 0.55-1.02 [facility] Comment on above: Performed By: #### C RP, CMP #### [facility] [address] [place] [address] Dr. Kenton Avila EGFR-AF CITIZEN OF [place] >60 Normal >=60 [facility] Comment on above: Performed By: #### C RP, CMP #### [facility] [address] [place] [address] Dr. Kenton Avila EGFR-NON AF CITIZEN OF [place] >60 Normal >=60 [facility] Comment on above: Performed By: #### C RP, CMP #### [facility] [address] [address] [address] Kenton Avila Globulin (S) [Mass/Vol] 3.8 g/dL Normal [facility] Comment on above: Performed By: #### C RP, CMP #### [facility] [address] [place] [address] Dr. Kenton Avila Glucose [Mass/Vol] 119 mg/dL Critically high 74-106 [facility] Comment on above: Performed By: #### C RP, CMP #### [facility] [address] [place] [address] Dr. Kenton Avila Potassium [Moles/Vol] 3.5 mmol/L Normal 3.5-5.1 [facility] Comment on above: Performed By: #### C RP, CMP #### [facility] [address] [place] [address] Dr. Kenton Avila Protein [Mass/Vol] 7.4 g/dL Normal 6.4-8.2 [facility] Comment on above: Performed By: #### C RP, CMP #### [facility] [address] [place] [address] Dr. Kenton Avila Sodium [Moles/Vol] 136 mmol/L Normal 136-145 [facility] Comment on above: Performed By: #### C RP, CMP #### [facility] [address] [place] [address] Dr. Kenton Avila Urea nitrogen [Mass/Vol] 16.0 mg/dL Normal 7.0-18.0 [facility] Comment on above: Performed By: #### C RP, CMP #### [facility] [address] [place] [address] Dr. Kenton Avila Urea nitrogen/Creatinine [Mass ratio] 20.0 mg/mg Normal [facility] Comment on above: Performed By: #### C RP, CMP #### [facility] [address] [place] [address] Dr. Kenton Avila PROTIMEon 04-25-2022 INR Coag (PPP) [Relative time] 0.99 {INR} Normal [facility] Comment on above: Performed By: #### C BC #### [facility] [address] [place] [address] Dr. Kenton Avila INR GUIDELINES SEE BELOW Normal [facility] Comment on above: Result Comment: CHRISTOPHE RED INR: 2.0 - 3.0 CONDITIONS NOT LISTED BELOW 2.5 - 3.5 FOR PROSTHETIC HEART VALVE REPLACEMENT 2.5 - 3.5 RECURRENT THROMBOSIS Performed By: #### C BC #### [facility] [address] [place] [address] Dr. Kenton Avila PT Coag (PPP) [Time] 10.7 s Normal 9.0-11.6 [facility] Comment on above: Performed By: #### C BC #### [facility] [address] [place] [address] Dr. Kenton Avila PTTon 04-25-2022 aPTT Coag (Bld) [Time] 28.5 s Normal 22.3-36.2 [facility] Comment on above: Performed By: #### C BC #### [facility] [address] [place] [address] Dr. Kenton Avila TSHon 04-25-2022 TSH 1.110 uIU/mL Normal 0.358-3.740 [facility] Comment on above: Performed By: #### C MP #### [facility] [address] [place] [address] Dr. Kenton Avila SARS-CoV-2 (COVID-19) RNA NA A+probe Ql (Resp)on 04-05-2022 SARS-CoV-2 (COVID-19) RNA MIKEY+probe Ql (Unsp spec) Positive [employer] Other US PELVIS AND TRANSVAGon US PELVIS [...] suspicious pelvic or adnexal findings. Normal [facility] MAMM SCREEN 3D SUSAN CADon 10-30-2021 MG MAMM SCREEN 3D SUSAN CAD Patient: LOUISA LIU Exam Date: 10/30/2021 : 1970 Gender:F Ordering : DR MYA GAVIN Admission #: [id number] Family : Order #: [id number] CLICK HERE TO VIEW EXAM RADIOLOGY REPORT PROCEDURE: MAMMOGRAM SCREENING 3D BILATERAL CAD COMPARISON: MAMM SCREEN 3D SUSAN CAD, 10/29/2020. MG MAMM SCREEN SUSAN W CAD, 10/22/2019. INDICATIONS: Screening mammography Calculator Name NCI Breast Cancer Risk Assessment Tool 5 Year Breast Cancer Risk 1.00% Lifetime Breast Cancer Risk 8.90% Personal Breast Cancer No Personal Ovarian Cancer No Treatments None Family Cancers None LOCATION: [facility] BREAST COMPOSITION: Extremely dense, which lowers [...] PALPABLE LUMP SHOULD BE BIOPSIED. Dictated by: Tyrel Candelario M.D. on 10/30/2021 at 12:47 Approved by: Tyrel Candelario M.D. on 10/30/2021 at 12:52 Normal [facility] TSH+FREE T4on 08-19-2021 Free T4 [Mass/Vol] 1.0 ng/dL Normal 0.8-1.8 [facility] Comment on above: Performed By: #### 5 [id number] #### [facility] [address], [address] [place] [id number] Chemical Research Engineer: Alex Martinez MD TSH Qn 0.88 m[IU]/L Normal [facility] Comment on above: Result Comment: Refe rence Range > or = 20 Years 0.40-4.50 Ranges First trimester 0.26-2.66 Second trimester 0.55-2.73 Third trimester 0.43-2.91 Performed By: #### 5 8984 #### [facility] [address] [address] Chemical Research Engineer: Alex Martinez MD CBC (INCLUDES DIFF/PLT)on Basophils (Bld) [#/Vol] 0.017 10*3/uL Normal 0-200 [facility] Comment on above: Performed By: #### 7 600, 6399, 37206 #### [facility] [address] [address] Chemical Research Engineer: Alex Martinez MD Basophils/100 WBC (Bld) 0.3 % Normal [facility] Comment on above: Performed By: #### 7 600, 6399, 47543 #### [facility] [address] [place] [address] Chemical Research Engineer: Alex Martinez MD Eosinophils (Bld) [#/Vol] 0.081 10*3/uL Normal 15-500 [facility] Comment on above: Performed By: #### 7 600, 6399, 31621 #### [facility] [address] [place] [address] Chemical Research Engineer: Alex Martinez MD Eosinophils/100 WBC (Bld) 1.4 % Normal [facility] Comment on above: Performed By: #### 7 600, 6399, 88339 #### [facility] [address] [place] [address] Chemical Research Engineer: Alex Martinez MD Erythrocyte distribution width (RBC) [Ratio] 12.6 % Normal 11.0-15.0 [facility] Comment on above: Performed By: #### 7 600, 6399, 58158 #### [facility] [address] [place] [address] Chemical Research Engineer: Alex Martinez MD Hematocrit (Bld) [Volume fraction] 32.4 % Low 35.0-45.0 [facility] Comment on above: Performed By: #### 7 600, 6399, 85096 #### [facility] of [address] [address] Chemical Research Engineer: Alex Martinez MD Hemoglobin (Bld) [Mass/Vol] 11.1 g/dL Low 11.7-15.5 [facility] Comment on above: Performed By: #### 7 600, 6399, 84235 #### [facility] of [address] [address] Chemical Research Engineer: Alex Martinez MD Lymphocytes (Bld) [#/Vol] 1.989 10*3/uL Normal 850-3900 [facility] Comment on above: Performed By: #### 7 600, 6399, 98810 #### [facility] of [address] [address] Chemical Research Engineer: Alex Martinez MD Lymphocytes/100 WBC (Bld) 34.3 % Normal [facility] Comment on above: Performed By: #### 7 600, 6399, 94326 #### [facility] [address] [address] Chemical Research Engineer: Alex Martinez MD MCH (RBC) [Entitic mass] 29.8 pg Normal 27.0-33.0 [facility] Comment on above: Performed By: #### 7 600, 6399, 41184 #### [facility] [address] [address] Chemical Research Engineer: Alex Martinez MD MCHC (RBC) [Mass/Vol] 34.3 g/dL Normal 32.0-36.0 [facility] Comment on above: Performed By: #### 7 600, 6399, 26174 #### [facility] [address] [address] Chemical Research Engineer: Alex Martinez MD MCV (RBC) [Entitic vol] 86.9 fL Normal 80.0-100.0 [facility] Comment on above: Performed By: #### 7 600, 6399, 18439 #### [facility] of [address], [address] [place] [address] Chemical Research Engineer: Alex Martinez MD Monocytes (Bld) [#/Vol] 0.47 10*3/uL Normal 200-950 [facility] Comment on above: Performed By: #### 7 600, 6399, 18881 #### [facility] of [address], [address] [place] [address] Chemical Research Engineer: Alex Martinez MD Monocytes/100 WBC (Bld) 8.1 % Normal [facility] Comment on above: Performed By: #### 7 600, 6399, 10491 #### [facility] of [address], [address] [place] [address] Chemical Research Engineer: Alex Martinez MD Neutrophils (Bld) [#/Vol] 3.242 10*3/uL Normal 6194-3200 [facility] Comment on above: Performed By: #### 7 600, 6399, 42629 #### [facility] of [address], [address] [place] [address] Chemical Research Engineer: Alex Martinez MD Neutrophils/100 WBC (Bld) 55.9 % Normal [facility] Comment on above: Performed By: #### 7 600, 6399, 20856 #### [facility] [address] [address] Chemical Research Engineer: Alex Martinez MD Platelet mean volume (Bld) [Entitic vol] 9.7 fL Normal 7.5-12.5 [facility] Comment on above: Performed By: #### 7 600, 6399, 58226 #### [facility] of [address], [address] [place] [address] Chemical Research Engineer: Alex Martinez MD Platelets (Bld) [#/Vol] 304 10*3/uL Normal 140-400 [facility] Comment on above: Performed By: #### 7 600, 6399, 30552 #### [facility] of [address], [address] [place] [address] Chemical Research Engineer: Alex Martinez MD RBC (Bld) [#/Vol] 3.73 10*6/uL Low 3.80-5.10 [facility] Comment on above: Performed By: #### 7 600, 6399, 33482 #### [facility] of [address], [address] [place] [address] Chemical Research Engineer: Alex Martinez MD WBC (Bld) [#/Vol] 5.8 10*3/uL Normal 3.8-10.8 [facility] Comment on above: Performed By: #### 7 600, 6399, 89798 #### [facility] [address] [address] Chemical Research Engineer: Alex Martinez MD COMPREHENSIVE METABOLIC PANE [facility] 07-30-2021 Albumin [Mass/Vol] 4.0 g/dL Normal 3.6-5.1 [facility] Comment on above: Performed By: #### 7 600, 6399, 53164 #### [facility] [address] [address] Chemical Research Engineer: Alex Martinez MD Albumin/Globulin [Mass ratio] 1.5 {ratio} Normal 1.0-2.5 [facility] Comment on above: Performed By: #### 7 600, 6399, 45241 #### [facility] [address] [address] Chemical Research Engineer: Alex Martinez MD ALP [Catalytic activity/Vol] 69 U/L Normal 37-153 [facility] Comment on above: Performed By: #### 7 600, 6399, 95034 #### [facility] of [address], [address] [place] [address] Chemical Research Engineer: Alex Martinez MD ALT [Catalytic activity/Vol] 20 U/L Normal 6-29 [facility] Comment on above: Performed By: #### 7 600, 6399, 97513 #### [facility] [address] [place] [address] Chemical Research Engineer: Alex Martinez MD AST [Catalytic activity/Vol] 21 U/L Normal 10-35 [facility] Comment on above: Performed By: #### 7 600, 6399, 13325 #### [facility] [address] [place] [address] Chemical Research Engineer: Alex Martinez MD Bilirubin [Mass/Vol] 0.4 mg/dL Normal 0.2-1.2 [facility] Comment on above: Performed By: #### 7 600, 6399, 93787 #### [facility] of [address], [address] [place] [address] Chemical Research Engineer: Alex Martinez MD BUN/CREATININE RATIO NOT APPLICABLE Normal 6-22 [facility] Comment on above: Performed By: #### 7 600, 6399, 96717 #### [facility] [place] [address] Chemical Research Engineer: Alex Martinez MD Calcium [Mass/Vol] 8.7 mg/dL Normal 8.6-10.4 [facility] Comment on above: Performed By: #### 7 600, 6399, 74177 #### [facility] [address], [address] [place] [address] Chemical Research Engineer: Alex Martinez MD Chloride [Moles/Vol] 105 mmol/L Normal 98-110 [facility] Comment on above: Performed By: #### 7 600, 6399, 31278 #### [facility] [place] [address] Chemical Research Engineer: Alex Martinez MD CO2 [Moles/Vol] 28 mmol/L Normal 20-32 [facility] Comment on above: Performed By: #### 7 600, 6399, 86645 #### [facility] [address] [place] [address] Chemical Research Engineer: Alex Martinez MD Creatinine [Mass/Vol] 0.75 mg/dL Normal 0.50-1.05 [facility] Comment on above: Result Comment: For patients >49 years of age, the reference limit for Creatinine is approximately 13% higher for people identified as -Congolese. Performed By: #### 7 600, 6399, 01364 #### [facility] of [address], [address] [place] [address] Chemical Research Engineer: Alex Martinez MD eGFR NON-AFR. CITIZEN OF [place] 92 mL/min/1.73m2 Normal > OR = 60 [facility] Comment on above: Performed By: #### 7 600, 6399, 85154 #### [facility] of [address], [address] [place] [address] Chemical Research Engineer: Alex Martinez MD GFR/1.73 sq M.predicted among blacks MDRD (S/P/Bld) [Vol rate/Area] 107 mL/min/{1.73_m2} Normal > OR = 60 [facility] Comment on above: Performed By: #### 7 600, 6399, 47453 #### [facility] [place] [address] Chemical Research Engineer: Alex Martinez MD Globulin (S) [Mass/Vol] 2.7 g/dL Normal 1.9-3.7 [facility] Comment on above: Performed By: #### 7 600, 6399, 57709 #### [facility] [place] [address] Chemical Research Engineer: Alex Martinez MD Glucose [Mass/Vol] 89 mg/dL Normal 65-99 [facility] Comment on above: Result Comment: Fasting reference interval Performed By: #### 7 600, 6399, 35191 #### [facility] [place] [address] Chemical Research Engineer: Alex Martinez MD Potassium [Moles/Vol] 3.9 mmol/L Normal 3.5-5.3 [facility] Comment on above: Performed By: #### 7 600, 6399, 73656 #### [facility] [address] [place] [address] Chemical Research Engineer: Alex Martinez MD Protein [Mass/Vol] 6.7 g/dL Normal 6.1-8.1 [facility] Comment on above: Performed By: #### 7 600, 6399, 08448 #### [facility] [address], [address] [place] [address] Chemical Research Engineer: Alex Martinez MD Sodium [Moles/Vol] 139 mmol/L Normal 135-146 [facility] Comment on above: Performed By: #### 7 600, 6399, 09956 #### [facility] [address], [address] [place] [address] Chemical Research Engineer: Alex Martinez MD Urea nitrogen [Mass/Vol] 13 mg/dL Normal 7-25 [facility] Comment on above: Performed By: #### 7 600, 6399, 77533 #### [facility] [place] [address] Chemical Research Engineer: Alex Martinez MD LIPID PANEL, [facility] [place] 07-14 Cholesterol [Mass/Vol] 186 mg/dL Normal <200 [facility] Comment on above: Order Comment: FASTI NG:YES FASTING: YES Performed By: #### 7 600, 6399, 77898 #### [facility] [place] [address] Chemical Research Engineer: Alex Martinez MD Cholesterol in HDL [Mass/Vol] 60 mg/dL Normal > OR = 50 [facility] Comment on above: Order Comment: FASTI NG:YES FASTING: YES Performed By: #### 7 600, 6399, 59921 #### [facility] [place] [address] Chemical Research Engineer: Alex Martinez MD Cholesterol in LDL [Mass/Vol] 100 mg/dL High [facility] Comment on above: Order Comment: FASTI NG:YES FASTING: YES Result Comment: Refe rence range: <100 Desirable range <100 mg/dL for primary prevention; <70 mg/dL for patients with CHD or diabetic patients with > or = 2 CHD risk factors. LDL-C is now calculated using the Angelita calculation, which is a validated novel method providing better accuracy than the Friedewald equation in the estimation of LDL-C. Prabhu STEPHENS et al. ARNULFO. 2013;310(19): 2814-6594 (http://education.WebRadar.Myrio Solution/faq/WSP122) Performed By: #### 7 600, 6399, [id number] #### [facility] [address], [address] [place] [address] Chemical Research Engineer: Alex Martinez MD Cholesterol.total/C holesterol in HDL [Mass ratio] 3.1 {ratio} Normal <5.0 [facility] Comment on above: Order Comment: FASTI NG:YES FASTING: YES Performed By: #### 7 600, 6399, [id number] #### [facility] [address], [address] [place] [address] Chemical Research Engineer: Alex Martinez MD NON HDL CHOLESTEROL 126 mg/dL (calc) Normal <130 [facility] Comment on above: Order Comment: FASTI NG:YES FASTING: YES Result Comment: For patients with diabetes plus 1 major ASCVD risk factor, treating to a non-HDL-C goal of <100 mg/dL (LDL-C of <70 mg/dL) is considered a therapeutic option. Performed By: #### 7 600, 6399, [id number] #### [facility] [address], [address] [place] [address] Chemical Research Engineer: Alex Martinez MD Triglyceride [Mass/Vol] 164 mg/dL High <150 [facility] Comment on above: Order Comment: FASTI NG:YES FASTING: YES Performed By: #### 7 600, 6399, [id number] #### [facility] [address], [address] [place] [address] Chemical Research Engineer: Alex Martinez MD Covid-19 PCR (CVDTBH)on 05-14 SARS-CoV-2 (COVID-19) RNA MIKEY+probe Ql (Unsp spec) Detected Critically abnormal NOT DETECTED [facility] Comment on above: Result Comment: This test is not yet approved or cleared by the [place] FDA. When there are no FDA-approved or cleared tests available, and other criteria are met, FDA can make tests available under an emergency access mechanism called an Emergency Use Authorization (EUA). The EUA for this test is supported by the [place] of Health and Human Service's (HHS's) declaration [...] be used). Performed By: #### C #### [facility] [address] [place], [place] [address] Dr. Kenton Avila Provider Letter FTon 04-01 Provider Letter [facility] March 31, 2021 LOUISA LIU [address] [place] [phone] LOUISA LIU 1970 Dear Louisa Liu, We [...] Rodriguez Gallegos M.D., F.A.C.S. [facility] [address] [place] [address] Normal [facility] Comment on above: Other Comment: Marlen connelly not being sent [facility] Fish and Urine Cyt o ([facility])on 10-09-2020 UVFISH & UC Diagnosis Info Invalid Interpretation Code [facility] Comment on above: Result Comment: A:Ur [...] on: 10/09/2020 10:24:29 Performed By: #### 1 [id number] ####[facility] [address] [place] [address] Reminderson 10-03-2020 Reminders - From: Louisa Lau To: EU - Clinical; Sent: 09/19/2020 12:48:06 EDT Show up: 10/03/2020 12:48:00 EDT Subject: Urine Cytology Reminder/Recall Urine Cytology Cyto- neg Normal [facility] Coding Summary.on 10-02-2020 Coding Summary. CD:[id number] G h0bWw+PGhlYWQ+VG2OPGA kL85puRLliB0PE0nQTR0N RNLXFYHAPR5UKS2fxAS9V MviL3TgnmLd JqhbjNPhIF41AVy7ZJR5d TegFMtdfQ5xcZTdS7h3Hd UtNY00mD22UMowFRHwBlJ 3LjZpbjsgbWFy M7itMdUqlZAvXoh+PHRhY mxlIHdpZHRoPScxMDAlJy FalWqiLW6mAw8nURLcXPV vbGxhcHNlOiBj e2ucMHEgVHvbGC2ldNpcX 4NxwRK1DCJaa2g1Jk84kM I+HURsCVA0gVmqLJbyo07 6WiPhz4kyTNW3 pDBpTFlvYRO3C11tp5Q4G UMqMUKkEMD9pQM0oA8iiL snbrnfR6WbhTOcWoY7ERA 8fZKsxC7ljFra fbcnyG8mYsd+A04OZF6KO WMZMW0BVxk0O6CpQcdszQ I+GR45UAFwJW47rGEneJI re8wetFz9XhOd NAHyYQN1mGavKPpmo6ScM UFsY41rzDVgu9C4JMBxeE vktCChChFrvHD1oQ1eLYp olseds9dgebmr Ywcoh0abaf10gW94G55xR IjcGPPzCXM1PCFiGDZatB cbne1ewD5xVl3+YLunb4q pg4nfrDa0OdBt JBBawyImjNbjDJF3p4TmM c81R5CuuXqtk1ZtOeg9bk 72gDIun0C1rRV1GKwrMKB znV1qCIroKeO7 XYWxZkHfpO14vWTwENmgP a6adAvljLbnLD1yMETemx adHEXxwP3tHZCikOTxnOi pCX4oAXEqwcth l839JrPyLCF2IAHtyULfZ 1DucB6oDeFnMGYsNDXlM2 WziXUpMMndR398RIdzUfU 1AVVrauYgL8Eu GJXraWoiFiQ5y0D7We9Ic 4TmiqixJSK7BWpeJZH4Qp HlExJhBbQ1I8BfOsv4IFI ofMlcMS0iC4Il RIEvlhtfukttpVE1QMDzP GOngU05yZJaEHydRm9rm8 I6v261LTTsJQQvtD01Pv6 udDogMTBwdCBU hU7sovdta9fudrpeUwApC LBbXNv2WEb2CRGniXpyFt AsFIL2UpR0PZK6iGYuiJ4 tkKszmxobrP3o Oyc+X50ezU8gOAU8EBQ8e xewXTWibyJcHF41CL66E1 RyPjwvdGFibGU+PGRpdiB sdFziZX6aCjZe a8cxs9NiTAinP3NjBNZpY LouPze4QMPkMVY1bDS3kH 5cMDKzTZxiv1B6bBK6S7F eepGhxf3ek2vp VLKlSZlaA53crUAgw5I8U KWdvGT0RIHvfKmdFqLkrD 93Oyc+FSAgaGizv8RjRgp xj4emb1kpjVk8 AtGrYFFquqEldTkiZBH2x 1PjEy31P42hSQaoUYFqWI HlIEMxFKCerTasew6oiN2 wIi8+PGNvbCB3 lFH7rS2tIVEqTrP3CFiuJ 513BuYmoOHwSielr2bfh2 puuLt6QiWfUMFiezNpgFl dWCS3x5ZfVr81 Z79pGEcnKAFeHUEhTZEfQ OEnwPkgyg5yzS8mAh2+PC 2uh1qpfx86aE80cRL+PHR qPFA8bSrmKUxq FZCtfZ6rLFgeAnS7MQUdI iVfpH89gGJrKHlqFa7hxE eriWakZF4tIHPygliux04 2SnXlt7tcRJLf qHKnDIfcHMR5H76ru8S2H JZbWLUpJXM2oSP0oB4siS lnbjogbGVmdDsgdmVydGl fOWtxXUbxS749 IHRvcDsnPlBhdGllbnQgT nFtGAp8I2JlQkv8SNEqcJ fvPT8voFXcBQbpGr1mpSq qtKmoTH5aKLYb drlah843WmNgv6uaPICzp DQbSQvgHOC3E43zu6K3PH UaYHBjKXO4uSF9bM8cgYl nbjogbGVmdDsg leRhnIvxEDvyPLdoW709D HRvcDsnPkJpcnRoIERhdG G9RC65XT73dLEqv0D5xRM 1F9EkYNRzlbbe jyvynAV2OBVjCTRnzZ96E m0lvOrlLl5pKYFxTYI7WT YcwQLxK3RziQ3eUzUhBGZ zKNRqH9GktXUu FPppA525PVtiScM0LUNja iIpR7EhOZEmqUrnVrV1z8 G5Pc7OZ5K7LH71GQ65iEQ hk8P1nAW7W2Rt OMWtyextisigjGK0CTFhT RIayW76Ea8nhOvbTl9iMJ QjUKT2OBRwfYYcF7WayF2 yOiAjMDAwMDAw B3WugPWuAScdV371TCkgU aN3BBBbnbQyE7MoXKUnbT xjGxU4i2E2Vg2RVSi0GA2 7VA49mASme8S0 zPK9G1FzHXUcgdvrszsms KU6CGXkUJOjeM22Zc5qtN icRs3tJNKfGLX3BYImqBL zL2SiqV7cJvZi YNHqRQYpB8EoyXPcEBvzY 093BTigTjA3UHWhbyRnJ4 HrWYPbuLcyRaH0h1V4Sp6 ZZWCtVF65SME0 mTH6NG90OC53B5OlZapin GFibGU+PHRhYmxlIHdpZH RoPScxMDAlJyBzdHlsZT0 qBa6kNILkMHSd iPsklWEzDqYwi4laIBItN PnsZM4ctOfrS3RysWU8PQ Qwf7m6Qm73K47fH0RqvSV +FVNmgQI3sPS5 xI4vQjIaFzW6EIteF563S cRvkLHnXjscw7vnv6mhwQ d1DgG3HXShsbCabLdnWUL 3c0SxWp31A10r IHdpZHRoPSIxNSUiIHZhb Ggbdn3pmU5lRm1+PGNvbC D0qZM5sH7rPxFhNvP8ICx aA519IbHamSFf Evbnj4doh7qcqSy1YrIfY UJauvWngBquBSK9s9ElNr 43K0YvxPizr1GwHgm0zw9 0oPQxf2A6hIA8 X3HnSGYomxunlNRedFjoT E8dAQXkfgioKLDqpQ9gJP KoH6s1VuIiXyS4ACsbT1Y zgoS1NGZkwUMz QVydROF5I64ey1Q6MXVjM BJaBRS9fZO7yX0tlWbmjl ogbGVmdDsgdmVydGljYWw xNUjqG126AYKx eGrnVNBwnV1qHPWnsOOel AnlYS3cUPFyfsilBzJAMJ RFUiwgSkVOTklGRVIgTDw vdGQ+PHRkIHN0 mYirGPtkOEDtbK0hKOVxS 4j1RoXnBkO9GIocQ2AxJU HtargfSe37wW5mSrWaFaP 3EGvvH3OhnzQ8 NNIkhILaNXpdPOU5A10ir 0B4QKHqATGyEQI4qCE4tU 1hbGlnbjogbGVmdDsgdmV ydGljYWwtYWxp B985WSRsvFcvKhYxGbTmW sM6MkD6S5KiYyb0ECLshW vsTH6hxGPaBPvxEd2pdEi gfWdoMJ5gRBBg dgyfQEZioP8nTVGtfGJmh HknYN8yLUJsengpp475Tl QkIOR3IKCrySWxC4XrhH3 yOiAjMDAwMDAw L5IqqBFuYBriD865OUbuY uR5CUSjhaBiK7JySXRiwH tzTgP0p2A0Ht33SZWWARD yczwvdGQ+PHRk EFO6nMxwRXhaHADdlJ0dE BDpZ9v3RvHmLkN9CMybF9 DaFJQpzvqiIb83kQ1tUbZ hStV1ITlxS1Op vjS9TSByiMWnWQgwACB2A 05ue7Z7TRYeVHKaZCV9tZ E6zZ4igIiojetqrUIpnQp gdmVydGljYWwt FXvhJ042IYNwqEwxAmJnc WFsZTwvdGQ+POKrBCJ8yM wpDCboCBWrcG5tPDCmO6e 1MvUcAeW1QRzu N6FcFIEvnavrKb21oK9zS sPpEkI1XYifY1PtsmX6MD XyyWOlHKonGEV3K12ot5S 3YSCoMBBpECC0 tJL1xV6ujJazknwchGYzm DsgdmVydGljYWwtYWxpZ2 51THQwrFrfSa79rHLutZk uwqU8U4KkSqay dHI+NA91XLDrOZ40bFLfc SJdq6qutHt9RgAdQMNbGQ R2fVpsRBydv1LyKRZdS51 aiMKpa1X6BWTv tCqhgQJlXsArkNC5pQ1dM Ckydnlpb2xjuubgWoatg8 mwit28kF23Z64mXDbsEPD oPSIzMCUiIHZh rAbsfm5amI9bYy7+PGNvb LV8rFM0rQ1iDpLbHiZ1YF xoY566QtGltZNbZitsx9g wd8bybKk5WaBp BQSaxyHbpPxmFGD9y0CjO s68I21zTGpkWWQkKJWyLA XgVFJsoHfxzh3gkW2fKw1 +PP9uu2afkp00 pJ98gLQ+ZXWaUKY9xAvzI TjfOYFxhQ8gQIwoOxG2KJ CfQdLlvN89oFZdXJxmWj6 kzBlgzAoyQU4o RIDeptgcg229LqOxh0heM RIlgNHrSTmaYRF7N60xb5 T9LPLcUZAzSOW1pFA3oG7 hbGlnbjogbGVm dDsgdmVydGljYWwtYWxpZ 345CHNvfPwvMmDdwOHhV6 slawZKZG6pLnawwNP+PHR cUSF5fUwmGCgv HDQgqZ2wRVJdP4l3IuRiS gB6BDczB0DjceP5NQYufB JtLFPueXCGkV4enilih1y vcjogIzAwMDAw KHl2WQo7XCKosVdiSlHsJ MO7CbI9YOQ4gCUmgX6diY gvtpwqpO9xDzw+RklOOjw vdGQ+PHRkIHN0 uAlrOByhOCHefJ6qZCEtJ 7c8SmFtVsS2XYwnS0Vqti D2LGYyxTKzCILulGWQiB4 gvmhcq7kvrqrs KoQaIEBfFIp9PFa0RGXkt VrwJvNeLYC6EfE3RQW5yS AfdB7wpHzkbaqrmB7wPrp +TVJOOjwvdGQ+ TEIzRCL4xPrkQJjpZRHpw P9zFSVnO5c6BbSbAnP6DV xpQ4JfejF2VKAtyYSrYXO ejNEViC4qyeoz p4skuwfoOtRqHLVpMHn9K Yx8AUDsjAkdHgGeVKL1Jm T7CZM8wFTtvP9nvBtlsub mlB1fLoi+UGF5 AER2TB26ZP48D0KlHgyqo GFibGU+PHRhYmxlIHdpZH RoPScxMDAlJyBzdHlsZT0 tCp3aNFSyGNIm bGxh (more content not included)... Normal [facility] Consent for Procedure/Surger yon 09-30-2020 Consent for Procedure/Surgery [id number] .00CD:127 Normal [facility] Consent for Treatmenton 09-12 Consent for Treatment [id number] .00CD:127 [facility] Discharge Instructionson 04- 20-2021 Discharge Instructions [id number] .00CD:127 Normal [facility] IntraOperative Documentson 0 09-30-2020 IntraOperative Documents [id number] .00CD:127 Normal [facility] IntraOperative Documents [id number] .00CD:127 Normal [facility] Main OR Intraoperative Recor don 09-30-2020 Main OR Intraoperative Record IntraOp Document Type FTURO Summary Primary Physician: Rodriguez GALLEGOS MD Finalized Date/Time: 09/30/20 10:28:54 Pt. Name: LOUISA LIU Michael Palma/Sex: 1970 Female Med Rec #: [id number] Physician: Rodriguez GALLEGOS MD Financial #: [id number] Pt. Type: O Room/Bed: / Admit/Disch: 09/30/20 09:54:59 - Institution: Case Times FTURO Entry 1 Patient Times In Room 09/30/20 10:13:00 Out Room 09/30/20 10:25:00 Procedure Times Start 09/30/20 10:19:00 Stop 09/30/20 10:22:00 Anesthesia Times Last Modified By: Dawn Davalos RN 09/30/20 10:25:02 Case Attendance FTURO Entry 1 Entry 2 Entry 3 Case Attendee AARTI BOLES, Rodriguez Rosado GUN PERFORATOR LOADER, Karissa Davalos RN, Dawn Morfin Role Performed Surgeon - Primary Scrub - Primary Flipping Machine Operator - Primary Time In 09/30/20 10:13:00 09/30/20 [...] Out Rodriguez GALLEGOS MD, Verified (If Participants [place] Karissa FERRIS, Applicable) Dawn Davalos RN Time [...] 10:25 Dawn Davalos RN 09/30/20 10:28 Normal [facility] Main OR Preoperative Recordo n 09-30-2020 Main OR Preoperative Record Holding Area Document Type FTURO Summary Primary Physician: Rodriguez GALLEGOS MD Finalized Date/Time: 09/30/20 10:13:10 Pt. Name: LOUISA LIU Michael RuizB./Sex: 1970 Female Med Rec #: [id number] Physician: Rodriguez GALLEGOS MD Financial #: [id number] Pt. Type: O Room/Bed: / Admit/Disch: 09/30/20 09:54:59 - Institution: Case Times Holding FTURO Pre-Care Text: Verifies consent for planned procedure, identifies individual values and wishes concerning care, includes family members in perioperative teaching Secures patient's records' belongings, and valuables, maintains patient's dignity and privacy, and maintains patient confidentiality Entry 1 In Holding 09/30/20 10:03:00 Outcomes Met? Yes Last Modified By: lEvi Jones LPN 09/30/20 10:03:16 Post-Care Text: The [...] of Pain: Yes Comment: Pain Comment: abd. 3 Skin Integrity Unable to Visualize Vitals - EU Blood Pressure 108/73 Pulse 66 bpm Respirations 18 br/min SPO2 RN Reviewed Yes Last Modified By: Dawn Davalos RN 09/30/20 10:13:08 General Comments: Temp. 35.6 Finalized By: Dawn Davalos RN Document Signatures Signed By: Elvi Jones LPN 09/30/20 10:06 Dawn Davalos RN 09/30/20 10:13 Normal [facility] Operative Reporton Operative Report Patient: LOUISA [...] check ct if either is abnormal.. Normal [facility] Comment on above: Result Comment: Elec tronically Signed By: Rodriguez GALLEGOS MD\.br\Date and Time Signed: 09/30/20 10:31 EDT [facility] Fish and Urine Cyt o ([facility])on 09-30-2020 [facility] Method of Extraction Voided Normal [facility] Comment on above: Performed By: #### 1 [id number] ####[facility] [address] [place] [address] [facility] Number of Jars 1 Invalid Interpretation Code [facility] Comment on above: Performed By: #### 1 [id number] ####[facility] [address] [place] [address] [facility] Specimen Urine Normal [facility] Comment on above: Performed By: #### 1 [id number] ####[address] [address] [facility] Type of Service Technical Only Normal [facility] Comment on above: Performed By: #### 1 [id number] ####[facility] [address] [place] [address] RAD - Ultrasound Reporton RAD - Ultrasound Report [id number]#1. 00CD:127 Normal [facility] Pre-Certification Formon Pre-Certification Form [id number]#1 .00CD:127 Normal [facility] Urine Cytology ([facility])on 0 09-24-2020 Urine Cytology Diagnosis Info Invalid Interpretation Code [facility] Comment on above: Result Comment: A:Ur ine,Urine:Voided Interpretation - MicroScopic Description - Many unremarkable squamous cells present. Adequacy - Gross Description Site ID:A color Bright Yellow fixative Alcohol Specimen designated Urine received in alcohol preservative and labeled with the patient?s name, consists of 50ml clear bright yellow fluid. One non-software consultant cytology slide prepared. Electronically signed by : on: 09/24/2020 09:37:46 Performed By: #### 1 [id number] ####[address] [address] Physician Referralon 021 Physician Referral [id number]#1. 00CD:127 Normal [facility] Formson 09-22-2020 Forms [id number]#1. 00CD:127 Normal [facility] RAD - Ultrasound Reporton RAD - Ultrasound Report [id number]#1. 00CD:127 Normal [facility] Ambulatory Clinical Summaryo n 09-19-2020 Ambulatory Clinical Summary {4m-33-05-15-36-42-4b -69-7s-xt-69-01-3b-26 -87-b4}CD:[id number] Normal [facility] Patient Educationon 09-20-19 Patient Education Urology [...] these instructions at home: Medicines ? Take ulgd-ufs-wnbqyas and prescription medicines only as told by [...] the blood stops without treatment. ? Take cjkg-jkt-jebmxei and prescription medicines only as told by your health care provider. ? Drink enough fluid to keep your urine clear or pale yellow. This information is not intended to replace advice given to you by your health care provider. Make sure you discuss any questions you have with your health care provider. Document Released: 05/30/2006 Document Revised: 10/24/2019 Document Reviewed: 07/02/2017 Elsevier Patient Education ? 2019 [employer] [facility] Urine Cytology ([facility])on 0 09-19-2020 Method of Extraction Voided Normal [facility] Comment on above: Performed By: #### 1 [id number] ####[facility] [address] [place] [address] Number of Jars 1 Invalid Interpretation Code [facility] Comment on above: Performed By: #### 1 [id number] ####[facility] [address] [place] [address] Specimen Urine Normal [facility] Comment on above: Performed By: #### 1 [id number] ####[facility] [address] [place] [address] Type of Service Technical Only Normal [facility] Comment on above: Performed By: #### 1 [id number] ####[facility] [address] [place] [address] Urology Office/Clinic Noteon 09-19-2020 Urology Office/Clinic Note Chief Complaint Blood in urine per Dr. Jimenez [facility] Staff Referral from Dr. Jimenez for blood [...] Will order Local anesthesia. ABX sent to [facility] in [employer]. 2. Stress incontinence (N39.3: Stress incontinence (female) (male)) Mild, intermittent. Pt. does not need to use any pads. 3. Dysuria (R30.0: Dysuria) Intermittent. I have reviewed the previous health record information and history for this pt. from Dr. Gallegos. Follow-up With When Contact Information Rdoriguez GALLEGOS MD [address] [place] [address]- [phone] Additional Instructions: Patient Education Hematuria, Adult I, [...] Protein Urine Dipstick: Negative (09/19/20 10:27:00) Specific [place] Urine D (more content not included)... Normal [facility] Comment on above: Result Comment: Elec tronically Signed By: Rodriguez GALLEGOS MD\.br\Date and Time Signed: 09/19/20 11:20 EDT\.br\Electronically Co-Signed By: Melvina Rodriguez MA\.br\Date and Time Co-Signed: 09/19/20 11:16 EDT Vital Signs Date Time Vital Sign Value Performing Clinician Facility 09-14-2024 09:05-0400 Body height 160 cm Celso Furlong DO Work Phone: [facility] 09-14-2024 09:05-0400 Body mass index (BMI) [Ratio] 25.34 kg/m2 Celso Furlong DO Work Phone: [facility] 09-14-2024 09:05-0400 Body temperature 97.59 [degF] Celso Furlong DO Work Phone: [facility] 09-14-2024 09:05-0400 Body weight 64.86 kg Celso Furlong DO Work Phone: [facility] 09-14-2024 09:05-0400 Diastolic blood pressure 60 mm[Hg] Celso Furlong DO Work Phone: [facility] 09-14-2024 09:05-0400 Heart rate 64 /min Celso Furlong DO Work Phone: [facility] 09-14-2024 09:05-0400 Respiratory rate 18 /min Celso Furlong DO Work Phone: [facility] 09-14-2024 09:05-0400 SaO2% (BldA) [Mass fraction] 97 % Celso Furlong DO Work Phone: [facility] 09-14-2024 09:05-0400 Systolic blood pressure 120 mm[Hg] Celso Furlong DO Work Phone: [facility] 10-24-2023 09:39-0400 Body height 160 cm Celso Furlong DO Work Phone: [facility] 10-24-2023 09:39-0400 Body mass index (BMI) [Ratio] 25.12 kg/m2 Celso Furlong DO Work Phone: [facility] 10-24-2023 09:39-0400 Body temperature 97.7 [degF] Cel[facility] Handlong DO [facility] 10-24-2023 09:39-0400 Body weight 64.32 kg Celso Handlong DO Work [facility] 10-24-2023 09:39-0400 Diastolic blood pressure 58 mm[Hg] Celso Furlong DO Work Phone: [facility] 10-24-2023 09:39-0400 Heart rate 65 /min Celso Handlong DO Work Phone: [facility] 10-24-2023 09:39-0400 Respiratory rate 20 /min Celso Handlong DO Work Phone: [facility] 10-24-2023 09:39-0400 SaO2% (BldA) [Mass fraction] 96 % Celso Handlong DO Work [facility] 10-24-2023 09:39-0400 Systolic blood pressure 94 mm[Hg] Cel[facility]long [facility] 04-05-2022 14:00-0400 Body height 162.56 cm Tressa Blunt Other [employer] Other 04-05-2022 14:00-0400 Body mass index (BMI) [Ratio] 24.37 kg/m2 Tressa Blunt Other [employer] Other 04-05-2022 14:00-0400 Body weight 64.41 kg Tressa Blunt Other [employer] Other Encounters Encounter Date Encounter Type Care Provider Facility Start: 10-18-2024 End: 10-18-2024 Refill Celso Jimenez DO Work Phone: [facility] Comment on above: Hypothyroidism, unsp ecified Start: 09-14-2024 End: 09-14-2024 ambulatory [facility] Start: 09-14-2024 End: 09-14-2024 Patient encounter status Celso Jimenez DO Work Phone: [facility] [employer] [facility] Work Phone: Start: 09-14-2024 End: 09-14-2024 Periodic preventive med est patient 40-64yrs Celso Jimenez DO Work Phone: [facility] Comment on above: Well [facility] [place] (Primary Dx); Acquired hypothyroidism; Overweight; Left hip pain; Need for vaccination Start: 09-14-2024 End: 09-14-2024 ambulatory [facility] Start: 03-02-2024 End: 03-02-2024 ambulatory [facility] Start: 03-02-2024 Encounter for gynecological examination (general) (routine) without abnormal findings [facility] Start: 11-23-2023 End: 11-23-2023 Refill Celso Jimenez DO Work Phone: [facility] Comment on above: Hypothyroidism, unsp ecified Start: 10-27-2023 End: 10-27-2023 Telephone encounter Massiel Lc SPRAY RIG OPERATOR [facility] Start: 10-24-2023 End: 10-24-2023 Patient encounter status Celso Jimenez DO Work Phone: [facility] [employer] [facility] Work Phone: Start: 10-24-2023 End: 10-24-2023 Periodic preventive med est patient 40-64yrs eClso Jimenez DO Work Phone: [facility] Comment on above: [facility] (Primary Dx); Acquired hypothyroidism; Overweight Start: 10-24-2023 End: 10-24-2023 ambulatory [facility] Start: 10-24-2023 Encounter for genera l adult medical examination without abnormal findings [facility] Start: 09-14-2023 Refill Celsoden armijo DO Work Phone: [facility] Comment on above: Hypothyroidism, unsp ecified Start: 07-27-2023 Refill Celso Gabriel Handnelson aleksander DO Work Phone: [facility] Comment on above: Hypothyroidism, unsp ecified Start: 02-24-2023 End: 02-24-2023 Patient encounter status Celso Jimenez Work Phone: [facility] Start: 02-24-2023 End: 02-24-2023 Subsequent hospital visit by physician Celso Buenrostro Phone: [facility] Laboratory Comment on above: Visit for gynecologi c examination Start: 08-30-2022 Patient encounter status Ramon Handnelsonaleksander DO Work Phone: [facility] Start: 04-25-2022 End: 04-27-[address] CELSO JIMENEZ Facility:[facility] Start: 04-05-2022 End: 04-05-2022 ambulatory Tressa Blunt Other [employer] Other Start: 04-05-2022 Office outpatient vi sit 15 minutes Tressa Blunt [facility] Start: 02-25-2022 End: 02-26-[address] MYA GAVIN Facility:[facility] Start: 10-30-2021 End: 10-31-[address] MYA GAVIN Facility:[facility] Start: 06-08-2021 End: 06-08-[address] CELSO JIMENEZ Facility:[facility] Start: 02-12-2021 End: 02-12-2021 Patient encounter procedure Celso Jimenez Work Phone: [facility] Start: 02-12-2021 End: 02-12-2021 Subsequent hospital visit by physician Celso Buenrostro Phone: [facility] Laboratory Comment on above: Women's annual routi ne gynecological examination Start: 01-10-2020 End: 01-10-2020 Subsequent [facility] Comment on above: Encounter for micki garcia exam with routine gynecological exam Procedures Date Procedure Procedure Detail Performing Clinician Start: 09-14-2024 Adult depression scr eening assessment Celso Jimenez DO Work Phone: Start: 03-02-2024 Microscopic observat ion [Identifier] in Cervix by Cyto stain Celso Jimenez DO Work Phone: Start: 11-04-2023 Mammography Celso belcher DO Work Phone: Start: 10-24-2023 Adult depression scr eening assessment Celso Jimenez DO Work Phone: Start: 08-30-2022 Adult depression scr eening assessment Celso Jimenez Looker Work Phone: Start: 02-22-2022 Microscopic observat ion [Identifier] in Cervix by Cyto stain Celso Jimenez Looker Work Phone: Start: 10-22-2020 Colonoscopy [facility] [employer] Plan of Treatment Date Care Activity Detail Author Start: 09-14-2034 DTaP,Tdap and Td Vaccines (4 - Td or Tdap) DTaP,Tdap and Td Vaccines (4 - Td or Tdap) [facility] Start: 10-22-2030 Screening for malign ant neoplasm of colon Colonoscopy [facility] [employer] [facility] Start: 03-02-2027 Screening for malign ant neoplasm of cervix Pap Smear [facility] Start: 11-03-2025 Screening for malign ant neoplasm [facility] [facility] Start: 09-16-2025 End: 09-16-2025 Patient encounter procedure 09/16/2025 9:00 AM EDT Office Visit [facility] Internal [facility] - Family Medicine [address] [place] [address] Celso Jimenez DO [address] [place] [address] [facility] Internal Medicine - Family Medicine Start: 09-14-2025 Adult BMI Screening Adult BMI Screen ing [facility] Start: 09-14-2025 Depression Screening Depression Scre ening [facility] Start: 09-14-2025 Tobacco Screening Tobacco Screening [facility] Start: 02-22-2025 Screening for malign ant neoplasm of cervix Pap Smear [facility] Start: 02-11-2025 Influenza vaccination Influenza Vacc ine [facility] Start: 11-01-2024 Screening for malign ant neoplasm of breast Breast cancer screen [facility] Start: 10-23-2024 Adult BMI Screening Adult BMI Screen ing [facility] Start: 10-23-2024 Depression Screening Depression Scre ening [facility] Start: 10-23-2024 Tobacco Screening Tobacco Screening [facility] Start: 06-13-2024 Administration of varicella zoster vaccine Zoster (Shingles) Vaccine (1 of 2) [facility] Comment on above: Postponed from 07/24 (Patient Refused) Start: 06-13-2024 COVID-19 Vaccine ( season) COVID-19 Vaccine ( season) [facility] Comment on above: Postponed from 02/11 (Patient Refused) Start: 02-27-2024 End: 02-27-2024 Patient encounter procedure 02/27/2024 10:00 AM EDT Office Visit [facility] [address] [place] [address] Mya Gavin MD [address] [place] [address] [address] [place] [address] yearly [facility] Comment on above: yearly Start: 02-15-2024 DTaP,Tdap and Td Vaccines (3 - Td or Tdap) DTaP,Tdap and Td Vaccines (3 - Td or Tdap) [facility] Start: 02-15-2024 DTaP/Tdap/Td vaccine (3 - Td or Tdap) DTaP/Tdap/Td vaccine (3 - Td or Tdap) [facility] Start: 02-15-2024 DTaP/Tdap/Td vaccine (3 - Td) DTaP/Tdap/Td vaccine (3 - Td) [place], [place] Start: 02-12-2024 COVID-19 Vaccine ( season) COVID-19 Vaccine () [facility] Start: 02-12-2024 Influenza vaccination Influenza Vacc ine [facility] Start: 10-24-2023 End: 10-24-2023 Patient encounter procedure 10/24/2023 9:20 AM EDT [facility] [address] [place] [id number] Celso Jimenez DO [address], [facility] [address] [facility] Start: 08-31-2023 Adult BMI Screening Adult BMI Screen ing [facility] Start: 08-31-2023 Depression Screening Depression Scre ening [facility] Start: 08-31-2023 Tobacco Screening Tobacco Screening [facility] Start: 02-11-2023 COVID-19 Vaccine ( season) COVID-19 Vaccine () [facility] Start: 02-11-2023 Influenza vaccination Influenza Vacc ine [facility] Start: 01-11-2023 Influenza vaccination Flu vaccine (# 1) [facility] Start: 01-09-2023 Screening for malign ant neoplasm of cervix Cervical cancer screen [employer] Phone: Start: 10-21-2022 Screening for malign ant neoplasm of breast [facility] Start: 09-18-2021 Screening for malign ant neoplasm of cervix Cervical cancer screen [place], [place] Start: 02-12-2021 End: 02-12-2021 Office Visit 02/12/2021 Office Visit Obstetrics and Gynecology Mya Gavin MD [address] [place], [place] [id number] [facility] Start: 02-11-2021 Influenza vaccination Flu vaccine (# 1) [employer] Phone: Start: 10-30-2020 COVID-19 Vaccine (2 - Moderna series) COVID-19 Vaccine (2 - Moderna series) [facility] [facility] Start: 2020 Administration of varicella zoster vaccine Zoster (Shingles) Vaccine (1 of 2) [facility] Start: 2020 Shingles Vaccine (1 of 2) Shingles Vaccine (1 of 2) [employer] [facility] Start: 02-12-2020 Influenza vaccination Flu vaccine (# 1) [facility] [place] Start: 2015 Screening for malign ant neoplasm of colon [facility] [employer] Start: 2010 Diabetes screen Diabetes screen [employer] Phone: Start: 2010 Lipid panel [facility] [employer] Start: 2010 Screening for malign ant neoplasm of breast Mammogram [facility] Start: 1988 Adult BMI Follow Up Plan Adult BMI F [facility]llow [facility] Start: 1988 Hepatitis C screening Hepatitis C [facility] [employer] Start: 1985 HIV screening HIV screen [facility] [employer] Start: 1982 Depression Screen [facility] Start: 1970 Hepatitis B vaccine (1 of 3 - 3-dose series) Hepatitis B vaccine (1 of 3 - 3-dose series) [facility] [employer] Start: 1970 Hepatitis C screening [facility] End: 09-14-2025 CBC panel - Blood by Automated count CBC without diff Lab Routine Well adult health check 1 Occurrences starting 09/14/2024 until 09/14/2025 [place] Phone: Comment on above: 1 Occurrences starti ng 09/14/2024 until 09/14/2025 End: 09-14-2025 Comprehensive metabolic 2000 panel - Serum or Plasma Comprehensive metabolic panel Lab Routine Well adult health check 1 Occurrences starting 09/14/2024 until 09/14/2025 [facility] Comment on above: 1 Occurrences starti ng 09/14/2024 until 09/14/2025 End: 01-10-2020 Cytopathology procedure, preparation of smear, genital source PAP SMEAR Lab Routine Encounter for well woman exam with routine gynecological exam 1 Occurrences starting 01/10/2020 until 01/10/2020 [place], [place] Comment on above: 1 Occurrences starti ng 01/10/2020 until 01/10/2020 End: 02-12-2021 Cytopathology procedure, preparation of smear, genital source PAP SMEAR Lab Routine Women's annual routine gynecological examination 1 Occurrences starting 02/12/2021 until 02/12/2021 [facility] Phone: Comment on above: 1 Occurrences starti ng 02/12/2021 until 02/12/2021 End: 02-24-2023 Cytopathology procedure, preparation of smear, genital source PAP SMEAR Lab Routine Visit for gynecologic examination 1 Occurrences starting 02/24/2023 until 02/24/2023 [facility] Comment on above: 1 Occurrences starti ng 02/24/2023 until 02/24/2023 End: 09-14-2025 Lipid 1996 panel - Serum or Plasma Lipid profile Lab Routine Well adult health check 1 Occurrences starting 09/14/2024 until 09/14/2025 [facility] Comment on above: 1 Occurrences starti ng 09/14/2024 until 09/14/2025 End: 09-14-2025 Thyroid profile includes TSH FT4 Thyroid profile includes TSH FT4 Lab Routine Acquired hypothyroidism 1 Occurrences starting 09/14/2024 until 09/14/2025 [facility] Comment on above: 1 Occurrences starti ng 09/14/2024 until 09/14/2025 Immunizations Immunization Date Immunization Notes Care Provider [facility] 09-14-2024 tetanus toxoid, redu rich diphtheria toxoid, and acellular pertussis vaccine, adsorbed Celso Jimenez DO Work Phone: [facility] 09-14-2024 Immunization, In Clinic,; Translations: [Drug or medicament (substance)] Celso Jimenez DO Work Phone: [facility] 09-04-2020 COVID-19, mRNA, LNP- S, PF, 100mcg/0.5mL Dose Celso Jimenez DO Work Phone: [facility] 08-28-2020 COVID-19, mRNA, LNP- S, PF, 100mcg/0.5mL Dose Celso Jimenez DO Work Phone: [facility] 08-05-2014 pneumococcal conjuga te vaccine, 13 valent Celso Handaleksander DO Work Phone: [facility] 02-14-2014 tetanus toxoid, redu rich diphtheria toxoid, and acellular pertussis vaccine, adsorbed Celsoden Handaleksander DO Work Phone: [facility] 02-22-2007 diphtheria, tetanus toxoids and acellular pertussis vaccine [place] Payers Date Payer Category Payer Managed Care Other (unspecified) [employer] [place] [id number] 2020 Private Health Insurance [facility] [employer] [id number] 2020-Present [phone] [address] [address] [place] [address] [id number] 2017 Unknown [employer] [id number] 2017-Present [phone] [address] [place] [address] [id number] 2017 Unknown [id number] 1970 Unknown [id number] [id number]. [id number] 1970 Unknown [id number]. [id number] 1970 Unknown [id number] [id number]. [id number] 1970 Unknown [id number] [id number]. [id number] 1970 Unknown [id number] [id number]. [id number] 1970 Unknown [id number] [id number]. 2.1286 1970 Unknown [id number] [id number]. 2.1286 1970 Unknown [id number] [id number]. 2.1286 1970 Unknown [id number] [id number]. 2.1286 1959 Unknown [id number] Social History Date Type Detail Facility Start: 01-10-2020 End: 10-24-2023 Tobacco smoking status [facility] Former smoker [place], [place] Start: 01-10-2020 End: 08-30-2022 Cigarettes smoked current (pack per day) - Reported [employer] STEPHANIE ORTEGA Start: 01-10-2020 End: 10-24-2023 Tobacco use and exposure Never used [facility] [facility] Start: 01-10-2020 End: 09-14-2024 Alcohol intake Current drinker of alcohol (finding) [facility] [employer] STEPHANIE ORTEGA Start: 07-17-2012 Alcohol Comment rarely [facility] [employer] [facility] Start: 1970 Sex Assigned At Not on file [facility] [employer] [place]STE[place] Start: 08-30-2022 End: 02-24-2023 Sex Assigned At [employer] Other Start: 07-13-1987 End: 07-13-2017 History of tobacco use Current smoker [facility] Start: 07-13-1987 End: 07-13-2017 History of tobacco use Cigarette Smoker [facility] [employer] PHQ-2 Score 0 [facility] [employer] [facility] History of tobacco use Passive smoker [employer] Has the [employer], or [employer] threatened to shut off services in your home in past 12Mo No [facility] How often to you hav e a drink containing alcohol? 2-4 times a month [facility] How many standard dr inks containing alcohol do you have on a typical day? 3 or 4 [facility] How often do you hav e 6 or more drinks on 1 occasion? Never [facility] Do you feel stress - tense, restless, nervous, or anxious, or unable to sleep at night because your mind is troubled all the time - these days [OSQ] Not at all [facility] Start: 09-10-2020 Alcohol Comment Occasional [facility] Do you belong to any clubs or organizations such as taoism groups, unions, fraternal or athletic groups, or school groups? Yes [facility] Are you now , , , , never or living with a partner? Never [facility] Start: 01-16-2015 Sex Female (finding) [facility] [employer] Clinical Notes 09-30-2020 to 09-14-2024 Celso Jimenez, - 09/14/2024 9:00 AM EDTTelephone Encounter - Massiel Platt, SPRAY RIG OPERATOR - 10/27/2023 11:51 AM EDTTelephone Encounter - Celso Jimenez, DO - 10/27/2023 11:51 AM EDT Note Date & Type Note Facility 09-14-2024 History of Presen t illness Narrative Subjective Patient ID: Louisa Liu is a 54 y.o. female. Louisa Liu is 54 y.o. female that presents for wellness exam. Her cognos lead orders her mammograms (11/10/2023) and pap smears (03/02/2024). Her mammogram is due next month. Colonoscopy is due next year, 10/22/2030. She does not want another colonoscopy. Patient educated on benefits of colorectal cancer screening, including alternative options like cologuard. Patient does not want colorectal cancer screening. She is due for Tdap, which she is receptive to. She denies any issues with her current medications. She denies any health updates. She is also complaining of bilateral hip pain but worse on the left. It comes and goes. It is on the outer part of her hip. It is not in the groin or buttock area. Pain is random. She has not tried anything for it. Pain is mild. Annual Exam Associated symptoms include congestion. Pertinent negatives include no abdominal pain, chest pain, chills or fever. The following portions of the patient's history were reviewed and updated as appropriate: allergies, current medications, past family history, past medical history, past social history, past surgical history, problem list, and medication reconciliation was completed including current medication and post discharge medication. Review of Systems Constitutional: Negative for activity change, chills and fever. HENT: Positive for congestion. Allergies Respiratory: Negative for shortness of breath. Cardiovascular: Negative for chest pain. Gastrointestinal: Positive for constipation. Negative for abdominal pain and blood in stool. She does not take fiber supplements or metamucil. Genitourinary: Negative for difficulty urinating. Musculoskeletal: Left hip pain Objective Physical Exam Vitals reviewed. Exam conducted with a hogshead cooper present. Constitutional: General: She is not in acute distress. Appearance: Normal appearance. She is overweight. She is not ill-appearing. HENT: Head: Normocephalic. Right Ear: Tympanic membrane, ear canal and external ear normal. Left Ear: Tympanic membrane, ear canal and external ear normal. Ears: Comments: There was cerumen in her right EAC that was up near the TM. The TM was partially visible Nose: Nose normal. Mouth/Throat: Lips: [place]. Mouth: Mucous membranes are moist. Pharynx: Oropharynx is clear. No pharyngeal swelling or oropharyngeal exudate. Eyes: General: No scleral icterus. Extraocular Movements: Extraocular movements intact. Cardiovascular: Rate and Rhythm: Normal rate and regular rhythm. Pulses: Normal pulses. Heart sounds: Normal heart sounds. No murmur heard. Pulmonary: Effort: Pulmonary effort is normal. No respiratory distress. Breath sounds: No wheezing, rhonchi or rales. Abdominal: General: Abdomen is flat. There is no distension. Palpations: Abdomen is soft. There is no mass. Tenderness: There is no abdominal tenderness. There is no guarding or rebound. Hernia: No hernia is present. Musculoskeletal: Cervical back: Neck supple. Left hip: Tenderness present. Right lower leg: No edema. Left lower leg: No edema. Comments: IT band tenderness Lymphadenopathy: Cervical: No cervical adenopathy. Skin: General: Skin is warm and dry. Findings: No lesion or rash. Neurological: General: No focal deficit present. Mental Status: She is alert. Psychiatric: Attention and Perception: Attention and perception normal. Mood and Affect: Mood and affect normal. Speech: Speech normal. Behavior: Behavior normal. Behavior is cooperative. Cognition and Memory: Cognition and memory normal. Judgment: Judgment normal. Assessment/Plan Louisa was seen today for annual exam. Diagnoses and all orders for this visit: Well adult health check - CBC without diff; Future - Comprehensive metabolic panel; Future - Lipid profile; Future Health maintenance discussed. Check CMP, lipid and CBC. Acquired hypothyroidism - Thyroid profile includes TSH FT4; Future Check TSH and T4 Overweight She is a bit overweight with clothes. Her diet is not the greatest. She was eating [employer] for breakfast this morning. Healthy diet and exercise discussed. documented in this encounter [facility] 10-27-2023 Miscellaneous Notes Formattin g of this note might be different from the original. Pt called asking for her test results? It is on her portal. Can you see the lab results and my message? Talked to pt and she picked up results documented in this encounter [facility] 10-27-2023 Telephone encount er Note Pt called asking for her test results? [facility] 10-27-2023 Telephone encount er Note It is on her portal. Can you see the lab results and my message? [facility] 10-27-2023 Telephone encount er Note Talked to pt and she picked up results [facility] 10-24-2023 History of Presen t illness Narrative Subjective Patient ID: Louisa Liu is a 53 y.o. female. Louisa presents for her annual wellness. She has no new problems report. She sees the cognos lead who orders her mammogram and does her Pap test. She had a colonoscopy a couple years ago and does not want to have another 1. She takes Zyrtec and Flonase for her allergies which are seasonal. Annual Exam The following portions of the patient's history were reviewed and updated as appropriate: allergies, current medications, past family history, past medical history, past social history, past surgical history, problem list, and medication reconciliation was completed including current medication and post discharge medication. Review of Systems Constitutional: Negative. HENT: Positive for rhinorrhea. Eyes: Negative. Respiratory: Negative. Cardiovascular: Negative. Gastrointestinal: Negative. Genitourinary: Negative. Musculoskeletal: Negative. Allergic/Immunologic: Positive for environmental allergies. Neurological: Negative. Hematological: Negative. Psychiatric/Behavioral: Negative. Objective Physical Exam Vitals reviewed. Exam conducted with a hogshead cooper present (Lalito Moreno MS III). Constitutional: General: She is not in acute distress. HENT: Head: Normocephalic. Right Ear: Tympanic membrane, ear canal and external ear normal. Left Ear: Tympanic membrane, ear canal and external ear normal. Nose: Nose normal. Mouth/Throat: Mouth: Mucous membranes are moist. Eyes: General: No scleral icterus. Extraocular Movements: Extraocular movements intact. Conjunctiva/sclera: Conjunctivae normal. Cardiovascular: Rate and Rhythm: Normal rate and regular rhythm. Pulses: Normal pulses. Heart sounds: Normal heart sounds. No murmur heard. Pulmonary: Effort: Pulmonary effort is normal. No respiratory distress. Breath sounds: Normal breath sounds. No wheezing, rhonchi or rales. Musculoskeletal: Cervical back: Neck supple. No tenderness. Right lower leg: No edema. Left lower leg: No edema. Lymphadenopathy: Cervical: No cervical adenopathy. Skin: General: Skin is warm. Findings: No lesion or rash. Neurological: General: No focal deficit present. Mental Status: She is alert and oriented to person, place, and time. Psychiatric: Attention and Perception: Attention normal. Mood and Affect: Mood and affect normal. Speech: Speech normal. Behavior: Behavior normal. Behavior is cooperative. Thought Content: Thought content normal. Cognition and Memory: Cognition normal. Judgment: Judgment normal. Assessment/Plan Louisa was seen today for annual exam. Diagnoses and all orders for this visit: Well adult health check - Comprehensive metabolic panel; Future - Lipid panel; Future - Thyroid profile includes TSH FT4; Future Health maintenance discussed. Colonoscopy is up-to-date. Vaccines encouraged. Check CMP and lipids Acquired hypothyroidism Check TSH and T4. Overweight Patient is overweight with clothes but not likely without clothes. Diet and exercise was discussed. documented in this encounter [facility] 07-27-2023 Miscellaneous Notes Formattin g of this note might be different from the original. She is due for a wellness in late August. Please set up Left a message to call back documented in this encounter [facility] 07-27-2023 Telephone encount er Note She is due for a wellness in late August. Please set up [facility] 07-27-2023 Telephone encount er Note Left a message to call back [facility] 04-05-2022 Evaluation note Encounter Date Diagnosis [...] no improvement in 2 to 3 days. [employer] Other 04-20-2021 Note [id number] 09-30-2020 NoteCustom Cystoscopy ? Voiding after [...] if you have a fever over 100 degrees.[facility] Evaluation note* Diagnosis Women's annual routine gynecological examination documented in this encounter [employer] Phone: evaluation note* Diagnosis Visit for gynecologic examination Routine gynecological examination documented [facility] Diagnosis Well adult health check- Primary Unspecified general medical examination Acquired hypothyroidism Unspecified hypothyroidism Overweight [facility] Diagnosis Hypothyroidism, unspecified [facility]* Diagnosis Hypothyroidism, unspecified [facility]* Diagnosis Hypothyroidism, unspecified documented in this encounter [facility] [employer] [facility] note* Diagnosis Well adult health check- Primary Unspecified general medical examination Acquired hypothyroidism Unspecified hypothyroidism Overweight Left hip pain Pain in joint, pelvic region and thigh Need for vaccination Need for prophylactic vaccination and inoculation against unspecified single disease documented in this encounter [facility]* Diagnosis Hypothyroidism, unspecified [facility] Narrative - Reported* Type Description Date Medical History Asthma Medical History Seasonal allergies Surgical History hysterectomy [employer] Other InstructionsNot on filedocumented in this encounter [facility] [employer] SystemInstructionsNot on filedocumented in this encounter [facility] System[facility]ructionsNot on filedocumented in this encounter [facility] [employer] SystemInstructionsNot on filedocumented in this encounter [facility] [employer] SystemInstructionsNot on filedocumented in this encounter 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 ACP-Advance Directive ACP-Power of Leadership Development Consultant Summary Purpose Family History No Family History Records FoundNo Family History Records FoundNo Family History Records FoundNo Family History Records FoundNo Family History Records FoundNo Family History Records Found Additional Source Comments INFORMATION SOURCE (unrecogn ized section and content) DATE CREATED AUTHOR 04/02/2021 Adi [facility] DATE CREATED AUTHOR AUTHOR'S ORGANIZ ATION 08/20/2021 [facility] DATE CREATED AUTHOR AUTHOR'S ORGANIZ ATION 05/03/2022 [facility] DATE CREATED AUTHOR AUTHOR'S ORGANIZ ATION 03/10/2024 [facility] DATE CREATED AUTHOR AUTHOR'S ORGANIZ ATION 09/16/2024 [facility] DATE CREATED AUTHOR AUTHOR'S ORGANIZ ATION 09/17/2024 [facility] REASON FOR VISIT (unrecogniz ed section and content) Reason Comments Annual Exam Sinus congestions 4 days. 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 Relationship Specialty Start Date End Date Celso Jimenez PCP - General 09/12/15 [employer] Relationship Specialty Start Date End Date Celso Jimenez DO [address] [place] [address] PCP - General Family Medicine 10/20/20 [employer] Relationship Specialty Start Date End Date Celso Jimenez DO [address], [place] [address] PCP - General Family Medicine 10/20/20 [employer] Relationship Specialty Start Date End Date Celso Jimenez DO [address], [place] [address] PCP - General Family Medicine 10/20/20 Package [employer] Relationship Specialty Start Date End Date Celso Jimenez DO [address] [place] [address] PCP - General Family Medicine 10/20/20 [employer] Relationship Specialty Start Date End Date Celso Jimenez DO [address] [place] [address] PCP - General Family Medicine 10/20/20 Package [employer] Relationship Specialty Start Date End Date Celso Jimenez DO [address] [place] [address] PCP - General Family Medicine 10/20/20 FOR [...] BE BASED ON THE PRIMARY CLINICAL RECORDS. [employer] [facility] provides no warranty or guarantee of the accuracy or completeness of information in this document.
== END 2024-11-07 09:55 | disposition home or self-care (01) ==
LOC: MAMMO 09:54
PROVIDERS: PCP Family Medicine; Visit Provider Obstetrics & Gynecology
DX: Z12.31 Encounter for screening mammogram for malignant neoplasm of breast (principal)
CPT/HCPCS: 77063; 77067